=== PATIENT | female | born 1990 | race Caucasian/White ===

== ENCOUNTER → 2017-10-04 12:32 | Outpatient (CLI) | payer OTHER, SELFPAY ==
--- NOTE | 2017-10-04 12:40 | RAD_ITS ---
STUDY: X-RAY - ACUTE ABDOMINAL SERIES REASON FOR EXAM: Female, 27 years old. Lower abdominal pain for 10 days with nausea, vomiting and diarrhea for about 6 days. TECHNIQUE: Single view of the chest. Supine and upright, 2 view(s) of the abdomen were obtained. COMPARISON: Prior chest radiograph of August 17, 2014 FINDINGS: The lungs are clear and expanded. Normal size heart. Normal mediastinum and rossi. Normal visualized pulmonary arteries. Normal visualized aortic arch and descending thoracic aorta. There is a non-specific bowel gas pattern. The soft tissue structures of the abdomen and pelvis are unremarkable. Normal visualized osseous structures. RAD/Acute Abd Inc Chest (Portable) IMPRESSION: Normal x-ray examination of the chest, abdomen, and pelvis. Electronically Signed: Lenore Isaac MD at 23:01 EDT , Service support ,
[2017-10-04 14:41] LABS: ALB/GLOB Ratio 0.9 RATIO (0.9-2.4); AST(SGOT) 19 U/L (15-37); Alanine Aminotransfer ALT/SGPT 26 U/L (13-56); Albumin, Serum 3.7 g/dL (3.2-5.0); Alkaline Phosphatase 147 U/L (45-117); Anion Gap 7 (5-15); BUN 17 mg/dL (7-18); BUN/Creat Ratio 19.3 RATIO (10-20); CRP 4.34 mg/L (0.0-3.0); Calcium,Total 8.7 mg/dL (8.5-10.1); Chloride 105 mmol/L (98-107); Creatinine, Serum 0.88 mg/dL (0.55-1.02); EST Glomerular Filtration Rate 81 mL/min (>60); Est Glom Filt Rate - Afr Amer 99 mL/min (>60); Globulin 4.1 g/dL (2.2-4.2); Glucose 84 mg/dL (74-106); Potassium 4.2 mmol/L (3.5-5.1); Protein, Total 7.8 g/dL (6.4-8.2); Sodium Level 139 mmol/L (136-145)
== END ==
PROVIDERS: Family Provider Family Medicine; PCP Family Medicine; Visit Provider Family Medicine
DX: R10.30 Lower abdominal pain, unspecified (principal); R19.7 Diarrhea, unspecified
CPT/HCPCS: 36415; 74022; 80053; 86140

== ENCOUNTER → 2017-10-04 14:23 | Outpatient (CLI) | payer OTHER, SELFPAY | PROVIDERS: Family Provider Family Medicine; PCP Family Medicine; Visit Provider Family Medicine | DX: R82.90 Unspecified abnormal findings in urine (principal) | CPT/HCPCS: 87086; 87088 ==

== ENCOUNTER 2018-04-08 07:53 | Outpatient (RCR) | payer OTHER, SELFPAY ==
--- NOTE | 2018-04-08 08:52 | HP.PTEVAL_ITS ---
Patient's Visit Information JAHAIRA GENTILE is a 27 year old F referred to Physical Therapy by Bigg Flynn DPM with a diagnosis of B plantarfascitis. Date of Evaluation: 04/08/18 Physical Therapist: Jonathan Gentile PT, - Visit Plan Frequency: 2-3x /Week Duration: 3 Weeks Plan: B foot stretching, DTR, stick roll out, US, and CP - Subjective Subjective: Pt reports she has been in pain for over 3 months. Pt reports she had xrays taken, and they never told her the results so she thinks they were normal. Pt reports she had this before and was placed in an orthopedic boot. Pt reports she does wear insoles in her shoes that she purchased over the counter. Pt reports her pain is constant in nature, although her pain intensity varies based on her acitivty being performed. Pt reports prolonged walking, like when she goes to get groceries, causes her increased pain. No T or N in LE's on this date. Pt reports no sleep difficulty secondary to pain. L is worse than R foot. L foot pain is 6/10 at rest, 10/10 at worst. - Pain B feet Pain Intensity (Out of 10): 6 Pain Intensity Range: 10 Comment: L foot is worse than R foot - Objective Neuro: B LE sensation is WNL to light touch. Palpation: Pt is very tender on the ant portion of her bilat calcaneous. No obvious deformity. ROM: R foot DF= 0, PF= 62; L foot DF= -15, PF= 62 degrees. MMT: B ankles are 5/5 throughout. Foot posture: Pt is pes cavus bilaterally - Goals Goal 1:: Decrease B foot pain x 50% to aid with increasing tolerance for gait Goal Time Frame: 2-4 Weeks Goal 2:: Pt will be able to perform her normal grocery shopping without being limited by pain Goal Time Frame: 2-4 Weeks Goal 3:: I with HEP Goal Time Frame: 2-4 Weeks - Rehabilitation Potential Physical Therapy Diagnosis: Pt has B foot pain and difficulty with walking prolonged distance secondary to B plantarfascitis Rehabilitation Potential: Good - Anticipated Interventions Patient/Client Instruction: Educate patient on: Condition, Plan of Care For the Purpose of:: To improve self management Manual Therapy Techniques to Include: Soft tissue mobilization For the Purpose of:: To decrease pain Cryotherapy (ice pack, ice massage): Yes Ultrasound (thermal/non thermal): Yes For the Purpose of:: To decrease pain Thank you for the opportunity to evaluate your patient. For Medicare and Medicare HMO plans, please review the plan of care and approve it. It will need to be FAXED BACK to us at [phone] for Medicare purposes. Please let me know if there are questions or concerns regarding this plan of care. Physician Signature: ___Date:
--- NOTE | 2018-07-29 10:34 | HP.PT.NRP ---
HP - Discharge Summary (1) - Patient Information JAHAIRA GENTILE was seen in my office for initial evaluation on 04/08/18. The following Plan of Care was established for this patient: Initial Frequency: 2-3x /Week Initial Duration: 3 Weeks - Anticipated Interventions Patient/Client Instruction: Educate patient on: Condition, Plan of Care For the Purpose of:: To improve self management Manual Therapy Techniques to Include: Soft tissue mobilization For the Purpose of:: To decrease pain Cryotherapy (ice pack, ice massage): Yes Ultrasound (thermal/non thermal): Yes For the Purpose of:: To decrease pain This patient was last seen in our office . Pertinent comments regarding their Physical therapy will appear below: Pt was last seen for her B foot pain on the date of 04/21/18 for her 5th PT visit. Pt has not returned through todays date, and is therefore discontinued at this time At this point I will be discontinuing this patient from physical therapy. I would be happy to see this patient again in the future if found appropriate by the physician. Thank you! Jonathan Gentile, PT, ATC
== END 2018-04-08 19:00 | disposition home or self-care (01) ==
LOC: PT 07:53
PROVIDERS: Family Provider Family Medicine; PCP Family Medicine; Referring Provider Podiatrist Foot & Ankle Surgery; Visit Provider Podiatrist Foot & Ankle Surgery
DX: M72.2 Plantar fascial fibromatosis (principal)
CPT/HCPCS: 97162

== ENCOUNTER → 2018-06-05 13:43 | Outpatient (CLI) | payer OTHER, SELFPAY ==
[2017-07-10 17:04] VITALS: BMI 33.5
[2018-06-07 09:19] LABS: Hep B Surface Antibodies Reactive (.)
--- OUTSIDE RECORDS SUMMARY | 2018-07-31 18:20 | XMS RPT_ITS ---
:1990 Author Organization OHIP Care Team Providers Name Role Phone DEIRDRE MAIER (MINERVA) Attending Unavailable DEIRDRE MAIER (MINERVA) Attending Unavailable LAURA LOPEZ Attending Unavailable DEIRDRE MAIER (MINERVA) Referring Unavailable SILVANA MORATAYA Attending Unavailable DEIRDRE MAIER (MINERVA) Attending Unavailable DEIRDRE MAIER (MINERVA) Referring Unavailable LAURA LOPEZ Attending Unavailable DEIRDRE MAIER (ALESIAM) Referring Unavailable DEIRDRE MAIER (MINERVA) Referring Unavailable SILVANA MORATAYA Attending Unavailable GREGORIA MONTENEGRO Attending Unavailable CATRINA SARAH GREGORIA Referring Unavailable KAPUTTAMMI ([facility]) Referring Unavailable ALAYNA TAVAREZ ([facility]) Attending Unavailable KAPTAMMI GAMEZ ([facility]) Referring Unavailable MADIHAARELY ([facility]) Attending Unavailable MADIHA, ARELY ([facility]) Referring Unavailable NEEMILIANO SARAH, GREGORIA Attending Unavailable LAURA LOPEZ Attending Unavailable MARCELINO MONTENEGRORE Referring Unavailable TESTRAKE, SENIA Attending Unavailable SHANEL ROMO Referring Unavailable TESTRAKE, SENIA Attending Unavailable TESTRAKE, SENIA Referring Unavailable TESTRAKE, SENIA Attending Unavailable TESTRAKE, SENIA Referring Unavailable [facility] Unavailable Silvana Morataya Admitting Unavailable Silvana Morataya Attending Unavailable Adal Dorantes Attending Unavailable Adal Dorantes Referring Unavailable [facility] Unavailable Adal Dorantes Attending Un[facility] Unavailable Testrake, Senia Attending Unavailable [facility] Unavailable Testrake, Senia Referring [facility] Unavailable [facility] Unavailable PROBLEMS PROBLEMS DATE TYPE CONDITION / CODE ATTENDING STATUS SOURCE 05/20/2018 Unknown 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, 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 / Hospital M72.2(ICD-10) Repository 02/12/2018 Active Irregular NA Active [facility] menstruation, [place] unspecified / Repository N92.6(ICD-10) 01/03/2018 Active 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, (TRANSPORTATION JOB TITLES) [place] unspecified / Repository L73.9(ICD-10) 10/04/2017 Unknown R10.30 - Lower Adal Dorantes Active [place] [facility] pain, [facility] unspecified / Hospital R10.30(ICD-10) Repository 10/03/2017 Active Lower abdominal NA Active [facility] pain, unspecified / [place] R10.30(ICD-10) Repository 08/19/2017 Active Unknown / NEY[place]ART Active [facility] UNK(Unknown) SARAH, [place] GREGORIA Repository 07/16/2017 Active Pelvic and perineal NA Active [facility] pain / [place] R10.2(ICD-10) Repository 07/15/2017 Unknown O80 - Encounter for Silvana Morataya Active [place] full-term [facility] uncomplicated Hospital delivery / Repository O80(ICD-10) 07/05/2017 Active 38 weeks gestation DEIRDRE MAIER Active [facility] of / ([facility]) [facility] Z3A.38(ICD-10) Repository 05/14/2017 Active Encounter for DEIRDRE MAIER Active [facility] supervision of ([facility]) [facility] normal first Repository , third trimester / Z34.03(ICD-10) 06/26/2017 Active 37 weeks gestation DEIRDRE MAIER Active [facility] of / ([facility]) [facility] Z3A.37(ICD-10) Repository PROCEDURES PROCEDURES No Procedure Records FoundRESULTS RESULTS HEP B SURFACE Collected: 06/05/2018 Status: F Source: [place] ANTIBODIES 1:45 PM [facility] [place] CODE TESTS RESULT OUT OF RANGE REFERENCE UNITS LAB L3100.0528 . Normal Hep B Reactive Christiano AB Result Comment: Non Reactive: Inconsistent with immunity, less than 10 mIU/mL Reactive: Consistent with immunity, greater than 9.9 mIU/mL Performed at: - [facility] [address] [id number] [employer] Checker: Anibal Scruggs PhD, Phone: [phone] Performed By: #### [id number] #### [facility] (refer to report for specific site) refer to report for address and phone number PROGRESS Observed: 06/03/2018 Status: COMPLETED Source: MES[place] 8:54 AM [facility] REPOSITORY HNO ID: [id number] Author: Senia Dee Service: (none) Author Type: Physician Type: Progress Notes Filed: 06/03/2018 11:52 AM Note Text: Follow up podiatric office visit for: Chief Complaint: This 27 year old who presents for follow up:b/l arch pain L>R Patient continues with stretching, occasional advil, night splint and icing prn. She had been using the powersteps but feels the powersteps cause more pressure along the arch so she has discontinued this. This has been doing therapy which consists of ultrasound and massage. She does not feel the therapy is making a significant reduction in her pain. The right foot does hurt her but it is not as bad. PAIN EVALUATION 06/03/2018 Pain Score: 4 Pain Location: - Bilateral arches Description: Throbbing Duration Amount of Time: - ongoing Frequency: Continuous Intervention: - Powersteps No results found for: HBA1C PCP: Zaire Sanderson MD PAST MEDICAL HISTORY Diagnosis Date - Asthma - fracture right shoulder, soccer accident Current Outpatient Prescriptions: COMPOUNDED PRESCRIPTION Powerstep full length original(M72.2) Plantar fasciitis, bilateral (primary encounter diagnosis) ibuprofen (MOTRIN) 800 mg tablet Take 800 mg by mouth every 6 hours as needed. ALBUTEROL SULFATE INHALATION Inhale as instructed. methylPREDNISolone (MEDROL, CHRIS,) 4 mg Dose-Pack Take as directed (Patient not taking: Reported on 04/30/2018 ) medroxyPROGESTERone (PROVERA) 5 mg tablet Take 1 tablet by mouth once daily. (Patient not taking: Reported on 04/02/2018 ) No current facility-administered medications for this visit. ALLERGIES Allergen Reactions - Adhesive Hives PAST SURGICAL HISTORY Procedure Laterality Date - BUNION CORRECTION W/METATARSAL OSTEOTOMY 2012 bilatereal foot surgery. - COLONOSCOPY W/BX 10/05/14 normal TI, normal colonoscopy [facility] 10/05/14 minimal reflux esophagitis, o/w normal - PAST SURGICAL HISTORY OF Left 06/2015 removal of screws from prior foot surgery - PAST SURGICAL HISTORY OF Right 01/2016 scope and shave of bone shoulder REVIEW OF SYSTEMS: CONSTITUTIONAL: No fevers, chills, nightsweats, unintended weight loss HEENT: Denies frequent or severe heaches, nasal congestion/sinus symptoms, problematic allergy problems. EYES: No diplopia or blurry vision. CARDIOVASCULAR: No chest pain, dyspnea, palpitations, orthopnea, PND, ankle edema. PULM: No dyspnea, unexplained cough. GI: No dysphagia/odynophagia, problematic reflux, constipation, diarrhea, changes in stool habits, hematochezia, melena. : No new urinary complaints, including dysuria, gross hematuria or pyuria. NEURO: No new balance problems, peripheral weakness/paresthesias or numbness of concern. MUSC-SKEL: Pain of left medial arch PSY: No concerns regarding depression, anxiety or panic. INTEGUMENTARY: No new skin changes (rash, new or changing mole, new growth) Physical Exam: Constitutional: Pt is a well developed 27 year old female who is alert, oriented, cooperative and in no apparent distress. OBJECTIVE: NVSI unchanged from previous visit. Dermatological: Nails 1-5 b/l are normal. Webspaces clean and dry 1-4 b/l. Skin appears well hydrated and supple. good color, texture, turgor. No open lesions present. No callosities present. Musculoskeletal/Orthopaedic: Patient has pain to palpation of left medial calcaneal tubercle. Patient has pain to palpation of left medial band of plantar fascia. - tinel to b/l foot Plantarflexion, dorsiflexion, inversion and eversion is 5/5 ASSESSMENT: (M72.2) Plantar fasciitis, bilateral (primary encounter diagnosis) PLAN: 1. History and physical examination completed today. 2. Discussed pain of b/l foot. Right foot pain has improved. Left foot pain is still present despite stretching, icing, nsaids, inserts, physical therapy, night splint. Discussed injection. Since most of her pain is along the medial band of plantar fascia, recommend boot immobilization. While injection may help with pain at medial calcaneal tubercle, most of her pain is along the fascia so I suspect rest and nsaids may be better option. 3. F/u in 3 weeks. If no improvement, consider mri. Senia Dee DPM PROGRESS Observed: 06/03/2018 Status: COMPLETED Source: MESA 8:43 AM [facility] REPOSITORY HNO ID: [id number] Author: Margie Rees Ma Service: (none) Author Type: (none) Type: Progress Notes Filed: 06/03/2018 11:52 AM Note Text: Patient presents with: Established Patient: 1 month follow up bilateral plantar fasciitis AMB ROOMING INTAKE FLOWSHEET DATA Risk Screening Do you have concerns about personal safety or safety in the home?: No Pain Pain Score: 4/10 Pain Location: (Bilateral arches) Description: Throbbing Duration Amount of Time: (ongoing) Frequency: Continuous Intervention: (Powersteps) Patient states she is continuing to have pain in her arches and is going up into her ankles. Wearing powersteps but states it is putting a lot of pressure on her arches. Taking no med's for the pain. CNOV Observed: 06/03/2018 Status: COMPLETED Source: MESA 8:40 AM [facility] REPOSITORY Office Visit (PODIWS) JAHAIRA VELASQUEZ ([id number]) 1990 F [facility] Date Time Provider Department 06/03/18 8:40 AM SENIA DEE PODBLOSSOM During your visit today, we recorded the following information about you: Margie Cabrera Carlisle 06/03/2018 11:52 AM Signed Patient presents with: Established Patient: 1 month follow up bilateral plantar fasciitis AMB ROOMING INTAKE FLOWSHEET DATA Risk Screening Do you have concerns about personal safety or safety in the home?: No Pain Pain Score: 4/10 Pain Location: (Bilateral arches) Description: Throbbing Duration Amount of Time: (ongoing) Frequency: Continuous Intervention: (Powersteps) Patient states she is continuing to have pain in her arches and is going up into her ankles. Wearing powersteps but states it is putting a lot of pressure on her arches. Taking no med's for the pain. Senia Dee DPM 06/03/2018 11:52 AM Signed Follow up podiatric office visit for: Chief Complaint: This 27 year old who presents for follow up:b/l arch pain L>R Patient continues with stretching, occasional advil, night splint and icing prn. She had been using the powersteps but feels the powersteps cause more pressure along the arch so she has discontinued this. This has been doing therapy which consists of ultrasound and massage. She does not feel the therapy is making a significant reduction in her pain. The right foot does hurt her but it is not as bad. PAIN EVALUATION 06/03/2018 Pain Score: 4 Pain Location: - Bilateral arches Description: Throbbing Duration Amount of Time: - ongoing Frequency: Continuous Intervention: - Powersteps No results found for: HBA1C PCP: Zaire Sanderson MD PAST MEDICAL HISTORY Diagnosis Date - Asthma - fracture right shoulder, soccer accident Current Outpatient Prescriptions: COMPOUNDED PRESCRIPTION Powerstep full length original(M72.2) Plantar fasciitis, bilateral (primary encounter diagnosis) ibuprofen (MOTRIN) 800 mg tablet Take 800 mg by mouth every 6 hours as needed. ALBUTEROL SULFATE INHALATION Inhale as instructed. methylPREDNISolone (MEDROL, CHRIS,) 4 mg Dose-Pack Take as directed (Patient not taking: Reported on 04/30/2018 ) medroxyPROGESTERone (PROVERA) 5 mg tablet Take 1 tablet by mouth once daily. (Patient not taking: Reported on 04/02/2018 ) No current facility-administered medications for this visit. ALLERGIES Allergen Reactions - Adhesive Hives PAST SURGICAL HISTORY Procedure Laterality Date - BUNION CORRECTION W/METATARSAL OSTEOTOMY 2012 bilatereal foot surgery. - COLONOSCOPY W/BX 10/05/14 normal TI, normal colonoscopy - EGD W/O [facility] SPECIMEN W/BX 10/05/14 minimal reflux esophagitis, o/w normal - PAST SURGICAL HISTORY OF Left 06/2015 removal of screws from prior foot surgery - PAST SURGICAL HISTORY OF Right 01/2016 scope and shave of bone shoulder REVIEW OF SYSTEMS: CONSTITUTIONAL: No fevers, chills, nightsweats, unintended weight loss HEENT: Denies frequent or severe heaches, nasal congestion/sinus symptoms, problematic allergy problems. EYES: No diplopia or blurry vision. CARDIOVASCULAR: No chest pain, dyspnea, palpitations, orthopnea, PND, ankle edema. PULM: No dyspnea, unexplained cough. GI: No dysphagia/odynophagia, problematic reflux, constipation, diarrhea, changes in stool habits, hematochezia, melena. : No new urinary complaints, including dysuria, gross hematuria or pyuria. NEURO: No new balance problems, peripheral weakness/paresthesias or numbness of concern. MUSC-SKEL: Pain of left medial arch PSY: No concerns regarding depression, anxiety or panic. INTEGUMENTARY: No new skin changes (rash, new or changing mole, new growth) Physical Exam: Constitutional: Pt is a well developed 27 year old female who is alert, oriented, cooperative and in no apparent distress. OBJECTIVE: NVSI unchanged from previous visit. Dermatological: Nails 1-5 b/l are normal. Webspaces clean and dry 1-4 b/l. Skin appears well hydrated and supple. good color, texture, turgor. No open lesions present. No callosities present. Musculoskeletal/Orthopaedic: Patient has pain to palpation of left medial calcaneal tubercle. Patient has pain to palpation of left medial band of plantar fascia. - tinel to b/l foot Plantarflexion, dorsiflexion, inversion and eversion is 5/5 ASSESSMENT: (M72.2) Plantar fasciitis, bilateral (primary encounter diagnosis) PLAN: 1. History and physical examination completed today. 2. Discussed pain of b/l foot. Right foot pain has improved. Left foot pain is still present despite stretching, icing, nsaids, inserts, physical therapy, night splint. Discussed injection. Since most of her pain is along the medial band of plantar fascia, recommend boot immobilization. While injection may help with pain at medial calcaneal tubercle, most of her pain is along the fascia so I suspect rest and nsaids may be better option. 3. F/u in 3 weeks. If no improvement, consider mri. MERCEDEZ Boyd RN 06/03/2018 9:00 AM Signed Start wearing boot. Referring Provider: SENIA DEE [[id number]] Allergies As of Date: 06/03/2018 Noted Allergy Reaction ADHESIVE 08/08/2015 4 - Hives Date Reviewed: 06/03/2018 Reviewed by: Margie Rees Ma - Fully Assessed Reason for Visit: Established Patient [175] Cmt: 1 month follow up bilateral plantar fasciitis Primary Visit Diagnosis:Plantar fasciitis, bilateral [M72.2] Prescriptions as of 06/03/2018 Sig: COMPOUNDED PRESCRIPTION Powerstep full length origina* IBUPROFEN 800 MG TABLET Take 800 mg by mouth every 6 * ALBUTEROL SULFATE INHALATION Inhale as instructed. METHYLPREDNISOLONE 4 MG TABLE* Take as directed Patient not taking: Reported on 04/30/2018 MEDROXYPROGESTERONE 5 MG TABL* Take 1 tablet by mouth once d* Patient not taking: Reported on 04/02/2018 Problem List As Of Date 06/03/2018 Noted Resolved Blood in stool [K92.1] INVALID FOR*01/14/2017 Abdominal pain, right lower quadrant [R10.31] INVALID FOR*01/14/2017 Asthma [J45.909] INVALID FOR* More... Encounter for supervision of normal first pregn*INVALID FOR*08/19/2017 History of foreign travel [Z78.9] INVALID FOR*08/19/2017 More... Rh negative state in antepartum period [O09.899]INVALID FOR*08/19/2017 More... Intrauterine growth restriction (IUGR) affectin*INVALID FOR*08/19/2017 Other instructions from your clinician: Start wearing boot. Disposition: Return in about 3 weeks (around 06/24/2018) for plantar fasciitis. Follow-up and Disposition History Recorded Encounter Status:Closed by SENIA DEE DPM on 06/03/18 CNOV Observed: 04/30/2018 Status: COMPLETED Source: MESA 3:40 PM [facility] REPOSITORY Office Visit (PODIWS) JAHAIRA VELASQUEZ ([id number]) 1990 F [place] Date Time Provider Department 04/30/18 3:40 PM SENIA DEE PODIWS During your visit today, we recorded the following information about you: Josi Sr RN 04/30/2018 3:38 PM Signed AMB ROOMING INTAKE FLOWSHEET DATA Risk Screening Do you have concerns about personal safety or safety in the home?: No Pain Pain Score: 3/10 (3-8/10) Pain Location: Foot-Left Description: Aching, Sharp Duration Amount of Time: 3 Duration Units: Months Frequency: Continuous Intervention: Relaxation, Other: See comment (PT, stretching, inserts, ice. steroid, night splint) Patient is here for f/u of plantar fasciitis, B/L. She states R foot is better but still having pain in L foot that varies in intensity. She has been icing, stretching, taking NSAIDS, oral steroid and tried a night splint but nothing so far is helping. She is currently in PT which consists of stretches and US massage. Senia Dee DPM 04/30/2018 3:38 PM Signed Follow up podiatric office visit for: Chief Complaint: This 27 year old who presents for follow up:b/l arch pain Patient has been doing stretching, icing, nsaids, therapy with ultrasound, night splint and inserts. Patient states the pain in right foot is very minimal Patient states the left foot pain is still very much present and varies between 3-8/10. She describes the pain to left foot is along the medial band of plantar fascia. PAIN EVALUATION 04/30/2018 Pain Score: 3 3-8/10 Pain Location: Foot-Left Description: Aching;Sharp Duration Amount of Time: 3 Duration Units: Months Frequency: Continuous Intervention: Relaxation;Other: See comment PT, stretching, inserts, ice. steroid, night splint No results found for: HBA1C PCP: Zaire Sanderson MD PAST MEDICAL HISTORY Diagnosis Date - Asthma - fracture right shoulder, soccer accident Current Outpatient Prescriptions: COMPOUNDED PRESCRIPTION Powerstep full length original(M72.2) Plantar fasciitis, bilateral (primary encounter diagnosis) ibuprofen (MOTRIN) 800 mg tablet Take 800 mg by mouth every 6 hours as needed. ALBUTEROL SULFATE INHALATION Inhale as instructed. methylPREDNISolone (MEDROL, CHRIS,) 4 mg Dose-Pack Take as directed (Patient not taking: Reported on 04/30/2018 ) medroxyPROGESTERone (PROVERA) 5 mg tablet Take 1 tablet by mouth once daily. (Patient not taking: Reported on 04/02/2018 ) No current facility-administered medications for this visit. ALLERGIES Allergen Reactions - Adhesive Hives PAST SURGICAL HISTORY Procedure Laterality Date - BUNION CORRECTION W/METATARSAL OSTEOTOMY 2012 bilatereal foot surgery. - COLONOSCOPY W/BX 10/05/14 normal TI, normal colonoscopy - EGD W/O [facility] SPECIMEN W/BX 10/05/14 minimal reflux esophagitis, o/w normal - PAST SURGICAL HISTORY OF Left 06/2015 removal of screws from prior foot surgery - PAST SURGICAL HISTORY OF Right 01/2016 scope and shave of bone shoulder Physical Exam: Constitutional: Pt is a well developed 27 year old female who is alert, oriented, cooperative and in no apparent distress. OBJECTIVE: NVSI unchanged from previous visit. Dermatological: Nails 1-5 b/l are normal. Webspaces clean and dry 1-4 b/l. Skin appears well hydrated and supple. good color, texture, turgor. No open lesions present. No callosities present. Musculoskeletal/Orthopaedic: Patient has pain to palpation of left medial band of plantar fascia - tinel There is lowering of medial arch of left foot Plantarflexion, dorsiflexion, inversion and eversion is 5/5 No pain to right foot ASSESSMENT: (M72.2) Plantar fasciitis, bilateral (primary encounter diagnosis) PLAN: 1. History and physical examination completed today. 2. Patient right arch pain has improved with oral steroid, stretching, icing, powerstep inserts. Her left arch pain is still present. Most of her pain is along fascia. There is some pain along medial calcaneal tubercle. Suggest continue with stretching, icing, nsaids, inserts, night splint, therapy. I offered injectoin to medial heel today but she declined. 3. Will have her f/u in 1 month. If no improvement, consider boot Senia Dee DPM Referring Provider: SENIA DEE [[id number]] Allergies As of Date: 04/30/2018 Noted Allergy Reaction ADHESIVE 08/08/2015 4 - Hives Date Reviewed: 04/30/2018 Reviewed by: Josi Sr RN - Fully Assessed Reason for Visit: Follow Up [171] Primary Visit Diagnosis:Plantar fasciitis, bilateral [M72.2] Prescriptions as of 04/30/2018 Sig: COMPOUNDED PRESCRIPTION Powerstep full length origina* IBUPROFEN 800 MG TABLET Take 800 mg by mouth every 6 * ALBUTEROL SULFATE INHALATION Inhale as instructed. METHYLPREDNISOLONE 4 MG TABLE* Take as directed Patient not taking: Reported on 04/30/2018 MEDROXYPROGESTERONE 5 MG TABL* Take 1 tablet by mouth once d* Patient not taking: Reported on 04/02/2018 Problem List As Of Date 04/30/2018 Noted Resolved Blood in stool [K92.1] INVALID FOR*01/14/2017 Abdominal pain, right lower quadrant [R10.31] INVALID FOR*01/14/2017 Asthma [J45.909] INVALID FOR* More... Encounter for supervision of normal first pregn*INVALID FOR*08/19/2017 History of foreign travel [Z78.9] INVALID FOR*08/19/2017 More... Rh negative state in antepartum period [O09.899]INVALID FOR*08/19/2017 More... Intrauterine growth restriction (IUGR) affectin*INVALID FOR*08/19/2017 Disposition: Return in about 1 month (around 05/31/2018) for plantar fasciitis. Follow-up and Disposition History Recorded Encounter Status:Closed by SENIA DEE DPM on 04/30/18 PROGRESS Observed: 04/30/2018 Status: COMPLETED Source: MESA 3:27 PM [facility] [place] REPOSITORY HNO ID: [id number] Author: Senia Dee Service: (none) Author Type: Physician Type: Progress Notes Filed: 04/30/2018 3:38 PM Note Text: Follow up podiatric office visit for: Chief Complaint: This 27 year old who presents for follow up:b/l arch pain Patient has been doing stretching, icing, nsaids, therapy with ultrasound, night splint and inserts. Patient states the pain in right foot is very minimal Patient states the left foot pain is still very much present and varies between 3-8/10. She describes the pain to left foot is along the medial band of plantar fascia. PAIN EVALUATION 04/30/2018 Pain Score: 3 3-8/10 Pain Location: Foot-Left Description: Aching;Sharp Duration Amount of Time: 3 Duration Units: Months Frequency: Continuous Intervention: Relaxation;Other: See comment PT, stretching, inserts, ice. steroid, night splint No results found for: HBA1C PCP: Zaire Sanderson MD PAST MEDICAL HISTORY Diagnosis Date - Asthma - fracture right shoulder, soccer accident Current Outpatient Prescriptions: COMPOUNDED PRESCRIPTION Powerstep full length original(M72.2) Plantar fasciitis, bilateral (primary encounter diagnosis) ibuprofen (MOTRIN) 800 mg tablet Take 800 mg by mouth every 6 hours as needed. ALBUTEROL SULFATE INHALATION Inhale as instructed. methylPREDNISolone (MEDROL, CHRIS,) 4 mg Dose-Pack Take as directed (Patient not taking: Reported on 04/30/2018 ) medroxyPROGESTERone (PROVERA) 5 mg tablet Take 1 tablet by mouth once daily. (Patient not taking: Reported on 04/02/2018 ) No current facility-administered medications for this visit. ALLERGIES Allergen Reactions - Adhesive Hives PAST SURGICAL HISTORY Procedure Laterality Date - BUNION CORRECTION W/METATARSAL OSTEOTOMY 2012 bilatereal foot surgery. - COLONOSCOPY W/BX 10/05/14 normal TI, normal colonoscopy - EGD W/O [facility] SPECIMEN W/BX 10/05/14 minimal reflux esophagitis, o/w normal - PAST SURGICAL HISTORY OF Left 06/2015 removal of screws from prior foot surgery - PAST SURGICAL HISTORY OF Right 01/2016 scope and shave of bone shoulder Physical Exam: Constitutional: Pt is a well developed 27 year old female who is alert, oriented, cooperative and in no apparent distress. OBJECTIVE: NVSI unchanged from previous visit. Dermatological: Nails 1-5 b/l are normal. Webspaces clean and dry 1-4 b/l. Skin appears well hydrated and supple. good color, texture, turgor. No open lesions present. No callosities present. Musculoskeletal/Orthopaedic: Patient has pain to palpation of left medial band of plantar fascia - tinel There is lowering of medial arch of left foot Plantarflexion, dorsiflexion, inversion and eversion is 5/5 No pain to right foot ASSESSMENT: (M72.2) Plantar fasciitis, bilateral (primary encounter diagnosis) PLAN: 1. History and physical examination completed today. 2. Patient right arch pain has improved with oral steroid, stretching, icing, powerstep inserts. Her left arch pain is still present. Most of her pain is along fascia. There is some pain along medial calcaneal tubercle. Suggest continue with stretching, icing, nsaids, inserts, night splint, therapy. I offered injectoin to medial heel today but she declined. 3. Will have her f/u in 1 month. If no improvement, consider piyushot Senia Dee DPM PROGRESS Observed: 04/30/2018 Status: COMPLETED Source: [place] 3:22 PM [facility] REPOSITORY HNO ID: [id number] Author: Josi Sr RN Service: (none) Author Type: (none) Type: Progress Notes Filed: 04/30/2018 3:38 PM Note Text: AMB ROOMING INTAKE FLOWSHEET DATA Risk Screening Do you have concerns about personal safety or safety in the home?: No Pain Pain Score: 3/10 (3-8/10) Pain Location: Foot-Left Description: Aching, Sharp Duration Amount of Time: 3 Duration Units: Months Frequency: Continuous Intervention: Relaxation, Other: See comment (PT, stretching, inserts, ice. steroid, night splint) Patient is here for f/u of plantar fasciitis, B/L. She states R foot is better but still having pain in L foot that varies in intensity. She has been icing, stretching, taking NSAIDS, oral steroid and tried a night splint but nothing so far is helping. She is currently in PT which consists of stretches and US massage. INITAL EVALUATION (1) Observed: 04/08/2018 Status: F Source: [place] - PT 8:52 AM [facility] [place] [facility] [address] [place] [address] Fax REHABILITATION SERVICES INITIAL EVALUATION MR#: [id number] Acct: [id number] Name: JAHAIRA VELASQUEZ Rep #: [id number] : 1990 27 From: Jonathan Velasquez PT, ATC Referring Dr.: MERCEDEZ Dee Status: REG RCR Insurance: [employer] [facility] [employer] Patient's Visit Information JAHAIRA VELASQUEZ is a 27 year old F referred to Physical Therapy by Senia Dee DPM with a diagnosis of B plantarfascitis. Date of Evaluation: 04/08/18 Physical Therapist: Jonathan Velasquez PT, - Visit Plan Frequency: 2-3x /Week Duration: 3 Weeks Plan: B foot stretching, DTR, stick roll out, US, and CP - Subjective Subjective: Pt reports she has been in pain for over 3 months. Pt reports she had xrays taken, and they never told her the results so she thinks they were normal. Pt reports she had this before and was placed in an orthopedic boot. Pt reports she does wear insoles in her shoes that she purchased over the counter. Pt reports her pain is constant in nature, although her pain intensity varies based on her acitivty being performed. Pt reports prolonged walking, like when she goes to get groceries, causes her increased pain. No T or N in LE's on this date. Pt reports no sleep difficulty secondary to pain. L is worse than R foot. L foot pain is 6/10 at rest, 10/10 at worst. - Pain B feet Pain Intensity (Out of 10): 6 Pain Intensity Range: 10 Comment: L foot is worse than R foot - Objective Neuro: B LE sensation is WNL to light touch. Palpation: Pt is very tender on the ant portion of her bilat calcaneous. No obvious deformity. ROM: R foot DF= 0, PF= 62; L foot DF= -15, PF= 62 degrees. MMT: B ankles are 5/5 throughout. Foot posture: Pt is pes cavus bilaterally - Goals Goal 1:: Decrease B foot pain x 50% to aid with increasing tolerance for gait Goal Time Frame: 2-4 Weeks Goal 2:: Pt will be able to perform her normal grocery shopping without being limited by pain Goal Time Frame: 2-4 Weeks Goal 3:: I with HEP Goal Time Frame: 2-4 Weeks - Rehabilitation Potential Physical Therapy Diagnosis: Pt has B foot pain and difficulty with walking prolonged distance secondary to B plantarfascitis Rehabilitation Potential: Good - Anticipated Interventions Patient/Client Instruction: Educate patient on: Condition, Plan of Care For the Purpose of:: To improve self management Manual Therapy Techniques to Include: Soft tissue mobilization For the Purpose of:: To decrease pain Cryotherapy (ice pack, ice massage): Yes Ultrasound (thermal/non thermal): Yes For the Purpose of:: To decrease pain Thank you for the opportunity to evaluate your patient. For Medicare and Medicare HMO plans, please review the plan of care and approve it. It will need to be FAXED BACK to us at [phone] for Medicare purposes. Please let me know if there are questions or concerns regarding this plan of care. Physician Signature: Date: <Electronically signed by Jonathan Velasquez PT, ATC> 04/08/18 0852 CC: MERCEDEZ Dee; Zaire Sanderson MD [facility] Signed For Medicare only, by signing this I certify the plan of care. Physicians Signature Date PROGRESS Observed: 04/02/2018 Status: COMPLETED Source: [place] 8:41 AM [facility] REPOSIT[facility] O ID: [id number] Author: Senia Dee Service: (none) Author Type: Physician Type: Progress Notes Filed: 04/02/2018 12:09 PM Note Text: ? Senia Dee DPM Department of Podiatry [address] [place] [address] Dept: [phone] Dept 04/02/[address] Room for an opinion regarding b/l heel pain. My final recommendations will be communicated back to the requesting physician by way of shared Medical record or letter to requesting physician via US mail. Initial Podiatric Office Visit: HPI: Jahaira Velasquez is a 27 year old female. Patient presents with:Bilateral foot pain, left greater then right for the past 3 months. Patient complains of constant pain. Pain is rated at 6/10, and described as stabbing, throbbing/pounding, sharp and tightness. Interventions include: NSIDS, ice and night splint with no relief. Patient no excerbating factors. Patient is not a smoker. Patient not a diabetic. Patient was seen by another Podiatist to see me. History of [place] Bunion surgery, /l 2012. Patient brought records. She has no pain to b/l 5th metatarsal s/p tailors bunion correction. Patient denies any recent steroid injection. Patient has had orthotics in the past but is not using them currently Patient has not had any therapy for the heel pain. Patient had plantar fasciitis in past and was treated with boot x 3 month The preliminary HPI obtained by the crown and bridge dental lab technician was explained in detail with the patient and my findings have been incorporated in the documentation. Senia Dee DPM PCP: Zaire Sanderson MD PAST MEDICAL HISTORY Diagnosis Date - Asthma - fracture right shoulder, soccer accident Current Outpatient Prescriptions: ALBUTEROL SULFATE INHALATION Inhale as instructed. medroxyPROGESTERone (PROVERA) 5 mg tablet Take 1 tablet by mouth once daily. (Patient not taking: Reported on 04/02/2018 ) ibuprofen (MOTRIN) 800 mg tablet Take 800 mg by mouth every 6 hours as needed. No current facility-administered medications for this visit. ALLERGIES Allergen Reactions - Adhesive Hives PAST SURGICAL HISTORY Procedure Laterality Date - BUNION CORRECTION W/METATARSAL OSTEOTOMY 2012 bilatereal foot surgery. - COLONOSCOPY W/BX 10/05/14 normal TI, normal colonoscopy - EGD W/O BRSH SPECIMEN W/BX 10/05/14 minimal reflux esophagitis, o/w normal - PAST SURGICAL HISTORY OF Left 06/2015 removal of screws from prior foot surgery - PAST SURGICAL HISTORY OF Right 01/2016 scope and shave of bone shoulder FAMILY HISTORY Problem Relation Age of Onset - Thyroid Mother - Hypertension Father - Heart Father - Breast Cancer Maternal Grandmother - Diabetes Maternal Grandmother - Heart Paternal Grandmother - Heart Paternal Grandfather - Heart Maternal Grandfather Social History Marital status: Spouse name: Earl Years of education: 19 Number of children: 0 Occupational History Occupation Employer Comment [employer] Social History Main Topics Smoking status: Never Smoker Smokeless tobacco: Never Used Alcohol use: No Drug use: No Sexual activity: Yes Partners with: Male REVIEW OF SYSTEMS: CONSTITUTIONAL: No fevers, chills, nightsweats, unintended weight loss HEENT: Denies frequent or severe heaches, nasal congestion/sinus symptoms, problematic allergy problems. EYES: No diplopia or blurry vision. CARDIOVASCULAR: No chest pain, dyspnea, palpitations, orthopnea, PND, ankle edema. PULM: No dyspnea, unexplained cough. GI: No dysphagia/odynophagia, problematic reflux, constipation, diarrhea, changes in stool habits, hematochezia, melena. : No new urinary complaints, including dysuria, gross hematuria or pyuria. NEURO: No new balance problems, peripheral weakness/paresthesias or numbness of concern. MUSC-SKEL: B/l heel pain PSY: No concerns regarding depression, anxiety or panic. INTEGUMENTARY: No new skin changes (rash, new or changing mole, new growth) Physical Exam: Constitutional: Pt is a well developed 27 year old female who is alert, oriented and cooperative Eyes: Following during examination. No redness or drainage. Respiratory: RR normal and nonlabored. Even breathing. No evidence of distress or shortness of breath. Psychology: Patient is engaged during conversation. Normal affect and mood. Does not appear depressed or anxious during encounter. Vascular: Dorsalis pedis and posterior tibial pulses palpable as b/l Capillary Fill time < 5 seconds to digits 1-5 b/l Skin temperature warm to warm proximal to distal b/l Hair growth present to digits Neurological: intact light touch/epicritic sensation - tinel b/l intact protective sensation, insignificant neurological deficits Dermatological: Nails 1-5 b/l appear Normal. Webspaces clean and dry 1-4 b/l. Skin appears well hydrated and supple. good color, texture, turgor. Callosities absent. .Open lesions absent. Wound: Not present. Musculoskeletal/Orthopaedic: Patient has pain to palpation of medial longitudinal arch b/l and some pain present to medial calcaneal tubercle Foot type is neutral structurally AJ ROM is full with knee extended and flexed 1st MPJ is full when loaded and no pain or crepitus are noted with ROM. MTJ, STJ are full and free of pain and crepitus. +5/5 muscle strength dorsiflexion, plantarflexion, inversion, eversion b/l ASSESSMENT: (M72.2) Plantar fasciitis, bilateral (primary encounter diagnosis) PLAN: 1. Initial Office Visit - A thorough review of the patient's PMH and Podiatric physical exam was completed. 2. Patient advised to perform stretching excercises, icing, and to make appropriate shoe gear changes to include wearing athletic- type shoes with supportive insoles. No barefoot walking. Patient also given written instructions on how to correctly perform the stretching of the achilles tendon/calf stretches, and the heel spur/plantar fasciitis regimen. 3. Patient advised to seek wide, deep toe box, accomodative, comfortable, lace-up, athletic/walking type footwear that includes motion control characteristics for support and cushion that need to be worn at all times when weight-bearing. Shoes should be tested for torsional stability as well as proper bending at the toebox rather than at the midfoot. Good quality shoes such as, but not limited to, New Balance or Asics are examples of more proper foot gear. 4. Patient recommended to get powerstep insoles for proper support of the arch in order to alleviate the tension and stress on the plantar fascia associated with normal daily walking. Patient advised that these modalities used in conjunction with stretching and icing are able to alleviate most symptoms from this condition. 5. I recommend she continue with nsaids as needed, stretching, use of inserts and referral to therapy. Oral steroid prescribed today. Discussed steroid injection. Her pain is mostly along the medial longitudinal arch and therefore, I would hold on injection for now in favor of recommendations noted above and therapy 6. F/u in 1 month Senia Dee DPM CNOV Observed: 04/02/2018 Status: COMPLETED Source: [facility] 8:10 AM [facility] REPOSITORY Office Visit (PODIWS) ALEXANDRU VELASQUEZCY Nuvia ([id number]) 1990 F MAL Date Time Provider Department 04/02/18 8:10 AM SENIA DEE During your visit today, we recorded the following information about you: Senia Dee DPM 04/02/2018 12:09 PM Signed ? Senia Dee DPM Department of Podiatry [address] [place] [address] Dept: [phone] Dept 04/02/[address] Romo for an opinion regarding b/l heel pain. My final recommendations will be communicated back to the requesting physician by way of shared Medical record or letter to requesting physician via US mail. Initial Podiatric Office Visit: HPI: Jahaira Velasquez is a 27 year old female. Patient presents with:Bilateral foot pain, left greater then right for the past 3 months. Patient complains of constant pain. Pain is rated at 6/10, and described as stabbing, throbbing/pounding, sharp and tightness. Interventions include: NSIDS, ice and night splint with no relief. Patient no excerbating factors. Patient is not a smoker. Patient not a diabetic. Patient was seen by another Podiatist to see me. History of [place] Bunion surgery, b/l 2012. Patient brought records. She has no pain to b/l 5th metatarsal s/p tailors bunion correction. Patient denies any recent steroid injection. Patient has had orthotics in the past but is not using them currently Patient has not had any therapy for the heel pain. Patient had plantar fasciitis in past and was treated with boot x 3 month The preliminary HPI obtained by the crown and bridge dental lab technician was explained in detail with the patient and my findings have been incorporated in the documentation. Senia Dee DPM PCP: Zaire Sanderson MD PAST MEDICAL HISTORY Diagnosis Date - Asthma - fracture right shoulder, soccer accident Current Outpatient Prescriptions: ALBUTEROL SULFATE INHALATION Inhale as instructed. medroxyPROGESTERone (PROVERA) 5 mg tablet Take 1 tablet by mouth once daily. (Patient not taking: Reported on 04/02/2018 ) ibuprofen (MOTRIN) 800 mg tablet Take 800 mg by mouth every 6 hours as needed. No current facility-administered medications for this visit. ALLERGIES Allergen Reactions - Adhesive Hives PAST SURGICAL HISTORY Procedure Laterality Date - BUNION CORRECTION W/METATARSAL OSTEOTOMY 2012 bilatereal foot surgery. - COLONOSCOPY W/BX 10/05/14 normal TI, normal colonoscopy - EGD W/O BRSH SPECIMEN W/BX 10/05/14 minimal reflux esophagitis, o/w normal - PAST SURGICAL HISTORY OF Left 06/2015 removal of screws from prior foot surgery - PAST SURGICAL HISTORY OF Right 01/2016 scope and shave of bone shoulder FAMILY HISTORY Problem Relation Age of Onset - Thyroid Mother - Hypertension Father - Heart Father - Breast Cancer Maternal Grandmother - Diabetes Maternal Grandmother - Heart Paternal Grandmother - Heart Paternal Grandfather - Heart Maternal Grandfather Social History Marital status: Spouse name: Earl Years of education: 19 Number of children: 0 Occupational History Occupation Employer Comment [employer] Social History Main Topics Smoking status: Never Smoker Smokeless tobacco: Never Used Alcohol use: No Drug use: No Sexual activity: Yes Partners with: Male REVIEW OF SYSTEMS: CONSTITUTIONAL: No fevers, chills, nightsweats, unintended weight loss HEENT: Denies frequent or severe heaches, nasal congestion/sinus symptoms, problematic allergy problems. EYES: No diplopia or blurry vision. CARDIOVASCULAR: No chest pain, dyspnea, palpitations, orthopnea, PND, ankle edema. PULM: No dyspnea, unexplained cough. GI: No dysphagia/odynophagia, problematic reflux, constipation, diarrhea, changes in stool habits, hematochezia, melena. : No new urinary complaints, including dysuria, gross hematuria or pyuria. NEURO: No new balance problems, peripheral weakness/paresthesias or numbness of concern. MUSC-SKEL: B/l heel pain PSY: No concerns regarding depression, anxiety or panic. INTEGUMENTARY: No new skin changes (rash, new or changing mole, new growth) Physical Exam: Constitutional: Pt is a well developed 27 year old female who is alert, oriented and cooperative Eyes: Following during examination. No redness or drainage. Respiratory: RR normal and nonlabored. Even breathing. No evidence of distress or shortness of breath. Psychology: Patient is engaged during conversation. Normal affect and mood. Does not appear depressed or anxious during encounter. Vascular: Dorsalis pedis and posterior tibial pulses palpable as b/l Capillary Fill time < 5 seconds to digits 1-5 b/l Skin temperature warm to warm proximal to distal b/l Hair growth present to digits Neurological: intact light touch/epicritic sensation - tinel b/l intact protective sensation, insignificant neurological deficits Dermatological: Nails 1-5 b/l appear Normal. Webspaces clean and dry 1-4 b/l. Skin appears well hydrated and supple. good color, texture, turgor. Callosities absent. .Open lesions absent. Wound: Not present. Musculoskeletal/Orthopaedic: Patient has pain to palpation of medial longitudinal arch b/l and some pain present to medial calcaneal tubercle Foot type is neutral structurally AJ ROM is full with knee extended and flexed 1st MPJ is full when loaded and no pain or crepitus are noted with ROM. MTJ, STJ are full and free of pain and crepitus. +5/5 muscle strength dorsiflexion, plantarflexion, inversion, eversion b/l ASSESSMENT: (M72.2) Plantar fasciitis, bilateral (primary encounter diagnosis) PLAN: 1. Initial Office Visit - A thorough review of the patient's PMH and Podiatric physical exam was completed. 2. Patient advised to perform stretching excercises, icing, and to make appropriate shoe gear changes to include wearing athletic- type shoes with supportive insoles. No barefoot walking. Patient also given written instructions on how to correctly perform the stretching of the achilles tendon/calf stretches, and the heel spur/plantar fasciitis regimen. 3. Patient advised to seek wide, deep toe box, accomodative, comfortable, lace-up, athletic/walking type footwear that includes motion control characteristics for support and cushion that need to be worn at all times when weight-bearing. Shoes should be tested for torsional stability as well as proper bending at the toebox rather than at the midfoot. Good quality shoes such as, but not limited to, New Balance or Asics are examples of more proper foot gear. 4. Patient recommended to get powerstep insoles for proper support of the arch in order to alleviate the tension and stress on the plantar fascia associated with normal daily walking. Patient advised that these modalities used in conjunction with stretching and icing are able to alleviate most symptoms from this condition. 5. I recommend she continue with nsaids as needed, stretching, use of inserts and referral to therapy. Oral steroid prescribed today. Discussed steroid injection. Her pain is mostly along the medial longitudinal arch and therefore, I would hold on injection for now in favor of recommendations noted above and therapy 6. F/u in 1 month MERCEDEZ Boyd Ma 04/02/2018 9:06 AM Signed What is Plantar Fasciitis? Plantar fasciitis is the most common cause of heel pain. The pain is caused by inflammation of the plantar fascia. If you strain your plantar fascia, it becomes weak, swollen and irritated (inflamed). The resulting pain may be isolated in the heel or may appear at different points on the bottom of the foot, from time to time; it may occur in one foot or both. Some think that plantar fasciitis pain is caused by irritation of nerves from tissue swelling or inflammation, but it is debatable. Plantar fasciitis is common in middle-aged people; it also occurs in younger people who are on their feet a lot, such as athletes or soldiers. The plantar fascia is a strong band of connective tissue that extends from the base of the toes, along the bottom of the foot, to the bottom of the heel (calcaneous bone); it acts like a bowstring to maintain the arch of the foot. What are heel spurs? The inflammatory reaction of the heel bone may produce spike- like projections of new bone, called heel spurs. The spurs sometimes show on X-rays. They neither cause the initial pain nor do they cause the initial problem. However, later, having to walk on spurs may cause sharp pain. What causes plantar fasciitis? Plantar fasciitis is caused by straining the ligament that supports your arch. Repeated strain can cause tiny tears in the ligament. These lead to pain and swelling. During walking, the plantar fascia experiences tension up to twice the body weight with each step. While this is normal, those who spend much time on their feet, such as nurses, waiter/waitress informal/waiters, and mail carriers, often experience plantar fasciitis. Athletes involved in tennis or other racquet sports, race walking, jogging or running also show a higher incidence of plantar fasciitis than do those participating in other activities. Thus, it's clear that plantar fasciitis is predominantly an overuse injury. In fact, any activity that results in prolonged tension and stress on the plantar fascia may cause plantar fasciitis. It is possible that changes in footwear may play a role in causing plantar fasciitis, no matter what activity is occurring. Those who are overweight are prone to plantar fasciitis. This is true even for sedentary people who get little physical activity. Abnormalities of the foot and ankle joints may predispose some individuals to development of plantar fasciitis (specifically, over pronation of the subtalar joint). Contributing Factors * Flat feet * Toe running, hill running * Sudden weight increase * High-arched, rigid feet * Soft terrain, e.g. running on sand * Obesity * Pronated feet (rolled inward) * Sudden increase in activity * Family tendency * Poor shoe support * Worn out or poorly fitted shoes * Increasing age * Walking, standing or running for long periods of time, especially on hard surfaces. How is the Injury Treated? Rest Your Feet: Limit, or if possible, stop activities that are causing your heel pain. Try to avoid running or walking on hard surfaces, such as concrete. Use pain as your guide. If your foot is too painful, rest it. Ice: Ice the sore area for 30 to 60 minutes, several times a day, to reduce inflammation and relieve pain. Apply a plastic bag of crushed ice (or a bag of frozen peas) over a towel. Ice the sore area for 15 minutes after activity/exercise. Application of heat is not generally recommended, as heat expands the bone and connective tissue, perhaps exerting greater pressure on nerves and thereby increasing pain. If heat is used, follow it with ice. Medication: If your condition developed recently, anti-inflammatory/analgesic medication, combined with heel pads (see below) may be all that is necessary to relieve pain and to reduce inflammation. If no pain relief has occurred after 2-3 weeks, however, your doctor may inject either cortisone or local anesthetic directly into the tender area. Exercises: Do simple exercises, such as calf stretches and towel stretches (see below) several times a day, especially when you first get up in the morning. These can help your ligament become more flexible and strengthen the muscles that support your arch. Shoes: Poorly fitting shoes can cause plantar fasciitis. The best type of shoe to wear is a good walking or running shoe with good shock absorption and excellent arch support. You should choose the one that fits the best. Pink with your athletic shoes to find a pair that is comfortable and causes fewer symptoms. Put your shoes on as soon as you get out of bed; going barefoot or wearing slippers may make your pain worse. Good brands include (but are not limited to): New Balance, Asics, Saucony, SAS and Merrel?s. Taping: Your doctor may tape your foot to maintain the arch. This takes some of the tension off the plantar fascia. Weight Loss: If your weight is putting extra stress on your feet, your doctor may encourage you to try a weight-loss program. Orthotics: An orthotic insole is a molded piece of rubber, plastic, or other material that you insert into your shoe. It corrects the alignment of your foot and cushions your foot from excessive pounding. These may be prescription or non-prescription. Prescription orthotics are custom-fitted and may fit better and control pain better, but are very expensive. Night Splints: A night splint holds the foot with the toes pointed up and the ankle at a 90-degree angle. This position applies a constant, gentle stretch to the plantar fascia. Corticosteroid Shots: Steroids may be injected into the tender area to reduce inflammation. REHAB Exercises to stretch the plantar fascia, the calf muscles, and the Achilles tendon. Tightness of the muscles of the calves may contribute to plantar fasciitis, so stretching the calf muscles is important to rehabilitation, as is stretching of the plantar fascia itself. Plantar fascial stretches Assisted Dorsiflexion/Plantar Fascia Stretch: Sit on the floor or ground, barefoot, with both legs outstretched. Use a towel or elastic band and wrap it around the ball (and not the toes) of the affected foot. Use the towel or elastic band to provide resistance to upward movement of the forefoot. Pull foot upward (toward your body) with the help of the elastic band or towel, and then return to the starting position. Ten repetitions are recommended. Perform the sequence at least three times a day. Alternate Plantar Fascia Stretch: Sit upright in a chair, barefoot. Place the ankle of the affected foot on your opposite knee. Using the same hand as the affected foot, reach across and grab the toes. Flex the ankle toward and pull the toes toward the irizarry. To test the stretch, place the thumb of your hand on the bottom of the foot. You should be able to feel the cord- like plantar fascia, running the length of the foot. Hold the stretch for a count of 10, then relax. Repeat 10 times. Do the sequence at least three times a day. Achilles/Calf Stretches Strengthening the muscles of the calves may contribute to successful rehabilitation of plantar fasciitis, as well as prevent reoccurrence. The exercises below will help strengthen the calf muscles. Calf and Achilles Tendon Stretch (Gastrocnemius Stretch): Face a wall, standing an arm's length away. Place one foot back. Place both hands on the wall. Bend the elbows and knee of your forward leg, keeping the heel of the backward foot on the floor and keeping your body straight (aligned), until your forehead nearly touches the wall, or until significant stretch is felt in the muscles of the calf of the backward leg. Hold this position for 10 to 15 seconds. Extend elbows (straighten your arms and stand upright again) and maintain this position for 10 seconds. Repeat this cycle 15 to 20 times. Switch legs and repeat the exercise. Powerstep Original Full length. Can get at [employer] here in [place], [employer] in [place] or [place]. Also can find in [employer] in [facility] or at [employer] in [place]. Powersteps can also be purchased online, starting around $25.00 If you have a metatarsal or dancer pad for your feet apply the pad directly to the insole so you can interchange between your shoes. Find a shoe with a removable insole and take this out and replace with your powerstep insole. Always bring powersteps with you when shopping for shoes so that you can make sure that everything fits well together Referring Provider: SHANEL ROMO [[id number]] Allergies As of Date: 04/02/2018 Noted Allergy Reaction ADHESIVE 08/08/2015 4 - Hives Date Reviewed: 04/02/2018 Reviewed by: Lenore Cheung MA - Fully Assessed Reason for Visit: New Patient [[id number]] Primary Visit Diagnosis:Plantar fasciitis, bilateral [M72.2] Order(s):COMPOUNDED PRESCRIPTIONPowerstep full length original (M72.2) Plantar fasciitis, bilateral (primary encounter diagnosis)Disp: 1 DeviceRfl: 0 methylPREDNISolone (MEDROL, CHRIS,) 4 mg Dose-PackTake as directedDisp: 1 PackageRfl: 0 CONSULT TO PHYSICAL THERAPY [9005] Order #: [id number]: 1 Prescriptions as of 04/02/2018 Sig: ALBUTEROL SULFATE INHALATION Inhale as instructed. COMPOUNDED PRESCRIPTION Powerstep full length origina* METHYLPREDNISOLONE 4 MG TABLE* Take as directed MEDROXYPROGESTERONE 5 MG TABL* Take 1 tablet by mouth once d* Patient not taking: Reported on 04/02/2018 IBUPROFEN 800 MG TABLET Take 800 mg by mouth every 6 * Problem List As Of Date 04/02/2018 Noted Resolved Blood in stool [K92.1] INVALID FOR*01/14/2017 Abdominal pain, right lower quadrant [R10.31] INVALID FOR*01/14/2017 Asthma [J45.909] INVALID FOR* More... Encounter for supervision of normal first pregn*INVALID FOR*08/19/2017 History of foreign travel [Z78.9] INVALID FOR*08/19/2017 More... Rh negative state in antepartum period [O09.899]INVALID FOR*08/19/2017 More... Intrauterine growth restriction (IUGR) affectin*INVALID FOR*08/19/2017 Other instructions from your clinician: What is Plantar Fasciitis? Plantar fasciitis is the most common cause of heel pain. The pain is caused by inflammation of the plantar fascia. If you strain your plantar fascia, it becomes weak, swollen and irritated (inflamed). The resulting pain may be isolated in the heel or may appear at different points on the bottom of the foot, from time to time; it may occur in one foot or both. Some think that plantar fasciitis pain is caused by irritation of nerves from tissue swelling or inflammation, but it is debatable. Plantar fasciitis is common in middle-aged people; it also occurs in younger people who are on their feet a lot, such as athletes or soldiers. The plantar fascia is a strong band of connective tissue that extends from the base of the toes, along the bottom of the foot, to the bottom of the heel (calcaneous bone); it acts like a bowstring to maintain the arch of the foot. What are heel spurs? The inflammatory reaction of the heel bone may produce spike-like projections of new bone, called heel spurs. The spurs sometimes show on X-rays. They neither cause the initial pain nor do they cause the initial problem. However, later, having to walk on spurs may cause sharp pain. What causes plantar fasciitis? Plantar fasciitis is caused by straining the ligament that supports your arch. Repeated strain can cause tiny tears in the ligament. These lead to pain and swelling. During walking, the plantar fascia experiences tension up to twice the body weight with each step. While this is normal, those who spend much time on their feet, such as nurses, waiter/waitress informal/waiters, and mail carriers, often experience plantar fasciitis. Athletes involved in tennis or other racquet sports, race walking, jogging or running also show a higher incidence of plantar fasciitis than do those participating in other activities. Thus, it's clear that plantar fasciitis is predominantly an overuse injury. In fact, any activity that results in prolonged tension and stress on the plantar fascia may cause plantar fasciitis. It is possible that changes in footwear may play a role in causing plantar fasciitis, no matter what activity is occurring. Those who are overweight are prone to plantar fasciitis. This is true even for sedentary people who get little physical activity. Abnormalities of the foot and ankle joints may predispose some individuals to development of plantar fasciitis (specifically, over pronation of the subtalar joint). Contributing Factors * Flat feet * Toe running, hill running * Sudden weight increase * High-arched, rigid feet * Soft terrain, e.g. running on sand * Obesity * Pronated feet (rolled inward) * Sudden increase in activity * Family tendency * Poor shoe support * Worn out or poorly fitted shoes * Increasing age * Walking, standing or running for long periods of time, especially on hard surfaces. How is the Injury Treated? Rest Your Feet: Limit, or if possible, stop activities that are causing your heel pain. Try to avoid running or walking on hard surfaces, such as concrete. Use pain as your guide. If your foot is too painful, rest it. Ice: Ice the sore area for 30 to 60 minutes, several times a day, to reduce inflammation and relieve pain. Apply a plastic bag of crushed ice (or a bag of frozen peas) over a towel. Ice the sore area for 15 minutes after activity/exercise. Application of heat is not generally recommended, as heat expands the bone and connective tissue, perhaps exerting greater pressure on nerves and thereby increasing pain. If heat is used, follow it with ice. Medication: If your condition developed recently, anti-inflammatory/analgesic medication, combined with heel pads (see below) may be all that is necessary to relieve pain and to reduce inflammation. If no pain relief has occurred after 2-3 weeks, however, your doctor may inject either cortisone or local anesthetic directly into the tender area. Exercises: Do simple exercises, such as calf stretches and towel stretches (see below) several times a day, especially when you first get up in the morning. These can help your ligament become more flexible and strengthen the muscles that support your arch. Shoes: Poorly fitting shoes can cause plantar fasciitis. The best type of shoe to wear is a good walking or running shoe with good shock absorption and excellent arch support. You should choose the one that fits the best. Pink with your athletic shoes to find a pair that is comfortable and causes fewer symptoms. Put your shoes on as soon as you get out of bed; going barefoot or wearing slippers may make your pain worse. Good brands include (but are not limited to): New Balance, Asics, Saucon[employer], SAS and Merrel?s. Taping: Your doctor may tape your foot to maintain the arch. This takes some of the tension off the plantar fascia. Weight Loss: If your weight is putting extra stress on your feet, your doctor may encourage you to try a weight-loss program. Orthotics: An orthotic insole is a molded piece of rubber, plastic, or other material that you insert into your shoe. It corrects the alignment of your foot and cushions your foot from excessive pounding. These may be prescription or non-prescription. Prescription orthotics are custom-fitted and may fit better and control pain better, but are very expensive. Night Splints: A night splint holds the foot with the toes pointed up and the ankle at a 90-degree angle. This position applies a constant, gentle stretch to the plantar fascia. Corticosteroid Shots: Steroids may be injected into the tender area to reduce inflammation. REHAB Exercises to stretch the plantar fascia, the calf muscles, and the Achilles tendon. Tightness of the muscles of the calves may contribute to plantar fasciitis, so stretching the calf muscles is important to rehabilitation, as is stretching of the plantar fascia itself. Plantar fascial stretches Assisted Dorsiflexion/Plantar Fascia Stretch: Sit on the floor or ground, barefoot, with both legs outstretched. Use a towel or elastic band and wrap it around the ball (and not the toes) of the affected foot. Use the towel or elastic band to provide resistance to upward movement of the forefoot. Pull foot upward (toward your body) with the help of the elastic band or towel, and then return to the starting position. Ten repetitions are recommended. Perform the sequence at least three times a day. Alternate Plantar Fascia Stretch: Sit upright in a chair, barefoot. Place the ankle of the affected foot on your opposite knee. Using the same hand as the affected foot, reach across and grab the toes. Flex the ankle toward and pull the toes toward the irizarry. To test the stretch, place the thumb of your hand on the bottom of the foot. You should be able to feel the cord-like plantar fascia, running the length of the foot. Hold the stretch for a count of 10, then relax. Repeat 10 times. Do the sequence at least three times a day. Achilles/Calf Stretches Strengthening the muscles of the calves may contribute to successful rehabilitation of plantar fasciitis, as well as prevent reoccurrence. The exercises below will help strengthen the calf muscles. Calf and Achilles Tendon Stretch (Gastrocnemius Stretch): Face a wall, standing an arm's length away. Place one foot back. Place both hands on the wall. Bend the elbows and knee of your forward leg, keeping the heel of the backward foot on the floor and keeping your body straight (aligned), until your forehead nearly touches the wall, or until significant stretch is felt in the muscles of the calf of the backward leg. Hold this position for 10 to 15 seconds. Extend elbows (straighten your arms and stand upright again) and maintain this position for 10 seconds. Repeat this cycle 15 to 20 times. Switch legs and repeat the exercise. Powerstep Original Full length. Can get at [employer] here in [place], [employer] in [place] or [place]. Also can find in [employer] in [facility] or at [employer] in [place]. Powersteps can also be purchased online, starting around $25.00 If you have a metatarsal or dancer pad for your feet apply the pad directly to the insole so you can interchange between your shoes. Find a shoe with a removable insole and take this out and replace with your powerstep insole. Always bring powersteps with you when shopping for shoes so that you can make sure that everything fits well together Prescriptions ordered this encounter Disp Refills Start End COMPOUNDED PRESCRIPTION 1 De* 0 04/02/2018 Class: Print RX Sig: Powerstep full length original (M72.2) Plantar fasciitis, bilateral (primary encounter diagnosis) METHYLPREDNISOLONE 4 MG TABLETS IN A* 1 Pa* 0 04/02/2018 Sig: Take as directed Encounter Status:Closed by SENIA DEE DPM on 04/02/18 PROGRESS Observed: 03/18/2018 Status: COMPLETED Source: [facility] 4:47 PM [facility] REPOSITORY HNO ID: [id number] Author: Laura Lopez Service: (none) Author Type: Physician Type: Progress Notes Filed: 03/18/2018 4:50 PM Note Text: A normal sized anteverted uterus with the measurements shown below. The endometrial echo measures 7.9 mm. The endometrial cavity appears normal. The myometrium appears normal The right ovary appears polycystic The left ovary appears polycystic There is no free fluid in the cul de sac IMPRESSION: Polycystic ovaries PROGRESS Observed: 03/11/2018 Status: COMPLETED Source: MESA 11:07 AM [facility] REPOSITORY HNO ID: [id number] Author: Gregoria Sarah Service: (none) Author Type: Physician Type: Progress Notes Filed: 03/11/2018 1:31 PM Note Text: Student Life Vice President offered: Patient declines. Jahaira Velasquez is a 27 year old female who presents for problem visit Nausea, vomiting, intermittent inguinal pain bilaterally for 1 month(s). HPI: Jahaira presents with three months of irregular menstrual cycles and one month of bilateral inguinal pain, nausea, vomiting, and cramping. She had two negative UPTs in the past month as well as blood work done on 02/12/18 that verified her negative UPTs. Jahaira is eight months post- and stopped six months ago. She had a regular period three months ago, but has not had a period since. 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 The patient stated that her bilateral inguinal pain is consistently a 3/10 in severity but can reach 8/10 during flare-ups- describes pain as sharp in nature. Nothing she has done has induced her flare-ups. She has been taking Motrin to relieve her pain. Pt reports intermittent N/V when pain is worse. PAST MEDICAL HISTORY Diagnosis Date - Asthma - fracture right shoulder, soccer accident PAST SURGICAL HISTORY Procedure Laterality Date - BUNION CORRECTION W/METATARSAL OSTEOTOMY 2012 bilatereal foot surgery. - COLONOSCOPY W/BX 10/05/14 normal TI, normal colonoscopy - EGD W/O [facility] SPECIMEN W/BX 10/05/14 minimal reflux esophagitis, o/w normal - PAST SURGICAL HISTORY OF Left 06/2015 removal of screws from prior foot surgery - PAST SURGICAL HISTORY OF Right 01/2016 scope and shave of bone shoulder FAMILY HISTORY Problem Relation Age of Onset - Thyroid Mother - Hypertension Father - Heart Father - Breast Cancer Maternal Grandmother - Diabetes Maternal Grandmother - Heart Paternal Grandmother - Heart Paternal Grandfather - Heart Maternal Grandfather Social History Marital status: Spouse name: Earl Years of education: 19 Number of children: 0 Occupational History Occupation Employer Comment [employer] Social History Main Topics Smoking status: Never Smoker Smokeless tobacco: Never Used Alcohol use: No Drug use: No Sexual activity: Yes Partners with: Male Current Outpatient Prescriptions: ibuprofen (MOTRIN) 800 mg tablet Take 800 mg by mouth every 6 hours as needed. ALBUTEROL SULFATE INHALATION Inhale as instructed. No current facility-administered medications for this visit. Allergies As of Date: 03/11/2018 Allergen Noted Reaction ADHESIVE 08/08/2015 Hives Fully Assessed 03/11/2018 REVIEW OF SYSTEMS Abdomen: No bloating, early satiety, indigestion, or increased flatulence. Bilateral inguinal pain, nausea, vomiting, and cramping. Bladder: No dysuria, gross hematuria, urinary frequency, urinary urgency, or incontinence. Breast: No breast lumps, nipple d/c, overlying skin changes, redness or skin retraction. Expanded ROS: N/A Allergies and current medication updated:Yes EXAM: BP 118/70 Wt 197 lb (89.4kg) LMP 12/08/2017 GENERAL: in slight pain, female in no apparent distress HEENT: atraumatic NECK: full range of motion DERMATOLOGY: Normal, without lesions, non-icteric and non-hirsute ABDOMEN: soft, no masses, Mild tenderness in RLQ, rebound Absent and guarding Absent PELVIC: external genitalia normal, normal Bartholin's glands, urethra, Montesano's glands, no vulvar lesions, BIMANUAL: uterus normal size, shape and consistency, no adnexal masses and Mild right adnexal tenderness NEURO: alert and oriented x3,exam grossly non-focal EXTREMITIES: normal ASSESSMENT AND PLAN: Encounter Diagnosis ICD-10-CM 1. Pelvic pain in female R10.2 PELVIC US WHI 2. Nausea and vomiting, intractability of vomiting not specified, unspecified vomiting type R11.2 3. Motrin for pain as needed 4. Causes of pain reviewed- including appendicitis but unlikely since pain is intermittent for last month 5. Call if worsening pain Gregoria Chen MD CNOV Observed: 03/11/2018 Status: COMPLETED Source: MESA 11:00 AM [facility] REPOSITORY Office Visit (WOOB) JAHAIRA VELASQUEZ ([id number]) 1990 F MAL Date Time Provider Department 03/11/18 11:00 AM GREGORIA MONTENEGRO During your visit today, we recorded the following information about you: Blood pressure Weight Last Period 118/70 89.4 kg 12/08/17 Gregoria Chen MD 03/11/2018 1:31 PM Signed Student Life Vice President offered: Patient declines. Jahaira Velasquez is a 27 year old female who presents for problem visit Nausea, vomiting, intermittent inguinal pain bilaterally for 1 month(s). HPI: Jahaira presents with three months of irregular menstrual cycles and one month of bilateral inguinal pain, nausea, vomiting, and cramping. She had two negative UPTs in the past month as well as blood work done on 02/12/18 that verified her negative UPTs. Jahaira is eight months post- and stopped six months ago. She had a regular period three months ago, but has not had a period since. 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 The patient stated that her bilateral inguinal pain is consistently a 3/10 in severity but can reach 8/10 during flare-ups- describes pain as sharp in nature. Nothing she has done has induced her flare-ups. She has been taking Motrin to relieve her pain. Pt reports intermittent N/V when pain is worse. PAST MEDICAL HISTORY Diagnosis Date - Asthma - fracture right shoulder, soccer accident PAST SURGICAL HISTORY Procedure Laterality Date - BUNION CORRECTION W/METATARSAL OSTEOTOMY 2013 bilatereal foot surgery. - COLONOSCOPY W/BX 10/05/14 normal TI, normal colonoscopy - [facility] W/BX 10/05/14 minimal reflux esophagitis, o/w normal - PAST SURGICAL HISTORY OF Left 06/2015 removal of screws from prior foot surgery - PAST SURGICAL HISTORY OF Right 01/2016 scope and shave of bone shoulder FAMILY HISTORY Problem Relation Age of Onset - Thyroid Mother - Hypertension Father - Heart Father - Breast Cancer Maternal Grandmother - Diabetes Maternal Grandmother - Heart Paternal Grandmother - Heart Paternal Grandfather - Heart Maternal Grandfather Social History Marital status: Spouse name: Earl Years of education: 19 Number of children: 0 Occupational History Occupation Employer Comment [employer] Social History Main Topics Smoking status: Never Smoker Smokeless tobacco: Never Used Alcohol use: No Drug use: No Sexual activity: Yes Partners with: Male Current Outpatient Prescriptions: ibuprofen (MOTRIN) 800 mg tablet Take 800 mg by mouth every 6 hours as needed. ALBUTEROL SULFATE INHALATION Inhale as instructed. No current facility-administered medications for this visit. Allergies As of Date: 03/11/2018 Allergen Noted Reaction ADHESIVE 08/08/2015 Hives Fully Assessed 03/11/2018 REVIEW OF SYSTEMS Abdomen: No bloating, early satiety, indigestion, or increased flatulence. Bilateral inguinal pain, nausea, vomiting, and cramping. Bladder: No dysuria, gross hematuria, urinary frequency, urinary urgency, or incontinence. Breast: No breast lumps, nipple d/c, overlying skin changes, redness or skin retraction. Expanded ROS: N/A Allergies and current medication updated:Yes EXAM: BP 118/70 Wt 197 lb (89.4kg) LMP 12/08/2017 GENERAL: in slight pain, female in no apparent distress HEENT: atraumatic NECK: full range of motion DERMATOLOGY: Normal, without lesions, non-icteric and non-hirsute ABDOMEN: soft, no masses, Mild tenderness in RLQ, rebound Absent and guarding Absent PELVIC: external genitalia normal, normal Bartholin's glands, urethra, Montesano's glands, no vulvar lesions, BIMANUAL: uterus normal size, shape and consistency, no adnexal masses and Mild right adnexal tenderness NEURO: alert and oriented x3,exam grossly non-focal EXTREMITIES: normal ASSESSMENT AND PLAN: Encounter Diagnosis ICD-10-CM 1. Pelvic pain in female R10.2 PELVIC US WHI 2. Nausea and vomiting, intractability of vomiting not specified, unspecified vomiting type R11.2 3. Motrin for pain as needed 4. Causes of pain reviewed- including appendicitis but unlikely since pain is intermittent for last month 5. Call if worsening pain MD Gregoria Romano MD 03/19/2018 11:02 AM Signed Addended by: GREGORIA SARAH MD on: 03/19/2018 11:02 AM Modules accepted: Orders Referring Provider: SELF [[id number]] Allergies As of Date: 03/11/2018 Noted Allergy Reaction ADHESIVE 08/08/2015 4 - Hives Date Reviewed: 03/11/2018 Reviewed by: Sandee Fournier Ma - Fully Assessed Primary Visit Diagnosis:Pelvic pain in female [R10.2] Other Visit Diagnosis:Nausea and vomiting, intractability of vomiting not specified, unspecified vomiting type [R11.2] Order(s):PELVIC US WHI [[id number]] Order #: [id number]. #:[id number]: 1 medroxyPROGESTERone (PROVERA) 5 mg tabletTake 1 tablet by mouth once daily.Disp: 10 tabletRfl: 0 Prescriptions as of 03/11/2018 Sig: IBUPROFEN 800 MG TABLET Take 800 mg by mouth every 6 * ALBUTEROL SULFATE INHALATION Inhale as instructed. MEDROXYPROGESTERONE 5 MG TABL* Take 1 tablet by mouth once d* Problem List As Of Date 03/11/2018 Noted Resolved Blood in stool [K92.1] INVALID FOR*01/14/2017 Abdominal pain, right lower quadrant [R10.31] INVALID FOR*01/14/2017 Asthma [J45.909] INVALID FOR* More... Encounter for supervision of normal first pregn*INVALID FOR*08/19/2017 History of foreign travel [Z78.9] INVALID FOR*08/19/2017 More... Rh negative state in antepartum period [O09.899]INVALID FOR*08/19/2017 More... Intrauterine growth restriction (IUGR) affectin*INVALID FOR*08/19/2017 Prescriptions ordered this encounter Disp Refills Start End MEDROXYPROGESTERONE 5 MG TABLET 10 t* 0 03/19/2018 Route: ORAL Sig: Take 1 tablet by mouth once daily. Encounter Status:Closed by GREGORIA SARAH MD on 03/11/18 HCG, QUANTITATIVE BL Collected: 02/12/2018 Status: F Source: MESA 9:56 AM [facility] [place] REPOSITORY TYPE CODE TESTS RESULT OUT OF REFERENCE UNITS RANGE LAB HCGQT <5.0 mU/mL HCG, Quantitative Bl <0.1 Result Comment: NEGATIVE Performed By: #### HCGQT #### [facility] [address] [place], [place] [address] PROGRESS Observed: 01/03/2018 Status: COMPLETED Source: MESA 4:01 PM [facility] [place] REPOSITORY HNO ID: [id number] Author: Arely Fish) [place] Service: (none) Author Type: Nurse Practitioner Type: Progress Notes Filed: 01/03/2018 4:21 PM Note Text: Jahaira Velasquez is a 27 year old female who presents for problem visit Bump in vaginal area for 4 days. HPI: pt states that she notice the bump at the beginning of the week, there has been some drainage from it and it is a bit more swollen today. Denies any fevers, chills, or pelvic pain. PAST MEDICAL HISTORY Diagnosis Date - Asthma - fracture right shoulder, soccer accident PAST SURGICAL HISTORY Procedure Laterality Date - BUNION CORRECTION W/METATARSAL OSTEOTOMY 2012 bilatereal foot surgery. - COLONOSCOPY W/BX 10/05/14 normal TI, normal colonoscopy - EGD W/O BRSH SPECIMEN W/BX 10/05/14 minimal reflux esophagitis, o/w normal - PAST SURGICAL HISTORY OF Left 06/2015 removal of screws from prior foot surgery - PAST SURGICAL HISTORY OF Right 01/2016 scope and shave of bone shoulder FAMILY HISTORY Problem Relation Age of Onset - Thyroid Mother - Hypertension Father - Heart Father - Breast Cancer Maternal Grandmother - Diabetes Maternal Grandmother - Heart Paternal Grandmother - Heart Paternal Grandfather - Heart Maternal Grandfather Social History Marital status: Spouse name: Earl Years of education: 19 Number of children: 0 Occupational History Occupation Employer Comment [employer] Social History Main Topics Smoking status: Never Smoker Smokeless tobacco: Never Used Alcohol use: No Drug use: No Sexual activity: Yes Partners with: Male Current Outpatient Prescriptions: ibuprofen (MOTRIN) 800 mg tablet Take 800 mg by mouth every 6 hours as needed. ALBUTEROL SULFATE INHALATION Inhale as instructed. No current facility-administered medications for this visit. Allergies As of Date: 01/03/2018 Allergen Noted Reaction ADHESIVE 08/08/2015 Hives Fully Assessed 10/04/2017 REVIEW OF SYSTEMS Abdomen: No bloating, early satiety, indigestion, or increased flatulence. No abdominal pain, nausea, vomiting, diarrhea, or constipation. Bladder: No dysuria, gross hematuria, urinary frequency, urinary urgency, or incontinence. Expanded ROS: N/A Allergies and current medication updated:Yes EXAM: There were no vitals taken for this visit. GENERAL: pleasant, female in no apparent distress CHEST: Normal inspiratory effort PELVIC: external genitalia normal, normal Bartholin's glands, urethra, Montesano's glands, no cervical lesions, good vaginal support, physiologic discharge present, normal appearing perineal body and perianal region, on the right side of the mons pubis there is a small infected hair follicle with a scant amount of pus draining with expression, hair removed from follicle. NEURO: alert and oriented x3,exam grossly non-focal ASSESSMENT AND PLAN: Folliculitis Keflex ordered Recommended use warm compresses to the area. Follow up PRN Arely Issa APRN.CEDRIC DUMASOV Observed: 01/03/2018 Status: COMPLETED Source: MESA 4:00 PM [facility] REPOSITORY Office Visit (WOOB) JAHAIRA VELASQUEZ ([id number]) 1990 F MAL Date Time Provider Department 01/03/18 4:00 PM ARELY ISSA (CEDRIC) WOOB During your visit today, we recorded the following information about you: Blood pressure Weight Height Last Period 110/72 88.8 kg 1.626 m 12/08/17 Arely Issa APRN.CNP 01/03/2018 4:21 PM Signed Jahaira Velasquez is a 27 year old female who presents for problem visit Bump in vaginal area for 4 days. HPI: pt states that she notice the bump at the beginning of the week, there has been some drainage from it and it is a bit more swollen today. Denies any fevers, chills, or pelvic pain. PAST MEDICAL HISTORY Diagnosis Date - Asthma - fracture right shoulder, soccer accident PAST SURGICAL HISTORY Procedure Laterality Date - BUNION CORRECTION W/METATARSAL OSTEOTOMY 2013 bilatereal foot surgery. - COLONOSCOPY W/BX 10/05/14 normal TI, normal colonoscopy - EGD W/O [facility] SPECIMEN W/BX 10/05/14 minimal reflux esophagitis, o/w normal - PAST SURGICAL HISTORY OF Left 06/2015 removal of screws from prior foot surgery - PAST SURGICAL HISTORY OF Right 01/2016 scope and shave of bone shoulder FAMILY HISTORY Problem Relation Age of Onset - Thyroid Mother - Hypertension Father - Heart Father - Breast Cancer Maternal Grandmother - Diabetes Maternal Grandmother - Heart Paternal Grandmother - Heart Paternal Grandfather - Heart Maternal Grandfather Social History Marital status: Spouse name: Earl Years of education: 19 Number of children: 0 Occupational History Occupation Employer Comment [employer] Social History Main Topics Smoking status: Never Smoker Smokeless tobacco: Never Used Alcohol use: No Drug use: No Sexual activity: Yes Partners with: Male Current Outpatient Prescriptions: ibuprofen (MOTRIN) 800 mg tablet Take 800 mg by mouth every 6 hours as needed. ALBUTEROL SULFATE INHALATION Inhale as instructed. No current facility-administered medications for this visit. Allergies As of Date: 01/03/2018 Allergen Noted Reaction ADHESIVE 08/08/2015 Hives Fully Assessed 10/04/2017 REVIEW OF SYSTEMS Abdomen: No bloating, early satiety, indigestion, or increased flatulence. No abdominal pain, nausea, vomiting, diarrhea, or constipation. Bladder: No dysuria, gross hematuria, urinary frequency, urinary urgency, or incontinence. Expanded ROS: N/A Allergies and current medication updated:Yes EXAM: There were no vitals taken for this visit. GENERAL: pleasant, female in no apparent distress CHEST: Normal inspiratory effort PELVIC: external genitalia normal, normal Bartholin's glands, urethra, Montesano's glands, no cervical lesions, good vaginal support, physiologic discharge present, normal appearing perineal body and perianal region, on the right side of the mons pubis there is a small infected hair follicle with a scant amount of pus draining with expression, hair removed from follicle. NEURO: alert and oriented x3,exam grossly non-focal ASSESSMENT AND PLAN: Folliculitis Keflex ordered Recommended use warm compresses to the area. Follow up PRN Arely Issa, COMPRESSION MOLDING MACHINE OPERATOR.TRANSPORTATION JOB TITLES Referring Provider: SELF [[id number]] Allergies As of Date: 01/03/2018 Noted Allergy Reaction ADHESIVE 08/08/2015 4 - Hives Date Reviewed: 01/03/2018 Reviewed by: Arely Fish) [place] - Fully Assessed Reason for Visit: Vaginal Problem [117] Primary Visit Diagnosis:Folliculitis [L73.9] Order(s):cephALEXin (KEFLEX) 500 mg capsuleTake 1 capsule by mouth four times daily for 5 days.Disp: 20 capsuleRfl: 0 Prescriptions as of 01/03/2018 Sig: IBUPROFEN 800 MG TABLET Take 800 mg by mouth every 6 * ALBUTEROL SULFATE INHALATION Inhale as instructed. CEPHALEXIN 500 MG CAPSULE Take 1 capsule by mouth four * Problem List As Of Date 01/03/2018 Noted Resolved Blood in stool [K92.1] INVALID FOR*01/14/2017 Abdominal pain, right lower quadrant [R10.31] INVALID FOR*01/14/2017 Asthma [J45.909] INVALID FOR* More... Encounter for supervision of normal first pregn*INVALID FOR*08/19/2017 History of foreign travel [Z78.9] INVALID FOR*08/19/2017 More... Rh negative state in antepartum period [O09.899]INVALID FOR*08/19/2017 More... Intrauterine growth restriction (IUGR) affectin*INVALID FOR*08/19/2017 Prescriptions ordered this encounter Disp Refills Start End CEPHALEXIN 500 MG CAPSULE 20 c* 0 01/03/2018 01/08/2018 Route: ORAL Sig: Take 1 capsule by mouth four times daily for 5 days. Encounter Status:Closed by ARELY ISSA on 01/03/18 COMPREHENSIVE METABOLIC Collected: 10/04/2017 Status: F Source: JOEY CASEY 12:42 PM [facility] [place] Order Comment: Order Date: 10/04/17 Order Info: 0786-1 - CMP TYPE CODE TESTS RESULT OUT OF RANGE REFERENCE UNITS LAB L501.0100 74-106 mg/dL Normal GLU 84 Result Comment: Please note revised GLUCOSE reference range effective 2017. LAB L501.1000 7-18 mg/dL Normal BUN 17 LAB L501.1100 0.55-1.02 mg/dL Normal CREAT,SERUM 0.88 Result Comment: The validity of the calculated GFR AND GFRAA in patients over 70 years has not been determined. Clinical correlation is essential. LAB L501.1110 >60 mL/min Normal EST GFR 81 Result Comment: Non- GFR Calc LAB L501.1115 >60 mL/min Normal EST GFR - AA 99 Result Comment: GFR Calc LAB L501.1300 10-20 RATIO Normal BUN/CRE 19.3 LAB L501.1500 6.4-8.2 g/dL T Normal PROT 7.8 LAB L501.1800 3.2-5.0 g/dL Normal ALB 3.7 LAB L501.1950 2.2-4.2 g/dL Normal GLOB 4.1 LAB L501.2000 0.9-2.4 RATIO Normal A/G 0.9 LAB L501.2200 8.5-10.1 mg/dL CA Normal 8.7 LAB L501.4100 15-37 U/L Normal AST 19 LAB L501.4305 45-117 U/L High ALK P 147 LAB L501.4405 13-56 U/L Normal ALT 26 Result Comment: Please note revised ALT reference range effective 2017. LAB L501.4600 0.20-1.00 mg/dL Normal T BILI 0.50 LAB L501.5300 136-145 mmol/L Normal NA 139 LAB L501.5600 3.5-5.1 mmol/L Normal K 4.2 LAB L501.5900 98-107 mmol/L Normal CL 105 LAB L501.6100 21.0-32.0 mmol/L Normal CO2 27.0 LAB L501.6200 5-15 Normal GAP 7 Performed By: #### L500.4050 #### [facility] [address] [place], [address] CRP Collected: 10/04/2017 Status: F Source: [place] 12:42 PM [facility] [place] [facility] Order Comment: Order Date: 10/04/17 Order Info: 0786-1 - CMP TYPE CODE TESTS RESULT OUT OF RANGE REFERENCE UNITS LAB L501.6710 0.0-3.0 mg/L High 4.34 C-REACTIVE PROT Result Comment: C-Reactive Protein (CRP) provides useful information for the diagnosis, therapy and monitoring of inflammatory processes and associated diseases. For the evaluation of Relative Risk for Cardiovascular Disease, a High Sensitivity CRP (HSCRP) should be ordered. Performed By: #### L501.6710 #### [facility] [address] [place], [address] ACUTE ABD INC CHEST Observed: 10/04/2017 Status: F Source: [place] (PORTABLE) 12:41 PM [facility] [place] [facility] Imaging Services [address] [place] [id number] Acute Abd Inc Chest (Portable) MR#: [id number] Acct: [id number] Name: KRUPAJAHAIRA J Rep #: [id number] : 1990 F 27 From: Lenore Isaac MD PCP: Zaire Sanderson MD Status: REG CLI Study: Acute Abd Inc Chest (Portable) Date of Exam: 10/04/17 Exam# [id number] Ordering Dr: Adal Dorantes MD STUDY: X-RAY - ACUTE ABDOMINAL SERIES REASON FOR EXAM: Female, 27 years old. Lower abdominal pain for 10 days with nausea, vomiting and diarrhea for about 6 days. TECHNIQUE: Single view of the chest. Supine and upright, 2 view(s) of the abdomen were obtained. COMPARISON: Prior chest radiograph of August 17, 2014 FINDINGS: The lungs are clear and expanded. Normal size heart. Normal mediastinum and rossi. Normal visualized pulmonary arteries. Normal visualized aortic arch and descending thoracic aorta. There is a non-specific bowel gas pattern. The soft tissue structures of the abdomen and pelvis are unremarkable. Normal visualized osseous structures. RAD/Acute Abd Inc Chest (Portable) IMPRESSION: Normal x-ray examination of the chest, abdomen, and pelvis. Electronically Signed: Lenore Isaac MD at 23:01 EDT , Service support , CC: Zaire Sanderson MD; Adal Dorantes MD Lunchroom Operator: Signed Observed: 10/04/2017 Status: F Source: JOEY CULTURE, URINE 12:20 PM [facility] [place] [facility] Urine Culture Probable skin contaminants. ORGANISM 1: Mixed Gram Positive Organisms [place] Count >100,000 Performed By: #### M100.0650 #### [facility] [address] [place], [id number] PROGRESS Observed: 10/04/2017 Status: COMPLETED Source: MESA 8:06 AM [facility] [place] REPOSITORY HNO ID: [id number] Author: Alayna Tavarez Service: (none) Author Type: Nurse Practitioner Type: Progress Notes Filed: 10/04/2017 8:54 AM Note Text: Jahaira Velasquez is a 27 year old female who presents for problem visit abdominal pain. HPI: Lower adominal pain x 10 days. Pain is dull constant pain with 4-5 episodes of sharp pain lasting approximately 2 hours per day. Sharp pain is worse in the evenings. Has had N/V/D. 2 emesis in past 10 days - last 7 days ago. Has had diarrhea and soft stool x 6 days. had similar symptoms that lasted for 3 days but has fully recovered. Evaluated in UC yesterday - CBC normal, advised bland food. UC advised gyne evaluation for possible ovarian pain. Able to eat regular meals. No fever or chills. PAST MEDICAL HISTORY Diagnosis Date - Asthma - fracture right shoulder, soccer accident PAST SURGICAL HISTORY Procedure Laterality Date - BUNION CORRECTION W/METATARSAL OSTEOTOMY 2012 bilatereal foot surgery. - COLONOSCOPY W/BX 10/05/14 normal TI, normal colonoscopy - EGD W/O BRSH SPECIMEN W/BX 10/05/14 minimal reflux esophagitis, o/w normal - PAST SURGICAL HISTORY OF Left 06/2015 removal of screws from prior foot surgery - PAST SURGICAL HISTORY OF Right 01/2016 scope and shave of bone shoulder FAMILY HISTORY Problem Relation Age of Onset - Thyroid Mother - Hypertension Father - Heart Father - Breast Cancer Maternal Grandmother - Diabetes Maternal Grandmother - Heart Paternal Grandmother - Heart Paternal Grandfather - Heart Maternal Grandfather Social History Marital status: Spouse name: Earl Years of education: 19 Number of children: 0 Occupational History Occupation Employer Comment [employer] Social History Main Topics Smoking status: Never Smoker Smokeless status: Never Used Alcohol use: No Drug use: No Sexual activity: Yes Partners with: Male Current Outpatient Prescriptions: ibuprofen (MOTRIN) 800 mg tablet Take 800 mg by mouth every 6 hours as needed. IRON, FERROUS SULFATE, ORAL Take 65 mg by mouth once daily. Iapadpsc-Lu-Mdu-Fe-FA ( VITAMIN) tab Take 1 tablet by mouth. ALBUTEROL SULFATE INHALATION Inhale as instructed. No current facility-administered medications for this visit. Allergies As of Date: 10/04/2017 Allergen Noted Reaction ADHESIVE 08/08/2015 Hives Fully Assessed 10/04/2017 REVIEW OF SYSTEMS Abdomen: See HPI. Bladder: No dysuria, gross hematuria, urinary frequency, urinary urgency, or incontinence. Allergies and current medication updated:Yes EXAM: BP 102/60 Wt 184 lb 3.2 oz (83.6kg) LMP 09/08/2017 GENERAL: pleasant, female in no apparent distress CHEST: Normal inspiratory effort ABDOMEN: soft, no masses, no hepatosplenomegaly and Moderate tenderness in RLQ, LLQ, suprapubic area. PELVIC: declined BIMANUAL: deferred due to abdominal tenderness NEURO: alert and oriented x3,exam grossly non-focal ASSESSMENT AND PLAN: ASSESSMENT/PLAN: 1. Lower abdominal pain - ICD9: 789.09, ICD10: R10.30 - Tenderness with light palpation over entire lower abdomen. Suspect bowel inflammation/colitis. - CBC normal in UC yesterday - Will make appointment to see PCP TODAY Follow-up as needed. Alayna Tavarez APRN.CEDRIC CNOV Observed: 10/04/2017 Status: COMPLETED Source: MESA 8:00 AM [facility] REPOSITORY Office Visit (WOOB) JAHAIRA VELASQUEZ ([id number]) 1990 F MAL Date Time Provider Department 10/04/17 8:00 AM ALAYNA TAVAREZ (TRANSPORTATION JOB TITLES) WOOB During your visit today, we recorded the following information about you: Blood pressure Weight Last Period 102/60 83.6 kg 09/08/17 Alayna Tavarez APRN.[facility] 10/04/2017 8:54 AM Signed Jahaira Velasquez is a 27 year old female who presents for problem visit abdominal pain. HPI: Lower adominal pain x 10 days. Pain is dull constant pain with 4-5 episodes of sharp pain lasting approximately 2 hours per day. Sharp pain is worse in the evenings. Has had N/V/D. 2 emesis in past 10 days - last 7 days ago. Has had diarrhea and soft stool x 6 days. had similar symptoms that lasted for 3 days but has fully recovered. Evaluated in UC yesterday - CBC normal, advised bland food. UC advised gyne evaluation for possible ovarian pain. Able to eat regular meals. No fever or chills. PAST MEDICAL HISTORY Diagnosis Date - Asthma - fracture right shoulder, soccer accident PAST SURGICAL HISTORY Procedure Laterality Date - BUNION CORRECTION W/METATARSAL OSTEOTOMY 2012 bilatereal foot surgery. - COLONOSCOPY W/BX 10/05/14 normal TI, normal colonoscopy - EGD W/O BRSH SPECIMEN W/BX 10/05/14 minimal reflux esophagitis, o/w normal - PAST SURGICAL HISTORY OF Left 06/2015 removal of screws from prior foot surgery - PAST SURGICAL HISTORY OF Right 01/2016 scope and shave of bone shoulder FAMILY HISTORY Problem Relation Age of Onset - Thyroid Mother - Hypertension Father - Heart Father - Breast Cancer Maternal Grandmother - Diabetes Maternal Grandmother - Heart Paternal Grandmother - Heart Paternal Grandfather - Heart Maternal Grandfather Social History Marital status: Spouse name: Earl Years of education: 19 Number of children: 0 Occupational History Occupation Employer Comment [employer] Social History Main Topics Smoking status: Never Smoker Smokeless status: Never Used Alcohol use: No Drug use: No Sexual activity: Yes Partners with: Male Current Outpatient Prescriptions: ibuprofen (MOTRIN) 800 mg tablet Take 800 mg by mouth every 6 hours as needed. IRON, FERROUS SULFATE, ORAL Take 65 mg by mouth once daily. Munpqtqd-Lj-Tzo-Fe-FA ( VITAMIN) tab Take 1 tablet by mouth. ALBUTEROL SULFATE INHALATION Inhale as instructed. No current facility-administered medications for this visit. Allergies As of Date: 10/04/2017 Allergen Noted Reaction ADHESIVE 08/08/2015 Hives Fully Assessed 10/04/2017 REVIEW OF SYSTEMS Abdomen: See HPI. Bladder: No dysuria, gross hematuria, urinary frequency, urinary urgency, or incontinence. Allergies and current medication updated:Yes EXAM: BP 102/60 Wt 184 lb 3.2 oz (83.6kg) LMP 09/08/2017 GENERAL: pleasant, female in no apparent distress CHEST: Normal inspiratory effort ABDOMEN: soft, no masses, no hepatosplenomegaly and Moderate tenderness in RLQ, LLQ, suprapubic area. PELVIC: declined BIMANUAL: deferred due to abdominal tenderness NEURO: alert and oriented x3,exam grossly non-focal ASSESSMENT AND PLAN: ASSESSMENT/PLAN: 1. Lower abdominal pain - ICD9: 789.09, ICD10: R10.30 - Tenderness with light palpation over entire lower abdomen. Suspect bowel inflammation/colitis. - CBC normal in UC yesterday - Will make appointment to see PCP TODAY Follow-up as needed. Alayna Tavarez APRN.TRANSPORTATION JOB TITLES Referring Provider: TAMMI BHATIA ([facility]) [[id number]] Allergies As of Date: 10/04/2017 Noted Allergy Reaction ADHESIVE 08/08/2015 4 - Hives Date Reviewed: 10/04/2017 Reviewed by: Alayna ([facility]) Kaitlin - Fully Assessed Reason for Visit: lower abd pain [Other] Primary Visit Diagnosis:Lower abdominal pain [R10.30] Prescriptions as of 10/04/2017 Sig: IBUPROFEN 800 MG TABLET Take 800 mg by mouth every 6 * ALBUTEROL SULFATE INHALATION Inhale as instructed. Problem List As Of Date 10/04/2017 Noted Resolved Blood in stool [K92.1] INVALID FOR*01/14/2017 Abdominal pain, right lower quadrant [R10.31] INVALID FOR*01/14/2017 Asthma [J45.909] INVALID FOR* More... Encounter for supervision of normal first pregn*INVALID FOR*08/19/2017 History of foreign travel [Z78.9] INVALID FOR*08/19/2017 More... Rh negative state in antepartum period [O09.899]INVALID FOR*08/19/2017 More... Intrauterine growth restriction (IUGR) affectin*INVALID FOR*08/19/2017 Medications Discontinued During This Encounter IRON, FERROUS SULFATE, ORAL 10/04/2017 Class: Historical Med Route: ORAL Sig: Take 65 mg by mouth once daily. Disc: Reason for discontinue is not on file. Wynhohmd-Dn-Zdt-Fe-FA (PREN* 10/04/2017 Class: Historical Med Route: ORAL Sig: Take 1 tablet by mouth. Disc: Reason for discontinue is not on file. Encounter Status:Closed by ALAYNA TAVAREZ on 10/04/17 JOEY CBC AND DIFF Collected: 10/03/2017 Status: F Source: MESA 10:00 AM [facility] [place] REPOSITORY TYPE CODE TESTS RESULT OUT OF REFERENCE UNITS RANGE LAB WWBC 3.70-11.00 k/uL [place] WBC 6.18 LAB WRBC 3.90-5.20 m/uL [place] RBC 4.49 LAB WHGB 11.5-15.5 g/dL [place] Hemoglobin 13.3 LAB WHCT 36.0-46.0 % [place] Hematocrit 40.9 LAB WMCV 80.0-100.0 fL [facility] MCV 91.1 LAB WMCH 26.0-34.0 pg [place] MCH 29.6 LAB WMCHC 30.5-36.0 g/dL [facility] MCHC 32.5 LAB WRDW 11.5-15.0 % [place] RDW 13.3 LAB WPLT 150-400 k/uL [place] Platelet Cnt 221 LAB WMPV 9.0-12.7 fL [facility] MPV 11.3 Result Comment: Test performed by: [facility], [address] [place] [address]. LAB WNEUT % [place] Neut% 64.5 LAB WLYMP % Joey Lymp% 26.1 LAB WMONOC % Joey Attala% 6.3 LAB WEOS % Joey Eos% 2.8 LAB WBASO % Joey Baso% 0.3 LAB WANEUT 1.45-7.50 k/uL [place] Abs Neut 3.99 LAB WALYMP 1.00-4.00 k/uL [place] Abs Lymp 1.61 LAB WAMONO <0.87 k/uL [place] Abs Attala 0.39 LAB WAEOS <0.46 k/uL [place] Abs Eos 0.17 LAB WABASO <0.11 k/uL [place] Abs Baso <0.03 PROGRESS Observed: 10/03/2017 Status: COMPLETED Source: MESA 9:40 AM [facility] REPOSITORY O ID: [id number] Author: Tammi (Cedric) Jannette Service: (none) Author Type: Nurse Practitioner Type: Progress Notes Filed: 10/03/2017 11:47 AM Note Text: Subjective HPI Patient is a 27 year old female here today with lower abdominal pain for the last 9 days. States she had a baby 12 weeks ago. States she did retain some placenta but has taken medication to flush it out. States history of ovarian cyst. States she has had diarrhea for the last 5 days. States it varies in consistency. No blood or mucous noted. States the pain is a sharp stabbing pain that is an 8-9/10 on the pain scale when it occurs which is 2-3 times a day. Denies correlation between food and pain. Nothing makes it better or worse. No other concerns at this time. Review of Systems Constitutional: Negative for chills, fever and malaise/fatigue. Respiratory: Negative. Cardiovascular: Negative. Gastrointestinal: Positive for abdominal pain, diarrhea, nausea and vomiting. Negative for blood in stool, heartburn and melena. Genitourinary: Negative for dysuria. Musculoskeletal: Negative for myalgias. All other systems reviewed and are negative. PAST MEDICAL HISTORY Diagnosis Date - Asthma - fracture right shoulder, soccer accident PAST SURGICAL HISTORY Procedure Laterality Date - BUNION CORRECTION W/METATARSAL OSTEOTOMY 2012 bilatereal foot surgery. - COLONOSCOPY W/BX 10/05/14 normal TI, normal colonoscopy - EGD W/O BRSH SPECIMEN W/BX 10/05/14 minimal reflux esophagitis, o/w normal - PAST SURGICAL HISTORY OF Left 06/2015 removal of screws from prior foot surgery - PAST SURGICAL HISTORY OF Right 01/2016 scope and shave of bone shoulder ALLERGIES Adhesive MEDICATIONS ibuprofen (MOTRIN) 800 mg tablet Take 800 mg by mouth every 6 hours as needed. ALBUTEROL SULFATE INHALATION Inhale as instructed. IRON, FERROUS SULFATE, ORAL Take 65 mg by mouth once daily. Tamiggpz-Sq-Aeo-Fe-FA ( VITAMIN) tab Take 1 tablet by mouth. FAMILY HISTORY Problem Relation Age of Onset - Thyroid Mother - Hypertension Father - Heart Father - Breast Cancer Maternal Grandmother - Diabetes Maternal Grandmother - Heart Paternal Grandmother - Heart Paternal Grandfather - Heart Maternal Grandfather Social History Substance Use Topics - Smoking status: Never Smoker - Smokeless tobacco: Never Used - Alcohol use No BP 110/80 Pulse 88 Temp 36.9 ?C (98.4 ?F) (Tympanic) Resp 18 Wt 83.9 kg (185 lb) BMI 31.76 kg/m2 Objective Physical Exam Constitutional: She is oriented to person, place, and time and well-developed, well-nourished, and in no distress. Vital signs are normal. She appears not lethargic and to not be writhing in pain. She does not have a sickly appearance. No distress. HENT: Head: Normocephalic and atraumatic. Cardiovascular: Normal rate, regular rhythm and normal heart sounds. Pulmonary/Chest: Effort normal and breath sounds normal. Abdominal: Soft. Normal appearance, normal aorta and bowel sounds are normal. She exhibits no distension and no mass. There is tenderness (generalized lower abdominal. ). There is no rigidity, no rebound, no guarding, no CVA tenderness, no tenderness at McBurney's point and negative Stanton's sign. Negative obturator. Negative Psoas. Neurological: She is oriented to person, place, and time. She appears not lethargic. Nursing note and vitals reviewed. ASSESSMENT/PLAN: 1. Lower abdominal pain - ICD9: 789.09, ICD10: R10.30 - Unsure if this is related to recent of infant or other etiology - Appointment for Women's Health for tomorrow made for patient ( 8:00 am) - Advised patient if she develops a fever or becomes worse between now and tomorrow morning to be go to ER - BRAT diet and expand as tolerates - JOEY CBC AND DIFF Prescription instructions reviewed with patient as applicable. Patient advised if symptoms do not improve or if symptoms worsen sooner, to contact their primary care physician. Potential red flag symptoms discussed with the patient. Reviewed appropriate action plan to take if red flag symptoms occur. Patient agreeable to treatment plan. Tammi Bhatia APRN.CNP CNOV Observed: 10/03/2017 Status: COMPLETED Source: MESA 9:30 AM [facility] REPOSITORY Office Visit (WSTR) JAHAIRA VELASQUEZ ([id number]) 1990 F MAL Date Time Provider Department 10/03/17 9:30 AM TAMMI BHATIA (CEDRIC) [facility] During your visit today, we recorded the following information about you: Temperature Pulse Respiration Blood pressure 98.4 degrees 88/minute 18/minute 110/80 Weight 83.9 kg Tammi Bhatia APRN.CNP 10/03/2017 11:47 AM Signed Subjective HPI Patient is a 27 year old female here today with lower abdominal pain for the last 9 days. States she had a baby 12 weeks ago. States she did retain some placenta but has taken medication to ANDquot;flush it out.ANDquot; States history of ovarian cyst. States she has had diarrhea for the last 5 days. States it varies in consistency. No blood or mucous noted. States the pain is a sharp stabbing pain that is an 8-9/10 on the pain scale when it occurs which is 2-3 times a day. Denies correlation between food and pain. Nothing makes it better or worse. No other concerns at this time. Review of Systems Constitutional: Negative for chills, fever and malaise/fatigue. Respiratory: Negative. Cardiovascular: Negative. Gastrointestinal: Positive for abdominal pain, diarrhea, nausea and vomiting. Negative for blood in stool, heartburn and melena. Genitourinary: Negative for dysuria. Musculoskeletal: Negative for myalgias. All other systems reviewed and are negative. PAST MEDICAL HISTORY Diagnosis Date - Asthma - fracture right shoulder, soccer accident PAST SURGICAL HISTORY Procedure Laterality Date - BUNION CORRECTION W/METATARSAL OSTEOTOMY 2012 bilatereal foot surgery. - COLONOSCOPY W/BX 10/05/14 normal TI, normal colonoscopy - EGD W/O [facility] SPECIMEN W/BX 10/05/14 minimal reflux esophagitis, o/w normal - PAST SURGICAL HISTORY OF Left 06/2015 removal of screws from prior foot surgery - PAST SURGICAL HISTORY OF Right 01/2016 scope and shave of bone shoulder ALLERGIES Adhesive MEDICATIONS ibuprofen (MOTRIN) 800 mg tablet Take 800 mg by mouth every 6 hours as needed. ALBUTEROL SULFATE INHALATION Inhale as instructed. IRON, FERROUS SULFATE, ORAL Take 65 mg by mouth once daily. Dmssvmjl-Ud-Yup-Fe-FA ( VITAMIN) tab Take 1 tablet by mouth. FAMILY HISTORY Problem Relation Age of Onset - Thyroid Mother - Hypertension Father - Heart Father - Breast Cancer Maternal Grandmother - Diabetes Maternal Grandmother - Heart Paternal Grandmother - Heart Paternal Grandfather - Heart Maternal Grandfather Social History Substance Use Topics - Smoking status: Never Smoker - Smokeless tobacco: Never Used - Alcohol use No BP 110/80 Pulse 88 Temp 36.9 ?C (98.4 ?F) (Tympanic) Resp 18 Wt 83.9 kg (185 lb) BMI 31.76 kg/m2 Objective Physical Exam Constitutional: She is oriented to person, place, and time and well-developed, well-nourished, and in no distress. Vital signs are normal. She appears not lethargic and to not be writhing in pain. She does not have a sickly appearance. No distress. HENT: Head: Normocephalic and atraumatic. Cardiovascular: Normal rate, regular rhythm and normal heart sounds. Pulmonary/Chest: Effort normal and breath sounds normal. Abdominal: Soft. Normal appearance, normal aorta and bowel sounds are normal. She exhibits no distension and no mass. There is tenderness (generalized lower abdominal. ). There is no rigidity, no rebound, no guarding, no CVA tenderness, no tenderness at McBurney's point and negative Stanton's sign. Negative obturator. Negative Psoas. Neurological: She is oriented to person, place, and time. She appears not lethargic. Nursing note and vitals reviewed. ASSESSMENT/PLAN: 1. Lower abdominal pain - ICD9: 789.09, ICD10: R10.30 - Unsure if this is related to recent of or other etiology - Appointment for Women's Health for tomorrow made for patient ( 8:00 am) - Advised patient if she develops a fever or becomes worse between now and tomorrow morning to be go to ER - BRAT diet and expand as tolerates - JOEY CBC AND DIFF Prescription instructions reviewed with patient as applicable. Patient advised if symptoms do not improve or if symptoms worsen sooner, to contact their primary care physician. Potential red flag symptoms discussed with the patient. Reviewed appropriate action plan to take if red flag symptoms occur. Patient agreeable to treatment plan. Tammi Bhatia APRN.TRANSPORTATION JOB TITLES Referring Provider: SELF [[id number]] Allergies As of Date: 10/03/2017 Noted Allergy Reaction ADHESIVE 08/08/2015 4 - Hives Date Reviewed: 10/03/2017 Reviewed by: Delores Hale LPN - Fully Assessed Reason for Visit: Abdominal Pain [1] Cmt: x 9 days-nausea and vomiting for 5 days-pain is in lower abdomen Primary Visit Diagnosis:Lower abdominal pain [R10.30] Order(s):JOEY CBC AND DIFF [[id number]] Order #: [id number] FUTURE Prescriptions as of 10/03/2017 Sig: IBUPROFEN 800 MG TABLET Take 800 mg by mouth every 6 * ALBUTEROL SULFATE INHALATION Inhale as instructed. IRON (FERROUS SULFATE) ORAL Take 65 mg by mouth once ric* VITAMIN,CALCIUM,MINE* Take 1 tablet by mouth. Medication notes this encounter VITAMIN,CALCIUM,[id number] ACID TABLET >> Delores Hale LPN 10/03/2017 9:23 AM >> DELORES HALE LPN Gladys Oct 03, 2017 9:23 AM Not Taking Problem List As Of Date 10/03/2017 Noted Resolved Blood in stool [K92.1] INVALID FOR*01/14/2017 Abdominal pain, right lower quadrant [R10.31] INVALID FOR*01/14/2017 Asthma [J45.909] INVALID FOR* More... Encounter for supervision of normal first pregn*INVALID FOR*08/19/2017 History of foreign travel [Z78.9] INVALID FOR*08/19/2017 More... Rh negative state in antepartum period [O09.899]INVALID FOR*08/19/2017 More... Intrauterine growth restriction (IUGR) affectin*INVALID FOR*08/19/2017 Encounter Status:Closed by TAMMI BHATIA CNP on 10/03/17 PROGRESS Observed: 08/19/2017 Status: COMPLETED Source: MESA 10:05 AM [facility] REPOSITORY O ID: [id number] Author: Gregoria Sarah Service: (none) Author Type: Physician Type: Progress Notes Filed: 08/19/2017 10:31 AM Note Text: VISIT Jahaira Velasquez is a 27 year old year old here for visit. Delivery Summary: Recovery: Feeding: Bottle feeding problems: Stopped after 4 weeks Menses since delivery: Not resumed Menstrual pattern prior to : Regular periods Letha since delivery: Resumed Depression: denies symptoms of depression. See depression screening tab. Emotional support: Yes, Bowel symptoms: Negative for abdominal discomfort, blood in stools or black stools and change in bowel habits Bladder symptoms: No dysuria, gross hematuria, urinary frequency, urinary urgency, or incontinence Other issues: None Last Pap: 2017 normal HPV: N/A PAST MEDICAL HISTORY Diagnosis Date - Asthma - fracture right shoulder, soccer accident PAST SURGICAL HISTORY Procedure Laterality Date - BUNION CORRECTION W/METATARSAL OSTEOTOMY 2013 bilatereal foot surgery. - COLONOSCOPY W/BX 10/05/14 normal TI, normal colonoscopy - [facility] 10/05/14 minimal reflux esophagitis, o/w normal - PAST SURGICAL HISTORY OF Left 06/2015 removal of screws from prior foot surgery - PAST SURGICAL HISTORY OF Right 01/2016 scope and shave of bone shoulder FAMILY HISTORY Problem Relation Age of Onset - Thyroid Mother - Hypertension Father - Heart Father - Breast Cancer Maternal Grandmother - Diabetes Maternal Grandmother - Heart Paternal Grandmother - Heart Paternal Grandfather - Heart Maternal Grandfather SOCIAL HISTORY Social History Marital status: Spouse name: Earl Years of education: 19 Number of children: 0 Occupational History Occupation Employer Comment [employer] Social History Main Topics Smoking status: Never Smoker Smokeless status: Never Used Alcohol use: No Drug use: No Sexual activity: Yes Partners with: Male PHYSICAL EXAMINATION: There were no vitals taken for this visit. GENERAL: pleasant, female in no apparent distress HEENT: Normocephalic and atraumatic NECK: Supple, full range of motion, no adenopathy and thyroid normal DERMATOLOGY: Normal, without lesions, non-icteric and non-hirsute BREAST: deferred done on 08/08/17 ABDOMEN: soft, non-tender and no masses. . PELVIC: external genitalia normal, normal Bartholin's glands, urethra, Montesano's glands, no vulvar lesions, no cervical lesions, good vaginal support, physiologic discharge present, normal appearing perineal body and perianal region BIMANUAL: uterus normal size, shape and consistency, no adnexal masses and non-tender NEURO: alert and oriented x3,exam grossly non-focal EXTREMITIES: normal ASSESSMENT AND PLAN: 27 year old status post with normal course. Contraception plan: condoms Follow up: RTC for annual exams and PRN Gregoria Chen MD HOSP Observed: 08/08/2017 Status: COMPLETED Source: MESA 9:30 AM [facility] REPOSITORY Office Visit (WOOB) JAHAIRA VELASQUEZ ([id number]) 1990 F MAL Date Time Provider Department 08/08/17 9:30 AM SILVANA MORATAYA During your visit today, we recorded the following information about you: Blood pressure Weight 110/82 82.9 kg Silvana Morataya MD 08/08/2017 9:51 AM Signed Jahaira Velasquez is a 27 year old female who presents for breast milk concerns. HPI: Patient presents with bilateral breast pain for 2.5 weeks. Pains are sharp when occur. Denies triggers. No pain at all when he's nursing. Denies lumps in breast or redness. Her mild supply is normal. Baby's latch is good. Her son was in ED this week for vomiting. Unsure if son has GERD or breast milk allergy. She wants to make she her breasts aren't making her son ill. PAST MEDICAL HISTORY Diagnosis Date - Asthma - fracture right shoulder, soccer accident PAST SURGICAL HISTORY Procedure Laterality Date - BUNION CORRECTION W/METATARSAL OSTEOTOMY 2012 bilatereal foot surgery. - COLONOSCOPY W/BX 10/05/14 normal TI, normal colonoscopy - EGD W/O [facility] SPECIMEN W/BX 10/05/14 minimal reflux esophagitis, o/w normal - PAST SURGICAL HISTORY OF Left 06/2015 removal of screws from prior foot surgery - PAST SURGICAL HISTORY OF Right 01/2016 scope and shave of bone shoulder FAMILY HISTORY Problem Relation Age of Onset - Thyroid Mother - Hypertension Father - Heart Father - Breast Cancer Maternal Grandmother - Diabetes Maternal Grandmother - Heart Paternal Grandmother - Heart Paternal Grandfather - Heart Maternal Grandfather Social History Marital status: Spouse name: Earl Years of education: 19 Number of children: 0 Occupational History Occupation Employer Comment [employer] Social History Main Topics Smoking status: Never Smoker Smokeless status: Never Used Alcohol use: No Drug use: No Sexual activity: Yes Partners with: Male Current Outpatient Prescriptions: ibuprofen (MOTRIN) 800 mg tablet Take 800 mg by mouth every 6 hours as needed. IRON, FERROUS SULFATE, ORAL Take 65 mg by mouth once daily. Didfuojv-Oh-Ing-Fe-FA ( VITAMIN) tab Take 1 tablet by mouth. ALBUTEROL SULFATE INHALATION Inhale as instructed. No current facility-administered medications for this visit. Allergies As of Date: 08/08/2017 Allergen Noted Reaction ADHESIVE 08/08/2015 Hives Fully Assessed 07/16/2017 REVIEW OF SYSTEMS Abdomen: No bloating, early satiety, indigestion, or increased flatulence. No abdominal pain, nausea, vomiting, diarrhea, or constipation. Expanded ROS: GENERAL: No weight loss, malaise or fevers Allergies and current medication updated:Yes EXAM: There were no vitals taken for this visit. GENERAL: pleasant, female in no apparent distress BREAST: soft, non-tender, symmetric, no dominant mass, normal nipple-areolar complex, no lymphadenopathy and no nipple discharge CHEST: Normal inspiratory effort ABDOMEN: soft, non-tender and no masses NEURO: alert and oriented x3,exam grossly non-focal EXTREMITIES: normal ASSESSMENT AND PLAN: 27yo female with bilateral breast pain No evidence of mastitis Patient encouraged to pump after feeds to ensure completely emptying breasts Call with concerns Silvana Morataya MD Referring Provider: SELF [[id number]] Allergies As of Date: 08/08/2017 Noted Allergy Reaction ADHESIVE 08/08/2015 4 - Hives Date Reviewed: 08/08/2017 Reviewed by: Jhoana Murillo Ma - Fully Assessed Reason for Visit: Breast Problem [16] Primary Visit Diagnosis:Breast pain [N64.4] Prescriptions as of 08/08/2017 Sig: IBUPROFEN 800 MG TABLET Take 800 mg by mouth every 6 * IRON (FERROUS SULFATE) ORAL Take 65 mg by mouth once ric* VITAMIN,CALCIUM,MINE* Take 1 tablet by mouth. ALBUTEROL SULFATE INHALATION Inhale as instructed. Medication notes this encounter IRON (FERROUS SULFATE) ORAL >> Jhoana Murillo Ma 08/08/2017 9:28 AM >> JHOANA MURILLO MA [facility] Aug 08, 2017 9:28 AM Not taking Problem List As Of Date 08/08/2017 Noted Resolved Blood in stool [K92.1] INVALID FOR*01/14/2017 Abdominal pain, right lower quadrant [R10.31] INVALID FOR*01/14/2017 Asthma [J45.909] INVALID FOR* More... Encounter for supervision of normal first pregn*INVALID FOR* History of foreign travel [Z78.9] INVALID FOR* More... Rh negative state in antepartum period [O09.899]INVALID FOR* More... Intrauterine growth restriction (IUGR) affectin*INVALID FOR* Encounter Status:Closed by SILVANA MORATAYA MD on 08/08/17 PROGRESS Observed: 08/08/2017 Status: COMPLETED Source: MESA 9:22 AM [facility] REPOSITORY HNO ID: [id number] Author: Silvana Morataya Service: (none) Author Type: Physician Type: Progress Notes Filed: 08/08/2017 9:51 AM Note Text: Jahaira Velasquez is a 27 year old female who presents for breast milk concerns. HPI: Patient presents with bilateral breast pain for 2.5 weeks. Pains are sharp when occur. Denies triggers. No pain at all when he's nursing. Denies lumps in breast or redness. Her mild supply is normal. Baby's latch is good. Her son was in ED this week for vomiting. Unsure if son has GERD or breast milk allergy. She wants to make she her breasts aren't making her son ill. PAST MEDICAL HISTORY Diagnosis Date - Asthma - fracture right shoulder, soccer accident PAST SURGICAL HISTORY Procedure Laterality Date - BUNION CORRECTION W/METATARSAL OSTEOTOMY 2013 bilatereal foot surgery. - COLONOSCOPY W/BX 10/05/14 normal TI, normal colonoscopy - EGD W/O [facility] SPECIMEN W/BX 10/05/14 minimal reflux esophagitis, o/w normal - PAST SURGICAL HISTORY OF Left 06/2015 removal of screws from prior foot surgery - PAST SURGICAL HISTORY OF Right 01/2016 scope and shave of bone shoulder FAMILY HISTORY Problem Relation Age of Onset - Thyroid Mother - Hypertension Father - Heart Father - Breast Cancer Maternal Grandmother - Diabetes Maternal Grandmother - Heart Paternal Grandmother - Heart Paternal Grandfather - Heart Maternal Grandfather Social History Marital status: Spouse name: Earl Years of education: 19 Number of children: 0 Occupational History Occupation Employer Comment [employer] Social History Main Topics Smoking status: Never Smoker Smokeless status: Never Used Alcohol use: No Drug use: No Sexual activity: Yes Partners with: Male Current Outpatient Prescriptions: ibuprofen (MOTRIN) 800 mg tablet Take 800 mg by mouth every 6 hours as needed. IRON, FERROUS SULFATE, ORAL Take 65 mg by mouth once daily. Kreglblv-Xg-Qsj-Fe-FA ( VITAMIN) tab Take 1 tablet by mouth. ALBUTEROL SULFATE INHALATION Inhale as instructed. No current facility-administered medications for this visit. Allergies As of Date: 08/08/2017 Allergen Noted Reaction ADHESIVE 08/08/2015 Hives Fully Assessed 07/16/2017 REVIEW OF SYSTEMS Abdomen: No bloating, early satiety, indigestion, or increased flatulence. No abdominal pain, nausea, vomiting, diarrhea, or constipation. Expanded ROS: GENERAL: No weight loss, malaise or fevers Allergies and current medication updated:Yes EXAM: There were no vitals taken for this visit. GENERAL: pleasant, female in no apparent distress BREAST: soft, non-tender, symmetric, no dominant mass, normal nipple-areolar complex, no lymphadenopathy and no nipple discharge CHEST: Normal inspiratory effort ABDOMEN: soft, non-tender and no masses NEURO: alert and oriented x3,exam grossly non-focal EXTREMITIES: normal ASSESSMENT AND PLAN: 27yo female with bilateral breast pain No evidence of mastitis Patient encouraged to pump after feeds to ensure completely emptying breasts Call with concerns Silvana Morataya MD CBC AND DIFFERENTIAL Collected: 07/16/2017 Status: F Source: MESA 2:08 PM [facility] REPOSITORY TYPE CODE TESTS RESULT OUT OF REFERENCE UNITS RANGE LAB WBC 3.70-11.00 k/uL WBC 7.33 LAB RBC 3.90-5.20 m/uL RBC 4.10 LAB HGB 11.5-15.5 g/dL Hemoglobin 12.3 LAB HCT 36.0-46.0 % Hematocrit 40.0 LAB MCV 80.0-100.0 fL MCV 97.6 LAB MCH 26.0-34.0 pG MCH 30.0 LAB MCHC 30.5-36.0 g/dL MCHC 30.8 LAB RDWCV 11.5-15.0 % RDW-CV 13.4 LAB PLTCT 150-400 k/uL Platelet Count 259 Result Comment: Result checked and verified No clot detected. LAB MPV 9.0-12.7 fL MPV High 13.1 LAB ANEUT % Neut% 82.1 LAB AANEUT 1.45-7.50 k/uL Abs Neut 6.02 LAB ALYMP % Lymph% 11.9 LAB AALYMP 1.00-4.00 k/uL Low Abs Lymph 0.87 LAB AMONO % Attala% 4.1 LAB AAMONO <0.87 k/uL Abs Attala 0.30 LAB AEOS % Eosin% 1.6 LAB AAEOS <0.46 k/uL Abs Eosin 0.12 LAB ABASO % Baso% 0.3 LAB AABASO <0.11 k/uL Abs Baso <0.03 LAB AUNRBC 0 /100 WBC NRBCs 0.0 LAB ABNRBC <0.01 k/uL Absolute nRBC <0.01 LAB DTYP DTYPE Auto Diff Performed By: #### CBCDIF #### [facility] [address] [place] [place] [id number] PROGRESS Observed: 07/16/2017 Status: COMPLETED Source: MESA 1:24 PM [facility] REPOSITORY HNO ID: [id number] Author: Laura Lopez Service: (none) Author Type: Physician Type: Progress Notes Filed: 07/16/2017 1:25 PM Note Text: The patient presents for a requested ultrasound. A full report is available in the imaging tab in [facility]. Laura Lopez MD, PhD MFM marketing regional consultant, [facility] OBSOLETE Observed: 07/16/2017 Status: COMPLETED Source: MESA 11:00 AM [facility] REPOSITORY Procedure (WOOB) JAHAIRA VELASQUEZ ([id number]) 1990 F [facility] Date Time Provider Department 07/16/17 11:00 AM LAURA LOPEZ During your visit today, we recorded the following information about you: Laura Lopez MD 07/16/2017 1:25 PM Signed The patient presents for a requested ultrasound. A full report is available in the ANDquot; imagingANDquot; tab in [facility]. Laura Lopez MD, PhD MFM marketing regional consultant, [facility] Referring Provider: DEIRDRE MAIER ([facility]) [[id number]] Allergies As of Date: 07/16/2017 Noted Allergy Reaction ADHESIVE 08/08/2015 4 - Hives Date Reviewed: 07/16/2017 Reviewed by: Ya Arthur Ma - Fully Assessed Primary Visit Diagnosis:Retained portions of placenta or membranes without hemorrhage [O73.1] Prescriptions as of 07/16/2017 Sig: IBUPROFEN 800 MG TABLET Take 800 mg by mouth every 6 * IRON (FERROUS SULFATE) ORAL Take 65 mg by mouth once ric* VITAMIN,CALCIUM,MINE* Take 1 tablet by mouth. ALBUTEROL SULFATE INHALATION Inhale as instructed. Problem List As Of Date 07/16/2017 Noted Resolved Blood in stool [K92.1] INVALID FOR*01/14/2017 Abdominal pain, right lower quadrant [R10.31] INVALID FOR*01/14/2017 Asthma [J45.909] INVALID FOR* More... Encounter for supervision of normal first pregn*INVALID FOR* History of foreign travel [Z78.9] INVALID FOR* More... Rh negative state in antepartum period [O09.899]INVALID FOR* More... Intrauterine growth restriction (IUGR) affectin*INVALID FOR* Encounter Status:Closed by LAURA LOPEZ MD on 07/16/17 PROGRESS Observed: 07/16/2017 Status: COMPLETED Source: MESA 10:31 AM [facility] REPOSITORY [facility] ID: [id number] Author: Deirdre Maier Service: (none) Author Type: Dimensional Integration Engineer Type: Progress Notes Filed: 07/16/2017 1:49 PM Note Text: Jahaira Velasquez is a 27 year old female who presents for problem visit for vaginal burning and clots. HPI: 07/11/16 vaginal burning internally. Pelvic cramping like menstrual cramps, rates pain3/10 but causes nausea. Temp 100.5 on 07/15/16, did not take it the day before, today Temp is 96.9. Took Tylenol at 10:30pm on 07/15/17. Vaginal clots, many with largest golf ball size. Vaginal odor unsure if it has changed but states it has an odor. Denies any aches or chills but does not feel well. States she feels a little better than yesterday. PAST MEDICAL HISTORY Diagnosis Date - Asthma - fracture right shoulder, soccer accident PAST SURGICAL HISTORY Procedure Laterality Date - BUNION CORRECTION W/METATARSAL OSTEOTOMY 2012 bilatereal foot surgery. - COLONOSCOPY W/BX 10/05/14 normal TI, normal colonoscopy - EGD W/O [facility] SPECIMEN W/BX 10/05/14 minimal reflux esophagitis, o/w normal - PAST SURGICAL HISTORY OF Left 06/2015 removal of screws from prior foot surgery - PAST SURGICAL HISTORY OF Right 01/2016 scope and shave of bone shoulder FAMILY HISTORY Problem Relation Age of Onset - Thyroid Mother - Hypertension Father - Heart Father - Breast Cancer Maternal Grandmother - Diabetes Maternal Grandmother - Heart Paternal Grandmother - Heart Paternal Grandfather - Heart Maternal Grandfather Social History Marital status: Spouse name: Earl Years of education: 19 Number of children: 0 Occupational History Occupation Employer Comment [employer] Social History Main Topics Smoking status: Never Smoker Smokeless status: Never Used Alcohol use: No Drug use: No Sexual activity: Yes Partners with: Male Current Outpatient Prescriptions: ibuprofen (MOTRIN) 800 mg tablet Take 800 mg by mouth every 6 hours as needed. IRON, FERROUS SULFATE, ORAL Take 65 mg by mouth once daily. Btdqczod-Kj-Dlt-Fe-FA ( VITAMIN) tab Take 1 tablet by mouth. ALBUTEROL SULFATE INHALATION Inhale as instructed. No current facility-administered medications for this visit. Allergies As of Date: 07/16/2017 Allergen Noted Reaction ADHESIVE 08/08/2015 Hives Fully Assessed 07/16/2017 REVIEW OF SYSTEMS Abdomen: See HPI Bladder: No dysuria, gross hematuria, urinary frequency, urinary urgency, or incontinence. Breast: No breast lumps, nipple d/c, overlying skin changes, redness or skin retraction. Expanded ROS: N/A Allergies and current medication updated:Yes EXAM: BP 116/82 Wt 183 lb (83.0kg) GENERAL: pleasant, female in no apparent distress HEENT: Normocephalic and atraumatic, no lymphadenopathy NECK: Supple and full range of motion CHEST: Clear to auscultation Normal inspiratory effort Regular rate and rhythm No murmurs, clicks, rubs or gallops ABDOMEN: soft, non-tender and no masses PELVIC: external genitalia normal, normal Bartholin's glands, urethra, Montesano's glands, no vulvar lesions, no cervical lesions, good vaginal support, normal appearing perineal body and perianal region. Repair well approximated and healing well. Lochia rubra present, slight odor, no clots visualized on exam. BIMANUAL: uterus normal size, shape and consistency and no adnexal masses. Tenderness during exam, rates pain 8/10. Pain more on right side and midline, no pain on left side. NEURO: alert and oriented x3,exam grossly non-focal EXTREMITIES: normal Unofficial U/S showed 54.8mm uterine lining. Waiting for official report. ASSESSMENT AND PLAN: ASSESSMENT/PLAN: 1. Pelvic pain in female 2. Retained portions of placenta or membranes without hemorrhage -Consulted , will give Methergine 0.2mg PO every 6 hours x 48hrs. If no improvement, return of fever, increased pain, vaginal bleeding, or worsening symptoms to call for further evaluation. -CBC to be done today also. Deirdre Maier CNM CNOV Observed: 07/16/2017 Status: COMPLETED Source: MESA 10:15 AM [facility] REPOSITORY Office Visit (WOOB) JAHAIRA VELASQUEZ ([id number]) 1990 F MAL Date Time Provider Department 07/16/17 10:15 AM DEIRDRE MAIER ([place]) WOOB During your visit today, we recorded the following information about you: Temperature Blood pressure Weight 96.9 degrees 116/82 83 kg Deirdre Maier CNM 07/16/2017 1:49 PM Addendum Jahaira Velasquez is a 27 year old female who presents for problem visit for vaginal burning and clots. HPI: 07/11/16 vaginal burning internally. Pelvic cramping like menstrual cramps, rates pain3/10 but causes nausea. Temp 100.5 on 07/15/16, did not take it the day before, today Temp is 96.9. Took Tylenol at 10:30pm on 07/15/17. Vaginal clots, many with largest golf ball size. Vaginal odor unsure if it has changed but states it has an odor. Denies any aches or chills but does not feel well. States she feels a little better than yesterday. PAST MEDICAL HISTORY Diagnosis Date - Asthma - fracture right shoulder, soccer accident PAST SURGICAL HISTORY Procedure Laterality Date - BUNION CORRECTION W/METATARSAL OSTEOTOMY 2012 bilatereal foot surgery. - COLONOSCOPY W/BX 10/05/14 normal TI, normal colonoscopy - EGD W/O BRSH SPECIMEN W/BX 10/05/14 minimal reflux esophagitis, o/w normal - PAST SURGICAL HISTORY OF Left 06/2015 removal of screws from prior foot surgery - PAST SURGICAL HISTORY OF Right 01/2016 scope and shave of bone shoulder FAMILY HISTORY Problem Relation Age of Onset - Thyroid Mother - Hypertension Father - Heart Father - Breast Cancer Maternal Grandmother - Diabetes Maternal Grandmother - Heart Paternal Grandmother - Heart Paternal Grandfather - Heart Maternal Grandfather Social History Marital status: Spouse name: Earl Years of education: 19 Number of children: 0 Occupational History Occupation Employer Comment [employer] Social History Main Topics Smoking status: Never Smoker Smokeless status: Never Used Alcohol use: No Drug use: No Sexual activity: Yes Partners with: Male Current Outpatient Prescriptions: ibuprofen (MOTRIN) 800 mg tablet Take 800 mg by mouth every 6 hours as needed. IRON, FERROUS SULFATE, ORAL Take 65 mg by mouth once daily. Qqtavgbe-Pc-Jse-Fe-FA ( VITAMIN) tab Take 1 tablet by mouth. ALBUTEROL SULFATE INHALATION Inhale as instructed. No current facility-administered medications for this visit. Allergies As of Date: 07/16/2017 Allergen Noted Reaction ADHESIVE 08/08/2015 Hives Fully Assessed 07/16/2017 REVIEW OF SYSTEMS Abdomen: See HPI Bladder: No dysuria, gross hematuria, urinary frequency, urinary urgency, or incontinence. Breast: No breast lumps, nipple d/c, overlying skin changes, redness or skin retraction. Expanded ROS: N/A Allergies and current medication updated:Yes EXAM: BP 116/82 Wt 183 lb (83.0kg) GENERAL: pleasant, female in no apparent distress HEENT: Normocephalic and atraumatic, no lymphadenopathy NECK: Supple and full range of motion CHEST: Clear to auscultation Normal inspiratory effort Regular rate and rhythm No murmurs, clicks, rubs or gallops ABDOMEN: soft, non-tender and no masses PELVIC: external genitalia normal, normal Bartholin's glands, urethra, Montesano's glands, no vulvar lesions, no cervical lesions, good vaginal support, normal appearing perineal body and perianal region. Repair well approximated and healing well. Lochia rubra present, slight odor, no clots visualized on exam. BIMANUAL: uterus normal size, shape and consistency and no adnexal masses. Tenderness during exam, rates pain 8/10. Pain more on right side and midline, no pain on left side. NEURO: alert and oriented x3,exam grossly non-focal EXTREMITIES: normal Unofficial U/S showed 54.8mm uterine lining. Waiting for official report. ASSESSMENT AND PLAN: ASSESSMENT/PLAN: 1. Pelvic pain in female 2. Retained portions of placenta or membranes without hemorrhage -Consulted , will give Methergine 0.2mg PO every 6 hours x 48hrs. If no improvement, return of fever, increased pain, vaginal bleeding, or worsening symptoms to call for further evaluation. -CBC to be done today also. Deirdre Maier CNM Referring Provider: DEIRDRE MAIER ([place]) [[id number]] Allergies As of Date: 07/16/2017 Noted Allergy Reaction ADHESIVE 08/08/2015 4 - Hives Date Reviewed: 07/16/2017 Reviewed by: Ya Arthur Ma - Fully Assessed Reason for Visit: Care [85] Cmt: Fever and Pain Primary Visit Diagnosis:Pelvic pain in female [R10.2] Other Visit Diagnosis:Retained portions of placenta or membranes without hemorrhage [O73.1] Order(s):PELVIC US WHI [1069141] Order #: [id number]. #:[id number]: 1 methylergonovine (METHERGINE) 0.2 mg tabletTake 1 tablet by mouth every 6 hours for 2 days.Disp: 8 tabletRfl: 0 CBC + DIFF [SQCBCDIF] Order #: [id number] FUTURE Prescriptions as of 07/16/2017 Sig: IBUPROFEN 800 MG TABLET Take 800 mg by mouth every 6 * IRON (FERROUS SULFATE) ORAL Take 65 mg by mouth once ric* VITAMIN,CALCIUM,MINE* Take 1 tablet by mouth. ALBUTEROL SULFATE INHALATION Inhale as instructed. METHYLERGONOVINE 0.2 MG TABLET Take 1 tablet by mouth every * Problem List As Of Date 07/16/2017 Noted Resolved Blood in stool [K92.1] INVALID FOR*01/14/2017 Abdominal pain, right lower quadrant [R10.31] INVALID FOR*01/14/2017 Asthma [J45.909] INVALID FOR* More... Encounter for supervision of normal first pregn*INVALID FOR* History of foreign travel [Z78.9] INVALID FOR* More... Rh negative state in antepartum period [O09.899]INVALID FOR* More... Intrauterine growth restriction (IUGR) affectin*INVALID FOR* Prescriptions ordered this encounter Disp Refills Start End METHYLERGONOVINE 0.2 MG TABLET 8 ta* 0 07/16/2017 07/18/2017 Route: ORAL Sig: Take 1 tablet by mouth every 6 hours for 2 days. Encounter Status:Closed by DEIRDRE MAIER on 07/16/17 PROGRESS Observed: 07/12/2017 Status: COMPLETED Source: MESA 12:30 PM [facility] REPOSITORY HNO ID: [id number] Author: Mya Wilson LPN Service: (none) Author Type: (none) Type: Progress Notes Filed: 07/12/2017 12:30 PM Note Text: Pt delivered via at [facility] on 07/11/[address] Sarah. See OB Outcome note. Mya Wilson LPN' CBC-COMPLETE BLOOD CNT Collected: 07/12/2017 Status: F Source: JOE[place] NO DIFF 4:45 AM [facility] Order Comment: Reason for Laboratory Test Day #1 TYPE CODE TESTS RESULT OUT OF RANGE REFERENCE UNITS LAB L100.1000 4.4-11.0 K/mm3 High WBC 11.2 LAB L100.1200 4.2-5.4 M/mm3 Low RBC 3.60 LAB L100.1300 12.0-15.0 g/dl Low HGB 10.9 LAB L100.1400 37-47 % Low HCT 33.9 LAB L100.1500 81-99 fL Normal MCV 94.2 LAB L100.1600 27.0-32.0 pg Normal MCH 30.3 LAB L100.1700 32-36 g/gl Normal MCHC 32.2 LAB L100.1810 11.6-14.6 % Normal RDW CV 13.9 LAB L100.1820 35.1-43.9 fl High RDW SD 45.7 LAB L100.1900 150-450 K/mm3 Normal PLT 180 LAB L100.2000 6.2-12.0 fl Normal MPV 11.8 Performed By: #### L100.0500 #### [facility] [address] [place], [address] HOSP Observed: 07/12/2017 Status: COMPLETED Source: MESA 12:00 AM [facility] REPOSITORY Patient Update (WOOB) JAHAIRA VELASQUEZ ([id number]) 1990 F [facility] Date Time Provider Department 07/12/17 GREGORIA MONTENEGRO During your visit today, we recorded the following information about you: May Wilson LPN 07/12/2017 12:30 PM Signed Pt delivered via at [facility] on 07/11/[address] Sarah. See OB Outcome note. Mya Wilson LPN' Allergies As of Date: 07/12/2017 Noted Allergy Reaction ADHESIVE 08/08/2015 4 - Hives Date Reviewed: 07/10/2017 Reviewed by: Laura Lopez - Fully Assessed Prescriptions as of 07/12/2017 Sig: IRON (FERROUS SULFATE) ORAL Take 65 mg by mouth once ric* VITAMIN,CALCIUM,MINE* Take 1 tablet by mouth. ALBUTEROL SULFATE INHALATION Inhale as instructed. Problem List As Of Date 07/12/2017 Noted Resolved Blood in stool [K92.1] INVALID FOR*01/14/2017 Abdominal pain, right lower quadrant [R10.31] INVALID FOR*01/14/2017 Asthma [J45.909] INVALID FOR* More... Encounter for supervision of normal first pregn*INVALID FOR* History of foreign travel [Z78.9] INVALID FOR* More... Rh negative state in antepartum period [O09.899]INVALID FOR* More... Intrauterine growth restriction (IUGR) affectin*INVALID FOR* Encounter Status:Closed by MYA WILSON LPN on 07/12/17 DISCHARGE INSTRUCTION Observed: 07/11/2017 Status: F Source: JOEY 10:00 AM [facility] [place] Medical Records Department [address] [place] [address] Instructions for Home/Discharge Instructions 07/11/17 1000 MR#: [id number] Acct: [id number] Name: JAHAIRA VELASQUEZ Rep #: [id number] : 1990 27 From: Gregoria Sarah MD PCP: Zaire Sanderson MD Status: ADM IN Discharge Diet: No Restrictions Discharge Activity: Return to Normal Activity, May not drive while taking narcotic pain medications., May Shower May resume sexual activity in: 4-6 weeks Additional Activity Instructions:: Nothing in the vagina for 4-6 weeks. You may return to work/school in 6 weeks. Call your doctor if your incision/area has: Continuous Slow Oozing, Sudden Increased Bleeding, Increased Pain/ Swelling, Increased Redness, Foul Smelling Discharge Additional Instructions: If you experience any of the following, contact your healthcare provider. * Bleeding that soaks a pad every hour for 2 hours * Fever 100.4 or higher * Unrelieved incision or abdominal pain * Swelling, redness, discharge or bleeding from your incision or episiotomy site * Your incision begins to separate * Problems urinating (including inability to urinate or burning while urinating). * Visual changes * Severe headache * Flu-like symptoms * Pain or redness in one of both of your breasts * Pain, warmth, tenderness or swelling in your legs, especially the calf area * Frequent nausea and vomiting * Symptoms of depression or anxiety If you experience any of the following, call 911 or go to the nearest Emergency Room. * Chest pain * Problems breathing * Seizure activity * Partial or complete paralysis of a body part, slurred speech, weakness or drooping of the face, or a sudden inability to walk or hold your balance Allergies/Adverse Reactions: Allergies adhesive Allergy (Verified 01/23/16 14:08) Hives Medications to take at Discharge Albuterol Inhaler [Ventolin Hfa] 2 puff INHALATION Q6H PRN PRN 01/23/16 Ferrous Sulfate 65 mg PO DAILY 05/14/17 Vit No.130/Iron/FA [ Tablet] 1 each PO DAILY 05/14/17 Ibuprofen [Motrin] 800 mg PO TID PRN PRN #60 tab 07/11/17 The following prescriptions were given: Ibuprofen [Motrin] 800 mg PO TID PRN PRN #60 tab PRN Reason: Pain When: Call to make an appointment with your doctor in 6 weeks. If you had elevated Blood Pressure or 4th degree laceration you will need to be seen in 2 weeks. Primary Care Physician: Ishaan Sanderson MD [Primary Care Provider] - 07/11/17 1000 <Electronically signed by Gregoria Sarah MD> Date Gregoria Chen MD CC: Zaire Sanderson MD OPERATIVE REPORT Observed: 07/11/2017 Status: F Source: [place] 9:57 AM [facility] [place] [facility] Medical Records Department [address] [place] [id number] Operative Report 07/11/17 0955 MR#: [id number] Acct: [id number] Name: JAHAIRA VELASQUEZ Rep #: [id number] : 1990 27 From: Gregoria Sarah MD PCP: Zaire Sanderson MD Status: ADM IN Location: QP111-7 Vaginal Delivery Maternal Presentation: Medically Indicated Induction Method of Induction: Pitocin, Cunningham Bulb Medical Reason for Induction: Compromise: list: - IUGR Amniotic Membrane Rupture Type: Spontaneous Amniotic Fluid Description: Clear Final RENE: 07/15/17 Final RENE Source: LMP Gestational age: 39 Weeks and 3 Days Date of Procedure: 07/11/17 Pre-Operative Diagnosis: IUGR fetus 4% growth , term gestation Post-Operative Diagnosis: Live male infant Surgery/ Procedure Performed: Spontaneous Vaginal Delivery Type of Anesthesia: Epidural Description of Procedure: of live male infant born without complication. Delayed cord clamping performed after was placed on mothers chest. Presentation: Vertex Placental Delivery Description: Spontaneous Placenta Disposition: [facility] Cord Vessel Description: 3 Vessels Nuchal Cord Compression: Without compression Cord Entanglement: None Drain: Cunningham to straight drain Estimated Blood Loss: 250 A gender: Male (1 minute): 8 (5 minute): 8 Episiotomy Description: None Laceration: Perineal Extension/lac - repaired with 2-0 vicryl and skin closed with 3-0 rapide in usual fashion, 2nd degree Medications given after delivery: IV Pitocin Complications: None 07/11/17 0957 <Electronically signed by Gregoria Sarah MD> Date Gregoria Chen MD CC: Zaire Sanderson MD; Gregoria Chen MD Signed PLACENTA Observed: 07/11/2017 Status: F Source: [place]LEY 8:47 AM [facility] [place] [facility] Patient: JAHAIRA VELASQUEZ : 1990 () Acct Num: [id number] Phys: Silvana Morataya Unit Num: [id number] Loc: WP DW332-7 Specimen: [id number] Received: 07/11/17906 Spec Type: PLACENTA TISSUES TISSUES: Placenta, NOS GROSS DESCRIPTION SPECIMEN: PLACENTA / CLINICAL INFORMATION: A. Weight: 2.739 kg B. Gestational Age: 39 weeks C. Sex: Male PLACENTAL WEIGHT (POST FIXATION): 360 gm PLACENTAL DIMENSIONS: 17 x 15 x 2.5 cm PLACENTAL SHAPE: Usual ovoid PLACENTAL WEIGHT FOR GESTATIONAL AGE: Within 10-99th percentile MEMBRANES - Present A. Insertion: Marginal B. Site of rupture from edge: 3 cm from edge of placental disc C. Color of membrane: Nelson-blair D. Abnormalities: None UMBILICAL CORD - Present A. Color: Nelson-blair B. Insertion: Eccentric C. Length: 50 cm D. Diameter: 1.2 cm E. Number of vessels: Three F. Abnormalities: None PLACENTAL DISC - Present A. Color of surface: Nelson-blair B. surface abnormalities: None C. Maternal cotyledons: Intact with minimal tears D. Attached retro placental clot: No clot E. Cut surface: Dark red and spongy F. Lesions: None G. Separate clot: Absent SECTIONS SUBMITTED: 1. Membrane roll and umbilical cord ( end notched) 2. Placental disc, and maternal surfaces 3. Placental disc, and maternal surfaces 4. Placental disc, and maternal surfaces AM: 07/11/17 TC:5 CPT: 31455 HEADER OPERATION: Vaginal delivery PRE-OP DIAGNOSIS: Routine TISSUE SUBMITTED: Placenta MICROSCOPIC DESCRIPTION Slides are reviewed. MICROSCOPIC DIAGNOSIS Calabrese placenta (360 gm): Umbilical cord trivascular with no inflammation. Placental membranes no pathologic change. Placental disc no significant pathologic change. AM: 07/12/17 Signed Damian Brii 07/12/17 <signature on file> Performed By: #### PPLAC #### [facility] [address] [place], [address] PATHOLOGY SPECIMEN OB Collected: 07/11/2017 Status: F Source: BRADLEY 8:21 AM [facility] [place] [facility] Order Comment: Send Specimen For (Specify): Studies @ [facility] Lab:Routine Time of Procedure: 820 Date of Procedure: 07/11/17 Reason specimen being sent to pathology (Hx/complications): ROUTINE Type of specimen: Placenta Type of procedure performed: Other TYPE CODE TESTS RESULT OUT OF RANGE REFERENCE UNITS LAB L350.1800 SEE Normal PATH. PATHOLOGY Spec. OB REPORT Result Comment: Specimen submitted to Anatomical Pathology Department for testing. Performed By: #### L350.1800 #### [facility] [address] [place], [address] (ROM) RUPTURE OF Collected: 07/11/2017 Status: F Source: [place] MEMBRANES 3:05 AM [facility] [place] [facility] TYPE CODE TESTS RESULT OUT OF REFERENCE UNITS RANGE LAB L205.1310 Negative High ROM POSITIVE Result Comment: Amniotic fluid present indicates rupture of Membranes. RESULTS CALLED TO TERESA 07/11/17 0915 Maggi Turner. REPORT READ BACK BY SAME . Performed By: #### L205.1000 #### [facility] [address] [place], [address] HISTORY AND PHYSICAL Observed: 07/10/2017 Status: F Source: [place] EXAM 6:04 PM [facility] [place] Medical Records Department [address] [place] [address] History and Physical 07/10/17 1800 MR#: [id number] Acct: [id number] Name: JAHAIRA VELASQUEZ Rep #: [id number] : 1990 27 From: Silvana Morataya PCP: Zaire Sanderson MD Status: ADM IN Location: QS790-0 History Date of Admission: 07/10/17 Gestational age: 39.2 History of this : IUGR on US today RH negative Pertinent Past Medical History: Asthma see [facility] H AND P Allergies adhesive Allergy (Verified 01/23/16 14:08) Hives Current Medications Acetaminophen (Tylenol) 325 - 650 mg PO Q4H PRN PRN PRN Reason: PAIN OR FEVER >100.4F Al Hydroxide/Mg Hydroxide (Mylanta Ii) 15 - 30 ml PO Q4H PRN PRN PRN Reason: INDIGESTION Citric Acid/Sodium Citrate (Bicitra) 30 ml PO UD PRN Lactated Ringer's () 1,000 mls @ 50 mls/hr IV .Q20H ONELIA Oxytocin/Sodium Chloride () 30 units in 500 mls @ 1 mls/hr IV .Q500H ONELIA Nalbuphine HCl (Nubain) 5 - 10 mg IV Q3H PRN PRN PRN Reason: PAIN (4-10/10) Ondansetron HCl (Zofran) 4 mg IV Q8H PRN PRN PRN Reason: NAUSEA Promethazine HCl (Phenergan (Ll)) 6.25 - 12.5 mg IV Q4H PRN PRN; Protocol PRN Reason: IF NAUSEA PERSISTS Sodium Chloride () 5 - 15 ml IV UD [facility] Smoking Status: Never smoker Alcohol: None Drug Use: none Number of Fetus(es): 1 Physical Exam General: Alert, Oriented x3 Abdomen: Soft, Non Tender, Non-Distended Cervix Dilation (cm): 1 Station: -2 Effacement (%): 70 - intracervical cunningham placed Assessment/Plan 27yo female at 39 AND 2 with IUGR Admit to L AND D Induction - cunningham placed, start pitocin Pain - epidural as desired GBS negative EFW 5-14 on US today 07/10/17 1804 <Electronically signed by Silvana Morataya > Date Silvana Morataya Cosigner Signature: Date (if applicable) CC: Zarie Sanderson MD; Silvana Morataya Signed CBC-COMPLETE BLOOD CNT Collected: 07/10/2017 Status: F Source: JOEY NO DIFF 5:20 PM [facility] [place] TYPE CODE TESTS RESULT OUT OF RANGE REFERENCE UNITS LAB L100.1000 4.4-11.0 K/mm3 Normal WBC 9.3 LAB L100.1200 4.2-5.4 M/mm3 Low RBC 3.53 LAB L100.1300 12.0-15.0 g/dl Low HGB 10.8 LAB L100.1400 37-47 % Low HCT 33.1 LAB L100.1500 81-99 fL Normal MCV 93.8 LAB L100.1600 27.0-32.0 pg Normal MCH 30.6 LAB L100.1700 32-36 g/gl Normal MCHC 32.6 LAB L100.1810 11.6-14.6 % Normal RDW CV 13.8 LAB L100.1820 35.1-43.9 fl High RDW SD 45.7 LAB L100.1900 150-450 K/mm3 Normal PLT 195 LAB L100.2000 6.2-12.0 fl Normal MPV 12.0 Performed By: #### L100.0500 #### [facility] [address] [place], [place], [id number] TYPE AND SCREEN Collected: 07/10/2017 Status: F Source: [place] 5:20 PM [facility] [place] [facility] Order Comment: Reason for Type AND Screen/Red Cells: ROUTINE TYPE CODE TESTS RESULT OUT OF RANGE REFERENCE UNITS LAB B10.0800 O Normal BLOOD TYPE GEL NEGATIVE LAB B100.4000 Normal Antibody NEGATIVE Screen Performed By: #### B101.7450 #### [facility] [address] [place], [address] PROGRESS Observed: 07/10/2017 Status: COMPLETED Source: MESA 2:35 PM [facility] REPOSITORY HNO ID: [id number] Author: Laura Lopez Service: (none) Author Type: Physician Type: Progress Notes Filed: 07/10/2017 2:41 PM Note Text: The patient presents for a requested ultrasound. A full report is available in the imaging tab in Epic. Laura Lopez MD, PhD MFM marketing regional consultant, [facility] HOSP Observed: 07/10/2017 Status: COMPLETED Source: MESA 9:40 AM [facility] REPOSITORY Routine Office Visit (WOOB) JAHAIRA VELASQUEZ ([id number]) 1990 F [facility] Date Time Provider Department 07/10/17 9:40 AM SILVANA MORATAYA During your visit today, we recorded the following information about you: Blood pressure Weight 122/80 89.4 kg [facility] 07/10/2017 9:43 AM Signed SEQUENTIAL SCREENINGS [facility] offers sequential screenings for women who are interested in screenings for chromosomal abnormalities and certain defects during a . The sequential screen combines ultrasound and blood tests to determine the risk of chromosomal abnormalities, including Down's Syndrome (Trisomy 21) and Trisomy 18, as well as open neural tube defects including spina bifida. Ultrasound examination is performed between 11 weeks and 13 weeks gestational age. Blood tests are drawn after the ultrasound and again later in the between 15 and 21 weeks gestational age. Please let your physician know if you are interested in this testing. It will require an appointment with our automated access systems technician. This is not an ultrasound performed by a physician in our office during a routine visit. SIGNS AND SYMPTOMS OF LABOR 1. Contractions every 10 minutes or more often 2. Clear, pink, or brownish fluid (water) leaking from vagina 3. Feeling that baby is pushing down, pressure 4. Low, dull backache 5. Cramps that feel like a period 6. Cramps with or without diarrhea If you notice any of the above symptoms, contact our office at [phone] and ask to speak with a nurse. After hours, you can call doctors registry at [phone] OR call [facility] at [phone] and ask to have the doctor fashion editor paged. If you consider this an emergency, dial 1-2-1 or go to your nearest emergency department. NEED HELP? Are you dealing with a violent or abusive relationship? Are you a victim of rape or sexual assult? Call [facility] ([place]) 24 hour Crisis Hotline: 484.722.3028 or 452-684-0142. MANUAL Your Guide to a Healthy manual is now on-line. Visit [email or web address] to download your free copy Referring Provider: SELF [200] Allergies As of Date: 07/10/2017 Noted Allergy Reaction ADHESIVE 08/08/2015 4 - Hives Date Reviewed: 07/10/2017 Reviewed by: Laura Lopez - Fully Assessed Reason for Visit: Care [86] Primary Visit Diagnosis:Encounter for supervision of normal first in third trimester [Z34.03] Other Visit Diagnosis:39 weeks gestation of [Z3A.39] Order(s):URINE OB DIP B/O [7182937] Order #: [id number] Prescriptions as of 07/10/2017 Sig: IRON (FERROUS SULFATE) ORAL Take 65 mg by mouth once ric* VITAMIN,CALCIUM,MINE* Take 1 tablet by mouth. ALBUTEROL SULFATE INHALATION Inhale as instructed. Problem List As Of Date 07/10/2017 Noted Resolved Blood in stool [K92.1] INVALID FOR*01/14/2017 Abdominal pain, right lower quadrant [R10.31] INVALID FOR*01/14/2017 Asthma [J45.909] INVALID FOR* More... Encounter for supervision of normal first pregn*INVALID FOR* History of foreign travel [Z78.9] INVALID FOR* More... Rh negative state in antepartum period [O09.899]INVALID FOR* More... Intrauterine growth restriction (IUGR) affectin*INVALID FOR* Other instructions from your clinician: SEQUENTIAL SCREENINGS [facility] offers sequential screenings for women who are interested in screenings for chromosomal abnormalities and certain defects during a . The sequential screen combines ultrasound and blood tests to determine the risk of chromosomal abnormalities, including Down's Syndrome (Trisomy 21) and Trisomy 18, as well as open neural tube defects including spina bifida. Ultrasound examination is performed between 11 weeks and 13 weeks gestational age. Blood tests are drawn after the ultrasound and again later in the between 15 and 21 weeks gestational age. Please let your physician know if you are interested in this testing. It will require an appointment with our automated access systems technician. This is not an ultrasound performed by a physician in our office during a routine visit. SIGNS AND SYMPTOMS OF LABOR 1. Contractions every 10 minutes or more often 2. Clear, pink, or brownish fluid (water) leaking from vagina 3. Feeling that baby is pushing down, pressure 4. Low, dull backache 5. Cramps that feel like a period 6. Cramps with or without diarrhea If you notice any of the above symptoms, contact our office at [phone] and ask to speak with a nurse. After hours, you can call doctors registry at [phone] OR call [facility] at [phone] and ask to have the doctor fashion editor paged. If you consider this an emergency, dial 3-1-8 or go to your nearest emergency department. NEED HELP? Are you dealing with a violent or abusive relationship? Are you a victim of rape or sexual assult? Call [facility] ([facility] 24 hour Crisis Hotline: 792.867.6548 or 313-102-0966. MANUAL Your Guide to a Healthy manual is now on-line. Visit [email or web address] to download your free copy Encounter Status:Closed by SILVANA MORATAYA MD on 07/10/17 HOSP Observed: 07/10/2017 Status: COMPLETED Source: MESA 8:30 AM [facility] REPOSITORY Routine Office Visit (WOOB) JAHAIRA VELASQUEZ ([id number]) 1990 F MAL Date Time Provider Department 07/10/17 8:30 AM LAURA LOPEZ WOOB During your visit today, we recorded the following information about you: Weight Height 89.7 kg 1.626 m Laura Lopez MD 07/10/2017 2:41 PM Signed The patient presents for a requested ultrasound. A full report is available in the ANDquot; imagingANDquot; tab in [facility]. Laura Lopez MD, PhD MFM marketing regional consultant, [facility] Referring Provider: DEIRDRE MAIER ([facility]) [[id number]] Allergies As of Date: 07/10/2017 Noted Allergy Reaction ADHESIVE 08/08/2015 4 - Hives Date Reviewed: 07/10/2017 Reviewed by: Laura Lopez - Fully Assessed Primary Visit Diagnosis:39 weeks gestation of [Z3A.39] Other Visit Diagnoses:Encounter for supervision of normal first in third trimester [Z34.03] Intrauterine growth restriction (IUGR) affecting care of mother, third trimester, single gestation [O36.5930] Order(s):OBSTETRIC ULTRASOUND I [[id number]] Order #: [id number]: 1 Prescriptions as of 07/10/2017 Sig: IRON (FERROUS SULFATE) ORAL Take 65 mg by mouth once ric* VITAMIN,CALCIUM,MINE* Take 1 tablet by mouth. ALBUTEROL SULFATE INHALATION Inhale as instructed. Problem List As Of Date 07/10/2017 Noted Resolved Blood in stool [K92.1] INVALID FOR*01/14/2017 Abdominal pain, right lower quadrant [R10.31] INVALID FOR*01/14/2017 Asthma [J45.909] INVALID FOR* More... Encounter for supervision of normal first pregn*INVALID FOR* History of foreign travel [Z78.9] INVALID FOR* More... Rh negative state in antepartum period [O09.899]INVALID FOR* More... Intrauterine growth restriction (IUGR) affectin*INVALID FOR* Encounter Status:Closed by LAURA LOPEZ MD on 07/10/17 HOSP Observed: 07/05/2017 Status: COMPLETED Source: MESA 3:00 PM [facility] REPOSITORY Routine Office Visit (WOOB) JAHAIRA VELASQUEZ ([id number]) 1990 F MAL Date Time Provider Department 07/05/17 3:00 PM DEIRDRE MAIER ([place]) WOOB During your visit today, we recorded the following information about you: Blood pressure Weight 124/80 89.8 kg Ya Arthur Ma 07/05/2017 3:02 PM Signed SEQUENTIAL SCREENINGS [facility] offers sequential screenings for women who are interested in screenings for chromosomal abnormalities and certain defects during a . The sequential screen combines ultrasound and blood tests to determine the risk of chromosomal abnormalities, including Down's Syndrome (Trisomy 21) and Trisomy 18, as well as open neural tube defects including spina bifida. Ultrasound examination is performed between 11 weeks and 13 weeks gestational age. Blood tests are drawn after the ultrasound and again later in the between 15 and 21 weeks gestational age. Please let your physician know if you are interested in this testing. It will require an appointment with our automated access systems technician. This is not an ultrasound performed by a physician in our office during a routine visit. SIGNS AND SYMPTOMS OF LABOR 1. Contractions every 10 minutes or more often 2. Clear, pink, or brownish fluid (water) leaking from vagina 3. Feeling that baby is pushing down, pressure 4. Low, dull backache 5. Cramps that feel like a period 6. Cramps with or without diarrhea If you notice any of the above symptoms, contact our office at [phone] and ask to speak with a nurse. After hours, you can call doctors registry at [phone] OR call [facility] at [phone] and ask to have the doctor fashion editor paged. If you consider this an emergency, dial 8-1-8 or go to your nearest emergency department. NEED HELP? Are you dealing with a violent or abusive relationship? Are you a victim of rape or sexual assult? Call [facility] ([place]) 24 hour Crisis Hotline: 214.423.7705 or 351-808-0021. MANUAL Your Guide to a Healthy manual is now on-line. Visit [email or web address] to download your free copy Referring Provider: SELF [200] Allergies As of Date: 07/05/2017 Noted Allergy Reaction ADHESIVE 08/08/2015 4 - Hives Date Reviewed: 07/05/2017 Reviewed by: Deirdre Maier - Fully Assessed Reason for Visit: Care [86] Primary Visit Diagnosis:Encounter for supervision of normal first in third trimester [Z34.03] Other Visit Diagnosis:38 weeks gestation of [Z3A.38] Order(s):URINE OB DIP B/O [[id number]] Order #: [id number] Prescriptions as of 07/05/2017 Sig: IRON (FERROUS SULFATE) ORAL Take 65 mg by mouth once ric* VITAMIN,CALCIUM,MINE* Take 1 tablet by mouth. ALBUTEROL SULFATE INHALATION Inhale as instructed. Problem List As Of Date 07/05/2017 Noted Resolved Blood in stool [K92.1] INVALID FOR*01/14/2017 Abdominal pain, right lower quadrant [R10.31] INVALID FOR*01/14/2017 Asthma [J45.909] INVALID FOR* More... Encounter for supervision of normal first pregn*INVALID FOR* History of foreign travel [Z78.9] INVALID FOR* More... Rh negative state in antepartum period [O09.899]INVALID FOR* More... Other instructions from your clinician: SEQUENTIAL SCREENINGS [facility] offers sequential screenings for women who are interested in screenings for chromosomal abnormalities and certain defects during a . The sequential screen combines ultrasound and blood tests to determine the risk of chromosomal abnormalities, including Down's Syndrome (Trisomy 21) and Trisomy 18, as well as open neural tube defects including spina bifida. Ultrasound examination is performed between 11 weeks and 13 weeks gestational age. Blood tests are drawn after the ultrasound and again later in the between 15 and 21 weeks gestational age. Please let your physician know if you are interested in this testing. It will require an appointment with our automated access systems technician. This is not an ultrasound performed by a physician in our office during a routine visit. SIGNS AND SYMPTOMS OF LABOR 1. Contractions every 10 minutes or more often 2. Clear, pink, or brownish fluid (water) leaking from vagina 3. Feeling that baby is pushing down, pressure 4. Low, dull backache 5. Cramps that feel like a period 6. Cramps with or without diarrhea If you notice any of the above symptoms, contact our office at [phone] and ask to speak with a nurse. After hours, you can call [facility] registry at [phone] OR call [facility] at [phone] and ask to have the doctor fashion editor paged. If you consider this an emergency, dial 4-9-4 or go to your nearest emergency department. NEED HELP? Are you dealing with a violent or abusive relationship? Are you a victim of rape or sexual assult? Call [facility] ([place]) 24 hour Crisis Hotline: 204.836.6030 or 684-620-5309. MANUAL Your Guide to a Healthy manual is now on-line. Visit [email or web address] to download your free copy Disposition: Return in about 1 week (around 07/12/2017), or if symptoms worsen or fail to improve, for Please make appointment with for ectopic beats in heart rate. . Follow-up and Disposition History Recorded Encounter Status:Closed by DEIRDRE MAIER on 07/05/17 HOSP Observed: 06/26/2017 Status: COMPLETED Source: MESA 2:30 PM [facility] REPOSITORY Routine Office Visit (WOOB) JAHAIRA VELASQUEZ ([id number]) 1990 F MAL Date Time Provider Department 06/26/17 2:30 PM DEIRDRE MAIER) KATHARINA During your visit today, we recorded the following information about you: Blood pressure Weight 124/82 89 kg Ya Arthur Ma 06/26/2017 2:22 PM Signed SEQUENTIAL SCREENINGS [facility] offers sequential screenings for women who are interested in screenings for chromosomal abnormalities and certain defects during a . The sequential screen combines ultrasound and blood tests to determine the risk of chromosomal abnormalities, including Down's Syndrome (Trisomy 21) and Trisomy 18, as well as open neural tube defects including spina bifida. Ultrasound examination is performed between 11 weeks and 13 weeks gestational age. Blood tests are drawn after the ultrasound and again later in the between 15 and 21 weeks gestational age. Please let your physician know if you are interested in this testing. It will require an appointment with our automated access systems technician. This is not an ultrasound performed by a physician in our office during a routine visit. SIGNS AND SYMPTOMS OF LABOR 1. Contractions every 10 minutes or more often 2. Clear, pink, or brownish fluid (water) leaking from vagina 3. Feeling that baby is pushing down, pressure 4. Low, dull backache 5. Cramps that feel like a period 6. Cramps with or without diarrhea If you notice any of the above symptoms, contact our office at [phone] and ask to speak with a nurse. After hours, you can call doctors registry at [phone] OR call [facility] at [phone] and ask to have the doctor fashion editor paged. If you consider this an emergency, dial 9-1-1 or go to your nearest emergency department. NEED HELP? Are you dealing with a violent or abusive relationship? Are you a victim of rape or sexual assult? Call [facility] ([place]) 24 hour Crisis Hotline: 376.989.2680 or 929-654-0026. MANUAL Your Guide to a Healthy manual is now on-line. Visit [email or web address] to download your free copy Referring Provider: SELF [200] Allergies As of Date: 06/26/2017 Noted Allergy Reaction ADHESIVE 08/08/2015 4 - Hives Date Reviewed: 06/26/2017 Reviewed by: Deirdre Maier - Fully Assessed Reason for Visit: Care [86] Primary Visit Diagnosis:Encounter for supervision of normal first in third trimester [Z34.03] Other Visit Diagnoses:37 weeks gestation of [Z3A.37] Iron deficiency anemia during , antepartum [O99.019, D50.9] Order(s):URINE OB DIP B/O [[id number]] Order #: [id number] Prescriptions as of 06/26/2017 Sig: IRON (FERROUS SULFATE) ORAL Take 65 mg by mouth once ric* VITAMIN,CALCIUM,MINE* Take 1 tablet by mouth. ALBUTEROL SULFATE INHALATION Inhale as instructed. Problem List As Of Date 06/26/2017 Noted Resolved Blood in stool [K92.1] INVALID FOR*01/14/2017 Abdominal pain, right lower quadrant [R10.31] INVALID FOR*01/14/2017 Asthma [J45.909] INVALID FOR* More... Encounter for supervision of normal first pregn*INVALID FOR* History of foreign travel [Z78.9] INVALID FOR* More... Rh negative state in antepartum period [O09.899]INVALID FOR* More... Other instructions from your clinician: SEQUENTIAL SCREENINGS [facility] offers sequential screenings for women who are interested in screenings for chromosomal abnormalities and certain defects during a . The sequential screen combines ultrasound and blood tests to determine the risk of chromosomal abnormalities, including Down's Syndrome (Trisomy 21) and Trisomy 18, as well as open neural tube defects including spina bifida. Ultrasound examination is performed between 11 weeks and 13 weeks gestational age. Blood tests are drawn after the ultrasound and again later in the between 15 and 21 weeks gestational age. Please let your physician know if you are interested in this testing. It will require an appointment with our automated access systems technician. This is not an ultrasound performed by a physician in our office during a routine visit. SIGNS AND SYMPTOMS OF LABOR 1. Contractions every 10 minutes or more often 2. Clear, pink, or brownish fluid (water) leaking from vagina 3. Feeling that baby is pushing down, pressure 4. Low, dull backache 5. Cramps that feel like a period 6. Cramps with or without diarrhea If you notice any of the above symptoms, contact our office at [phone] and ask to speak with a nurse. After hours, you can call doctors registry at [phone] OR call [facility] at [phone] and ask to have the doctor fashion editor paged. If you consider this an emergency, dial 9--1 or go to your nearest emergency department. NEED HELP? Are you dealing with a violent or abusive relationship? Are you a victim of rape or sexual assult? Call [facility] ([place]) 24 hour Crisis Hotline: 726.148.6431 or 534-834-5177. MANUAL Your Guide to a Healthy manual is now on-line. Visit [email or web address] to download your free copy Disposition: Return in about 1 week (around 07/03/2017), or if symptoms worsen or fail to improve, for [place]. Follow-up and Disposition History Recorded Encounter Status:Closed by DEIRDRE MAIER on 06/26/17 ALLERGIES ALLERGIES DATE TYPE / CODE NAME / CODE REACTION SEVERITY SOURCE 01/23/2016 Drug adhesive/[id number] Hives Unknown [facility] Allergy/416 3245(RXNORM) [facility] 821925(SNOM Repository ED CT) 08/08/2015 Drug ADHESIVE HIVES [facility] Class/03892 [place] 1003(SNOMED Repository CT) ENCOUNTERS ENCOUNTERS ADMIT/DISCHARGE ACCOUNT ADMITTING ENCOUNTER LOCATION SOURCE NUMBER CLASS 06/05/2018 [id number] Ambulatory [facility] ing:MFPLAB Repository 06/03/2018/06/03/20 [id number] Ambulatory [address] [place] Repository 04/30/2018/05/01/20 [id number] Ambulatory [address] Repository 04/21/2018 [id number] [facility] ing:PT Repository 04/02/2018/04/02/20 [id number] Ambulatory [address] Repository 03/18/2018/06/13/20 [id number] Ambulatory [address] Repository 03/11/2018/03/13/20 [id number] Ambulatory Catherine [facility] [place] Repository 02/12/2018/02/13/20 [id number] Ambulatory [address] [place] Repository 01/03/2018/01/04/20 [id number] Ambulatory [address] [place] Repository 10/04/2017 [id number] Ambulatory [facility] ing:LABSPEC Repository 10/04/2017 [id number] Ambulatory [facility] ing:MTLAB Repository 10/04/2017/10/09/19 [id number] Ambulatory [address] [place] Repository 10/03/2017/10/04/19 [id number] Ambulatory [address] [place] Repository 10/03/2017/10/04/19 [id number] Ambulatory [address] [place] Repository 08/19/2017/08/22/19 [id number] Ambulatory [address] [place] Repository 08/08/2017/08/09/19 [id number] Ambulatory [address] [place] Repository 07/16/2017/07/16/19 [id number] Ambulatory [address] [place] Repository 07/16/2017/07/17/19 [id number] Ambulatory [address] [place] Repository 07/16/2017/07/17/19 [id number] Ambulatory [address] [place] Repository 07/10/2017/07/13/19 [id number] Silvana Morataya Inpatient [address] ing:WPRoom: Repository [id number]: 1 07/10/2017/07/11/19 [id number] Ambulatory [address] [place] Repository 07/10/2017/07/11/19 [id number] Ambulatory [address] [place] Repository 07/05/2017/07/10/19 [id number] Ambulatory Catherine 18 [facility] [place] Repository 06/26/2017/06/27/20 [id number] Ambulatory [address] [place] Repository PAYERS PAYERS ENCOUNTER GUARANTOR PAYER SUBSCRIBER SOURCE 06/05/2018 JAHAIRA Cook [id number] Insurance:NERYLacy SUTTON: [facility] [place]: [id number] [id number] Repository 655[address]Ckf: [phone] Date:[id number] [phone] (HP) [address] [place] [id number]: 06/05/2018 Secondary NOT GIVENUNK Joey Insurance:SELF PAY [facility] Number: Effective Repository Date:2018-06-05 04/21/2018 JAHAIRA J Primary EARL T [place] [id number] Insurance:AULTCAREPol HARTZLERDOB: [facility] Number: [id number] [id number] Repository [address]Jhq: [phone] Date:1291-52-17FC [phone] (HP) [address] [place] [phone]: 04/21/2018 Secondary JAHAIRA J [place] Insurance:[facility] HARTZLERDOB: [facility] Number: [id number] [id number] Repository Date:2018-04-02 04/21/2018 Tertiary NOT GIVENUNK [place] Insurance:SELF PAY [facility] Number: Effective Repository Date:2018-04-02 10/04/2017 Jahaira J Primary Jahaira J [place] [id number] Insurance:MEDICAL HartzlerDOB: [facility] [id number] Number: Repository [id number]: [phone] [id number] [phone] (HP) Date:1666-02-84TQ [address], [place] [address]UR: 10/04/2017 Secondary NOT GIVENUNK [place] Insurance:SELF PAY [facility] Number: Effective Repository Date:2017-10-04 10/04/2017 Jahaira J Primary Jahaira J [place] [id number] Insurance:MEDICAL HartzlerDOB: [facility] [id number] Number: Repository [id number]: [phone] [id number] [phone] (HP) Date:4062-61-18IC [address] [place] [phone]: 10/04/2017 Secondary NOT GIVENUNK [place] Insurance:SELF PAY [facility] Number: Effective Repository Date:2017-10-04 07/10/2017 Jahaira J Primary Jahaira Pedersen [place] [id number] Insurance:[facility]ICAL [facility] [id number] Number: Repository [id number]: [phone]) [id number] [phone] () Date:2450-82-23IV [address] [place] [phone]: 07/10/2017 Secondary NOT GIVENUNK [place] Insurance:SELF PAY [facility] Number: Effective Repository Date:2017-06-04
== END ==
PROVIDERS: Family Provider Family Medicine; PCP Family Medicine; Visit Provider Family Medicine
DX: Z78.9 Other specified health status (principal)
CPT/HCPCS: 36415; 86706

== ENCOUNTER 2019-02-09 12:35 | Outpatient (CLI) | payer OTHER, SELFPAY ==
[2019-02-09 14:41] VITALS: BMI 35.3
[2019-02-09 15:07] LABS: ROM Internal Control Test YES-OK TO RESULT pt. (Internal QC); ROM Patient Test Negative (Negative)
--- NOTE | 2019-02-10 18:32 | OB.TRI.PN ---
Progress Notes Date of Service: 02/10/19 Progress Note: Sent to L&D for ROM plus. Done in office but unable to result. O: ROM plus negative A:Vaginal Discharge P: 1) ROM plus negative 2) D/C home Laboratory Studies: Laboratory Tests 02/09/19 02/09/19 Range/Units Unknown 14:40 Vag Amniotic Fld Detect Cancelled Negative (Negative)
== END 2019-02-09 15:15 | disposition home or self-care (01) ==
LOC: LABSPEC 12:36 → WPOUT 14:25 → WP 14:25
PROVIDERS: Obstetrics & Gynecology; Family Provider Family Medicine; PCP Family Medicine; Referring Provider Advanced Practice Midwife; Visit Provider Advanced Practice Midwife
DX: O26.899 Other specified pregnancy related conditions, unspecified trimester (principal); N89.8 Other specified noninflammatory disorders of vagina; Z3A.00 Weeks of gestation of pregnancy not specified
CPT/HCPCS: 59025; 59050; 84112; 99218; G0378

== ENCOUNTER 2019-03-28 18:20 | Outpatient (CLI) | payer OTHER, SELFPAY ==
[2019-03-28 18:39] VITALS: BMI 34.9
--- NOTE | 2019-03-29 12:16 | OB.TRI.NOTE ---
History of Present Illness Date of Service: 03/28/19 Was patient seen by the physician?: No Reason For Visit: DECREASED MOVEMENT Date of Service: 03/28/19 Final RENE: 05/04/19 Final RENE Source: LMP Gestational age: 34 Weeks and 5 Days Allergies adhesive Allergy (Verified 01/23/16 14:08) Hives NST - FHR Rate Baby A Baseline: 125 Variability:: Moderate Accelerations:: 15 x 15 Decelerations:: None NST Reactive:: Yes FHR Category:: Category I Uterine Activity:: quiet Impression/Plan 28-year-old 2 para 1 at 34-5/7 weeks with decreased movement. Reactive NST, patient felt movement after she arrived. Patient was reassured. Home with kick counts and follow-up in the office as needed or as scheduled.
== END 2019-03-28 19:20 | disposition home or self-care (01) ==
LOC: WPOUT 18:25 → WP 18:26
PROVIDERS: Family Provider Family Medicine; PCP Family Medicine; Visit Provider Obstetrics & Gynecology
DX: O36.8130 Decreased fetal movements, third trimester, not applicable or unspecified (principal); Z3A.34 34 weeks gestation of pregnancy
CPT/HCPCS: 59025; 59050; 99218; G0378

== ENCOUNTER 2019-03-31 15:25 | Outpatient (CLI) | payer OTHER, SELFPAY ==
[2019-03-31 15:40] VITALS: BMI 34.9
--- NOTE | 2019-03-31 17:28 | OB.TRI.NOTE ---
History of Present Illness Was patient seen by the physician?: Yes Reason For Visit: FALL Date of Service: 03/31/19 Final RENE: 04/26/19 Final RENE Source: LMP Gestational age: 36 Weeks and 2 Days History of Present Illness: Patient presents after fall at home where she hit her left upper abdomen. Denies abdominal pain, ctxs, LOF or VB. Also she reports good FM. Allergies adhesive Allergy (Verified 01/23/16 14:08) Hives Physical Exam General: Alert, Oriented x3 Abdomen: Soft, Non Tender, Non-Distended, Gravid NST - FHR Rate Baby A Baseline: 135 Variability:: Moderate Accelerations:: 15 x 15 Decelerations:: Variable NST Reactive:: Yes Uterine Activity:: Irritability at times Impression/Plan 28yo female @ 36&2 s/p abdominal trauma Check abruption labs and Kleihauer Betke. TAUS - active fetus, NEO = 14, normal appearing placenta & no evidence hemorrhage. Plan for 4 hours EFM. If labs & EFM are reassuring will d/c patient home later tonight.
[2019-03-31 18:13] LABS: Hematocrit 33.4 % (37-47); Hemoglobin 10.5 g/dL (12.0-15.0); Mean Corp Hgb Conc 31.4 g/dL (32-36); Mean Corpuscular Volume 92.3 fL (81-99); Mean Platelet Vol. 11.6 fl (6.2-12.0); Platelet Count 212 K/mm3 (150-450); RBC Distribution Width CV 13.9 % (11.6-14.6); RBC Distribution Width SD 46.5 fl (35.1-43.9); Red Blood Count 3.62 M/mm3 (4.2-5.4); White Blood Count 8.6 K/mm3 (4.4-11.0)
[2019-03-31 18:16] LABS: Prothrombin Time (Protime)PT. 13.4 SECONDS (11.7-14.9)
[2019-03-31 18:17] LABS: Partial Thromboplast Time 27.9 Seconds (24.1-36.2)
[2019-03-31 18:34] LABS: Fibrinogen 543 mg/dl (203-444)
[2019-04-02 07:52] LABS: Kleihauer-Betke Negative
== END 2019-03-31 20:05 | disposition home or self-care (01) ==
LOC: WPOUT 15:35 → WP 04-01 08:07
PROVIDERS: Family Provider Family Medicine; PCP Family Medicine; Referring Provider Obstetrics & Gynecology; Visit Provider Obstetrics & Gynecology
DX: O26.893 Other specified pregnancy related conditions, third trimester (principal); S39.91XA Unspecified injury of abdomen, initial encounter; Z3A.36 36 weeks gestation of pregnancy; W18.30XA Fall on same level, unspecified, initial encounter; Y93.89 Activity, other specified; Y92.89 Other specified places as the place of occurrence of the external cause; Y99.8 Other external cause status
CPT/HCPCS: 36415; 59025; 59050; 85027; 85384; 85460; 85610; 85730; 99218; G0378

== ENCOUNTER 2019-04-09 12:18 | Emergency (ER) | payer OTHER, SELFPAY ==
[2019-04-09 12:19] VITALS: BP 127/86; PULSE 95; RESP 16; TEMP 36.6; O2SAT 98; BMI 35.4
[2019-04-09] MEDS: 0.9% Normal Saline 1,000 ML 999 ML IV (16:12)
[2019-04-09] MEDS: Metoclopramide 10 MG/2 ML Vial IV (16:14)
[2019-04-09] MEDS: DiphenhydrAMINE 50 MG/ML Syringe 25 MG IV (16:14)
--- NOTE | 2019-04-09 16:49 | ED.VIS.HA ---
History of Present Illness Chief Complaint: Headache Narrative: Patient presenting for evaluation secondary to a headache. Patient reports that over the course of the last 8 days she has been dealing with a generalized headache. She reports that the day before the headache started, she suffered a mechanical fall where she struck her abdomen. She is 36 weeks , she states that at that time she did go to OB, was monitored for 4 hours and was discharged. She reports that the following day she had a gradual onset of a generalized headache. She describes it as an aching type sensation. It has been associated with occasional nausea and vomiting. She denies any visual changes numbness or weakness. No fevers associated with this. No neck stiffness or abnormal skin rashes associated with this. She states that she has been taking home medications such as Reglan and Benadryl orally which have not been helping this. Patient reports that she does not really have a history of having headaches prior to this. Review of systems otherwise negative. Past Medical History - Allergies and Home Meds Allergies/Adverse Reactions: Allergies adhesive Allergy (Verified 04/09/19 12:21) [facility] Physician: Isahan Sanderson MD [Primary Care Provider] - Past Medical History: None Smoking Status: Never smoker Review of Systems All systems negative except as indicated Gastrointestinal: Reports: Nausea, Vomiting Neurological: Reports: Headache Physical Exam Inital Vital Signs reviewed: Yes General: Well nourished, Well developed Head: NC, AT Eyes: Perrl, EOMI, - - Normal for endoscopy bilaterally ENT: Moist mucous membranes, No rhinorrhea Neck: Supple, No Lymphadenopathy, No JVD, Nontender, No Meningismus Cardiovascular: Regular rate, Regular rhythm, No murmurs Respiratory: No distress, CTA bilaterally, Chest nontender Abdomen: Soft, Nontender, Nondistended, Normal bowel sounds Back: Nontender, Normal Inspection Extremities: Nontender, No edema Skin: Normal color, No rash Neuro: Alert, Oriented x3, Cranial nerves II-XII grossly intact, Normal Strength, Normal Sensation, Normal DTR, Normal Gait Psychological: Normal affect Diagnostic/Tx/Re-eval - Medical Decision Making Patient presented with 8 days of a headache. Patient does not have any signs and symptoms of meningitis, intracranial hemorrhage, or other significant etiology. I did consider the possibility of the patient having a venous sinus thrombosis, but do not feel that that is likely the cause at this point as the patient has no abnormal neurological findings and this is been going on for 8 days and if that was the case she definitely would be much more severely ill. IV was established patient was given Reglan Benadryl and fluids. Repeat evaluation of the patient at 1645 showed resolution of her headache. At this point I believe she is safe and appropriate for discharge. She will follow-up with her [employer] PERSON. Disposition: Home ED Disposition - Plan for ED Patient: Disposition: Home or Assisted Living Diagnosis: Migraine headache Instructions: ED, Migraine (Classical) Referrals: Ishaan Sanderson MD [Primary Care Provider] - As Needed
== END 2019-04-09 17:25 | disposition home or self-care (01) ==
PROVIDERS: Emergency Provider Emergency Medicine; Family Provider Family Medicine; PCP Family Medicine
DX: O99.353 Diseases of the nervous system complicating pregnancy, third trimester (principal); G43.909 Migraine, unspecified, not intractable, without status migrainosus; Z3A.36 36 weeks gestation of pregnancy
CPT/HCPCS: 96361; 96374; 96375; 99283; J7030

== ENCOUNTER 2019-04-27 07:05 | Inpatient (IN) | payer OTHER, SELFPAY ==
[2019-04-27 07:56] VITALS: BMI 35.2
[2019-04-27 08:05] LABS: Absolute Lymphocyte Count 1.61 X10^3/uL (0.83-4.51); Absolute Neutrophil Count 6.1 X10^3/uL (2.0-7.7); Basophil# 0.03 X10^3/uL; Basophil% 0.4 % (0-1); Eosinophil# 0.21 X10^3/uL; Eosinophils% 2.5 % (0-5); Hematocrit 32.6 % (37-47); Hemoglobin 10.5 g/dL (12.0-15.0); Lymphocyte # 1.61 X10^3/ul (4.0); Mean Corp Hgb Conc 32.2 g/dL (32-36); Mean Corpuscular Hgb 29.5 pg (27.0-32.0); Mean Corpuscular Volume 91.6 fL (81-99); Mean Platelet Vol. 11.9 fl (6.2-12.0); Monocyte# 0.44 X10^3/uL; Monocyte% 5.2 % (0-10); NRBC Flagged by Analyzer 0 % (0-5); Neutrophil # 6.14 X10^3/uL (2.7-7.7); Neutrophil % 72.3 % (47-70); Platelet Count 201 K/mm3 (150-450); RBC Distribution Width CV 13.9 % (11.6-14.6); RBC Distribution Width SD 46.8 fl (35.1-43.9); Red Blood Count 3.56 M/mm3 (4.2-5.4); White Blood Count 8.5 K/mm3 (4.4-11.0)
[2019-04-27] MEDS: Oxytocin 30 units/NS 500 ml 30 UNITS/500 ML IV.SOLN IV (08:11)
[2019-04-27] MEDS: Lactated Ringers 1,000 ML 50 ML IV (08:11)
--- NOTE | 2019-04-27 08:22 | PCM.HP.OB ---
- Problem List (1) Encounter for elective induction of labor Status: Acute (2) Asthma Status: Acute (3) History of prior with IUGR Status: Acute (4) Rh negative status during Status: Acute History Date of Admission: 07/10/17 Final RENE: 05/04/19 Final RENE Source: LMP Gestational age: 39 Weeks and 0 Days History of this : This is a 28 year-old, G [2], P [1001], at 39 weeks gestational age for elective induction of labor. course uncomplicated. Allergies adhesive Allergy (Verified 04/27/19 07:54) Hives Home Medications: Home Medications Albuterol Inhaler [Ventolin Hfa] 2 puff INHALATION Q6H PRN PRN 01/23/16 Vit No.130/Iron/Folic [ Tablet] 1 each PO DAILY 05/14/17 Smoking Status: Never smoker Alcohol: None Number of Fetus(es): 1 NST - FHR Rate Baby A Baseline: 125 Variability:: Moderate Accelerations:: 15 x 15 Decelerations:: None FHR Category:: Category I Uterine Activity:: None History Past Pregnancies: Past Pregnancies Delivery Date Name GA/Weeks Outcome Route Weight Infant Gender Labor Length Anesthesia Delivery Location Provider FOB Labs: Mom's Problem List Problem Status Onset Code Encounter for elective induction of labor Acute Z34.90 Mom's Labs & Results 04/27/19 04/27/19 07:45 07:45 WBC 8.5 RBC 3.56 L Hgb 10.5 L Hct 32.6 L MCV 91.6 MCH 29.5 MCHC 32.2 RDW Std Deviation 46.8 H RDW Coeff of Chemo 13.9 Plt Count 201 MPV 11.9 Immature Gran % (Auto) 0.600 Neut % (Auto) 72.3 H Lymph % (Auto) 19.0 [place] % (Auto) 5.2 Eos % (Auto) 2.5 Baso % (Auto) 0.4 Absolute Neuts (auto) 6.1 Absolute Lymphs (auto) 1.61 Nucleated RBC % 0 Blood Type Pending Antibody Screen Pending Course Did the patient receive Yes care? Labs Blood Type: O RH: NEGATIVE RPR/VDRL/Syphilis Nonreactive Rubella status Immune HbSAg Negative Date Done: 09/22/18 Chlamydia Negative Gonorrhea Negative HIV/AIDS Non-Reactive Group B Strep: Negative Current Obstetrical History Gestational Diabetes No Incompetent Cervix No Infertility No IUGR No Macrosomia No Hypertension/Pre-eclampsia No Placenta Previa/Abruption No PTL/PROM No Uterine anomaly No Oligohydramnios No Polyhydramnios No Multiple gestation No Past Medical History Asthma Yes Diabetes No Hypertension No Heart disease No Mitral valve prolapse No Neurologic/Seizure disorder/ No Migraines Kidney disease No Liver disease No Varicosities No Clotting disorders/Hx of DVT No Thyroid Dysfunction No Other medical diseases No Psychiatric disorders No Major trauma No Abnormal PAP smear No Sleep apnea No Mammogram in the last 2 years No Social History Marital Status: Alleged father Earl Hx Smoking No Smoking Status Never smoker Expected Infant Delivery Method: Spontaneous Vaginal Review of Systems Constitutional: Denies: Chills, Fever, Weight Change HEENT: Denies: Head Aches, Sinus Congestion, Sinus Drainage Cardiovascular: Denies: Chest Pain, Palpitations Respiratory: Denies: Cough, Shortness of breath at rest, Sputum production Gastrointestinal: Denies: Abdominal Pain, Nausea, Vomiting Genitourinary: Denies: Dysuria Musculoskeletal: Denies: Joint Pain, Joint Tenderness Neurological: Denies: Numbness, Tingling, Focal weakness Psychiatric: Denies: Anxiety, Depression, Homicidal Ideations, Suicidal Ideations Hematologic/ Lymphatic: Denies: Easy Bruising, Easy Bleeding Physical Exam General: Alert, Oriented x3, Cooperative HEENT: Atraumatic Cardiovascular: Regular rate, Regular Rhythm, No murmurs Lungs: Clear to auscultation, Normal air movement, No rhonchi, No wheeze Abdomen: Bowel Sounds Present, Gravid Extremities:: No edema Neurological: Deep Tendon Reflexes 2+/4 and Symmetrical. Negative for: Clonus MOLD CLOSER HELPER: Normal external genitalia Estimated gestational size: Appropriate for gestational size Presentation: Cephalic Cervix Dilation (cm): 4 - IBOW Station: -2 Effacement (%): 60 Assessment/Plan All Active Problems Encounter for elective induction of labor (Acute) Asthma (Acute) History of prior with IUGR (Acute) Rh negative status during (Acute) This is a 28 year-old, G [2], P [1001], at 39 weeks gestational age elective induction of labor. A:Category 1 FHT P: 1) Admit to L&D. Routine labs. 2) Epidural upon request for pain management 3) notified of patient in labor and plan of care.
--- NOTE | 2019-04-27 12:32 | PCM.PN.OB ---
Patient Problems: Active and Suspected Problems Encounter for elective induction of labor (Acute) Asthma (Acute) History of prior with IUGR (Acute) Rh negative status during (Acute) Subjective: Doing well per patient and nursing staff. Sitting up in bed. Feeling some abdominal pressure but no pain at this time. at bedside. Objective: Coping well with contractions. FHT: 120, minimal variability, accels, Category 2 TOCO: every 3-4 minutes, mild Cervix 5cm/70%/-1 IBOW. Reviewed option for AROM, consented. AROM for small amount of clear fluid, tolerated well. Pitocin at 10mu's - Physical Exam Vitals/I&O's: Weight: 202 lb 2.622 oz Body Mass Index (BMI) 35.2 Intake and Output for Last 24 Hours 04/25/19 04/26/19 04/27/19 23:59 23:59 23:59 Intake Total 219.63 / 219.63 Output Total 100 / 100 Balance 119.63 / 119.63 Laboratory Results 04/27/19 07:45: WBC 8.5, RBC 3.56 L, Hgb 10.5 L, Hct 32.6 L, MCV 91.6, MCH 29.5, MCHC 32.2, RDW Std Deviation 46.8 H, RDW Coeff of Chemo 13.9, Plt Count 201, MPV 11.9, Immature Gran % (Auto) 0.600, Neut % (Auto) 72.3 H, Lymph % (Auto) 19.0, [place] % (Auto) 5.2, Eos % (Auto) 2.5, Baso % (Auto) 0.4, Absolute Neuts (auto) 6.1, Absolute Lymphs (auto) 1.61, Nucleated RBC % 0 04/27/19 07:45: Blood Type O NEGATIVE, Antibody Screen NEGATIVE Current Medications Acetaminophen (Tylenol) 325 - 650 mg PO Q4H PRN PRN PRN Reason: Pain Score 1-3/10 Al Hydroxide/Mg Hydroxide (Mylanta Ii) 15 - 30 ml PO Q4H PRN PRN PRN Reason: INDIGESTION Citric Acid/Sodium Citrate (Bicitra) 30 ml PO X1 PRN PRN Reason: Section Lactated Ringer's () 500 mls @ 999 mls/hr IV .Q31M PRN PRN Reason: Epidural Lactated Ringer's () 500 mls @ 999 mls/hr IV .Q31M PRN PRN Reason: Corrective Measures Lactated Ringer's () 1,000 mls @ 50 mls/hr IV .Q20H [facility] Last Admin: 04/27/19 08:11 Dose: 50 mls/hr Documented by: Oxytocin/Sodium Chloride () 30 units in 500 mls @ 2 mls/hr IV .Q250H [facility] Last Infusion: 04/27/19 11:20 Dose: 12 mls/hr Documented by: Nalbuphine HCl (Nubain) 5 - 10 mg IV Q3H PRN PRN PRN Reason: Pain Score 4-10/10 Nalbuphine HCl (Nubain) 5 - 10 mg SC Q3H PRN PRN PRN Reason: Pain Score 4-10/10 Ondansetron HCl (Zofran) 4 mg IV Q4H PRN PRN PRN Reason: NAUSEA Prochlorperazine Edisylate (Compazine Iv) 10 mg IV Q6H PRN PRN PRN Reason: NAUSEA Sodium Chloride () 10 - 40 ml IV X1 PRN PRN Reason: SALINE FLUSH Medical Necessity - Tobacco Use Smoking Status: Never smoker Assessment/Plan All Active Problems Encounter for elective induction of labor (Acute) Asthma (Acute) History of prior with IUGR (Acute) Rh negative status during (Acute) A:Elective Induction of labor, progressing Category 2 FHT P: 1) AROM 2) Positional changes 3) Epidural for pain management upon request 4) Continue with Pitocin and active management.
[2019-04-27] MEDS: Lactated Ringers 500 ML 999 ML IV (13:04)
[2019-04-27] MEDS: fentaNYL-bupivacaine (epidural) 100 ML BAG EPIDURAL (13:29)
[2019-04-27] MEDS: Oxytocin 30 units/NS 500 ml 30 UNITS/500 ML IV.SOLN 334 UNITS IV (14:30)
--- NOTE | 2019-04-27 14:47 | PCM.OPRPT ---
Problem List (1) Encounter for elective induction of labor Status: Acute (2) Asthma Status: Acute (3) History of prior with IUGR Status: Acute (4) Rh negative status during Status: Acute (5) Vaginal delivery Status: Acute (6) First degree perineal laceration Status: Acute Vaginal Delivery Maternal Presentation: Elective Induction Method of Induction: Pitocin Medical Reason for Induction: - - Elective Induction of Labor Amniotic Membrane Rupture Type: Artificial Amniotic Fluid Description: Clear Final RENE: 05/04/19 Gestational age: 39 Weeks and 0 Days Date of Procedure: 04/27/19 Pre-Operative Diagnosis: Elective Induction of Labor Post-Operative Diagnosis: Surgery/ Procedure Performed: Spontaneous Vaginal Delivery Type of Anesthesia: Epidural Description of Procedure: Progressed to complete with strong urge to push, increased pelvic pressure. of viable male infant over 1st degree perineal laceration. APGARS 8,9. head delivered with body forthcoming. Cord around body and delivered through. Father of baby assisted with delivery of infant. Placed on maternal abdomen. Mouth and nares wiped for secretions, spontaneous cry. Pitocin started for active third stage management. Placenta delivered intact, via ursual with maternal effort, 3 vessel cord. Perineum inspected and revealed 1st degree perineal laceration. Repaired with epidural and 3.0 vicryl. Well approximated and hemostasis achieved. Fundus firm, vaginal sweep completed. EBL 400ml. Sponge and instrument count correct. Planning to breastfeed, mom and baby stable. notified of delivery. Presentation: Vertex Placental Delivery Description: Spontaneous Placenta Disposition: [facility] Cord Vessel Description: 3 Vessels Cord Entanglement: Around neck x 1, loose Estimated Blood Loss: 400 ml Infant A gender: Male (1 minute): 8 (5 minute): 9 Episiotomy Description: None, Perineal Extension/lac, 1st degree Laceration: None Medications given after delivery: IV Pitocin Complications: None
[2019-04-27 16:33] VITALS: BP 117/58; PULSE 88; RESP 16; TEMP 36.6; O2SAT 99
[2019-04-27 20:30] VITALS: BP 106/71; PULSE 99; RESP 16; TEMP 37.2; O2SAT 100
[2019-04-27] MEDS: Ibuprofen 600 MG Tablet PO (23:15)
[2019-04-27 23:54] VITALS: BP 117/74; PULSE 96; RESP 18; TEMP 36.8; O2SAT 97
[2019-04-28 04:00] VITALS: BP 97/45; PULSE 74; RESP 16; TEMP 36.6
[2019-04-28] MEDS: Ibuprofen 600 MG Tablet PO (07:05)
[2019-04-28 07:27] LABS: Hemoglobin 10.3 g/dL (12.0-15.0); Mean Corp Hgb Conc 31.2 g/dL (32-36); Mean Corpuscular Hgb 29.2 pg (27.0-32.0); Mean Corpuscular Volume 93.5 fL (81-99); Mean Platelet Vol. 11.3 fl (6.2-12.0); Platelet Count 178 K/mm3 (150-450); RBC Distribution Width SD 47.5 fl (35.1-43.9); Red Blood Count 3.53 M/mm3 (4.2-5.4); White Blood Count 9.8 K/mm3 (4.4-11.0)
[2019-04-28 08:00] VITALS: BP 120/78; PULSE 81; RESP 18; TEMP 36.6
[2019-04-28 12:00] VITALS: BP 105/57; PULSE 72; RESP 20; TEMP 36.5
--- NOTE | 2019-04-28 13:10 | DCINST_ITS ---
Discharge Diet: No Restrictions Discharge Activity: May Drive, May Shower May resume sexual activity in: 6 weeks Weight Bearing Status: Weight bearing as tolerated Additional Instructions: If you experience any of the following, contact your healthcare provider. * Bleeding that soaks a pad every hour for 2 hours * Fever 100.4 or higher * Unrelieved incision or abdominal pain * Swelling, redness, discharge or bleeding from your incision or episiotomy site * Your incision begins to separate * Problems urinating (including inability to urinate or burning while urinating). * Visual changes * Severe headache * Flu-like symptoms * Pain or redness in one of both of your breasts * Pain, warmth, tenderness or swelling in your legs, especially the calf area * Frequent nausea and vomiting * Symptoms of depression or anxiety If you experience any of the following, call 911 or go to the nearest Emergency Room. * Chest pain * Problems breathing * Seizure activity * Partial or complete paralysis of a body part, slurred speech, weakness or drooping of the face, or a sudden inability to walk or hold your balance Allergies/Adverse Reactions: Allergies adhesive Allergy (Verified 04/27/19 07:54) Hives Medications to take at Discharge Albuterol Inhaler [Ventolin Hfa] 2 puff INHALATION Q6H PRN PRN 01/23/16 Vit No.130/Iron/Folic [ Tablet] 1 each PO DAILY 05/14/17 Primary Care Physician: Ishaan Sanderson MD [Primary Care Provider] - Test Results: Test results from this visit will be discussed in further detail at your follow- up appointment, if applicable.
--- NOTE | 2019-04-28 13:10 | PCM.DCVAG ---
Discharge Diet: No Restrictions Discharge Activity: May Drive, May Shower May resume sexual activity in: 6 weeks Weight Bearing Status: Weight bearing as tolerated Additional Instructions: If you experience any of the following, contact your healthcare provider. Bleeding that soaks a pad every hour for 2 hours Fever 100.4 or higher Unrelieved incision or abdominal pain Swelling, redness, discharge or bleeding from your incision or episiotomy site Your incision begins to separate Problems urinating (including inability to urinate or burning while urinating). Visual changes Severe headache Flu-like symptoms Pain or redness in one of both of your breasts Pain, warmth, tenderness or swelling in your legs, especially the calf area Frequent nausea and vomiting Symptoms of depression or anxiety If you experience any of the following, call 911 or go to the nearest Emergency Room. Chest pain Problems breathing Seizure activity Partial or complete paralysis of a body part, slurred speech, weakness or drooping of the face, or a sudden inability to walk or hold your balance Allergies/Adverse Reactions: Allergies adhesive Allergy (Verified 04/27/19 07:54) Hives Medications to take at Discharge Albuterol Inhaler [Ventolin Hfa] 2 puff INHALATION Q6H PRN PRN 01/23/16 Vit No.130/Iron/Folic [ Tablet] 1 each PO DAILY 05/14/17 Primary Care Physician: Ishaan Sanderson MD [Primary Care Provider] - Test Results: Test results from this visit will be discussed in further detail at your follow-up appointment, if applicable.
--- NOTE | 2019-04-28 13:10 | PCM.PN.OB ---
Patient Problems: Active and Suspected Problems Encounter for elective induction of labor (Acute) Asthma (Acute) History of prior with IUGR (Acute) Rh negative status during (Acute) Vaginal delivery (Acute) First degree perineal laceration (Acute) Subjective: No complaints - Physical Exam Vitals/I&O's: Vital Signs Temp Pulse Resp BP Pulse Ox 97.8 F 81 18 120/78 97 04/28/19 08:00 04/28/19 08:00 04/28/19 08:00 04/28/19 08:00 04/27/19 23:54 Oxygen Delivery Method Room Air Weight: 202 lb 2.622 oz Body Mass Index (BMI) 35.2 Intake and Output for Last 24 Hours 04/26/19 04/27/19 04/28/19 23:59 23:59 23:59 Intake Total 2445.46 / 2445.46 Output Total 600 / 600 Balance 1845.46 / 1845.46 General: Alert, Oriented x3 Abdomen: Soft, Non Tender, Non-Distended - ff mid & below umb Extremities: No Calf Tenderness Laboratory Results 04/28/19 07:12: WBC 9.8, RBC 3.53 L, Hgb 10.3 L, Hct 33.0 L, MCV 93.5, MCH 29.2, MCHC 31.2 L, RDW Std Deviation 47.5 H, RDW Coeff of Chemo 14.0, Plt Count 178, MPV 11.3 Current Medications Acetaminophen (Tylenol) 1,000 mg PO Q8H PRN PRN PRN Reason: Pain Score 1-3/10 Bisacodyl (Dulcolax) 10 mg RECTAL UD PRN PRN Reason: If no BM Dibucaine (Dibucaine) 1 applic TOPICAL TID PRN PRN; Protocol PRN Reason: Discomfort Hydrocortisone (Hytone) 1 applic TOPICAL TID PRN PRN; Protocol PRN Reason: Discomfort Ibuprofen (Motrin) 600 mg PO Q6H PRN PRN PRN Reason: Pain Score 1-3/10 Last Admin: 04/28/19 07:05 Dose: 600 mg Documented by: Methylergonovine Maleate (Methergine) 0.2 mg IM X1 PRN PRN Reason: Excess bleeding/uterine atony Ondansetron HCl (Zofran) 4 mg IV Q4H PRN PRN PRN Reason: Nausea Senna/Docusate Sodium (Senokot-S, Leida-Colace) 1 - 2 tablet PO DAILY PRN PRN PRN Reason: Constipation Simethicone (Mylicon) 80 mg PO PCHS PRN PRN Reason: Indigestion/Stomach pain Sodium Chloride () 5 - 15 ml IV UD PRN PRN Reason: SALINE FLUSH Medical Necessity - Tobacco Use Smoking Status: Never smoker Assessment/Plan All Active Problems Encounter for elective induction of labor (Acute) Asthma (Acute) History of prior with IUGR (Acute) Rh negative status during (Acute) Vaginal delivery (Acute) First degree perineal laceration (Acute) PPD#1 D/c home per patient request
== END 2019-04-28 15:50 | disposition home or self-care (01) | DRG 807 ==
PROVIDERS: Advanced Practice Midwife; Admitting Provider Obstetrics & Gynecology; Family Provider Family Medicine; PCP Family Medicine; Referring Provider Obstetrics & Gynecology; Visit Provider Obstetrics & Gynecology
DX: O69.81X0 Labor and delivery complicated by cord around neck, without compression, not applicable or unspecified (principal); Z37.0 Single live birth; O70.0 First degree perineal laceration during delivery; O99.52 Diseases of the respiratory system complicating childbirth; Z3A.39 39 weeks gestation of pregnancy; J45.909 Unspecified asthma, uncomplicated; Z79.51 Long term (current) use of inhaled steroids
CPT/HCPCS: 36415; 59025; 59050; 85025; 85027; 86850; 86900; 86901; 99218; J7120; G0378

== ENCOUNTER → 2019-08-28 10:29 | Outpatient (CLI) | payer OTHER, SELFPAY ==
--- NOTE | 2019-08-28 10:35 | RAD_ITS ---
STUDY: X-RAY - LUMBAR SPINE REASON FOR EXAM: Female, 29 years old. NO KNOWN INJURY. PAIN ACROSS LOWER BACK WITH SCIATICA. TECHNIQUE: 5 view(s) of the lumbar spine were obtained. COMPARISON: 16 April 2014 FINDINGS: Normal lumbar lordosis. There is no substantial scoliosis. There is a normal alignment of the vertebrae. Normal vertebral bodies and endplates. Normal disc space heights. The soft tissue structures are unremarkable. RAD/L/S Spine Min 4 Views IMPRESSION: Normal x-ray examination of the lumbar spine. Electronically Signed: Calvin Braun, at 14:24 EST Tel , Service support ,
== END ==
PROVIDERS: PCP Family Medicine; Referring Provider Family Medicine; Visit Provider Family Medicine
DX: M54.40 Lumbago with sciatica, unspecified side (principal)
CPT/HCPCS: 72110

== ENCOUNTER 2019-09-09 07:24 | Outpatient (RCR) | payer OTHER, SELFPAY ==
--- NOTE | 2019-09-09 08:46 | HP.PTEVAL_ITS ---
Patient's Visit Information JAHAIRA GENTILE is a 29 year old F referred to Physical Therapy by Ishaan Sanderson MD with a diagnosis of LBP. Date of Evaluation: 09/09/19 Physical Therapist: Jonathan Gentile, PT, ATC - Visit Plan Frequency: 1x/Week Duration: 2 Weeks Plan: Issue and instruct on HEP of core strengthening and stab ex's - Subjective Findings: Pt reports she has had LBP for 9 weeks. Pt reports the pain is constant in nature. Pt reports intermittent tingling and numbness in both legs, but she notes its usually one leg at a time. Pt reports her pain is constant in nature, noting it is always an 8/10. Pt reports sleep difficulty secondary to pain. Pt notes her LE's will go numb on her sometimes while she is driving. Pt also notes her LE's will go numb when she is ambulating and carrying objects. Pt reports she has had xrays which revealed normal findings at this time. 8/10 at rest, pain elevates to 10/10 at worst. - Pain LBP Pain Intensity (Out of 10): 8 Pain Intensity Range: 10 - Objective Neuro: B LE sensation is WNL to light touch. B patellar reflex= 2/3. ROM: Pt is moderately limited with extension, severely limited with flexion. No limitations with bilat SB. MMT: R LE MMT grossly 4/5 throughout. No pain. L LE 5/5 throughout. Repeated movements: RFIS 10x3 increased LBP. LLOYD 10x3 NE. Prone prop on elbows had NE. REIL 10x2 - Goals Goal 1:: I with HEP Goal Time Frame: 2-4 Weeks - Rehabilitation Potential Physical Therapy Diagnosis: Pt has LBP, limited L/S ROM, and LE radiculopathy secondary to L/S disc derangement Rehabilitation Potential: Good - Anticipated Interventions Patient/Client Instruction: Educate patient on: Condition, Plan of Care For the Purpose of:: To improve self management Therapeutic Exercise to Include: Strength training, Body mechanics, Postural training, Dynamic Lumbar Stabilization, Thea Exercises For the Purpose of:: To decrease pain, To increase ROM, To improve muscle performance and motor function Thank you for the opportunity to evaluate your patient. For Medicare and Medicare HMO plans, please review the plan of care and approve it. It will need to be FAXED BACK to us at [phone] for Medicare purposes. For Medicare only, by signing this I certify the plan of care. Please let me know if there are questions or concerns regarding this plan of care. Physician Signature: Date:
--- NOTE | 2020-01-01 13:26 | HP.PT.NRP ---
JAHAIRA GENTILE was seen in my office for initial evaluation on 09/09/19. The following Plan of Care was established for this patient: Initial Frequency: 1x/Week Initial Duration: 2 Weeks Patient/Client Instruction: Educate patient on: Condition, Plan of Care For the Purpose of:: To improve self management Therapeutic Exercise to Include: Strength training, Body mechanics, Postural training, Dynamic Lumbar Stabilization, Thea Exercises For the Purpose of:: To decrease pain, To increase ROM, To improve muscle performance and motor function This patient was last seen in our office . Pertinent comments regarding their Physical therapy will appear below: Pt was treated for 1 PT visit for LBP through September 09, 2019. Pt has not returned through todays date and is discontinued at this time. At this point I will be discontinuing this patient from physical therapy. I would be happy to see this patient again in the future if found appropriate by the physician. Thank you! Jonathan Gentile, PT, ATC
== END 2019-09-09 19:00 | disposition home or self-care (01) ==
LOC: PT 07:24
PROVIDERS: PCP Family Medicine; Referring Provider Family Medicine; Visit Provider Family Medicine
DX: M54.5 Low back pain (principal)
CPT/HCPCS: 97161

== ENCOUNTER 2019-12-01 09:47 | Emergency (ER) | payer OTHER, SELFPAY ==
[2019-12-01 09:49] VITALS: BP 122/88; PULSE 87; RESP 16; TEMP 36.2; O2SAT 99; BMI 32.2
--- NOTE | 2019-12-01 10:05 | RAD_ITS ---
STUDY: X-RAY - PELVIS AND RIGHT HIP REASON FOR EXAM: Female, 29 years old. right hip pain x 2 months, no trauma, now pain and tingling extending down right leg to foot TECHNIQUE: 3 views of the pelvis and hip. COMPARISON: None. FINDINGS: There is a non-specific bowel gas pattern. Normal visualized soft tissue structures. Normal bilateral iliac wings, sacroiliac joints and visualized sacrum. Normal bilateral superior and inferior pubic rami. Normal pubic symphysis. Normal bilateral ischial tuberosities. Normal visualized femoral head. Normal acetabulum. Normal hip joint. RAD/HIP, UNI W/ Pelvis 2-3 Views IMPRESSION: Normal x-ray examination of the pelvis and hip. Electronically Signed: Chris Hawley MD at 10:33 EDT Tel , Service support ,
[2019-12-01] MEDS: Ketorolac 60 MG/2 ML Vial IM (10:17)
--- NOTE | 2019-12-01 11:00 | ED.DCSUM_ITS ---
- ER Visit Summary Date of Service: 12/01/19 Chief Complaint: Right leg pain History of Present Illness: The patient is a 29 F with right leg pain for 5 months. The pain is in her right lower back and radiates down her right leg. She does have [id number] in her foot. She also has occasional right hip swelling. Denies any injury. She saw her chiropractor who referred her to her PCP. Her PCP did an x-ray which was unremarkable. She was referred to physical therapy, but could not undergo physical therapy because she was in too much pain. She called multiple orthopedic offices, but they referred her to the ER. Patient denies any bowel or bladder symptoms. Denies any saddle anesthesias. Denies trauma, fever, immune compromise. Denies any history of back surgery. Physical Examination: Afebrile and vital signs unremarkable. Back is nontender. Hip is diffusely tender. Range of motion intact. She is neurovascularly intact. She has decreased strength in her right lower extremity in all muscle groups. I suspect this is from effort. Test Results: Patient has already had x-rays of her lumbar spine. I did obtain x-rays of her right hip which were unremarkable. Emergency Department Course and Treatment: Patient was treated with pain medicine here. I contacted her PCPs office and spoke with Dr. Dorantes. He would like to follow-up with her in the office, and it sounds like she will lik celsa get outpatient imaging. I do not believe there is an indication for emergency MRI or further diagnostic testing. Patient was given a short course of pain medicine. She will continue her gabapentin and anti-inflammatories. She was previously on prednisone, but did not tolerate it because of side effects, so no further steroids were prescribed. Treatment Plan: As above Disposition: Discharge Impression: Right leg pain This note was generated with [employer] dictation software. It may contain incorrect words, spelling, and punctuation that were not noted in review of the chart prior to signing ED Disposition - Plan for ED Patient: Referrals: Ishaan Sanderson MD [Primary Care Provider] -
--- NOTE | 2019-12-01 11:02 | ED.DEP ---
ED Disposition - Plan for ED Patient: Instructions: ED LUMBAR RADICULOPATHY Prescriptions: Oxycodone HCl/Acetaminophen [Percocet 5/325] 1 tab PO Q6H PRN PRN 3 Days #12 tab PRN Reason: Pain Prescription Printed Referrals: Adal Dorantes MD [STAFF PHYSICIAN] -
[2019-12-01 11:23] VITALS: BP 123/79; PULSE 71; RESP 18
== END 2019-12-01 11:24 | disposition home or self-care (01) ==
LOC: ED 11:03
PROVIDERS: Emergency Provider Emergency Medicine; PCP Family Medicine
DX: M79.604 Pain in right leg (principal); J45.909 Unspecified asthma, uncomplicated
CPT/HCPCS: 73502; 96372; 99282

== ENCOUNTER → 2019-12-05 07:28 | Outpatient (CLI) | payer SELFPAY ==
[2019-12-01 09:49] VITALS: BMI 32.2
--- NOTE | 2019-12-05 07:50 | MRI_ITS ---
STUDY: MRI LUMBAR SPINE WITHOUT CONTRAST REASON FOR EXAM: Female, 29 years old. back pain radiates into legs bilaterally R and gt;L TECHNIQUE: Standardized fat and water weighted pulse sequences were obtained in the sagittal and axial planes. COMPARISON: None FINDINGS: T12-L1: Normal endplates. Normal disc height, hydration and morphology. Normal bilateral facet joints. Normal central canal and bilateral lateral recesses. Normal bilateral intervertebral neural foramina. Normal lumbar lordosis. There is no substantial scoliosis. Normal conus medullaris that terminates at T12-L1 L1-2: Normal endplates. Normal disc height, hydration and morphology. Normal bilateral facet joints. Normal central canal and bilateral lateral recesses. Normal bilateral intervertebral neural foramina. L2-3: Normal endplates. Normal disc height, hydration and morphology. Normal bilateral facet joints. Normal central canal and bilateral lateral recesses. Normal bilateral intervertebral neural foramina. L3-4: Normal endplates. Normal disc height, hydration and morphology. Normal bilateral facet joints. Normal central canal and bilateral lateral recesses. Normal bilateral intervertebral neural foramina. L4-5: Normal endplates. Normal disc height, desiccation and tiny central annular tear with disc protrusion. Mild facet arthropathy.. Normal central canal and bilateral lateral recesses. Normal bilateral intervertebral neural foramina. L5-S1: Normal endplates. Normal disc height, hydration and tiny central disc protrusion. Facet arthropathy.. Normal central canal and bilateral lateral recesses. Normal bilateral intervertebral neural foramina. Normal visualized sacral ala. Normal visualized paraspinous soft tissue structures. MRI/Spine Lumbar (Routine) IMPRESSION: Tiny central disc protrusions at L4-5 and L5-S1 without spinal stenosis. Electronically Signed: Dejuan Max MD at 19:20 EDT , Service support ,
--- NOTE | 2019-12-05 07:50 | MRI_ITS ---
STUDY: MR PELVIS WITHOUT CONTRAST REASON FOR EXAM: Female, 29 years old. Back pain. Right leg pain. Back pain radiating to legs right greater than left. TECHNIQUE: Standardized fat and water weighted pulse sequences were obtained in all 3 orthogonal planes. COMPARISON: Pelvis and right hip, December 01, 2019. FINDINGS: Normal urinary bladder. Normal visualized small intestine. Normal visualized colon. Uterus is of normal size. The left ovary is prominent with multiple peripheral follicles. The right ovary is enlarged and contains a 3.7 x 3.5 x 3.8 cm cyst as well as multiple smaller follicles. There is minimal free fluid in the posterior cul-de-sac thought to be physiologic. There is no pelvic mass lesion or lymphadenopathy. Normal visualized pelvic arteries. Normal osseous structures. Normal abdominal wall. MRI/Pelvis (Routine) IMPRESSION: 1. Large right ovarian cyst. 2. Prominent left ovary with multiple follicles. Question PCOS. 3. Minimal free fluid in the posterior cul-de-sac. 4. Otherwise normal MRI of the pelvis. Electronically Signed: Jhonatan Kruse DO at 9:46 EDT Tel [phone], Service support ,
== END ==
PROVIDERS: PCP Family Medicine
DX: R52 Pain, unspecified (principal)
CPT/HCPCS: 72148; 72195

== ENCOUNTER → 2020-05-09 09:51 | Outpatient (CLI) | payer OTHER, SELFPAY ==
[2020-03-02 13:35] VITALS: BMI 32.2
--- NOTE | 2020-05-09 09:56 | NM_ITS ---
CLINICAL: 29-year-old female with reported history of right hip and low back discomfort. WHOLE BODY 99m Tc MDP RADIONUCLIDE BONE SCINTIGRAPHY COMPARISON: Plain film radiograph report right hip 12/01/2019, MRI of the lumbar spine and pelvis report 12/05/2019 FINDINGS: Following the intravenous administration of 27.0 mCi of 99m Tc MDP, whole body bone images reveal: 1. Increased radiopharmaceutical concentration is identified in the midline posterior sacrum, the medial compartments of both knees, posterior compartments of the right-left ankles. 2. The remaining skeletal structures are scintigraphically unremarkable with normal-appearing renal images and urinary bladder activity identified. NM/Bone Scan Whole Body IMPRESSION: 1. The increase in tracer distribution defined in the posterior midline sacrum, bilateral knee and ankle articulations likely represents a component of early onset degenerative arthritis. 2. There is no definitive scintigraphic evidence of trauma-fracture or large articulation synovial inflammation on the current examination. Electronically Signed: Chris Krueger DO at 22:24 EST Tel , Service support ,
== END ==
PROVIDERS: PCP Family Medicine; Referring Provider Nurse Practitioner Acute Care; Visit Provider Nurse Practitioner Acute Care
DX: M51.36 Other intervertebral disc degeneration, lumbar region (principal)
CPT/HCPCS: 78306

== ENCOUNTER → 2020-05-26 10:43 | Outpatient (CLI) | payer OTHER, SELFPAY ==
[2020-03-02 13:35] VITALS: BMI 32.2
--- NOTE | 2020-05-26 10:55 | RAD_ITS ---
STUDY: X-RAY - PELVIS REASON FOR EXAM: Female, 29 years old. PAIN IN LOWER BACK DOWN RIGHT LEG WITH TINGLING AND NUMBNESS FOR ALMOST 1 YEAR PER PATIENT. NO KNOWN INJURY. TECHNIQUE: One view of the pelvis was obtained. COMPARISON: 12/01/2019 FINDINGS: There is a non-specific bowel gas pattern. Normal visualized soft tissue structures. Normal bilateral iliac wings, sacroiliac joints and visualized sacrum. Normal visualized bilateral superior and inferior pubic rami. Normal pubic symphysis. Normal ischial tuberosities. Normal visualized right femoral head. Normal right acetabulum. Normal right hip joint. Normal visualized left femoral head. Normal left acetabulum. Normal left hip joint. RAD/Pelvis 1 or 2 Views IMPRESSION: Normal x-ray examination of the pelvis. Electronically Signed: Chris Hawley MD at 17:05 EST Tel , Service support ,
[2020-05-26 12:15] LABS: Erythrocyte Sedimentation Rate 12 mm/hr (0-20)
[2020-05-26 12:20] LABS: Absolute Lymphocyte Count 1.56 X10^3/uL (0.83-4.51); Absolute Neutrophil Count 3.8 X10^3/uL (2.0-7.7); Basophil# 0.03 X10^3/uL; Basophil% 0.5 % (0-1); Differential Indicated SCAN CRITERIA MET; Eosinophil# 0.26 X10^3/uL; Eosinophils% 4.4 % (0-5); Hematocrit 43.4 % (37-47); Hemoglobin 13.5 g/dL (12.0-15.0); Lymphocyte # 1.56 X10^3/ul (4.0); Lymphocyte % 26.2 % (19-41); Mean Corp Hgb Conc 31.1 g/dL (32-36); Mean Corpuscular Hgb 28.9 pg (27.0-32.0); Mean Corpuscular Volume 92.9 fL (81-99); Mean Platelet Vol. 12.2 fl (6.2-12.0); NRBC Flagged by Analyzer 0 % (0-5); Neutrophil % 63.7 % (47-70); POSITIVE COUNT YES; Platelet Count 200 K/mm3 (150-450); RBC Distribution Width CV 12.7 % (11.6-14.6); RBC Distribution Width SD 43.6 fl (35.1-43.9); Red Blood Count 4.67 M/mm3 (4.2-5.4)
[2020-05-26 12:36] LABS: AST(SGOT) 23 U/L (15-37); Alanine Aminotransfer ALT/SGPT 32 U/L (13-56); Albumin, Serum 3.9 g/dL (3.2-5.0); Alkaline Phosphatase 167 U/L (45-117); Anion Gap 7 (5-15); BUN 13 mg/dL (7-18); BUN/Creat Ratio 16.7 RATIO (10-20); CRP 3.78 mg/L (0.0-3.0); Chloride 105 mmol/L (98-107); Creatinine, Serum 0.78 mg/dL (0.55-1.02); EST Glomerular Filtration Rate 93 mL/min (>60); Est Glom Filt Rate - Afr Amer 112 mL/min (>60); Globulin 3.9 g/dL (2.2-4.2); Glucose 86 mg/dL (74-106); Potassium 4.2 mmol/L (3.5-5.1); Protein, Total 7.8 g/dL (6.4-8.2); Rheumatoid Factor < 10.0 IU/mL (<15); Sodium Level 136 mmol/L (136-145)
[2020-05-26 12:37] LABS: Platelet Morphology LARGE
[2020-05-26 13:07] LABS: Hepatitis B Surface Antibody Reactive; Hepatitis B Surface Antigen Non-Reactive (Nonreactive); Hepatitis C Antibody Non-Reactive (Nonreactive)
[2020-05-27 16:44] LABS: ANTINUCLEAR ANTIBODIES DIRECT Negative (Negative)
[2020-05-31 14:09] LABS: QNTFERON TB Mitogen Value > 10.00 IU/mL (.); QNTFERON TB Nil Value 0.03 IU/mL (.); QNTFERON TB1+ Ag Value 0.04 IU/mL (.); QNTFERON TB2+ Ag Value 0.02 IU/mL (.)
[2020-05-31 15:20] LABS: CCP IgG Antibodies 4 units (0-19); HLA B27 Negative (.); QNTIFERON TB Positive Criteria Negative (Negative)
== END ==
PROVIDERS: PCP Family Medicine; Referring Provider Internal Medicine Rheumatology; Visit Provider Internal Medicine Rheumatology
DX: M06.4 Inflammatory polyarthropathy (principal); L30.9 Dermatitis, unspecified; J45.909 Unspecified asthma, uncomplicated
CPT/HCPCS: 36415; 72170; 80053; 81374; 85025; 85652; 86038; 86140; 86200; 86431; 86480; 86706; 86803; 87340

== ENCOUNTER → 2020-08-02 09:20 | Outpatient (CLI) | payer OTHER, SELFPAY ==
[2020-08-02 08:15] VITALS: BMI 32.2
[2020-08-02 10:23] LABS: hCG Titer Quant., Serum 9 mIU/mL (1-3)
== END ==
PROVIDERS: PCP Family Medicine; Referring Provider Obstetrics & Gynecology; Visit Provider Obstetrics & Gynecology
DX: O03.9 Complete or unspecified spontaneous abortion without complication (principal)
CPT/HCPCS: 36415; 84702; 86850; 86900; 86901

== ENCOUNTER → 2020-11-03 07:53 | Outpatient (CLI) | payer OTHER, SELFPAY ==
[2020-08-02 08:15] VITALS: BMI 32.2
[2020-11-03 08:54] LABS: hCG Titer Quant., Serum 189 mIU/mL (1-3)
== END ==
PROVIDERS: PCP Family Medicine; Referring Provider Obstetrics & Gynecology; Visit Provider Obstetrics & Gynecology
DX: N91.2 Amenorrhea, unspecified (principal)
CPT/HCPCS: 36415; 84702

== ENCOUNTER → 2020-11-05 08:48 | Outpatient (CLI) | payer OTHER, SELFPAY ==
[2020-08-02 08:15] VITALS: BMI 32.2
[2020-11-05 09:42] LABS: hCG Titer Quant., Serum 415 mIU/mL (1-3)
== END ==
PROVIDERS: PCP Family Medicine; Referring Provider Obstetrics & Gynecology; Visit Provider Obstetrics & Gynecology
DX: N91.0 Primary amenorrhea (principal)
CPT/HCPCS: 36415; 84702

== ENCOUNTER → 2020-11-24 16:35 | Outpatient (CLI) | payer OTHER, SELFPAY ==
[2020-11-24 11:00] VITALS: BMI 32.2
[2020-11-24 17:58] LABS: Amphetamine Urine VISTA NEGATIVE (<1000 ng/mL); Barbiturate Urine VISTA NEGATIVE (< 200 ng/mL); Benzodiazepine Urine VISTA NEGATIVE (< 200 ng/mL); Cocaine Urine VISTA NEGATIVE (< 300 ng/mL); Ecstacy Urine VISTA NEGATIVE (< 500 ng/mL); Methadone Urine VISTA NEGATIVE (< 300 ng/mL); PCP Urine VISTA NEGATIVE (< 25 ng/mL); THC Urine VISTA NEGATIVE (< 50 ng/mL); Vista UDS pH Range 7
[2020-11-28 06:06] LABS: Chlamydia By Nucleic Acid AMP Negative (Negative)
[2020-11-28 07:37] LABS: Gonococcus By Nucleic Acid AMP Negative (Negative)
== END ==
PROVIDERS: PCP Family Medicine; Referring Provider Obstetrics & Gynecology; Visit Provider Obstetrics & Gynecology
DX: O09.90 Supervision of high risk pregnancy, unspecified, unspecified trimester (principal); Z3A.00 Weeks of gestation of pregnancy not specified
CPT/HCPCS: 80307; 87086; 87088; 87491; 87591

== ENCOUNTER → 2020-12-16 11:06 | Outpatient (CLI) | payer OTHER, SELFPAY ==
[2020-12-16 10:41] VITALS: BMI 32.2
[2020-12-16 12:24] LABS: Absolute Lymphocyte Count 1.21 X10^3/uL (0.83-4.51); Absolute Neutrophil Count 5.2 X10^3/uL (2.0-7.7); Basophil# 0.02 X10^3/uL; Basophil% 0.3 % (0-1); Eosinophil# 0.13 X10^3/uL; Eosinophils% 1.9 % (0-5); Hematocrit 38.2 % (37-47); Hemoglobin 12.3 g/dL (12.0-15.0); Lymphocyte # 1.21 X10^3/ul (0.83-4.51); Lymphocyte % 17.8 % (19-41); Mean Corp Hgb Conc 32.2 g/dL (32-36); Mean Corpuscular Hgb 29.5 pg (27.0-32.0); Mean Corpuscular Volume 91.6 fL (81-99); Mean Platelet Vol. 11.8 fl (6.2-12.0); Monocyte# 0.26 X10^3/uL; Monocyte% 3.8 % (0-10); NRBC Flagged by Analyzer 0 % (0-5); Neutrophil # 5.15 X10^3/uL (2.7-7.7); Neutrophil % 76.1 % (47-70); Platelet Count 221 K/mm3 (150-450); RBC Distribution Width CV 12.9 % (11.6-14.6); RBC Distribution Width SD 43.1 fl (35.1-43.9); Red Blood Count 4.17 M/mm3 (4.2-5.4); White Blood Count 6.8 K/mm3 (4.4-11.0)
[2020-12-16 13:42] LABS: HIV - WCH Non-Reactive (Nonreactive); Hepatitis B Surface Antigen Non-Reactive (Nonreactive); Hepatitis C Antibody Non-Reactive (Nonreactive); Rubella IgG Reactive (Nonreactive); Syphilis Antibodies Non-reactive
== END ==
PROVIDERS: PCP Family Medicine; Referring Provider Obstetrics & Gynecology; Visit Provider Obstetrics & Gynecology
DX: O09.90 Supervision of high risk pregnancy, unspecified, unspecified trimester (principal); Z3A.00 Weeks of gestation of pregnancy not specified
CPT/HCPCS: 36415; 85025; 86703; 86762; 86780; 86803; 86850; 86900; 86901; 87340

== ENCOUNTER → 2021-01-12 10:15 | Outpatient (CLI) | payer OTHER, SELFPAY ==
[2021-01-12 10:04] VITALS: BMI 32.2
[2021-01-12 11:22] LABS: NATERA MAILED SPECIMEN
== END ==
PROVIDERS: PCP Family Medicine; Referring Provider Nurse Practitioner Women's Health; Visit Provider Nurse Practitioner Women's Health
DX: Z34.82 Encounter for supervision of other normal pregnancy, second trimester (principal)
CPT/HCPCS: 36415

== ENCOUNTER → 2021-02-09 12:29 | Outpatient (CLI) | payer OTHER, SELFPAY ==
[2021-01-12 10:04] VITALS: BMI 32.2
--- NOTE | 2021-02-09 12:34 | US_ITS ---
STUDY: SECOND AND THIRD TRIMESTER OBSTETRICAL ULTRASOUND REASON FOR EXAM: Female, 30 years old anatomy scan @ 20 weeks LMP: 09/28/2020 TECHNIQUE: Transabdominal and Transvaginal TECHNICAL QUALITY: Adequate. PRIOR ULTRASOUND: None. FINDINGS: There is a single intrauterine fetus. The fetus is in a breech presentation. There is demonstrated cardiac activity with a heart rate of 145 bpm. There is a normal amniotic fluid volume. The largest amniotic fluid pocket measures 5.4 cm. The placenta is posterior with a marginal previa. There are Grade 1 placental changes. The cervix measures 5.7 cm in length. The bilateral adnexal regions are normal. BIOMETRY: BPD: 4.2: 18 weeks, 4 days HC: 16.0: 18 weeks, 5 days AC: 13.2: 19 weeks, 5 days FL: 2.6: 17 weeks, 6 days CI: FL/BPD: FL/HC: FL/AC: HC/AC: age by current US: 18 weeks, 4 days. RENE by current US: 07/09/2022. age by prior US: weeks, days. RENE by prior US: . Age by LMP: 19 weeks, 1 days. RENE by LMP: 07/05/2021. ANATOMY: Gender: Female Cranium: Normal lateral ventricles. Normal choroid plexus. Normal cerebellum. Normal cisterna magna. Normal face, nose and lips. Chest: The heart is not adequately visualized. Abdomen/Pelvis: Normal diaphragm. Normal stomach. Normal abdominal wall. Normal cord insertion. Normal 3 vessel cord. Normal kidneys. Normal bladder. Spine: Normal cervical spine. Normal thoracic spine. The lumbar spine is non-visualized. Sacrum is not adequately visualized. Extremities: Normal bilateral upper extremities. Normal bilateral lower extremities. IMPRESSION: Single live fetus in a breech presentation. No demonstrated anatomic abnormality. Placenta is grade 1 and is marginal previa. Cervix is closed. age by current US: 18 weeks, 4 days. RENE by current US: 07/09/2022. Electronically Signed: Ventura Deal MD at 17:17 EDT , Service support , STUDY: SECOND AND THIRD TRIMESTER OBSTETRICAL ULTRASOUND REASON FOR EXAM: Female, 30 years old anatomy scan @ 20 weeks LMP: 09/28/2020 TECHNIQUE: Transabdominal and Transvaginal TECHNICAL QUALITY: Adequate. PRIOR ULTRASOUND: None. FINDINGS: There is a single intrauterine fetus. The fetus is in a breech presentation. There is demonstrated cardiac activity with a heart rate of 145 bpm. There is a normal amniotic fluid volume. The largest amniotic fluid pocket measures 5.4 cm. The placenta is posterior with a marginal previa. There are Grade 1 placental changes. The cervix measures 5.7 cm in length. The bilateral adnexal regions are normal. BIOMETRY: BPD: 4.2: 18 weeks, 4 days HC: 16.0: 18 weeks, 5 days AC: 13.2: 19 weeks, 5 days FL: 2.6: 17 weeks, 6 days CI: FL/BPD: FL/HC: FL/AC: HC/AC: age by current US: 18 weeks, 4 days. RENE by current US: 07/09/2022. age by prior US: weeks, days. RENE by prior US: . Age by LMP: 19 weeks, 1 days. RENE by LMP: 07/05/2021. ANATOMY: Gender: Female Cranium: Normal lateral ventricles. Normal choroid plexus. Normal cerebellum. Normal cisterna magna. Normal face, nose and lips. Chest: The heart is not adequately visualized. Abdomen/Pelvis: Normal diaphragm. Normal stomach. Normal abdominal wall. Normal cord insertion. Normal 3 vessel cord. Normal kidneys. Normal bladder. Spine: Normal cervical spine. Normal thoracic spine. The lumbar spine is non-visualized. Sacrum is not adequately visualized. Extremities: Normal bilateral upper extremities. Normal bilateral lower extremities. US/OB Anatomy Scan
== END ==
PROVIDERS: PCP Family Medicine; Referring Provider Nurse Practitioner Women's Health; Visit Provider Nurse Practitioner Women's Health
DX: Z34.90 Encounter for supervision of normal pregnancy, unspecified, unspecified trimester (principal)
CPT/HCPCS: 76805; 76817

== ENCOUNTER → 2021-03-09 08:56 | Outpatient (CLI) | payer OTHER, SELFPAY ==
[2021-02-10 11:17] VITALS: BMI 32.2
--- NOTE | 2021-03-09 09:04 | US_ITS ---
STUDY: SECOND AND THIRD TRIMESTER OBSTETRICAL ULTRASOUND - LIMITED REASON FOR EXAM: Female, 30 years old. Evaluate placental location LMP: Unknown. PRIOR ULTRASOUND: 02/09/21 TECHNIQUE: Transvaginal and transabdominal scanning was performed FINDINGS: There is a single intrauterine fetus. The fetus is in a cephalic presentation. There is demonstrated cardiac activity with a heart rate of 150 bpm. There is a normal amniotic fluid volume. The placenta is posterior in location and is not low lying. The placenta measures approximately 2.0 -- 2.5 cm from the cervical os. The cervix is closed and measures 6.9 cm in length. US/OB Limited (No Biometrics) IMPRESSION: Single live intrauterine gestation. Placenta measures approximately 2 to 2.5 cm from the cervical os. Electronically Signed: Yury Ayala MD at 11:18 EDT Tel , Service support ,
== END ==
PROVIDERS: PCP Family Medicine; Referring Provider Obstetrics & Gynecology; Visit Provider Obstetrics & Gynecology
DX: O44.02 Complete placenta previa NOS or without hemorrhage, second trimester (principal); Z3A.00 Weeks of gestation of pregnancy not specified
CPT/HCPCS: 76815

== ENCOUNTER → 2021-04-13 09:28 | Outpatient (CLI) | payer OTHER, SELFPAY ==
[2021-04-13 10:58] LABS: Absolute Lymphocyte Count 1.03 X10^3/uL (0.83-4.51); Absolute Neutrophil Count 4.1 X10^3/uL (2.0-7.7); Basophil# 0.01 X10^3/uL; Basophil% 0.2 % (0-1); Eosinophil# 0.09 X10^3/uL; Eosinophils% 1.6 % (0-5); Hematocrit 33.7 % (37-47); Hemoglobin 10.6 g/dL (12.0-15.0); Lymphocyte # 1.03 X10^3/ul (0.83-4.51); Lymphocyte % 18.3 % (19-41); Mean Corp Hgb Conc 31.5 g/dL (32-36); Mean Corpuscular Hgb 29.7 pg (27.0-32.0); Mean Corpuscular Volume 94.4 fL (81-99); Mean Platelet Vol. 11.5 fl (6.2-12.0); Monocyte# 0.33 X10^3/uL; Monocyte% 5.9 % (0-10); NRBC Flagged by Analyzer 0 % (0-5); Neutrophil # 4.13 X10^3/uL (2.7-7.7); Neutrophil % 73.3 % (47-70); Platelet Count 362 K/mm3 (150-450); RBC Distribution Width CV 13.3 % (11.6-14.6); RBC Distribution Width SD 45.6 fl (35.1-43.9); Red Blood Count 3.57 M/mm3 (4.2-5.4); White Blood Count 5.6 K/mm3 (4.4-11.0)
[2021-04-13 11:23] LABS: Glucose Challenge Gest 1H 50g 148 mg/dL (70-140)
== END ==
PROVIDERS: Obstetrics & Gynecology; PCP Family Medicine; Referring Provider Obstetrics & Gynecology; Visit Provider Obstetrics & Gynecology
DX: O09.90 Supervision of high risk pregnancy, unspecified, unspecified trimester (principal); Z13.1 Encounter for screening for diabetes mellitus; Z3A.00 Weeks of gestation of pregnancy not specified
CPT/HCPCS: 36415; 82950; 85025; 86850; 86900; 86901

== ENCOUNTER → 2021-04-20 09:32 | Outpatient (CLI) | payer OTHER, SELFPAY ==
[2021-04-20 10:58] LABS: Glucose GTT-Gestation. Fasting 85 mg/dL (<105)
[2021-04-20 12:17] LABS: Glucose GTT-Gestational 1 Hr 153 mg/dL (<190)
[2021-04-20 14:15] LABS: Glucose GTT-Gestational 3 Hr 95 L (<145)
[2021-04-20 14:25] LABS: Glucose GTT-Gestational 2 Hr 102 mg/dL (<165)
== END ==
PROVIDERS: PCP Family Medicine; Visit Provider Obstetrics & Gynecology
DX: Z13.1 Encounter for screening for diabetes mellitus (principal)
CPT/HCPCS: 36415; 82951; 82952; 86850; 86900; 86901

== ENCOUNTER → 2021-05-11 13:55 | Outpatient (CLI) | payer OTHER, SELFPAY ==
--- NOTE | 2021-05-11 14:01 | US_ITS ---
STUDY: SECOND AND THIRD TRIMESTER OBSTETRICAL ULTRASOUND - LIMITED REASON FOR EXAM: Female, 30 years old 32 wk growth LMP: 09/28/2020. PRIOR ULTRASOUND: Comparison is made with prior examination of 03/09/2021. TECHNIQUE: Transabdominal TECHNICAL QUALITY: Adequate. FINDINGS: There is a single intrauterine fetus. The fetus is in a cephalic presentation. There is demonstrated cardiac activity with a heart rate of 153 bpm. There is a normal amniotic fluid volume. The largest amniotic fluid pocket measures 4.4 cm. The amniotic fluid index (NEO) is 15.8 cm. The placenta is posterior in location and is not low lying. There are Grade 1 placental changes. The cervix measures 3.7 cm in length. BIOMETRY: BPD: 8.1 cm: 32 weeks, 5 days HC: 29.9 cm: 33 weeks, 0 days AC: 28 cm: 32 weeks, 0 days FL: 5.5 cm: 29 weeks, 0 days Age by LMP: 32 weeks, 1 days. RENE by LMP: 04/05/2021. age by prior US: 31 weeks, 4 days. RENE by prior US: 07/09/2021. age by current US: 31 weeks, 5 days. RENE by current US: 07/08/2021. Estimated weight: 1749 grams, +/- 262 grams, 19 percentile. US/OB Limited With Biometrics IMPRESSION: Single live intrauterine gestation with a mean gestational age of 31 weeks and 4 days. The measurements obtained today following thin the normal expected range. Electronically Signed: Noel Gregory MD at 15:34 EDT , Service support ,
== END ==
PROVIDERS: PCP Family Medicine; Referring Provider Obstetrics & Gynecology; Visit Provider Obstetrics & Gynecology
DX: O98.519 Other viral diseases complicating pregnancy, unspecified trimester (principal); U07.1 COVID-19; Z3A.00 Weeks of gestation of pregnancy not specified
CPT/HCPCS: 76816

== ENCOUNTER → 2021-05-29 12:55 | Outpatient (CLI) | payer OTHER, SELFPAY | PROVIDERS: PCP Family Medicine; Visit Provider Obstetrics & Gynecology | DX: R10.2 Pelvic and perineal pain (principal) | CPT/HCPCS: 87086; 87088 ==

== ENCOUNTER → 2021-06-08 08:53 | Outpatient (CLI) | payer OTHER, SELFPAY ==
--- NOTE | 2021-06-08 08:58 | US_ITS ---
STUDY: SECOND AND THIRD TRIMESTER OBSTETRICAL ULTRASOUND - LIMITED REASON FOR EXAM: Female, 30 years old 36w growth LMP: 09/19/2020. PRIOR ULTRASOUND: Comparison is made with prior study dated 05/11/2021. TECHNIQUE: Transabdominal TECHNICAL QUALITY: Adequate. FINDINGS: There is a single intrauterine fetus. The fetus is in a cephalic presentation. There is demonstrated cardiac activity with a heart rate of 145 bpm. There is a normal amniotic fluid volume. The largest amniotic fluid pocket measures 5 cm. The amniotic fluid index (NEO) is 12 cm. The placenta is posterior in location and is not low lying. There are Grade 2 placental changes. The cervical length was not measured. BIOMETRY: BPD: 8.9 cm: 35 weeks, 5 days HC: 32.7 cm: 37 weeks, 0 days AC: 32 cm: 35 weeks, 6 days FL: 6.3 cm: 32 weeks, 3 days Age by LMP: 36 weeks, 1 days. RENE by LMP: 07/05/2021. age by prior US: 35 weeks, 6 days. RENE by prior US: 07/08/2021. age by current US: 36 weeks, 0 days. RENE by current US: 07/06/2021. Estimated weight: 2599 grams, +/- 390 grams, 26 percentile. US/OB Limited With Biometrics IMPRESSION: Single live intrauterine gestation with a mean gestational age of 36 weeks. Measurements obtained today following a thin the normal expected range. Electronically Signed: Noel Gregory MD at 15:16 EST , Service support ,
== END ==
PROVIDERS: PCP Family Medicine; Visit Provider Obstetrics & Gynecology
DX: O98.519 Other viral diseases complicating pregnancy, unspecified trimester (principal); U07.1 COVID-19; Z3A.36 36 weeks gestation of pregnancy
CPT/HCPCS: 76816; 87081

== ENCOUNTER → 2021-06-13 17:22 | Outpatient (CLI) | payer OTHER, SELFPAY ==
[2021-06-13 11:41] LABS: Absolute Lymphocyte Count 1.17 X10^3/uL (0.83-4.51); Absolute Neutrophil Count 6.3 X10^3/uL (2.0-7.7); Basophil# 0.01 X10^3/uL; Basophil% 0.1 % (0-1); Eosinophil# 0.14 X10^3/uL; Eosinophils% 1.8 % (0-5); Hematocrit 33.2 % (37-47); Hemoglobin 10.8 g/dL (12.0-15.0); Lymphocyte # 1.17 X10^3/ul (0.83-4.51); Lymphocyte % 14.7 % (19-41); Mean Corp Hgb Conc 32.5 g/dL (32-36); Mean Corpuscular Hgb 29.8 pg (27.0-32.0); Mean Corpuscular Volume 91.7 fL (81-99); Mean Platelet Vol. 10.9 fl (6.2-12.0); Monocyte# 0.39 X10^3/uL; Monocyte% 4.9 % (0-10); NRBC Flagged by Analyzer 0 % (0-5); Neutrophil # 6.25 X10^3/uL (2.7-7.7); Neutrophil % 78.2 % (47-70); Platelet Count 205 K/mm3 (150-450); RBC Distribution Width CV 14.6 % (11.6-14.6); RBC Distribution Width SD 49.1 fl (35.1-43.9); Red Blood Count 3.62 M/mm3 (4.2-5.4)
[2021-06-13 11:58] LABS: ALB/GLOB Ratio 0.6 RATIO (0.9-2.4); AST(SGOT) 13 U/L (15-37); Alanine Aminotransfer ALT/SGPT 16 U/L (13-56); Albumin, Serum 2.5 g/dL (3.2-5.0); Alkaline Phosphatase 191 U/L (45-117); Anion Gap 9 (5-15); BUN 11 mg/dL (7-18); BUN/Creat Ratio 16.2 RATIO (10-20); Calcium,Total 8.9 mg/dL (8.5-10.1); Chloride 109 mmol/L (98-107); Creatinine, Serum 0.68 mg/dL (0.55-1.02); EST Glomerular Filtration Rate 107 mL/min (>60); Est Glom Filt Rate - Afr Amer 130 mL/min (>60); Globulin 4.3 g/dL (2.2-4.2); Glucose 88 mg/dL (74-106); Protein, Total 6.8 g/dL (6.4-8.2); Sodium Level 139 mmol/L (136-145)
--- NOTE | 2021-06-13 17:26 | US_ITS ---
STUDY: ABDOMINAL ULTRASOUND - RIGHT UPPER QUADRANT REASON FOR VISIT: Female, 30 years old. Abdominal pain TECHNIQUE: Ultrasound evaluation of the right upper quadrant was performed with real-time and static blair-scale imaging. TECHNICAL QUALITY: Adequate. COMPARISON: None. FINDINGS: Liver: The liver measures 17.4 cm. There is normal echogenicity of the liver. There are 2 hyperechoic lesions measuring 4 cm in the right and left lobe of the liver. The bile ducts are within normal limits. There is hepatic color flow. The direction of portal flow is hepatopetal. There is no demonstrated mass lesion. Gallbladder: Normal distended gallbladder. The gallbladder wall measures 3 mm. There is a negative sonographic Stanton''s sign. There is no pericholecystic fluid. There are no gallstones. Common Bile Duct (C.B.D.): The common bile duct measures 4 mm. Pancreas: Normal size of the head, body and tail of the pancreas. There is normal echogenicity of the pancreas. There is no demonstrated pancreatic mass or cyst. Right Kidney: Normal size of the right kidney. The right kidney measures 11.0 x 6.4 x 5.2 cm. Normal renal cortex. The right cortex measures 1.1 cm. There is no demonstrated renal mass or cyst. There is no right hydronephrosis. US/Abdomen Limited IMPRESSION: 1. No acute abnormality. 2. Hepatic lesions. 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 Electronically Signed: Calvin Braun MD at 19:23 EST Tel , Service support ,
== END ==
PROVIDERS: PCP Family Medicine; Referring Provider Nurse Practitioner Women's Health; Visit Provider Nurse Practitioner Women's Health
DX: O26.893 Other specified pregnancy related conditions, third trimester (principal); R10.10 Upper abdominal pain, unspecified; Z3A.37 37 weeks gestation of pregnancy
CPT/HCPCS: 36415; 76705; 80053; 85025

== ENCOUNTER → 2021-06-15 09:29 | Outpatient (CLI) | payer OTHER, SELFPAY ==
[2021-06-15 09:56] LABS: Absolute Lymphocyte Count 0.86 X10^3/uL (0.83-4.51); Absolute Neutrophil Count 6.4 X10^3/uL (2.0-7.7); Basophil# 0.02 X10^3/uL; Basophil% 0.3 % (0-1); Eosinophils% 1.3 % (0-5); Hematocrit 37.4 % (37-47); Hemoglobin 11.8 g/dL (12.0-15.0); Lymphocyte # 0.86 X10^3/ul (0.83-4.51); Lymphocyte % 11.1 % (19-41); Mean Corp Hgb Conc 31.6 g/dL (32-36); Mean Corpuscular Hgb 29.5 pg (27.0-32.0); Mean Corpuscular Volume 93.5 fL (81-99); Mean Platelet Vol. 11.2 fl (6.2-12.0); Monocyte# 0.34 X10^3/uL; Monocyte% 4.4 % (0-10); NRBC Flagged by Analyzer 0 % (0-5); Neutrophil # 6.38 X10^3/uL (2.7-7.7); Neutrophil % 82.3 % (47-70); Platelet Count 227 K/mm3 (150-450); RBC Distribution Width CV 14.5 % (11.6-14.6); RBC Distribution Width SD 50.4 fl (35.1-43.9); White Blood Count 7.8 K/mm3 (4.4-11.0)
[2021-06-15 10:05] LABS: Prothrombin Time (Protime)PT. 12.6 SECONDS (11.7-14.9)
[2021-06-15 10:06] LABS: Partial Thromboplast Time 29.2 Seconds (24.1-36.2)
[2021-06-15 10:37] LABS: ALB/GLOB Ratio 0.6 RATIO (0.9-2.4); AST(SGOT) 16 U/L (15-37); Alanine Aminotransfer ALT/SGPT 18 U/L (13-56); Albumin, Serum 2.6 g/dL (3.2-5.0); Alkaline Phosphatase 207 U/L (45-117); Anion Gap 6 (5-15); BUN 13 mg/dL (7-18); BUN/Creat Ratio 18.9 RATIO (10-20); Calcium,Total 9.3 mg/dL (8.5-10.1); Chloride 107 mmol/L (98-107); Creatinine, Serum 0.69 mg/dL (0.55-1.02); EST Glomerular Filtration Rate 106 mL/min (>60); Est Glom Filt Rate - Afr Amer 128 mL/min (>60); Globulin 4.7 g/dL (2.2-4.2); Glucose 76 mg/dL (74-106); Lipase 109 U/L (73-393); Potassium 4.5 mmol/L (3.5-5.1); Protein, Total 7.3 g/dL (6.4-8.2); Sodium Level 137 mmol/L (136-145); Uric Acid 4.4 mg/dL (2.6-6.0)
[2021-06-16 08:09] LABS: HEPATITIS B SURFACE AG Negative (Negative); Hepatitis A IgM Antibody Negative (Negative); Hepatitis B Core AB IgM Negative (Negative)
[2021-06-16 16:23] LABS: CMV Acute Antibody IgM < 30.0 AU/mL (0.0-29.9); CMV Antibody IgG < 0.60 U/mL (0.00-0.59); Hep C Antibodies <0.1 s/co ratio (0.0-0.9)
== END ==
PROVIDERS: PCP Family Medicine; Referring Provider Obstetrics & Gynecology; Visit Provider Obstetrics & Gynecology
DX: O26.899 Other specified pregnancy related conditions, unspecified trimester (principal); O99.810 Abnormal glucose complicating pregnancy; O98.519 Other viral diseases complicating pregnancy, unspecified trimester; O09.90 Supervision of high risk pregnancy, unspecified, unspecified trimester; R10.9 Unspecified abdominal pain; R05.3 Chronic cough; U07.1 COVID-19; D64.9 Anemia, unspecified; L40.50 Arthropathic psoriasis, unspecified; J45.909 Unspecified asthma, uncomplicated; Z3A.36 36 weeks gestation of pregnancy
CPT/HCPCS: 36415; 80053; 80074; 83690; 84550; 85025; 85610; 85730; 86644; 86645

== ENCOUNTER → 2021-06-22 10:39 | Outpatient (CLI) | payer OTHER, SELFPAY | PROVIDERS: PCP Family Medicine; Visit Provider Obstetrics & Gynecology | DX: O09.90 Supervision of high risk pregnancy, unspecified, unspecified trimester (principal); Z3A.00 Weeks of gestation of pregnancy not specified | CPT/HCPCS: 87635; U0005; U0003 ==

== ENCOUNTER 2021-06-28 18:50 | Inpatient (IN) | payer OTHER, SELFPAY ==
[2021-06-28 19:22] VITALS: BMI 34.4
--- NOTE | 2021-06-28 19:22 | HP.PCM.OB_ITS ---
HPI - General General Date of Admission: 06/28/21 HPI Narrative JAHAIRA GENTILE, is a 31 y/o who presents to L&D for IOL due to h/o covid and maternal exhaustion. she also has a h/o fast labor and would like to have the opportunity to have an epidural. She states that with her last delivery she was induced at 7 am and had the baby by 2 pm. Maternal Data Information RENE Calculator Estimated Delivery Date Method Current WG Current Estimate 07/05/21 LMP (Certain) 39w 0d Other Estimates 07/10/21 Ultrasound #1 38w 2d PFSH PFSH Medical History Abnormal glucose affecting Anemia Asthma Back pain Home Medications albuterol sulfate 2 puff INHALATION Q6H PRN PRN 01/23/16 [History Last Taken Unknown] vitamin#30 30 mg iron-10 mg iron-folic acid 1 mg-omg3 capsule cap PO 11/24/20 [History Last Taken Unknown] aspirin 81 mg capsule 81 mg PO DAILY 05/25/21 [History Last Taken Unknown] hydroxyzine pamoate 25 mg capsule 25 mg PO BID PRN #60 cap 06/14/21 [Rx Last Taken Unknown] omeprazole 40 mg capsule,delayed release 40 mg PO DAILY #60 cap 06/19/21 [Rx Last Taken Unknown] sucralfate 1 gram tablet 1 g PO QACHS #60 tab 06/19/21 [Rx Last Taken Unknown] Allergy/AdvReac Type Severity Reaction Status Date / Time adhesive Allergy Hives Verified 06/28/21 19:22 Family History Father CAD (coronary artery disease) Cancer melanoma Mother Hypertension Grandmother CAD (coronary artery disease) Breast cancer Grandfather CAD (coronary artery disease) Surgical History S/P foot surgery S/P shoulder surgery Social History household members: spouse and children current occupational status: employed current occupation: [employer] Smoking Status: Never smoker alcohol intake: never substance use type: does not use History 4 Elective abortions Hx Para 2 Spontaneous abortions 1 Hx # Term Pregnancies Ectopic pregnancies Hx # Pregnancies Multiple births # of living children Past Pregnancies Del. Date Name GA/Weeks Outcome Route Bth Weight Infant Gen Labor Lgth Anesthesia Del Makatfarhad Provider FOB Unknown 07/2020 SAB 07/11/17 [place] 39 live - full term Male [facility] 04/27/19 [facility] 39 live - full term [facility] Delivery Date: No notes to display Delivery Date: 07/11/17 IOL for IUGR, low fluid. Med for pp bleeding [place] Delivery Date: 04/27/19 IOL for dec movement Jamila Clarke Visit Details Expected Delivery Route/Plan Labor Preferences- labor support person: Earl labor intervention preferences: none pain management options preferred: epidural cut cord/dad catch: yes : yes PP control planned: [] discussed possible routes of delivery and associated risks: [] special requests: [] Plans covid staus: infection in and vaccinated prior, moderna- only got one shot. flu vaccine: will get tdap vaccine: given rhogam: given 04/20 LARC form signed: declined movement and labor precautions reviewed. Problem list reviewed and updated with the most current plan of care details and appropriate orders placed. Relevant counseling for the gestational age provided. Continue routine care and follow up unless otherwise noted in visit notes/problem list details OB Flowsheet Initial Weight: 193 lb Date -?-?-?-?-?-?-?-?-?-?-?-?- EGA Weight BP Urine Prot -?-?-?-?-?-?-?-?-?-?-?-?- Glucose FHR FuHt Pres Dilation -?-?-?-?-?-?-?-?-?-?-?-?- Effaced St Visit Note 11/24/20 -?-?-?-?-?-?-?-?-?-?-?-?- 8w 1d 193 lb (+0 oz) -?-?-?-?-?-?-?-?-?-?-?-?- 155 -?-?-?-?-?-?-?-?-?-?-?-?- SM- CRL cons wit h LMP 12/16/20 -?-?-?-?-?--?-?-?-?-?-?-?- 11w 2d 193 lb (+0 oz) 120/82 Negative -?-?-?-?-?-?-?-?-?-?-?-?- Negative 145 -?-?-?-?-?-?-?-?-?-?-?-?- SM- no vb crampi ng 01/12/21 -?-?-?-?-?-?-?-?-?-?-?-?- 15w 1d 196 lb 4 oz (+3 lb 4 oz) 106/60 Trace -?-?-?-?-?-?-?-?-?-?-?-?- Negative 163 -?-?-?-?-?-?-?-?-?-?-?-?- MH-NO VB, LOF. a natomy [facility] due to insurance. NIPT today. 02/10/21 -?-?-?-?-?-?-?-?-?-?-?-?- 19w 2d 197 lb 2 oz (+4 lb 2 oz) 120/86 Negative -?-?-?-?-?-?-?-?-?-?-?-?- Negative 155 -?-?-?-?-?-?-?-?-?-?-?-?- GP - no LOF, VB, DFM, ctx. Anatomy reviewed. Having a girl! Discussed marginal previa. Needs f/u spine views. 03/06/21 -?-?-?-?-?-?-?-?-?-?-?-?- 22w 5d 200 lb 6 oz (+7 lb 6 oz) 120/70 Trace -?-?-?-?-?-?-?-?-?-?-?-?- Negative 151 -?-?-?-?-?-?-?-?-?-?-?-?- -Feeling FM. N o VB, LOF. US 03/09. Denies concerns. 04/20/21 -?-?-?-?-?-?-?-?-?-?-?-?- 29w 1d 198 lb (+5 lb) 118/80 -?-?-?-?-?-?-?-?-?-?-?-?- 150 -?-?-?-?-?-?-?-?-?-?-?-?- SM- no vb lof go od fm no regular ctx 3 hr gtt today and rhogam 05/04/21 -?-?-?-?-?-?-?-?-?-?-?-?- 31w 1d 200 lb (+7 lb) 112/84 -?-?-?-?-?-?-?-?-?-?-?-?- 145 32 -?-?-?-?-?-?-?-?-?-?-?-?- SM- no vb lof go od fm no regular ctx 05/15/21 -?-?-?-?-?-?-?-?-?-?-?-?- 32w 5d 200 lb (+7 lb) 112/70 Negative -?-?-?-?-?-?-?-?-?-?-?-?- Negative 145 34 -?-?-?-?-?-?-?-?-?-?-?-?- SM- no vb lof go od fm no regular ctx, grieving normally 05/29/21 -?-?-?-?-?-?-?-?-?-?-?-?- 34w 5d 200 lb (+7 lb) -?-?-?-?-?-?-?-?-?-?-?-?- Negative 140 1 -?-?-?-?-?-?-?-?-?-?-?-?- 20 -3 SM- co pel duc pressure and decreased movement no vb lof irregular ctx 06/08/21 -?-?-?-?-?-?-?-?-?-?-?-?- 36w 1d 118/80 -?-?-?-?-?-?-?-?-?-?-?-?- 140 36 1 -?-?-?-?-?-?-?-?-?-?-?-?- SM- no vb lof go od fm no regular ctx 06/13/21 -?-?-?-?-?-?-?-?-?-?-?-?- 36w 6d 201 lb 4 oz (+8 lb 4 oz) 110/60 Trace -?-?-?-?-?-?-?-?-?-?-?-?- Negative 151 -?-?-?-?-?-?-?-?-?-?-?-?- -work in for U RQ pain worsening for 1 month but significant since last night, nausea. No VB, LOF, CTX. Good FM. BCB, CMP, Bile acids, Gallbladder US. Results to 06/15/21 -?-?-?-?--?-?-?-?-?-?-?-?- 37w 1d 202 lb (+9 lb) 126/80 -?-?-?-?-?-?-?-?-?-?-?-?- 150 37 -?-?-?-?-?-?-?-?-?-?-?-?- SM- no vb lof go od fm no regular ctx, pain improved SM- no vb lof good fm no reg ular ctx, pain NOT improved, having nausea and vomiting, no other symptoms. recommend repeat evaluation and surgery consult 06/22/21 -?-?-?-?-?-?-?-?-?-?-?-?- 38w 1d 201 lb 4 oz (+8 lb 4 oz) 112/80 Negative -?-?-?-?-?-?-?-?-?-?-?-?- Negative 145 37 Cephalic 2 -?-?-?-?-?-?-?-?-?-?-?-?- 50 -2 JV- no lof , vaginal bleeding, or dec fm. IOL next saturday for persistent moderate to severe RUQ pain. work up was negative 06/28/21 -?-?-?-?-?-?-?-?-?-?-?-?- 39w 0d 201 lb (+8 lb) -?-?-?-?-?-?-?-?-?-?-?-?- -?-?-?-?-?-?-?-?-?-?-?-?- ROS Constitutional Constitutional: Denies change in weight, fatigue, fever(s), headache(s), poor appetite or weakness Eyes Eyes: Denies blurry vision, change in vision, seeing flashes or spots in vision ENT HEENT: Denies dizziness, headache(s), loss taste/smell or sore throat Cardiovascular Cardiovascular: Denies chest pain, dizziness, dyspnea, irregular heart rhythm, leg edema, palpitations, rapid heart rate or vomiting Respiratory/Chest Respiratory/Chest: Denies chest tightness, cough, dyspnea or breast pain Gastrointestinal Gastrointestinal: Denies abdominal pain, anorexia, constipation, cramping, diarrhea, hemorrhoids, vomiting or weight changes Genitourinary Genitourinary: Denies dysuria, flank pain, genital lesions, genital pain, urinary frequency or urinary urgency Musculoskeletal Musculoskeletal: Denies back pain, difficulty walking, joint pain, limited range of motion, muscle cramps or numbness Integumentary Integumentary: Denies lesions or unusual bruising Neurologic Neurologic: Denies abnormal movements, abnormal speech, dizziness, numbness, seizure-like activity or syncope Psychiatric Psychiatric: Denies anxiety, behavioral changes, change in appetite, change in libido, cognitive impairment, confusion, depression, difficulty concentrating, hallucinations or suicidal thoughts Endocrine Endocrinology: Denies excessive sweating, polydipsia or polyuria Hematologic/Lymphatic Hematologic/Lymphatic: Denies easy bleeding, easy bruising or lymphadenopathy Allergic/Immunologic Allergic/Immunologic: Denies itchy eyes, lip swelling, seasonal rhinorrhea, rhinitis, throat swelling, tongue swelling, eczemia, wheezing or asthma Vital Signs Vital Signs Vital Signs: Weight Weight: 201 lb Body Mass Index (BMI) 34.4 Physical Exam Const alert, oriented x3, no apparent distress and healthy appearing General Appearance: cooperative; Negative for anxious HEENT normocephalic Face and Sinus: normal facial exam Eyes EOMs intact bilaterally and no scleral icterus General Eye: normal appearance of both eyes Neck full ROM and supple Lymph Lymphatic: no lymphadenopathy noted Chest Chest: abnormal inspection of the chest Resp normal respiratory effort Effort and Inspection: able to speak in complete sentences Cardio regular rate GI soft to palpation and non-tender Inspection: gravid Palpation: soft; Negative for tender external exam normal Amniotic Fluid: other Cervix is 2/50/-2. NST reactive Back/Spine no CVA tenderness Extremity normal to inspection, full ROM and no clubbing, cyanosis or edema General Extremity: Negative for calf tenderness or edema Skin Lesions: no lesions Rashes: no rashes Psych mental status grossly normal Labs Labs Labs: Blood Type O NEGATIVE Antibody Screen NEGATIVE Hct 37.4 % (37-47) Hgb 11.8 g/dL (12.0-15.0) L Obstetrics US Syphilis Total Ab Non-reactive Rubella IgG Antibody Reactive (Nonreactive) Hep Bs Antigen Negative (Negative) Neisseria gonorrhoeae DNA (OLIVIER) Negative (Negative) HIV 1&2 Antibody Non-Reactive (Nonreactive) Glucose 1 Hr 50 gm 148 mg/dL (70-140) H Rhogam given: No Miscellaneous Test Assessment & Plan (1) Back pain: (2) Abdominal pain affecting : COMMENT: repeat labs ordered due to persistent and increasing symptoms, gen surg consult. nl gallbladder US, bile acids, CMP, CBC (3) Chronic cough: (4) COVID-19 affecting , antepartum: COMMENT: 81 mg asa, growth us q 4 weeks. Growth US Norm 11/4 (5) Anemia: (6) Abnormal glucose affecting : COMMENT: nl 3 hr GTT (7) Supervision of high risk , antepartum: COMMENT: PRR RENE 07/05/21 girl [facility], Case Spouse: Earl (8) Psoriatic arthritis: COMMENT: tylenol, PRN NSAID in 1st TM only (9) : QUALIFIERS: Weeks of gestation: 38 weeks Qualified Code(s): Z3A.38 - 38 weeks gestation of COMMENT: Declines Carrier. Wants NIPT. low risk. Anatomy normal, follow up spine views. GBS NEG (10) Asthma: COMMENT: albuterol PRN (11) History of prior with IUGR : COMMENT: growth US 3rd TM (12) Rh negative status during : QUALIFIERS: Trimester: second trimester Qualified Code(s): O26.892 - Other specified related conditions, second trimester; Z67.91 - Unspecified blood type, Rh negative COMMENT: rhogam at 28 weeks or PRN PLAN: Patient presents IOL, plan management for with pitocin/AROM. Pain management: plans epidural. GBS negative. Management of any complications: see above I have reviewed the [facility] and made any clinically relevant updates.
[2021-06-28] MEDS: Lactated Ringers 1,000 ML 50 ML IV (19:25)
[2021-06-28 19:30] VITALS: BP 120/81; PULSE 98; TEMP 37.1
[2021-06-28 19:32] VITALS: PULSE 101; O2SAT 98
[2021-06-28 19:39] LABS: Absolute Lymphocyte Count 1.23 X10^3/uL (0.83-4.51); Basophil# 0.02 X10^3/uL; Basophil% 0.3 % (0-1); Eosinophil# 0.12 X10^3/uL; Eosinophils% 1.7 % (0-5); Hematocrit 32.3 % (37-47); Hemoglobin 10.6 g/dL (12.0-15.0); Lymphocyte # 1.23 X10^3/ul (0.83-4.51); Lymphocyte % 17.9 % (19-41); Mean Corp Hgb Conc 32.8 g/dL (32-36); Mean Corpuscular Hgb 30.2 pg (27.0-32.0); Mean Platelet Vol. 11.2 fl (6.2-12.0); Monocyte# 0.45 X10^3/uL; Monocyte% 6.6 % (0-10); NRBC Flagged by Analyzer 0 % (0-5); Neutrophil % 72.9 % (47-70); Platelet Count 216 K/mm3 (150-450); RBC Distribution Width CV 14.4 % (11.6-14.6); RBC Distribution Width SD 48.8 fl (35.1-43.9); Red Blood Count 3.51 M/mm3 (4.2-5.4); White Blood Count 6.9 K/mm3 (4.4-11.0)
[2021-06-28] MEDS: Oxytocin 30 units/NS 500 ml 30 UNITS/500 ML IV.SOLN IV (20:05)
[2021-06-28 20:16] VITALS: BP 110/75; PULSE 93; TEMP 37.2
[2021-06-28 21:18] VITALS: BP 117/72; PULSE 90; TEMP 36.9
[2021-06-28 22:20] VITALS: BP 112/59; PULSE 81
[2021-06-28 23:09] VITALS: BP 118/74; PULSE 89
[2021-06-29] VITALS (39 sets, daily range): BP systolic 93–140; BP diastolic 51–98; PULSE 70–109; RESP 16–18; TEMP 36.2–37.4; O2SAT 97–100
[2021-06-29] MEDS: Lactated Ringers 500 ML 999 ML IV (00:12)
[2021-06-29] MEDS: fentaNYL-bupivacaine (epidural) 100 ML BAG EPIDURAL ×2 (01:26→05:40)
[2021-06-29] MEDS: Lactated Ringers 1,000 ML 200 ML IV (04:35)
--- NOTE | 2021-06-29 07:51 | PN_ITS ---
Progress Note pt is resting on her left side. epidural in place. She has no complaints. Pitocin is running at 20 mu/min current tracing:category 1, reactive NST FHT: Moderate variability reactive no decelerations category I tracing [place]: 2-5 min Contractions Pelvic exam: Cx: 5/70/-1, membranes ruptured with clear fluid return. IUPC placed without difficulty reviewed tracing abnormalities since last note: no change A/P: 39 weeks elective IOL - anticipate soon due to h/o fast labor -continue 20mu/min of pit for now unless no change after 2 hours Physical Exam Const alert, oriented x3 and no apparent distress General Appearance: cooperative and comfortable Resp normal respiratory effort Cardio regular rate GI normal to inspection, nondistended, normoactive bowel sounds Palpation: soft Rectal Exam: other Other Details: non-tender. Incision is clean, dry, and intact.
[2021-06-29] MEDS: Oxytocin 30 units/NS 500 ml 30 UNITS/500 ML IV.SOLN 334 UNITS IV (09:15)
[2021-06-29] MEDS: 0.9% Saline Lock 10 ML Syringe IV (11:36)
--- NOTE | 2021-06-29 12:24 | OP.PCM_ITS ---
Maternal Data Information RENE Calculator Estimated Delivery Date Method Current WG Current Estimate 07/05/21 LMP (Certain) 39w 1d Other Estimates 07/10/21 Ultrasound #1 38w 3d Vaginal Delivery Maternal Presentation Maternal Presentation: Elective Induction Type of Induction: Pitocin Operative Information Date of Procedure: 06/29/21 Pre-Operative Diagnosis: 39 weeks , elective IOL due to maternal exhaustion and h/o fast labor Post-Operative Diagnosis: 39 weeks , elective IOL due to maternal exhaustion and h/o fast labor Type of Anesthesia: Epidural Estimated Blood Loss: 100cc Findings Description of Procedure: Patient began pushing and delivered the head in the JARROD presentation. The head was delivered atraumatically . The anterior and posterior shoulders delivered without complication followed by the rest of the and the was placed on the maternal abdomen. Delayed cord clamping was employed for approximately 60 seconds. Cord was clamped and cut and gentle traction was applied to the cord and the placenta delivered spontaneously immediately following it was noted to be intact with three-vessel cord. The perineum and vagina were inspected and noted to have a 1st degree perineal laceration that was repaired with a 2-0 vicryl suture. EBL was 100 cc. Patient and infant tolerated delivery well. Presentation: Vertex Amniotic Membrane Rupture Type: Artificial Time of Membrane Rupture: 0650 Amniotic Fluid Description: Clear Placenta Disposition: [facility] Cord Vessel Description: 3 Vessels Cord Entanglement: None Infant A Gender: Female (1 minute): 8 (5 minute): 9 Delayed Cord Clamping: Yes Post Vaginal Delivery Medications Given After Delivery: IV Pitocin Episiotomy Description: None Laceration: Midline and 1st degree Complication Complications: None Multi Select Codes Urinary/Genital Urinary/Genital CPT Codes: 01744 Vaginal Delivery [facility]
--- NOTE | 2021-06-29 12:27 | PCM.DC ---
Discharge Instructions Diet Discharge Diet: No restrictions Activity Discharge Activity: Return to Normal Activity, May Not Drive (while taking narcotic pain medications.) and May Shower May resume sexual activity in: 4-6 weeks Dressing / Incision Call your doctor if your incision/area has: Continuous Slow Oozing, Sudden Increased Bleeding, Increased Pain/ Swelling, Increased Redness and Foul Smelling Discharge Follow Up Care Please Follow Up With: Yenifer Boyce DO When: Call [phone] to make an appointment with your doctor in 6 weeks. If you had elevated blood pressure or 4th degree laceration, you will need to be seen in 2 weeks. Test Results: Test results from this visit will be discussed in further detail at your follow-up appointment, if applicable. Discharge Plan Admission Admit Date/Time: 06/28/21 18:50 Primary Reason for Your Visit: vaginal delivery Attending Provider: Yenifer Boyce Primary Care Provider: Ishaan Sanderson Discharge Orders/Prescriptions Prescriptions: New ibuprofen 800 mg tablet 800 mg PO Q8H PRN (Reason: pain) 7 Days Qty: 30 RF: 0 docusate sodium [Colace] 100 mg capsule 100 mg PO DAILY 14 Days Qty: 14 RF: 0 Continued PNV #[id number] 30 mg iron-10 mg iron-1 mg capsule 1 cap PO DAILY RF: 0 albuterol sulfate 1 INHALER inhaler 2 puff inhalation Q6H PRN PRN (Reason: Asthma) RF: 0 sucralfate [Carafate] 1 gram tablet 1 g PO QACHS RF: 0 omeprazole 40 mg capsule,delayed release(DR/EC) 40 mg PO DAILY RF: 0 Discontinued aspirin 81 mg capsule 81 mg PO DAILY RF: 0 Referrals / Follow Up: Ishaan Sanderson MD [Primary Care Provider] - Disposition Disposition (needs filled in before D/C Order can be placed): Home, Self Care
[2021-06-29] MEDS: Ibuprofen 600 MG Tablet PO (20:55)
[2021-06-30 00:42] VITALS: BP 132/76; PULSE 74; RESP 18
[2021-06-30 00:43] VITALS: BP 132/76; PULSE 74
[2021-06-30 05:02] VITALS: BP 99/66; PULSE 80; RESP 18; TEMP 37.1
[2021-06-30 05:03] VITALS: BP 99/66; PULSE 80
--- NOTE | 2021-06-30 07:05 | PCM.PN.OB ---
Subjective Subjective Patient doing well without complaints. Tolerating PO. Ambulating and voiding without difficulty. Feeding well. Denies chest pain, shortness of breath, calf pain/swelling, fevers, chills, lightheadedness. Objective Data Objective Data Vital Signs: Vital Signs Temp Pulse Resp BP Pulse Ox 98.8 F 80 18 99/66 99 06/30/21 05:02 06/30/21 05:03 06/30/21 05:02 06/30/21 05:03 06/29/21 06:46 Oxygen Delivery Method Room Air Weight: 201 lb Body Mass Index (BMI) 34.4 Intake & Output: Intake and Output for Last 24 Hours 06/28/21 06/29/21 06/30/21 23:59 23:59 23:59 Intake Total .06.26 3100.69 / 3100.69 Output Total 1300 / 1300 Balance .06.26 1800.69 / 1800.69 Lab / Micro Data Result Diagrams: 06/28/21 19:25 ROS Constitutional Constitutional: Denies chills, fatigue, fever(s), poor appetite or weakness Eyes Eyes: Denies blurry vision, change in vision, seeing flashes or spots in vision ENT HEENT: Denies dizziness, headache(s), loss taste/smell or sore throat Cardiovascular Cardiovascular: Denies chest pain, dizziness, dyspnea, irregular heart rhythm, palpitations or rapid heart rate Respiratory/Chest Respiratory/Chest: Denies chest tightness, cough, dyspnea or breast pain Gastrointestinal Gastrointestinal: Denies abdominal pain, constipation or vomiting Genitourinary Genitourinary: Denies dysuria or flank pain Musculoskeletal Musculoskeletal: Denies difficulty walking, joint pain, limited range of motion or numbness Neurologic Neurologic: Denies abnormal movements, abnormal speech, dizziness, numbness, seizure-like activity or syncope Psychiatric Psychiatric: Denies anxiety, behavioral changes, change in appetite, confusion, depression or suicidal thoughts Physical Exam Const alert, oriented x3 and no apparent distress General Appearance: cooperative and comfortable Resp normal respiratory effort Cardio regular rate GI normal to inspection, nondistended, normoactive bowel sounds GI Narrative: uterus is firm below umbilicus Palpation: soft Bimanual Exam - Adnexa, Other: Negative for cul-de-sac fullness Back/Spine no CVA tenderness and thoraco-lumbar ROM normal Extremity normal to inspection, no clubbing, cyanosis or edema, no calf tenderness and no pedal edema Psych mental status grossly normal, thought process normal, cooperative, affect normal, speech normal, activity/motor behavior normal, denies homicidal ideation and denies suicidal ideation Assessment & Plan (1) state: (2) Back pain: (3) Chronic cough: (4) Anemia: (5) Psoriatic arthritis: COMMENT: tylenol, PRN NSAID in 1st TM only (6) Asthma: COMMENT: albuterol PRN PLAN: s/p PPD # 1 1. routine post delivery care 2. breast feeding- support given 3. rh positive 4. rubella immune 5. dc home later today
[2021-06-30 07:46] VITALS: BP 125/76; PULSE 76
[2021-06-30 07:53] VITALS: BP 125/76; PULSE 76; RESP 14; TEMP 37.2
--- NOTE | 2021-07-05 15:17 | NURSING ---
Follow up phone call completed, patient reports doing well. Bleeding decreasing, denies any KNUTSON, vision changes.
== END 2021-06-30 11:25 | disposition home or self-care (01) | DRG 807 ==
PROVIDERS: Admitting Provider Obstetrics & Gynecology; PCP Family Medicine; Visit Provider Obstetrics & Gynecology
DX: O75.81 Maternal exhaustion complicating labor and delivery (principal); Z37.0 Single live birth; Z86.16 Personal history of COVID-19; J45.909 Unspecified asthma, uncomplicated; L40.50 Arthropathic psoriasis, unspecified; O99.52 Diseases of the respiratory system complicating childbirth; Z3A.39 39 weeks gestation of pregnancy; O70.0 First degree perineal laceration during delivery
CPT/HCPCS: 59025; 59050; 85025; 86850; 86900; 86901; 99218; J7120; A4216; G0378

== ENCOUNTER 2021-07-27 09:29 | Outpatient (CLI) | payer OTHER, SELFPAY ==
--- NOTE | 2021-07-27 16:58 | PFTCOMP_ITS ---
COMPLETE PULMONARY FUNCTION TEST INTERPRETATION Brief HPI: Patient is a 31 year old female, currently under the care of myself, who presents to [facility] for complete pulmonary function tests secondary to diagnosis of cough. Respiratory therapist reports good effort and reproducible results. Interpretation: Forced expiration spirometry shows no large airways obstructive ventilatory defect with an FEV1 of 77% predicted. There is no significant bronchodilator response by strict ATS criteria. Spirograms are of good quality and plateau normally. The respiratory flow volume loop shows decreased expiratory flow rates at high lung volumes consistent with small airways obstruction. Lung volumes by body plethysmography show a normal total lung capacity at 4.41 L, 86% predicted. All other lung volumes are within normal limits. Diffusion capacity by carbon monoxide is normal at 83% predicted. The airway resistance is normal. No previous pulmonary function tests were available for review. Impression: Grossly normal pulmonary function testing. Lung volumes and diffusion capacity are at the lower limit of normal, so early interstitial lung disease cannot be excluded.
== END 2021-07-27 23:59 | disposition short-term general hospital (02) ==
LOC: PSN 09:30
PROVIDERS: PCP Family Medicine; Referring Provider Internal Medicine Critical Care Medicine; Visit Provider Internal Medicine Critical Care Medicine
DX: R05.3 Chronic cough (principal)
CPT/HCPCS: 94060; 94726; 94729

== ENCOUNTER 2021-08-24 09:08 | Outpatient (CLI) | payer OTHER, SELFPAY ==
[2021-08-28 18:00] LABS: HPV APTIMA, High Risk Negative (Negative)
== END 2021-08-24 23:59 | disposition home or self-care (01) ==
LOC: LABSPEC 08-25 09:08
PROVIDERS: PCP Family Medicine; Visit Provider Obstetrics & Gynecology
DX: Z12.4 Encounter for screening for malignant neoplasm of cervix (principal)
CPT/HCPCS: 87624; 88175; G0145

== ENCOUNTER → 2022-03-29 | Outpatient (CLI) | payer OTHER, SELFPAY ==
--- NOTE | 2022-03-29 08:51 | US_ITS ---
STUDY: ABDOMINAL ULTRASOUND - RIGHT UPPER QUADRANT REASON FOR VISIT: Female, 31 years old elevated LFTs TECHNIQUE: Ultrasound evaluation of the right upper quadrant was performed with real-time and static blair-scale imaging. TECHNICAL QUALITY: Limited. Examination limited by bowel gas. COMPARISON: None. FINDINGS: Liver: The liver measures 14.5 cm. There is increased echogenicity consistent with fatty infiltration. The bile ducts are within normal limits. There is hepatic color flow. The direction of portal flow is hepatopetal. 2 separate echogenic lesions within the liver one in each lobe left lobe measures 2.0 x 1.5 x 1.7 cm, right lobe 2.3 x 2.3 x 1.7 cm, these are likely hemangiomas. Gallbladder: Normal distended gallbladder. The gallbladder wall measures 2.0 mm. There is a negative sonographic Stanton''s sign. There is no pericholecystic fluid. There are no gallstones. Common Bile Duct (C.B.D.): The common bile duct measures 5.7 mm. Pancreas: Visualized pancreas is sonographically normal Right Kidney: Normal size of the right kidney. The right kidney measures 10.9 x 4.3 x 4.4 cm. Normal renal cortex. The right cortex measures 1.2 cm. There is no demonstrated renal mass or cyst. There is no right hydronephrosis. US/Abdomen Limited IMPRESSION: Fatty infiltration of the liver with 2.0 cm hemangiomas in each lobe. Electronically Signed: Dionicio Smith MD at 9:52 EDT ,
== END | disposition home or self-care (01) ==
PROVIDERS: PCP Family Medicine; Referring Provider Family Medicine; Visit Provider Family Medicine
DX: K76.9 Liver disease, unspecified (principal)
CPT/HCPCS: 76705

== ENCOUNTER → 2022-04-05 | Outpatient (CLI) | payer OTHER, SELFPAY ==
--- NOTE | 2022-04-05 10:32 | MRI_ITS ---
STUDY: MRI LUMBAR SPINE WITHOUT CONTRAST REASON FOR EXAM: Female, 31 years old. LOW BACK PAIN, RT FOOT DROP, NO REFLEX RT LEG TECHNIQUE: Standardized fat and water weighted pulse sequences were obtained in the sagittal and axial planes. COMPARISON: MRI of the lumbar spine dated DECEMBER 05, 2019. X-ray the lumbar spine dated April 27, 2020 FINDINGS: T12-L1: A small Schmorl''s node is present. Normal disc height, hydration and morphology. Normal bilateral facet joints. Normal central canal and bilateral lateral recesses. Normal bilateral intervertebral neural foramina. Normal lumbar lordosis. There is no substantial scoliosis. Normal conus medullaris that terminates at the T12-L1 level. No marrow edema or fracture or compression deformity is present. Normal spinal ligaments. L1-2: Normal endplates. Normal disc height, hydration and morphology. Normal bilateral facet joints. Normal central canal and bilateral lateral recesses. Normal bilateral intervertebral neural foramina. L2-3: Normal endplates. Normal disc height, hydration and morphology. Normal bilateral facet joints. Normal central canal and bilateral lateral recesses. Normal bilateral intervertebral neural foramina. L3-4: Normal endplates. Normal disc height, hydration and morphology. Normal bilateral facet joints. Normal central canal and bilateral lateral recesses. Normal bilateral intervertebral neural foramina. L4-5: Normal endplates. Diffuse disc desiccation with mild posterior disc space narrowing in addition to a small annular tear in the posterior aspect of the disc. A shallow midline disc protrusion is also present. Normal bilateral facet joints. Normal central canal and bilateral lateral recesses. Normal bilateral intervertebral neural foramina. L5-S1: Normal endplates. Diffuse disc desiccation with mild posterior disc space narrowing and an annular tear in the disc associated with a shallow disc protrusion in the midline. Normal bilateral facet joints. Normal central canal and bilateral lateral recesses. Normal bilateral intervertebral neural foramina. Normal visualized sacral ala. Normal visualized paraspinous soft tissue structures. MRI/Spine Lumbar (Routine) IMPRESSION: 1. Degenerative disc disease at L4-L5 and L5-S1 with shallow disc protrusions Electronically Signed: Julian Simons MD at 13:44 EDT ,
== END | disposition home or self-care (01) ==
LOC: MRI 10:20
PROVIDERS: PCP Family Medicine; Visit Provider Family Medicine
DX: K76.9 Liver disease, unspecified (principal); M54.50 Low back pain, unspecified; M54.16 Radiculopathy, lumbar region
CPT/HCPCS: 72148

== ENCOUNTER → 2022-06-07 | Outpatient (CLI) | payer OTHER, SELFPAY ==
--- NOTE | 2022-06-07 15:45 | MRI_ITS ---
INDICATION: possibility of MS EXAMINATION: MRI - MR Brain WO/W Contrast TECHNIQUE: Multiplanar and multisequence MR images of the brain were obtained without and with gadolinium. IV Contrast Dosage and Agent: None. COMPARISON: None. FINDINGS: BRAIN AND EXTRA-AXIAL SPACES: No intracranial mass, mass effect, or midline shift. No hemorrhage, hydrocephalus, or acute territorial infarct. Areas of low attenuation / T2 signal hyperintensity in the white matter are consistent with microvascular ischemia. Ventriculomegaly is commensurate with the degree of sulcal atrophy. There is cerebral atrophy with widening of the extra-axial spaces and ventricular dilation. Basal cisterns are unremarkable. SELLA: Pituitary gland is normal in height. AUDITORY SYSTEM: Unremarkable. BONES/JOINTS: Unremarkable. SINUSES: Unremarkable as visualized. Clear. MASTOID AIR CELLS: Unremarkable as visualized. Clear. ORBITS: Unremarkable as visualized. VASCULATURE: Normal flow voids in the major intracranial circulation. MRI/Brain W/WO Contrast IMPRESSION: Negative MRI Brain and Interal Auditory Canals. Electronically Signed: Ananya Veliz MD at 17:43 EST Reading Location ID and State: [id number] / Tel , Service support ,
== END | disposition home or self-care (01) ==
PROVIDERS: PCP Family Medicine; Referring Provider Orthopaedic Surgery; Visit Provider Orthopaedic Surgery
DX: G35 Multiple sclerosis (principal)
CPT/HCPCS: 70553; A9575

== ENCOUNTER → 2022-07-26 | Outpatient (CLI) | payer OTHER, SELFPAY | END | disposition home or self-care (01) | LOC: LABSPEC 14:26 | PROVIDERS: PCP Family Medicine; Visit Provider Family Medicine | DX: R19.7 Diarrhea, unspecified (principal) | CPT/HCPCS: 87493; 87506 ==

== ENCOUNTER → 2022-08-27 | Outpatient (CLI) | payer SELFPAY ==
[2022-08-27 10:21] LABS: Absolute Lymphocyte Count 1.36 X10^3/uL (0.83-4.51); Absolute Neutrophil Count 4.3 X10^3/uL (2.0-7.7); Basophil# 0.03 X10^3/uL; Basophil% 0.5 % (0-1); Eosinophil# 0.23 X10^3/uL; Eosinophils% 3.7 % (0-5); Hematocrit 41.3 % (37-47); Lymphocyte # 1.36 X10^3/ul (0.83-4.51); Lymphocyte % 21.8 % (19-41); Mean Corp Hgb Conc 31.5 g/dL (32-36); Mean Corpuscular Hgb 28.8 pg (27.0-32.0); Mean Corpuscular Volume 91.4 fL (81-99); Mean Platelet Vol. 11.7 fl (6.2-12.0); Monocyte# 0.29 X10^3/uL; Monocyte% 4.6 % (0-10); NRBC Flagged by Analyzer 0 % (0-5); Neutrophil # 4.32 X10^3/uL (2.7-7.7); Neutrophil % 69.1 % (47-70); Platelet Count 226 K/mm3 (150-450); RBC Distribution Width CV 12.9 % (11.6-14.6); RBC Distribution Width SD 42.5 fl (35.1-43.9); Red Blood Count 4.52 M/mm3 (4.2-5.4); White Blood Count 6.3 K/mm3 (4.4-11.0)
[2022-08-27 10:37] LABS: Erythrocyte Sedimentation Rate 10 mm/hr (0-30)
[2022-08-27 11:11] LABS: AST(SGOT) 21 U/L (15-37); Alanine Aminotransfer ALT/SGPT 21 U/L (13-56); Albumin, Serum 3.8 g/dL (3.2-5.0); Alkaline Phosphatase 152 U/L (45-117); Anion Gap 9 (5-15); BUN 11 mg/dL (7-18); BUN/Creat Ratio 13.2 RATIO (10-20); Calcium,Total 9.3 mg/dL (8.5-10.1); Chloride 106 mmol/L (98-107); Creatinine, Serum 0.83 mg/dL (0.55-1.02); EST Glomerular Filtration Rate 84 mL/min (>60); Est Glom Filt Rate - Afr Amer 102 mL/min (>60); Globulin 3.8 g/dL (2.2-4.2); Glucose 98 mg/dL (74-106); Potassium 4.2 mmol/L (3.5-5.1); Protein, Total 7.6 g/dL (6.4-8.2); Sodium Level 140 mmol/L (136-145); Thyroid Stim Hormone (TSH) 1.58 uIU/mL (0.358-3.74)
[2022-08-31 19:58] LABS: Pancreatic Elastase, Fecal > 500 (>200)
== END | disposition home or self-care (01) ==
LOC: MFPLAB 09:25
PROVIDERS: PCP Family Medicine; Visit Provider Family Medicine
DX: R53.83 Other fatigue (principal); R19.7 Diarrhea, unspecified
CPT/HCPCS: 36415; 80053; 82653; 83630; 84443; 85025; 85652; 87177; 87209; 87329; 87506

== ENCOUNTER → 2022-08-28 | Outpatient (CLI) | payer SELFPAY ==
--- NOTE | 2022-08-28 15:15 | RAD_ITS ---
INDICATION: IBS EXAMINATION/TECHNIQUE: X-RAY - XR Abdomen W/ Decub and/or Erect Views COMPARISON: None FINDINGS: BOWEL GAS PATTERN: Non-obstructive. Large amount of retained stool in the colon. FREE AIR: Not assessed on a single supine view. ORGANOMEGALY: Not seen. CALCIFICATIONS: No abnormal calcifications observed. LOWER CHEST: No acute pathology. BONES AND SOFT TISSUES: No acute pathology. RAD/Abd Inc Decub and/or Erect IMPRESSION: Non-obstructive bowel gas pattern. Large amount of retained stool in the colon. Electronically Signed: Zaire Gan MD at 18:21 EST ,
== END | disposition home or self-care (01) ==
LOC: MTRAD 14:59
PROVIDERS: PCP Family Medicine; Referring Provider Family Medicine; Visit Provider Family Medicine
DX: K58.9 Irritable bowel syndrome, unspecified (principal)
CPT/HCPCS: 74019

== ENCOUNTER → 2022-08-31 | Outpatient (CLI) | payer SELFPAY ==
[2022-09-02 09:18] LABS: Giardia Lamblia, Stool EIA Negative (Negative)
== END | disposition home or self-care (01) ==
LOC: MFPLAB 09:32
PROVIDERS: PCP Family Medicine; Referring Provider Family Medicine; Visit Provider Family Medicine
DX: R19.7 Diarrhea, unspecified (principal)
CPT/HCPCS: 87177; 87209; 87329

== ENCOUNTER → 2023-11-14 | Outpatient (CLI) | payer SELFPAY ==
--- NOTE | 2023-11-14 07:35 | MRI_ITS ---
STUDY: MRI BRAIN WITHOUT CONTRAST REASON FOR EXAM: Female, 33 years old. TRIGEMINAL NEURALGIA TECHNIQUE: Standardized multiplanar fat and water weighted pulse sequences were obtained. COMPARISON: None. FINDINGS: Normal size of the ventricles and extra-axial spaces for the patient''s age. Normal white matter tracts of the supratentorial brain. There is no evidence for recent intracranial ischemia or other cause of cytotoxic edema on diffusion weighted imaging (DWI). Normal bilateral basal ganglia. Normal thalami. There is no extra-axial fluid accumulation. Normal flow voids within the major intracranial circulation suggesting patency by spin echo criteria. Normal sella turcica, pituitary gland, infundibular stalk, optic chiasm and hypothalamus. Normal tectal plate and pineal gland. Normal midbrain, dennis and medulla. Normal cerebellum. Normal basal cisterns. Normal bilateral temporal bones. Normal bilateral internal auditory canals. No demonstrated orbital abnormality, within the constraints of a routine brain study. There is mucoperiosteal inflammatory disease of the paranasal sinuses consistent with mild chronic sinusitis. Normal calvarium and skull base. Normal visualized soft tissue structures. Normal visualized upper cervical spine. MRI/Brain without Contrast IMPRESSION: Normal unenhanced MRI of the brain. Electronically Signed: Chris Hawley MD at 21:49 EDT ,
== END | disposition home or self-care (01) ==
LOC: MRI 07:19
PROVIDERS: PCP Family Medicine; Referring Provider Psychiatry & Neurology Neurology; Visit Provider Psychiatry & Neurology Neurology
DX: G50.0 Trigeminal neuralgia (principal)
CPT/HCPCS: 70551

== ENCOUNTER → 2023-12-05 | Outpatient (CLI) | payer SELFPAY ==
[2023-12-05 13:04] LABS: Erythrocyte Sedimentation Rate 2 mm/hr (0-30)
[2023-12-05 13:41] LABS: Vitamin B12 503 pg/mL (211-911)
[2023-12-05 13:50] LABS: ALB/GLOB Ratio 0.9 RATIO (0.9-2.4); AST(SGOT) 20 U/L (15-37); Alanine Aminotransfer ALT/SGPT 27 U/L (13-56); Albumin, Serum 3.5 g/dL (3.2-5.0); Alkaline Phosphatase 130 U/L (45-117); Anion Gap 6 (5-15); BUN 12 mg/dL (7-18); BUN/Creat Ratio 17.3 RATIO (10-20); CRP 4.38 mg/L (0.0-3.0); Calcium,Total 9.3 mg/dL (8.5-10.1); Chloride 104 mmol/L (98-107); EST Glomerular Filtration Rate 103 mL/min (>60); Est Glom Filt Rate - Afr Amer 125 mL/min (>60); Globulin 3.9 g/dL (2.2-4.2); Glucose 81 mg/dL (74-106); Potassium 4.2 mmol/L (3.5-5.1); Protein, Total 7.4 g/dL (6.4-8.2); Sodium Level 138 mmol/L (136-145); Thyroid Stim Hormone (TSH) 1.33 uIU/mL (0.358-3.74)
[2023-12-11 03:08] LABS: Albumin 3.4 g/dL (2.9-4.4); Alpha-1-Globulins 0.3 g/dL (0.0-0.4); Alpha-2-Globulins 0.7 g/dL (0.4-1.0); Arsenic 7245 2 ug/L (0-9); Gamma Globulin 1.3 g/dL (0.4-1.8); Immunoglobulin A 192 mg/dL (87-352); Immunoglobulin G 1099 mg/dL (586-1602); Immunoglobulin M 258 mg/dL (26-217); Lead, Blood < 1.0 ug/dL (0.0-3.4); Mercury, Blood 85324 1.4 ug/L (0.0-14.9); PROEL- TOTAL PROTEIN 6.7 g/dL (6.0-8.5); PROELU- Albumin, Urine 22.9 % (.); PROELU- Alpha-1-Globulin,Ur 3.9 % (.); PROELU- Alpha-2-Globulin,Ur 15.4 % (.); PROELU- Beta Globulin, Ur 35.2 % (.); PROELU- Gamma Globulin, Ur 22.7 % (.); Total Protein, Ur 20.4 mg/dL (Not Estab.)
== END | disposition home or self-care (01) ==
LOC: MTLAB 11:10
PROVIDERS: PCP Family Medicine; Referring Provider Psychiatry & Neurology Neurology; Visit Provider Psychiatry & Neurology Neurology
DX: G50.0 Trigeminal neuralgia (principal)
CPT/HCPCS: 36415; 80053; 82175; 82607; 82784; 83655; 83825; 84165; 84166; 84443; 85652; 86140; 86334

== ENCOUNTER → 2024-03-05 | Outpatient (CLI) | payer SELFPAY ==
[2024-03-05 12:39] LABS: Carbamazepine (Tegretol) 10.8 ug/mL (4.0-12.0)
== END | disposition home or self-care (01) ==
PROVIDERS: PCP Family Medicine; Referring Provider Psychiatry & Neurology Neurology; Visit Provider Psychiatry & Neurology Neurology
DX: G50.0 Trigeminal neuralgia (principal); G62.9 Polyneuropathy, unspecified
CPT/HCPCS: 36415; 80156

== ENCOUNTER → 2024-04-20 | Outpatient (CLI) | payer SELFPAY ==
--- NOTE | 2024-04-20 18:25 | US_ITS ---
INDICATION: SWELLING EXAMINATION: Ultrasound US Thyroid (eg thyroid, parathyroid, parotid) TECHNIQUE: Gilman scale and color doppler imaging was performed of the thyroid gland. COMPARISON: None. FINDINGS: RIGHT THYROID LOBE: Measures 5.2 x 1.6 x 1.7 cm. Homogeneous echotexture with normal vascularity. [No thyroid nodules are present. LEFT THYROID LOBE: Measures 5 x 1.3 x 1.5 cm. Homogeneous echotexture with normal vascularity. [No thyroid nodules are present. ISTHMUS: Measures 2 mm.. No thyroid nodules are present. US/Thyroid IMPRESSION: Negative thyroid ultrasound examination. Electronically Signed: Zaire Gan MD at 17:57 EDT ,
== END | disposition home or self-care (01) ==
PROVIDERS: PCP Family Medicine; Referring Provider Family Medicine; Visit Provider Family Medicine
DX: R22.1 Localized swelling, mass and lump, neck (principal)
CPT/HCPCS: 76536

== ENCOUNTER → 2024-07-28 | Outpatient (CLI) | payer SELFPAY | END | disposition home or self-care (01) | LOC: LAB 12:47 | PROVIDERS: PCP Family Medicine; Referring Provider Family Medicine; Visit Provider Family Medicine | DX: R89.5 Abnormal microbiological findings in specimens from other organs, systems and tissues (principal) ==

== ENCOUNTER → 2024-07-30 | Outpatient (CLI) | payer SELFPAY | END | disposition home or self-care (01) | LOC: LABSPEC 09:16 | PROVIDERS: PCP Family Medicine; Visit Provider Family Medicine | DX: L03.90 Cellulitis, unspecified (principal); L08.9 Local infection of the skin and subcutaneous tissue, unspecified | CPT/HCPCS: 87070; 87186; 87205 ==

== ENCOUNTER → 2024-08-06 | Outpatient (CLI) | payer SELFPAY ==
[2024-08-06 13:50] LABS: M R Staph aureus DNA By PCR Negative (Negative); Probe Check PASS; Specimen Processing Control PASS; Staph aureus DNA By PCR NEGATIVE (Negative)
== END | disposition home or self-care (01) ==
PROVIDERS: PCP Family Medicine; Visit Provider Family Medicine
DX: L08.9 Local infection of the skin and subcutaneous tissue, unspecified (principal)
CPT/HCPCS: 87640

== ENCOUNTER → 2024-08-11 | Outpatient (CLI) | payer SELFPAY ==
[2024-08-14 11:08] LABS: Anti-Scleroderma-70 AB <0.2 AI (0.0-0.9); Anti-dsDNA Ab <1 IU/mL (0-9)
== END | disposition home or self-care (01) ==
LOC: VSLAB 11:04
PROVIDERS: PCP Family Medicine; Visit Provider Family Medicine
DX: L98.9 Disorder of the skin and subcutaneous tissue, unspecified (principal)
CPT/HCPCS: 36415; 86225; 86235

== ENCOUNTER 2024-09-05 19:49 | Emergency (ER) | payer OTHER, SELFPAY ==
[2024-09-05 19:51] VITALS: BP 126/82; PULSE 113; RESP 15; TEMP 36.3; O2SAT 100; BMI 33.7
--- NOTE | 2024-09-05 20:04 | EX.ED.DYSGE1 ---
HPI History of Present Illness Chief Complaint: Allergic Reaction Informant: patient Onset/Context/Timing Onset: Days (4) Context: Gradual Onset Timing: Continuous Quality: hives Location: Generalized Worsened by: Nothing Relieved by: Nothing Narrative Narrative: Patient presents with possible allergic reaction that has been getting worse over the past 4 days. Patient states that she has been on Bactrim for urinary tract infection. Patient states that she started having hives 3 days ago. Patient states the hives are generalized. Patient states they are pruritic. Patient states nothing makes it better and nothing makes it worse. Patient denies any difficulty breathing or difficulty swallowing. Patient admits to a burning sensation in her chest with deep breathing. [facility] Medical History Back pain Anemia Abnormal glucose affecting Asthma Home Medications ?Medication ?Instructions ?Recorded ?Last Taken ?Type Exipure PO 04/19/22 Unknown History prednisone 20 mg tablet 60 mg (3 x 20 mg) PO DAILY #15 09/05/24 Unknown Rx TABLETS Allergy/AdvReac Type Severity Reaction Status Date / Time Sulfa (Sulfonamide Allergy Intermediate Rash Verified 09/05/24 20:24 Antibiotics) cephalexin (From Keflex) Allergy Mild Hives Verified 09/05/24 20:24 sulfamethoxazole (From Allergy Mild rash Verified 09/05/24 20:24 Bactrim) trimethoprim (From Bactrim) Allergy Mild rash Verified 09/05/24 20:24 adhesive Allergy Hives Verified 09/05/24 20:24 Family History Father CAD (coronary artery disease) Cancer melanoma Mother Hypertension Grandmother CAD (coronary artery disease) Breast cancer Grandfather CAD (coronary artery disease) Surgical History S/P shoulder surgery S/P foot surgery Social History household members: spouse and children current occupational status: employed current occupation: [employer] Smoking Status: Never smoker alcohol intake: never substance use type: does not use ROS ROS ED Constitutional Constitutional ED: Denies chills or fever(s) Eyes Eyes: Denies blurry vision or change in vision ENT ENT ED: Denies rhinorrhea or sore throat Cardiovascular Cardiovascular: Reports chest pain; Denies palpitations Respiratory/Chest Respiratory/Chest: Denies cough or dyspnea Gastrointestinal Gastrointestinal: Denies nausea or vomiting Genitourinary Genitourinary ED: Denies dysuria or hematuria Musculoskeletal Musculoskeletal: Denies back pain or neck pain Integumentary Denies abscess or rash Neurologic Neurologic: Denies headache(s) or weakness Allergic/Immunologic Allergic/Immunologic ED: Reports urticaria; Denies mouth swelling EXAM Physical Exam Const Vital Signs: 09/05/24 19:51 Temperature 97.4 F L Temperature Source Temporal Pulse Rate 113 H Respiratory Rate 15 Blood Pressure 126/82 H Blood Pressure Mean 96 Pulse Ox 100 Oxygen Delivery Method Room Air Positive well nourished and well developed General Appearance ED: well developed and NAD HEENT Reports moist mucous membranes HEENT Narrative: Oropharynx is clear. Airway is patent. There is no pharyngeal edema noted. There are no exudates noted. Neck supple and no JVD Resp normal respiratory effort and clear to auscultation bilaterally Cardio regular rate and regular rhythm Neuro oriented x3, CN's II-XII intact bilaterally and no sensory deficits noted Sensorium / Orientation: alert Motor Exam: strength 5/5 throughout Psych mental status grossly normal Skin Skin Narrative: There is diffuse patchy urticarial rash. There are no vesicles or pustules noted. There are no petechia noted. There is no involvement of the mucous membranes. There is no sloughing of the skin. There is no involvement of the palms or soles. MDM MDM MDM Narrative Medical decision making narrative: Patient was advised that this could be an allergic reaction to sulfa. Patient was given a dose of prednisone. Urinalysis will be obtained to assess for urinary tract infection. If the urinalysis is clear, patient will be instructed to stop taking the Bactrim. If the urinalysis is positive, patient will be switched to a different antibiotic. Lab Data Attestation: I reviewed the patient's lab results. Lab results narrative: Urinalysis is reviewed. There is no evidence of urinary tract infection or hematuria. Labs: Laboratory Results - last 24 hr 09/05/24 20:22 Urine Color Yellow Urine Clarity Sl. Cloudy Urine pH 6.0 Ur Specific [place] 1.025 Urine Protein 30 H Urine Glucose (UA) Normal Urine Ketones Negative Urine Occult Blood 10 H Urine Nitrite Negative Urine Bilirubin Negative Urine Urobilinogen Normal Ur Leukocyte Esterase Negative Urine RBC 0-5 SEEN Urine WBC 0 SEEN Ur Squamous Epith Cells 0-5 SEEN Urine Bacteria 0 SEEN Urine Mucus 0 SEEN Treatment and Re-Evaluation :: Patient was advised of her findings. Patient was advised she does not need an antibiotic at this time. Patient was given a prescription for prednisone. Patient was instructed to follow-up with her primary care physician in 5 to 7 days. Patient was instructed to return if worse in any way. Patient understood and was agreeable with the plan. All questions were answered. Discharge Plan Triage Chief Complaint: Allergic Reaction ED Provider: Louis Kelley Dx/Rx/DC Orders Clinical Impression: Urticaria, Allergic reaction Instructions: ED General Allergic Reactions, ED Hives (Adult) Prescriptions: New prednisone 20 mg tablet 60 mg PO DAILY Qty: 15 0RF No Action Exipure PO Primary Care Provider: Mary Beth Nelson Referrals: Mary Beth Nelson, DO [Primary Care Provider] - 5-7 Days Print Language: Serbian Disposition Disposition: Home, Self Care
[2024-09-05] MEDS: predniSONE 20 MG Tablet 60 MG PO (20:16)
[2024-09-05 20:36] LABS: Bacteria 0 SEEN /hpf (None Seen); Mucous, Urine 0 SEEN /hpf (<or=2+); White Blood Cells 0 SEEN /hpf (0-5)
[2024-09-05 20:44] LABS: Color, Urine Yellow (Yellow); Glucose, Dipstick Normal (Normal); Ketone-Dipstick Negative (Negative); Leukocyte Esterase-Dipstick Negative /ul (Negative); Nitrite-Dipstick Negative (Negative); Occult Blood-Urine 10 /ul (Negative); Protein-Dipstick 30 mg/dl (Negative); Specific Gravity, Urine 1.025 (1.002-1.030); Urine Bilirubin Dipstick Negative (Negative); Urine Clarity Sl. Cloudy (Clear); Urine Urobilinogen Normal (Normal)
[2024-09-05 21:17] LABS: Red Blood Cells-Urine 0-5 SEEN /hpf (0-5); Squamous Epithelial Cells - UA 0-5 SEEN /hpf (5-10)
[2024-09-05 21:37] VITALS: BP 118/88; PULSE 104; RESP 18; TEMP 37; O2SAT 98
== END 2024-09-05 21:41 | disposition home or self-care (01) ==
PROVIDERS: Emergency Provider Emergency Medicine; PCP Family Medicine; Visit Provider Emergency Medicine
DX: L50.9 Urticaria, unspecified (principal); T36.8X5A Adverse effect of other systemic antibiotics, initial encounter
CPT/HCPCS: 81001; 99282

== ENCOUNTER → 2024-10-05 | Outpatient (CLI) | payer SELFPAY ==
--- NOTE | 2024-10-05 07:31 | CT_ITS ---
PROCEDURE: SINUS/FACIAL BONE WITH CONTRAS REASON FOR EXAM: OTHER SPECIFIED DISORDERS OF TEETH AND SUPPORTING STRUCTURES TECHNIQUE: CT of the paranasal sinuses with contrast. Coronal and Sagittal reconstruction series were provided. CONTRAST: Isovue 370 VOLUME: 100mL IV One or more dose reduction techniques were used (e.g., Automated exposure control, adjustment of the mA and/or kV according to patient size, use of iterative reconstruction technique). RADIATION DOSE SUMMARY: CTDlvol: 29.38 mGy DLP: 760.49 mGycm COMPARISON: None. FINDINGS: Frontal: Unremarkable Ethmoid: Scattered mild mucosal thickening and opacification Sphenoid: Unremarkable Maxillary: Septated right maxillary sinus with some small mucous retention cyst in the base. No in the base symphysis occurs there is an impacted maxillary wisdom tooth. Turbinates: Unremarkable Nasal Septum: Midline Mastoids/Middle Ears: Clear CT/Sinus/Facial Bone WITH Contras IMPRESSION: Impacted right maxillary wisdom tooth with a root extending into a septum of th e maxillary sinus Reading [facility]
== END | disposition home or self-care (01) ==
PROVIDERS: PCP Family Medicine; Referring Provider Family Medicine; Visit Provider Family Medicine
DX: K08.89 Other specified disorders of teeth and supporting structures (principal)
CPT/HCPCS: 70487; Q9967; A4216

== ENCOUNTER → 2024-10-29 | Outpatient (CLI) | payer SELFPAY ==
--- NOTE | 2024-10-29 11:04 | RAD_ITS ---
EXAM: Sacroiliac joints CLINICAL HISTORY: Low back pain, right leg pain and sciatica COMPARISON: None TECHNIQUE: AP and bilateral oblique views of the sacroiliac joint FINDINGS: There is joint space narrowing, surrounding sclerosis, and osteophyte formation of both sacroiliac joints consistent with sacroiliitis. RAD/S-I Jts 3 or More Views IMPRESSION: Bilateral sacroiliitis. Reading Location: [id number]
== END | disposition home or self-care (01) ==
PROVIDERS: PCP Family Medicine; Referring Provider Physician Assistant; Visit Provider Physician Assistant
DX: M54.41 Lumbago with sciatica, right side (principal); R68.84 Jaw pain; G89.29 Other chronic pain
CPT/HCPCS: 72202

== ENCOUNTER → 2025-01-22 | Outpatient (CLI) | payer SELFPAY ==
--- NOTE | 2025-01-22 13:00 | MRI_ITS ---
EXAM: PELVIS (ROUTINE) 01/22/2025 CLINICAL HISTORY: ARTHTOPATHIC PSORIASIS. TECHNIQUE: T1, T2, stir, PELVIS (ROUTINE) Multiplanar and multisequence images were obtained without intravenous gadolinium contrast. CONTRAST: 15 cc Clariscan COMPARISON: None FINDINGS: There is normal marrow signal in the pelvic bones and included right and left femur. The uterus measures 6.0 by 4.7 by 7.7 cm. The endometrium measures 0.5 cm. The right ovary measures 3.4 by 1.9 2.9 cm. The left ovary measures 3.2 by 3.0 by 2.2 cm. There greater than 10 subcentimeter follicles in the right and left ovary. There is no pelvic mass or free fluid. There is no adenopathy. The right and left hip joint spaces are maintained. There is mild bilateral trochanteric bursitis visible. The hamstring origins are intact. The sacral foramina and sacral nerve roots are unremarkable. The sciatic nerve is normal in appearance in the right and left. Postcontrast images are not included. MRI/Pelvis (Routine) IMPRESSION: There is mild trochanteric bursitis visible in the right and left hip. The ovaries meet the criteria for polycystic ovary syndrome. Reading Location: [facility]
--- NOTE | 2025-01-22 13:40 | MRI_ITS ---
EXAM: MRI of the maxillofacial region without and with contrast CLINICAL HISTORY: Dental surgery with possible infection TECHNIQUE: MRI maxillofacial region including the mandible without and with 15 cc of Clariscan FINDINGS: This finding should be correlated with the maxillofacial CT with IV contrast if not already performed. I do not have such as study for comparison. Normal midline structures. On coronal images, no edema is noted in the mandible. The floor of mouth appears grossly unremarkable. Normal submental space. Normal submandibular glands. Normal parotid glands. Normal pterygoid compartment. In the axial plane, normal nasopharynx. Normal mandibular canal. No fluid collection. Normal extrinsic and intrinsic tongue muscles. No upper cervical lymphadenopathy. On fat saturated T2 weighted images, no evidence of edema. No subperiosteal fluid collections identified. Normal submandibular glands. Postcontrast images demonstrate mild inflammatory enhancement of the tonsils. There is no tonsillar or peritonsillar abscess. No abnormal enhancement of the mandible itself or the marrow. Negative for osteomyelitis. MRI/Orbit Face Neck W/WO Contrast IMPRESSION: Negative for abscess. Negative for osteomyelitis. Positive for tonsil inflamm ation. Reading Location: [facility]
== END | disposition home or self-care (01) ==
LOC: MRI 13:26
PROVIDERS: PCP Family Medicine; Referring Provider Family Medicine; Visit Provider Family Medicine
DX: L40.50 Arthropathic psoriasis, unspecified (principal)
CPT/HCPCS: 72195

== ENCOUNTER 2025-03-11 13:49 | Day surgery (SDC) | payer OTHER, SELFPAY ==
[2025-03-11] VITALS (12 sets, daily range): BP systolic 113–146; BP diastolic 77–102; PULSE 81–112; RESP 14–17; TEMP 36.4–37.3; O2SAT 99–100; BMI 28.6; BMI 28.9
[2025-03-11 14:24] LABS: Mucous, Urine 0 SEEN /hpf (<or=2+); Red Blood Cells-Urine 0 SEEN /hpf (0-5); Squamous Epithelial Cells - UA 0 SEEN /hpf (5-10)
[2025-03-11 14:29] LABS: Color, Urine Straw (Yellow); Glucose, Dipstick Normal (Normal); Ketone-Dipstick Negative (Negative); Leukocyte Esterase-Dipstick Negative /ul (Negative); Nitrite-Dipstick Negative (Negative); Occult Blood-Urine Negative /ul (Negative); Protein-Dipstick Negative (Negative); Specific Gravity, Urine 1.010 (1.002-1.030); Urine Bilirubin Dipstick Negative (Negative)
[2025-03-11 14:45] LABS: Hematocrit 38.6 % (37-47); Hemoglobin 12.9 g/dL (12.0-15.0); Immature Granulocytes Count 0.030 X10^3/uL (0.0-0.0); Mean Corp Hgb Conc 33.4 g/dL (32-36); Mean Corpuscular Volume 89.6 fL (81-99); Mean Platelet Vol. 11.2 fl (6.2-12.0); NRBC Flagged by Analyzer 0 % (0-5); Platelet Count 194 K/mm3 (150-450); RBC Distribution Width CV 13.4 % (11.6-14.6); RBC Distribution Width SD 44.9 fl (35.1-43.9); Red Blood Count 4.31 M/mm3 (4.2-5.4); White Blood Count 7.2 K/mm3 (4.4-11.0)
[2025-03-11 14:53] LABS: AST(SGOT) 18 U/L (<=31); Alanine Aminotransfer ALT/SGPT 10 U/L (<=34); Albumin, Serum 4.3 g/dL (3.5-5.0); Alkaline Phosphatase 137 U/L (35-104); Anion Gap 9 (5-15); BUN 13 mg/dL (4-19); BUN/Creat Ratio 17.7 RATIO (10-20); Calcium,Total 9.1 mg/dL (7.6-11.0); Carbon Dioxide 22.6 mmol/L (21.0-32.0); Chloride 106 mmol/L (98-108); Estimated Creatinine Clearance 103.93 ml/min (50-250); Globulin 2.7 g/dL (2.2-4.2); Glucose 82 mg/dL (70-99); Lipase 35 U/L (13-75); Potassium 4.3 mmol/L (3.3-5.1)
[2025-03-11 15:00] LABS: Internal QC Validated? YES +Cl - CLEAR BKGD
[2025-03-11 15:01] LABS: Pregnancy, Serum, hCG Quali. NEGATIVE Negative; Record Kit Lot#, Serum Preg. 947241
--- NOTE | 2025-03-11 15:24 | CT_ITS ---
PROCEDURE: ABDOMEN/PELVIS W IV CONT ONLY 03/11/2025 REASON FOR EXAM: RLQ ABD PAIN TECHNIQUE: Procedure Code: [id number] Modality: CT Procedure: ABDOMEN/PELVIS W IV CONT ONLY Coronal and Sagittal reconstruction series were provided. CONTRAST: Please see CT VOLUME: Please see CT mL One or more dose reduction techniques were used (e.g., Automated exposure control, adjustment of the mA and/or kV according to patient size, use of iterative reconstruction technique. RADIATION DOSE SUMMARY: CTDlvol: 17.23 mGy DLP: 926.46 mGycm COMPARISON: None FINDINGS: Lung bases: No acute infiltrate or effusion at the visualized lung bases. Liver: Hepatic length is 16 cm. 2.5 cm hypoenhancing region noted anteriorly within the liver along the falciform ligament, most likely focal fatty infiltration. Subcentimeter sized hypodense hepatic lesions noted within the posterior segment of the right lobe and adjacent to the gallbladder fossa, too small to further characterize but possibly cysts. Clinical correlation with risk factors. If there is high risk or a known history of malignancy, consider nonemergent MRI with contrast. Gallbladder/biliary: The gallbladder appears slightly thick-walled, however this may be artifact due to insufficient distention. No calcified gallstones or pericholecystic fluid. No biliary dilation. Pancreas: No pancreatic inflammation. No pancreatic ductal dilation. Spleen: The spleen is not enlarged. A splenule is noted. Adrenals: The adrenal glands are within normal limits. Kidneys/ureters: The kidneys enhance symmetrically without hydronephrosis. No collecting system calculi. No imaging evidence of pyelonephritis. Gastrointestinal: No hiatal hernia. The stomach is moderately distended with ingested material. No perigastric inflammation. Nonspecific fluid-filled loops of small bowel. No significant asymmetric small bowel dilation to suggest a complete obstruction. No focal mesenteric inflammation. There is rotation of ileocolic mesentery into the left upper quadrant due to partial cecal volvulus. The cecum is located within the left upper quadrant and is focally distended with fecal material and gas up to 8.5 cm in diameter consistent with partial volvulus. No cecal wall thickening or pericecal inflammation to suggest a complete volvulus. Minimal edema is seen at the ileocolic mesentery. Scattered fecal material and gas within portions of the colon. No evidence of acute diverticulitis. Appendix: The appendix is not visualized in the left upper quadrant, however no secondary inflammation is seen. Peritoneal/retroperitoneal: No free intraperitoneal air. There is no free fluid. Vascular: No abdominal aortic aneurysm, dissection or retroperitoneal hemorrhage. Lymph nodes: No pathologic enlarged lymphadenopathy by size criteria. Urinary bladder: No calculi or gas within the urinary bladder. No bladder wall thickening or perivesical stranding. Reproductive: Retroverted uterus measuring 9.4 cm in length. The endometrial complex is not well assessed by this technique. Slight prominence of the ovaries may be due to physiologic changes. Thick- walled irregular 17 mm cystic lesion posteriorly within the right ovary is consistent with a corpus luteum. If there are pelvic symptoms consider ultrasound for more detailed evaluation. Soft tissues: No body wall hematoma. Small fat containing umbilical hernia. Subcutaneous bubbles of gas within the anterior right abdominal wall likely from subcutaneous injection. Osseous: Mild degenerative change at the lower lumbar spine. Degenerative changes of the sacroiliac joints and pubic symphysis noted. No acute osseous injury. 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 Gastrointestinal findings as discussed above. There is no free air or free fluid. - Other incidental and nonemergent findings discussed above. [place] Alert: The critical information above was relayed directly by me by telephone to Jelly Dave on 03/11/2025 at 4:33 pm with readback verification. Reading Location: [id number]
--- NOTE | 2025-03-11 15:29 | ED.VIS.GI ---
HPI HPI - GI History of Present Illness Chief Complaint: Abd Pain Informant: patient Narrative Narrative: Patient is a 34-year-old female with history of psoriatic arthritis and MS presenting with right lower quad abdominal pain. Patient states the pain started around 930 this morning. States has been constant. Denies any radiation. Denies any associated nausea, vomiting or change in bowel movements. Notes that she has had some increased urinary frequency today. No fevers reported. Has never any like this before. Did not take any for pain prior to arrival. Describes the pain as sharp. States it feels more severe than a gas pain. Last menstrual period was 02/19/2025 and she denies concern for . Denies a history of any abdominal surgeries. Notes that she did go to clinic today for sinus infection, nasal congestion and sore throat and was told she likely has a bilateral ear infection was prescribed Augmentin and Flonase. She states she picked up antibiotic and has not started them. No other complaints or concerns at this time. [facility] Medical History Back pain Anemia Abnormal glucose affecting Asthma Home Medications ?Medication ?Instructions ?Recorded ?Last Taken ?Type prednisone 20 mg tablet 60 mg (3 x 20 mg) PO DAILY #15 09/05/24 Unknown Rx TABLETS methyl folate 1,000 mcg PO DAILY to help with 03/11/25 03/10/25 History medication absorbtion tirzepatide 2.5 mg/0.5 mL 2.5 mg subcut QWEEK 03/11/25 03/11/25 History subcutaneous pen injector (Mounjaro) Allergy/AdvReac Type Severity Reaction Status Date / Time Sulfa (Sulfonamide Allergy Intermediate Rash Verified 03/11/25 13:50 Antibiotics) cephalexin (From Keflex) Allergy Mild Hives Verified 03/11/25 13:50 sulfamethoxazole (From Allergy Mild rash Verified 03/11/25 13:50 Bactrim) trimethoprim (From Bactrim) Allergy Mild rash Verified 03/11/25 13:50 adhesive Allergy Hives Verified 03/11/25 13:50 Family History Father CAD (coronary artery disease) Cancer melanoma Mother Hypertension Grandmother CAD (coronary artery disease) Breast cancer Grandfather CAD (coronary artery disease) Surgical History S/P shoulder surgery S/P foot surgery Social History household members: spouse and children current occupational status: employed current occupation: [employer] Smoking Status: Never smoker alcohol intake: never substance use type: does not use ROS ROS ED Constitutional Constitutional ED: Denies chills or fever(s) ENT ENT ED: Reports ear pain bilateral, sore throat and other Cardiovascular Cardiovascular: Denies chest pain or palpitations Respiratory/Chest Respiratory/Chest: Denies cough or dyspnea Gastrointestinal Gastrointestinal: Reports abdominal pain; Denies constipation, diarrhea, melena, nausea or vomiting Genitourinary Genitourinary ED: Reports urinary frequency; Denies dysuria or hematuria Musculoskeletal Musculoskeletal: Denies arthralgias, back pain or myalgias Integumentary Denies rash Neurologic Neurologic: Denies paresthesias or weakness EXAM Physical Exam Const Vital Signs: 03/11/25 13:49 03/11/25 16:02 03/11/25 18:16 Temperature 98.1 F 98.6 F Temperature Source Oral Oral Pulse Rate 95 86 95 Pulse Strength Respiratory Rate 16 17 16 Respiratory Effort Respiratory Depth Respiratory Pattern Blood Pressure 113/102 H 125/83 H 123/83 H Blood Pressure Mean 105 97 96 Blood Pressure Source Monitor Blood Pressure Position Semi-Fowlers Blood Pressure Location Left Arm Baseline BP Pulse Ox 100 100 100 Oxygen Delivery Method Room Air Room Air Room Air 03/11/25 18:18 03/11/25 19:06 03/11/25 21:20 Temperature 98.6 F 98.6 F Temperature Source Pulse Rate 93 93 Pulse Strength Normal (2+) Respiratory Rate 16 16 Respiratory Effort Respiratory Depth Respiratory Pattern Blood Pressure 123/83 H 123/83 H Blood Pressure Mean 96 Blood Pressure Source Blood Pressure Position Blood Pressure Location Baseline BP Pulse Ox 100 100 Oxygen Delivery Method Room Air 03/11/25 21:20 03/11/25 21:25 03/11/25 21:25 Temperature 97.5 F L 97.5 F L Temperature Source Temporal Pulse Rate 112 H 110 H 110 H Pulse Strength Respiratory Rate 16 14 16 Respiratory Effort Respiratory Depth Respiratory Pattern Normal Blood Pressure 146/89 H 125/83 H 146/89 H Blood Pressure Mean 108 97 Blood Pressure Source Monitor Monitor Blood Pressure Position Semi-Fowlers Semi-Fowlers Blood Pressure Location Right Arm Right Arm Baseline BP 123/83 123/83 Pulse Ox 100 99 99 Oxygen Delivery Method Room Air Room Air Room Air 03/11/25 21:30 03/11/25 21:30 03/11/25 21:40 Temperature Temperature Source Pulse Rate 91 91 86 Pulse Strength Respiratory Rate 16 16 14 Respiratory Effort Respiratory Depth Respiratory Pattern Blood Pressure 116/78 116/78 122/77 H Blood Pressure Mean 90 90 92 Blood Pressure Source Monitor Monitor Monitor Blood Pressure Position Semi-Fowlers Supine Semi-Fowlers Blood Pressure Location Right Arm Right Arm Right Arm Baseline BP 123/83 123/83 123/83 Pulse Ox 100 100 100 Oxygen Delivery Method Room Air Room Air Room Air 03/11/25 21:45 03/11/25 21:50 03/11/25 22:13 Temperature 98.1 F 99.1 F Temperature Source Temporal Temporal Pulse Rate 89 84 81 Pulse Strength Respiratory Rate 16 16 16 Respiratory Effort Respiratory Depth Respiratory Pattern Blood Pressure 120/86 H 126/79 H 128/79 H Blood Pressure Mean 97 94 95 Blood Pressure Source Monitor Monitor Monitor Blood Pressure Position Semi-Fowlers Semi-Fowlers Semi-Fowlers Blood Pressure Location Right Arm Right Arm Left Arm Baseline BP 123/83 123/83 Pulse Ox 100 100 100 Oxygen Delivery Method Room Air Room Air Room Air 03/11/25 22:55 Temperature Temperature Source Pulse Rate Pulse Strength Respiratory Rate Respiratory Effort Normal Non-Labored Respiratory Depth Normal Respiratory Pattern Normal Blood Pressure Blood Pressure Mean Blood Pressure Source Blood Pressure Position Blood Pressure Location Baseline BP Pulse Ox Oxygen Delivery Method Room Air Positive well nourished and well developed General Appearance ED: well developed; Negative for pallor HEENT Reports TM's clear and moist mucous membranes HEENT Narrative: Mild fluid behind bilateral ears. No injection. Normal cone of light. Normal ear canals. Mild injection of the posterior oropharynx. No exudates present. Nasal congestion present. normocephalic and atraumatic Tympanic Membrane ED: Yes TM's clear Neck no lymphadenopathy and supple Resp normal respiratory effort and clear to auscultation bilaterally Cardio regular rate and regular rhythm GI non-distended Inspection: Negative for abdominal distention Auscultation: normoactive bowel sounds Palpation: soft and tender RLQ; Negative for guarding, rigid, hernia, mass or rebound tenderness present Back/Spine no CVA tenderness Neuro Sensorium / Orientation: alert, oriented to person, oriented to place and oriented to time Motor Exam: Negative for general weakness Psych mental status grossly normal and thought process normal Skin no wounds General Skin Exam: Negative for jaundice or pallor MDM MDM MDM Narrative Medical decision making narrative: Patient is evaluated for right lower quadrant abdominal pain that started today. Also has had some recent URI symptoms's. Differential includes renal colic, appendicitis, small bowel obstruction, diverticulitis, colitis, pyelonephritis and volvulus. Patient declines opioid pain medication in the ER but is amenable to Toradol. Is given this. CBC, CMP, lipase and urinalysis are obtained. These are all largely normal. CT of the abdomen pelvis is consistent with partial cecal volvulus resulting in mild ileocolic mesenteric edema and cecal distention. Case discussed with general surgery, Dr. Gonzales, who evaluates the patient and imaging. Will take the patient to emergent surgery. Will start the patient on IV fluids and add on a lactate after discussion with general surgery. Patient is informed tentative diagnosis and plan of care. is at the bedside he is also understanding. They are in agreement with plan. Patient transferred to the OR Lab Data Attestation: I reviewed the patient's lab results. Labs: Laboratory Results - last 24 hr 03/11/25 03/11/25 03/11/25 14:15 14:18 18:03 WBC 7.2 RBC 4.31 Hgb 12.9 Hct 38.6 MCV 89.6 MCH 29.9 MCHC 33.4 RDW Std Deviation 44.9 H RDW Coeff of Chemo 13.4 Plt Count 194 MPV 11.2 Immature Gran % (Auto) 0.400 Neut % (Auto) 72.3 H Lymph % (Auto) 16.6 [place] % (Auto) 5.3 Eos % (Auto) 5.0 Baso % (Auto) 0.4 Absolute Neuts (auto) 5.2 Absolute Lymphs (auto) 1.19 Nucleated RBC % 0 Sodium 138 Potassium 4.3 Chloride 106 Carbon Dioxide 22.6 Anion Gap 9 BUN 13 Creatinine 0.76 Estim Creat Clear Calc 103.93 Est GFR (MDRD) Non-Af 106 BUN/Creatinine Ratio 17.7 Glucose 82 Lactic Acid 1.3 Calcium 9.1 Total Bilirubin 0.42 AST 18 ALT 10 Alkaline Phosphatase 137 H Total Protein 7.0 Albumin 4.3 Globulin 2.7 Albumin/Globulin Ratio 1.6 Lipase 35 Serum , Qual NEGATIVE Urine Color Straw Urine Clarity Clear Urine pH 6.5 Ur Specific [place] 1.010 Urine Protein Negative Urine Glucose (UA) Normal Urine Ketones Negative Urine Occult Blood Negative Urine Nitrite Negative Urine Bilirubin Negative Urine Urobilinogen Normal Ur Leukocyte Esterase Negative Urine RBC 0 SEEN Urine WBC 0 SEEN Ur Squamous Epith Cells 0 SEEN Urine Bacteria 0 SEEN Urine Mucus 0 SEEN Radiography Diagnostic Testing: Clinical Impression(s) from Imaging Studies Abdomen/Pelvis CT 03/11/25 15:24 IMPRESSION: 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 Gastrointestinal findings as discussed above. There is no free air or free fluid. - Other incidental and nonemergent findings discussed above. [place] Alert: The critical information above was relayed directly by me by telephone to Jelly Barnes on 03/11/2025 at 4:33 pm with readback verification. Reading Location: [id number] Management Discussion w/another healthcare provider: Associate Discharge Plan Dx/Rx/DC Orders Clinical Impression: Cecal volvulus, Abdominal pain, right lower quadrant Disposition Disposition: Acute Care Hospital [facility] Discharge Date/Time: 03/11/25 19:06
--- NOTE | 2025-03-11 17:54 | HP.PCM_ITS ---
HPI - General General Date of Service: 03/11/25 Chief Complaint: Acute onset abdominal pain HPI Narrative JAHAIRA GENTILE, is a 34 F who presents to [facility] with complaints of acute onset right lower quadrant pain which she described as sharp and stabbing beginning approximately 930 this morning. She shares she initially believed it to be gas pain but it was more intense than her usual gas pains. She denies any similar prior experience. She notes she has fairly regular bowels and does not suffer from constipation. She reports that she had 2 bowel movements today that were unremarkable. She denies any recent fevers or chills. Patient's ED workup included about chemistries which showed her white blood cell count to be within normal limits but with a slight left shift. CT of the abdomen pelvis was performed and read by radiology as concerning for a partial cecal volvulus with twisting of the ileocolic pedicle and some associated mesenteric edema. Lactic acid is pending. Patient has a listed history of multiple sclerosis, however, she denies this being a defined diagnosis in her history. She states she has only formally been diagnosed with psoriatic arthritis, asthma, and PCOS. She notes she takes Mounjaro injections for management of her PCOS. [facility] Medical History Back pain Anemia Abnormal glucose affecting Asthma Home Medications ?Medication ?Instructions ?Recorded ?Last Taken ?Type Exipure PO 04/19/22 Unknown History prednisone 20 mg tablet 60 mg (3 x 20 mg) PO DAILY # 15 09/05/24 Unknown Rx TABLETS methyl folate 1,000 mcg PO DAILY to help w ith 03/11/25 Unknown History medication absorbtion Allergy/AdvReac Type Severity Reaction Status Date / Time Sulfa (Sulfonamide Allergy Intermediate Rash Verified 03/11/25 13:50 Antibiotics) cephalexin (From Keflex) Allergy Mild Hives Verified 03/11/25 13:50 sulfamethoxazole (From Allergy Mild rash Verified 03/11/25 13:50 Bactrim) trimethoprim (From Bactrim) Allergy Mild rash Verified 03/11/25 13:50 adhesive Allergy Hives Verified 03/11/25 13:50 Family History Father CAD (coronary artery disease) Cancer melanoma Mother Hypertension Grandmother CAD (coronary artery disease) Breast cancer Grandfather CAD (coronary artery disease) Surgical History S/P shoulder surgery S/P foot surgery Social History household members: spouse and children current occupational status: employed current occupation: [employer] Smoking Status: Never smoker alcohol intake: never substance use type: does not use Vital Signs Vital Signs Vital Signs: 03/11/25 13:49 03/11/25 16:02 Temperature 98.1 F Temperature Source Oral Pulse Rate 95 86 Respiratory Rate 16 17 Blood Pressure 113/102 H 125/83 H Blood Pressure Mean 105 97 Pulse Ox 100 100 Oxygen Delivery Method Room Air Room Air Weight Weight: 167 lb Body Mass Index (BMI) 28.6 Physical Exam Const alert and oriented x3 Constitutional Narrative: Mild distress from anxiety and persistent mild discomfort Resp normal respiratory effort GI GI Narrative: Nondistended, abdominal striae present, soft, tender to palpation primarily right lower quadrant and with a lesser intensity in the left upper quadrant Results Lab / Micro Data 03/11/25 14:15 03/11/25 14:15 Labs: Laboratory Results - last 24 hr 03/11/25 14:15: WBC 7.2, RBC 4.31, Hgb 12.9, Hct 38.6, MCV 89.6, MCH 29.9, MCHC 33.4, RDW Std Deviation 44.9 H, RDW Coeff of Chemo 13.4, Plt Count 194, MPV 11.2, Immature Gran % (Auto) 0.400, Neut % (Auto) 72.3 H, Lymph % (Auto) 16.6 L, [place] % (Auto) 5.3, Eos % (Auto) 5.0, Baso % (Auto) 0.4, Absolute Neuts (auto) 5.2, Absolute Lymphs (auto) 1.19, Nucleated RBC % 0, Sodium 138, Potassium 4.3, Chloride 106, Carbon Dioxide 22.6, Anion Gap 9, BUN 13, Creatinine 0.76, Estim Creat Clear Calc 103.93, Est GFR (MDRD) Non-Af 106, BUN/Creatinine Ratio 17.7, Glucose 82, Calcium 9.1, Total Bilirubin 0.42, AST 18, ALT 10, Alkaline Phosphatase 137 H, Total Protein 7.0, Albumin 4.3, Globulin 2.7, Albumin/Globulin Ratio 1.6, Lipase 35, Serum , Qual NEGATIVE 03/11/25 14:18: Urine Color Straw, Urine Clarity Clear, Urine pH 6.5, Ur Specific [place] 1.010, Urine Protein Negative, Urine Glucose (UA) Normal, Urine Ketones Negative, Urine Occult Blood Negative, Urine Nitrite Negative, Urine Bilirubin Negative, Urine Urobilinogen Normal, Ur Leukocyte Esterase Negative, Urine RBC 0 SEEN, Urine WBC 0 SEEN, Ur Squamous Epith Cells 0 SEEN, Urine Bacteria 0 SEEN, Urine Mucus 0 SEEN Imaging Radiology Impression Abdomen/Pelvis CT 03/11/25 15:24 IMPRESSION: 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 Gastrointestinal findings as discussed above. There is no free air or free fluid. - Other incidental and nonemergent findings discussed above. [place] Alert: The critical information above was relayed directly by me by telephone to Jelly Barnes on 03/11/2025 at 4:33 pm with readback verification. Reading Location: [id number] Assessment & Plan Assessment/Plan (1) Cecal volvulus: PLAN: Patient 34-year-old female who presents with acute onset abdominal discomfort and CT imaging reveals evidence of cecal volvulus. Fortunately there are no signs of impending bowel compromise or perforation, but patient remains significantly tender on exam. Between this tenderness, mechanism of her presentation, and the finding of mesenteric edema I am recommending emergent operative evaluation of her bowel and plan for laparoscopic assisted (possible open) right hemicolectomy with primary anastomosis. The pathologic diagnosis and its treatment were reviewed using hand drawings to illustrate the relevant anatomy. Patient has a number of questions related to her postoperative recovery. 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 I attempted to reassure her that we will try to remain sensitive to these concerns but do need to proceed emergently to minimize her risk for worse outcome. Both the operating team and anesthesia were notified of my intent after patient provided her verbal consent to proceed. She will be admitted to the hospital postoperatively. Hai Gonzales MD General Surgery Endocrine Surgery Pager: [facility] [address] [place] [address], [address] [place] [address] Office: [phone] Charges/Coding Visit Charges Inpatient E&M: 71433 Init Hosp L2
[2025-03-11] MEDS: 0.9% Normal Saline (1000mL) 1,000 ML 999 ML IV (18:19)
--- NOTE | 2025-03-11 18:57 | PCM.PRE.AN2 ---
ASA Classification* ASA Classification ASA Classification: 3 and E Assessment & Plan Anesthesia* Anesthesia Assessment Anesthesia Assessment: Discussed sedation and/or anesthesia options, risks, benefits, and alternatives with patient/parents/legal guardian/POA. Questions invited. The patient/parents/legal guardian/POA seems to understand and agrees to proceed with anesthesia plan. Reviewed the physical assessment, medical history, allergy history and patient home medications list prior to surgery/procedure/anesthetic and documented any changes. Performed airway and anesthesia risk assessments. Anesthesia Type Anesthesia Type: General History Source History Obtained from:: Patient and Chart Anesthesia Focused Assessment* Temperature: 98.6 F Pulse Rate: 93 Blood Pressure: 123/83 Respiratory Rate: 16 Pulse Ox: 100 Oxygen Delivery Method: Room Air Airway Assessment Mouth opens: >3 cm Mallampati Score: I Teeth Condition: Caps/Crowns (Patient has a crown on #14. It is tight.) Neck Range of motion (ROM): Full ROM Labs Anesthesia Preop lab: CBC WBC 7.2 K/mm3 (4.4-11.0) 03/11/25 14:15 03/11/25 RBC 4.31 M/mm3 (4.2-5.4) 03/11/25 14:15 03/11/25 Hgb 12.9 g/dL (12.0-15.0) 03/11/25 14:15 03/11/25 Hct 38.6 % (37-47) 03/11/25 14:15 03/11/25 Plt Count 194 K/mm3 (150-450) 03/11/25 14:15 03/11/25 CHEMISTRY Potassium 4.3 mmol/L (3.3-5.1) 03/11/25 14:15 03/11/25 Sodium 138 mmol/L (133-145) 03/11/25 14:15 03/11/25 BUN 13 mg/dL (4-19) 03/11/25 14:15 03/11/25 Creatinine 0.76 mg/dL (0.70-1.20) 03/11/25 14:15 03/11/25 Glucose 82 mg/dL (70-99) 03/11/25 14:15 03/11/25 TSH 1.33 uIU/mL (0.358-3.74) 12/05/23 11:13 12/05/23 COAG PT 12.6 SECONDS (11.7-14.9) 06/15/21 09:31 06/15/21 HCG, Quant 415 mIU/mL (1-3) H 11/05/20 08:55 11/05/20 Urine Test Negative Negative 01/24/16 06:10 01/24/16 Pre-Assessment Diagnosis/Proposed Procedure Planned Operative Procedure(s): Diagnostic laparoscopy. Possible cecectomy. Anesthesia History Anesthesia History - image archivist: Anesthesia History - image archivist Hx Hospitalization No 04/30/22 15:07 Any Problems With Anesthesia No 03/11/25 18:16 Cholinesterase deficiency No 03/11/25 18:16 You/Your Family Experience No 03/11/25 18:16 fever (hyperthermia) with Relationship Recent Exposure to Contagious No 03/11/25 18:16 Disease Does patient have nerve No 03/11/25 18:16 stimulator Patient instructed to have device shut off --Does patient have Pacemaker or ICD? When Was Last Pacemaker Check QUESTION #4 FULL TEXT: You/Your Family Experience fever (hyperthermia) with Anesthesia Last Oral Intake Last Oral intake: Last Oral Intake NPO since Meds taken in AM with sips of water? Meds patient instructed to take am of surgery Any additional information?: Yes NPO since: 12:00 Meds patient instructed to take am of surgery: Patient took her Mounjaro injection today. PONV PONV - image archivist: PONV - image archivist Female HX of Motion Sickness HX of N/V After Surgery Non-Smoker Duration of Surgery greater than 60 minutes Number of Risk Factors PONV Score Height & Weight Height & Weight: Anesthesia: Height & Weight Height 5 ft 4 in 03/11/25 18:16 Weight: 75.75 kg 03/11/25 18:16 Body Mass Index (BMI) 28.6 03/11/25 18:16 Respiratory Assessment Respiratory Assessment - image archivist: Respiratory Tract Infection Hx - image archivist Hx Respiratory Tract Infection Yes: Sore Throat- Augmentin 03/11/25 18:16 STOP Sleep Apnea STOP Sleep Apnea - image archivist: STOP Sleep Apnea - image archivist Hx Hypertension No 03/11/25 18:16 Hx Sleep Apnea No 03/11/25 18:16 CPAP No 04/30/22 15:07 BIPAP Do you snore loudly (louder No 03/11/25 18:16 than talking or can be heard Do you often feel tired/ No 03/11/25 18:16 fatigued/ sleepy during daytime? Has anyone observed you stop No 03/11/25 18:16 breathing during sleep? STOP Results Negative 03/11/25 18:16 QUESTION #5 FULL TEXT : Do you snore loudly (louder than talking or can be heard through closed doors)? 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 Specify any problems Hx of Preganancy in last 3 Months Nurse Filling Out Transfusion & Questions: Date: Time: Patient unable to answer at this time (ie. confused, unrespo /Reproduction History /Reproductive History - image archivist: /Reproductive Hx- image archivist Hx Now No 03/11/25 18:16 Gestational Age (in weeks): EDC: Hx Hx Para Hx Section SAB No 03/11/25 18:16 Active Medications Active Medications: Current Medications Generic Name Dose Route Start Last Admin Trade Name Didi PRN Reason Stop Dose Admin Ciprofloxacin 400 mg in 200 mls @ 200 mls/hr 03/11/25 18:43 Cipro IV 03/11/25 19:42 PREOP ONE Metronidazole 500 mg in 100 mls @ 100 mls/hr 03/11/25 18:43 Flagyl IV 03/11/25 19:42 X1 ONE [facility] Medical History Back pain Anemia Abnormal glucose affecting Asthma Home Medications ?Medication ?Instructions ?Recorded ?Last Taken ?Type Exipure PO 04/19/22 Unknown History prednisone 20 mg tablet 60 mg (3 x 20 mg) PO DAILY #15 09/05/24 Unknown Rx TABLETS methyl folate 1,000 mcg PO DAILY to help with 03/11/25 Unknown History medication absorbtion Allergy/AdvReac Type Severity Reaction Status Date / Time Sulfa (Sulfonamide Allergy Intermediate Rash Verified 03/11/25 13:50 Antibiotics) cephalexin (From Keflex) Allergy Mild Hives Verified 03/11/25 13:50 sulfamethoxazole (From Allergy Mild rash Verified 03/11/25 13:50 Bactrim) trimethoprim (From Bactrim) Allergy Mild rash Verified 03/11/25 13:50 adhesive Allergy Hives Verified 03/11/25 13:50 Family History Father CAD (coronary artery disease) Cancer melanoma Mother Hypertension Grandmother CAD (coronary artery disease) Breast cancer Grandfather CAD (coronary artery disease) Surgical History S/P shoulder surgery S/P foot surgery Social History household members: spouse and children current occupational status: employed current occupation: [employer] Smoking Status: Never smoker alcohol intake: never substance use type: does not use Review of Systems (Anesthesia) ROS Narrative System reviewed and no additional complaints, except as documented. Physical Exam Resp clear to auscultation bilaterally
[2025-03-11] MEDS: 0.9% Normal Saline (1000mL) 800 ML IV (19:09)
[2025-03-11] MEDS: Lidocaine 1% (5 ml sdv) 5 ML Vial 3 ML IV (19:15)
--- NOTE | 2025-03-11 19:20 | APP_PTH ---
PATIENT: JAHAIRA GENTILE LOC: [facility] [place] U#:[id number] AGE/SX: 34/F ROOM: RE03/11/[address]: Dr. Hai Gonzales MD : 1990 BED: DIS: 03/12/2025 SPEC #: [id number] RECD: 03/12/25 07:47 STATUS: HERMINIA RELaura #: [id number] MERCEDES: 03/11/25 19:[address]: Hai Gonzales DEPT: SURGICAL PATHOLOGY RECD BY: Flo Jordan ENTERED: 03/12/25 11:31 SP TYPE: APPENDIX OTHR DR: Mary Beth Nelson, [facility], DO Tissues: A - Appendix, NOS Procedures: Surgery Specimen Level III HEADER OPERATION: Diagnostic laparoscopy, lysis of adhesions, laparoscopic appendectomy PRE-OP DIAGNOSIS: Cecal volvulus, mesenteric adhesions TISSUE SUBMITTED: A- Appendix MICROSCOPIC DIAGNOSIS A. Appendix, appendectomy: - Acute appendicitis. MICROSCOPIC DESCRIPTION Slides are reviewed. GROSS DESCRIPTION A. Received in formalin labeled with the patient's name and date of . Designated as appendix is a 6.6 x 0.7 cm jorgensen-pink appendix with attached mesoappendix. The margin is inked black and shaved. Sectioning reveals a jorgensen-pink, fibrotic cut surfaces with semisolid fecal material throughout the lumen. The distal tip is fibrotic with no definitive lesion identified. The specimen is entirely submitted, devoid of the mesoappendix and staple line, in 3 cassettes as follows: A1: Distal tip, cross-sectionsA2: Margin, cross-sectionsA3: Cross-sections MN 03/12/2025 CPT:31790
[2025-03-11] MEDS: BUPIVACAINE LIPOSOME/PF 20 ML VIAL OPERA.SITE (19:43)
[2025-03-11] MEDS: 0.9% Normal Saline (Pres. free 10 ML Vial (19:43)
[2025-03-11] MEDS: DiphenhydrAMINE 50 MG/ML Syringe 25 MG IV (20:09)
--- NOTE | 2025-03-11 20:56 | PCM.OPRPT ---
Procedures Digestive 40xxx-49xxx: 16295 Laparoscopy appendectomy Operative Report (Standard) Operative Information Date of Procedure: 03/11/25 Pre-Operative Diagnosis: Cecal volvulus Post-Operative Diagnosis: 1. No evidence of cecal volvulus, mild laxity of attachment to the ascending colon 2. Adhesion between the omentum over the midportion of the transverse colon and the midportion of the sigmoid Surgery/Procedure Performed: 1. Diagnostic laparoscopy 2. Lysis of adhesions 3. Laparoscopic appendectomy artistic associate: Yes [employer] Delivery Vehicle Officer: Bibi Gordon Tasks completed by veterinarian assistant: Opening & closing and Retracting Type of Anesthesia: General/Supplemental RN Documented Start/Stop Times: Operation Date: 03/11/25 19:20 Case Time Anesthesia Start 03/11/25 19:09 Into Room 03/11/25 19:09 Procedure Start 03/11/25 19:43 Procedure End 03/11/25 21:02 Anesthesia End 03/11/25 21:18 Out of Room 03/11/25 21:18 Into Recovery 03/11/25 21:20 Out of Recovery 03/11/25 21:54 Procedure Start Time: 19:43 Procedure Stop Time: 21:02 Select all DRAINS/GRAFTS/IMPLANTS that apply: None Estimated Blood Loss: 15 Specimen collected: Yes Description of specimen(s) removed: Appendix Description of surgery: After appropriate identification and confirmation of consents, the patient was brought to the operating room and placed supine on the operating room table. Antibiotics were preoperatively administered by anesthesia with ciprofloxacin (given an allergy to cephalosporins). Patient was then induced with general endotracheal anesthetic. A Thornton catheter was inserted with sterile technique. The abdomen was prepped and draped in usual sterile fashion. Formal timeout was conducted to confirm both the patient and the procedure. A supraumbilical incision was made and carried down to the level of the fascia which was sharply opened. After opening the peritoneum in like fashion a finger sweep was made to confirm position, and a balloon trocar was placed and pneumoperitoneum was established to 15 mmHg. Planning on proceeding with a colectomy procedure I then performed a laparoscopic- directed TAP block using 50 mL of a combination solution of Exparel, saline, and Marcaine (originally mixed 60 mL Marcaine, 20 mL saline, and 20 mL Exparel). Patient was positioned in Trendelenburg with the left side down. Two additional 5 mm trocars were placed in the left lower quadrant and suprapubic positions. The peritoneum was inspected and there were no signs of inadvertent injury from this Alaniz entry. Immediately the cecum was visualized in its normal position in the right lower quadrant with a grossly normal perfusion and no abnormal distention. I then proceeded to carefully inspect the colon in a [id number] fashion elevating the omentum as I did so. Upon reaching the transverse colon there was a moderately dense adhesion between the transverse colon and the sigmoid colon. I chose to divide this with the application of the laparoscopic LigaSure device. I completed my inspection of the colon to the splenic flexure and then inferiorly through the descending and sigmoid segments. I returned to the right lower quadrant where I then ran the small bowel in a distal-to- proximal fashion [id number] starting at the terminal ileum back to the ligament of Treitz. There was an area in the mid jejunum that appeared slightly more injected at the serosa and slightly distended, however, the small bowel mesentery appeared normal and there was no mechanical obstruction. With this normal appearance of the viscera I elected to perform an appendectomy given patient's primary complaint of right lower quadrant pain. The appendix, for its part, also appeared grossly normal. Laparoscopically Ligasure device was used to divide the majority of the mesoappendix. Using blunt laparoscopic dissection, a window was made in the mesoappendix adjacent to the appendiceal base and the remaining mesoappendix was divided with LigaSure. Then the base of the appendix was sealed and amputated with the use of an Endo HANK stapler. The appendix was placed in an Endo Catch bag. The staple line was inspected for hemostasis. After hemostasis was confirmed the appendix was removed from the umbilical port site. Pneumoperitoneum was then evacuated and the supraumbilical port site fascia was closed with #1 Vicryl in a [id number] fashion. The skin of each port site was closed with 4-0 Monocryl in a subcuticular fashion. Dermabond was applied as a dressing patient tolerated procedure well without any apparent complications. Thornton catheter was removed prior to emergence from general anesthetic. They were awoken from general anesthetic without issue and transferred to post anesthesia care unit for ongoing recovery. Surgical Findings: ? Normal position of the cecum with mild redundancy/laxity of the mesocolon ? Normal course of the colon with adhesion between the omentum over the midportion of the transverse colon and the sigmoid colon ? Mildly injected approximately small bowel without chemical obstruction ? Grossly normal-appearing liver, stomach, uterus Complications Complications: No Admit VTE Documentation VTE Mechan Device Prophylaxis: SCD's
[2025-03-11] MEDS: fentaNYL 100 MCG/2 ML Ampul IV (21:20)
--- NOTE | 2025-03-11 21:23 | PCM.POST.ANE ---
Anesthesia: Postop Eval I Current Vital Signs Temperature: 97.5 F Pulse Rate: 110 Blood Pressure: 146/89 Respiratory Rate: 16 Pulse Ox: 99 Oxygen Delivery Method: Room Air Assessment Airway patent: Yes Spontaneous unlabored respirations: Yes Mental status: Asleep nausea: No Vomiting: No Anesthesia Complication: No Fluid Hydration Crystalloid volume administer (ml): 800 Total IV fluid infused: 800 Progress Note Anesthesia document: Postop Eval 1 completed: Yes
--- OUTSIDE RECORDS SUMMARY | 2025-03-11 21:34 | XMS RPT_ITS | CCD ---
Author Organization [facility] Care Team Providers Care Resident Care Coordinator Name Role Phone Unavailable Primary Care Provider UnavailDr. Ishaan Harmon Primary Care Provider Dr. Ishaan Sanderson Referring Provider Dr. Cornell Park Attending Provider [phone] Mychal Grady Attending Provider Dr. Ishaan Sanderson Primary Care Provider Dr. Ishaan Sanderson Referring Provider Dr. Cornell Park Attending Provider Nik Nelson MD Primary Care Provider SLICK MUNOZ Attending Unavailable NIK NELSON Referring Unavailable SLICK MUNOZ Attending Unavailable SLICK MUNOZ Attending Unavailable SLICK MUNOZ Attending Unavailable SLICK MUNOZ Attending Unavailable Mary Beth Nelson DO Primary Care Provider Mary Beth Nelson DO Attending Provider Mary Beth Nelson DO Referring Provider Dr. Louis Kelley DO Attending Provider Dr. Louis Kelley DO Emergency Provider Queenie Sanderson MD Primary Care Provider Nik Nelson DO Unavailable CELI CARDENAS Attending Unavailable NIK NELSON Referring UnavailQUEENIE Harmon Primary Care UnavailMary Beth Roth DO Primary Care Provider Mary Beth Nelson DO Attending Provider Leslie DO, Mary Beth Referring Provider Celi Lane Attending Provider LuisCeli Segovia Referring Provider Leslie VSC, Mary Beth Attending Unavailable Leslie VSC, Mary Beth Primary Care Unavailable Leslie VSC, Mary Beth Attending Unavailable Leslei VSC, Mary Beth Referring Unavailable Leslie VSC, Mary Beth Primary Care Unavailable Leslie VSC, Mary Beth Attending Unavailable Leslie VSC, Mary Beth Referring Unavailable Leslie VSC, Mary Beth Primary Care Unavailable Celi Cardenas N Attending Unavailable LuisCeli N Referring Unavailable Leslie VSC, Mary Beth Primary Care Unavailable Leslie VSC, Mary Beth Attending Unavailable Leslie VSC, Mary Beth Referring Unavailable Leslie VSC, Mary Beth Primary Care Unavailable Leslie VSC, Mary Beth Primary Care Unavailable Louis Kelley Attending Unavailable Slick Munoz Attending Unavailable MunozSlick Referring Unavailable Leslie VSC, Mary Beth Primary Care Unavailable Leslie VSC, Mary Beth Attending Unavailable Leslie VSC, Mary Beth Referring Unavailable Leslie VSC, Mary Beth Primary Care Unavailable Leslie VSC, Mary Beth Attending Unavailable Leslie VSC, Mary Beth Referring Unavailable Leslie VSC, Mary Beth Primary Care Unavailable Leslie VSC, Mary Beth Attending Unavailable Leslie VSC, Mary Beth Primary Care Unavailable Leslie VSC, Mary Beth Attending Unavailable Leslie VSC, Mary Beth Primary Care Unavailable Leslie DO, Mary Beth Primary Care Provider Leslie DO Mary Beth Attending Provider Leslie DO, Mary Beth Referring Provider Dr. Jelly Barnes DO Emergency Provider [phone]. Hai Gonzales MD Attending Provider [phone] Allergies Allergy Classification Reported Allergen(s) Allergy Type Date of Onset Reaction(s) Facility (15 sources) Adhesive agent; Translations: [ADHESIVE] Allergy to substance 6 [facility] (3 sources) Cephalexin Drug Allergy 5 [facility] (3 sources) Sulfamethoxazole Drug Allergy 5 [facility] (4 sources) Sulfonamides (Antibiotic); Translations: [SULFA (SULFONAMIDE ANTIBIOTICS)] Allergy to substance 5 [facility] (3 sources) Trimethoprim Drug Allergy 5 [facility] (1 source) Sulfonamides (Antibiotic) Drug Allergy 5 [facility] (1 source) Cephalexin Drug Allergy 5 [facility] (1 source) Sulfamethoxazole Drug Allergy 5 [facility] (1 source) Sulfonamides (Antibiotic) Drug allergy (disorder) 5 [facility] (1 source) Trimethoprim Drug Allergy 5 [facility] Medications Current Medications Medication Drug Class(es) Dates Sig (Normalized) Sig (Original) carBAMazepine 200 mg oral tablet (6 sources) Mood Stabilizer Start: 04-17-2024 take 2 tablets by mouth twice daily carBAMazepine (TEGretol) 200 MG tablet Indications: Trigeminal neuralgia (CMS/HCC) 2 TABLETS BY MOUTH TWICE DAILY 120 tablet 04/17/2024 Active Start: 01-16-2024 carBAMazepine (TEGretol) 200 MG tablet Indications: Trigeminal neuralgia (CMS/HCC) Take one pill in am and two in pm for one week, then 2 pills twice daily thereafter 120 tablet 2 01/16/2024 Active Exipure (8 sources) Start: 04-19-2022 Exipure Active PO April 19, 2022 12:00am Start: 04-19-2022 Exipure Active PO April 18, 2022 11:00pm methyl folate (1 source) Start: 03-11-2025 take 1000 ug by mout h once daily methyl folate Active 1000 ug PO DAILY March 11, 2025 12:00am to help with medication absorbtion predniSONE 20 mg oral tablet (3 sources) Start: 09-05-2024 take 3 tablets by mouth once daily Prednisone 20 mg tablet Active 60 mg PO DAILY 15 0 September 05, 2024 1:00am tirzepatide 2.5 mg/0.5 mL (5 mg/mL) subcutaneous compounded injection (1 source) inject 2.5 mg by subcutaneous injection every week tirzepatide 2.5 mg/0.5 mL (5 mg/mL) subcutaneous compounded injection Inject 2.5 mg subcutaneously one time a week. Active Completed/Discontinued Medications Medication Drug Class(es) Dates Sig (Normalized) Sig (Original) acetaminophen 325 mg / oxyCODONE hydrochloride 5 mg oral tablet (11 sources) Opioid Agonist Start: 12-01-2019 End: 12-04-2019 Oxycodone-Acetamino phen 1 TABLET tablet Discontinued 1 {tbl} PO EVERY 6 HOURS NEEDED as needed for Pain 12 3 0 December 01, 2019 December 03, 2019 12:00am December 04, 2019 12:02am Back pain Dorsalgia, unspecified Start: 12-01-2019 End: 12-04-2019 take 1 tablet by mouth every six hours as needed Oxycodone-Acetaminophen Discontinued 1 TABLET PO EVERY 6 HOURS NEEDED 12 3 December 01, 2019 December 03, 2019 11:02pm Albuterol (19 sources) beta2-Adrenergic Agonist Start: 01-23-2016 End: 08-24-2021 Albuterol Sulfate 1 INHALER inhaler Discontinued 2 NMA INHALATION EVERY 6 HOURS NEEDED as needed for Asthma January 23, 2016 12:00am August 24, 2021 11:33am not used in years Start: 01-23-2016 End: 08-24-2021 take 1 puff(s) by inhalation every six hours as needed Albuterol Sulfate Discontinued 2 PUFF INHALATION EVERY 6 HOURS NEEDED January 22, 2016 11:00pm August 24, 2021 10:33am not used in years Start: 01-23-2016 End: 08-24-2021 take 1 puff(s) by inhalation every six hours as needed Albuterol Sulfate Discontinued 2 PUFF INHALATION EVERY 6 HOURS NEEDED January 23, 2016 12:00am August 24, 2021 11:33am not used in years ALBUTEROL SULFAT E INHALATION Inhale as instructed. Active take 2 puff(s) by in halation every four hours for wheezing albuterol HFA 90 mcg/act inhaler Inhale 2 puffs every 4 (four) hours if needed for wheezing Active aspirin 81 mg oral tablet (11 sources) Platelet Aggregation Inhibitor, Nonsteroidal Anti-inflammatory Drug Start: 05-25-2021 End: 06-29-2021 take 1 capsule by mouth once daily Aspirin 81 mg capsule Discontinued 81 mg PO DAILY May 25, 2021 1:00am June 29, 2021 1:27pm docusate sodium 100 mg oral capsule (11 sources) Start: 06-29-2021 End: 08-17-2021 take 1 capsule by mouth once daily Docusate Sodium (Colace) 100 mg capsule Discontinued 100 mg PO DAILY 14 14 0 June 29, 2021 1:00am August 17, 2021 12:29pm gabapentin 300 mg oral capsule (13 sources) Anti-epileptic Agent Start: 03-02-2020 End: 11-23-2020 Gabapentin 300 mg capsule Discontinued NMA PO March 02, 2020 12:00am November 23, 2020 11:50am Start: 12-09-2019 End: 11-23-2020 Gabapentin Discontinued CAP PO March 01, 2020 11:00pm November 23, 2020 10:50am Start: 12-09-2019 gabapentin (NE URONTIN) 300 mg capsule 12/09/2019 Active gadobutrol (GADAVIST) injection 8 mL (1 source) Start: 03-28-2020 End: 03-28-2020 gadobutrol (GADAVIST) injection 8 mL ibuprofen 800 mg oral tablet (13 sources) Nonsteroidal Anti-inflammatory Drug Start: 06-29-2021 End: 08-24-2021 take 1 tablet by mouth every eight hours as needed for pain Ibuprofen 800 mg tablet Discontinued 800 mg PO Q8H as needed for pain 30 7 0 June 29, 2021 1:00am August 24, 2021 11:33am take 1 tablet by trent th every six hours as needed ibuprofen (MOTRIN) 800 mg tablet Take 80 0 mg by mouth every 6 hours as needed. Active omeprazole 40 mg delayed release oral capsule (20 sources) Proton Pump Inhibitor Start: 06-19-2021 End: 08-17-2021 take 1 capsule by mouth once daily Omeprazole 40 mg capsule,delayed release(DR/EC) Discontinued 40 mg PO DAILY June 28, 2021 8:27pm August 17, 2021 12:28pm gallbladder Pnv #52-Uyau-Sngjm Acid-Omega3 (8 sources) Start: 11-24-2020 End: 08-17-2021 take 1 capsule by mouth once daily Pnv #37-Kmds-Wmmvw Acid-Omega3 Discontinued 1 CAP PO DAILY November 23, 2020 11:00pm August 17, 2021 11:28am Start: 11-24-2020 End: 08-17-2021 take 1 capsule by mouth once daily Pnv #44-Xovz-Occdl Acid-Omega3 Discontinued 1 CAP PO DAILY November 24, 2020 12:00am August 17, 2021 12:28pm Pnv #62-Jpzz-Rmdde Acid-Omeg a3 30 mg iron-10 mg iron-1 mg capsule (2 sources) Start: 11-24-2020 End: 08-17-2021 Pnv #63-Kzob-Lmhie Acid-Omeg a3 30 mg iron-10 mg iron-1 mg capsule Discontinued 1 NMA PO DAILY November 24, 2020 12:00am August 17, 2021 12:28pm Start: 11-24-2020 End: 08-17-2021 Pnv #00-Gdkj-Qlydl Acid-Omeg a3 30 mg iron-10 mg iron-1 mg capsule Discontinued 1 NMA PO DAILY November 24, 2020 12:00am August 17, 2021 12:28pm Pnv 44-Rqxq-Jbwea Zkmd-Fkikd-9 30 mg iron-10 mg iron-1 mg capsule (1 source) Start: 11-24-2020 End: 08-17-2021 Pnv 56-Jnak-Znxje Ugns-Rwkky-4 30 mg iron-10 mg iron-1 mg capsule Discontinued 1 NMA PO DAILY November 24, 2020 12:00am August 17, 2021 12:28pm sucralfate 1000 mg oral tablet (20 sources) Aluminum Complex Start: 06-19-2021 End: 08-17-2021 take 1 tablet by mouth at bedtime Sucralfate (Carafate) 1 gram tablet Discontinued 1 g PO before meals and at bedtime June 28, 2021 8:27pm August 17, 2021 12:28pm gallblader Problems Active Problems Problem Classification Problem Date Documented Date Episodic/Chronic Acquired foot deformities (20 sources) Foot-drop; Translations: [Foot drop, right foot] Episodic Adjustment disorders (4 sources) Stress; Translations: [Reaction to severe stress, unspecified] Onset: 05-28-2024 4 Chronic Allergic reactions (7 sources) Urticaria; Translations: [Urticaria, unspecified] Onset: 09-18-2024 09-13-2024 Episodic Asthma (13 sources) Asthma; Translations: [Unspecified asthma, uncomplicated] Onset: 10-01-2014 11-25-2020 Chronic Comment on above: albuterol PRN Deficiency and other anemia (11 sources) Anemia; Translations: [Anemia, unspecified] 04-14-2021 Episodic Diabetes or abnormal glucose tolerance complicating ; childbirth; or the puerperium (13 sources) Abnormal glucose level; Translations: [Abnormal glucose complicating ] Onset: 09-23-2018 Resolved: 06-15-2019 06-30-2021 Episodic Comment on above: nl 3 hr GTT Disorders of teeth and jaw (6 sources) Jaw pain; Translations: [Infection of tooth] Onset: 10-07-2024 12-14-2024 Episodic Genitourinary symptoms and ill-defined conditions (2 sources) Proteinuria, unspecified; Translations: [Hematuria, unspecified] Onset: 10-29-2024 Episodic Headache; including migraine (11 sources) Migraine; Translations: [Migraine, unspecified, not intractable, without status migrainosus] 04-10-2019 Chronic Hemorrhage during ; abruptio placenta; placenta previa (11 sources) Placenta previa partialis; Translations: [Partial placenta previa NOS or without hemorrhage, unspecified trimester] 04-20-2021 Episodic Comment on above: Discussed pelvic res t. 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 Growth US Norm 05/11 Other complications of (11 sources) High risk ; Translations: [Supervision of high risk , unspecified, unspecified trimester] 06-30-2021 Episodic Comment on above: PRR RENE 1 girl [facility] Jesus, Case Spouse: Earl Other complications of (11 sources) Abdominal pain in ; Translations: [Other specified related conditions, unspecified trimester] 06-30-2021 Episodic Comment on above: repeat labs ordered due to persistent and increasing symptoms, gen surg consult. nl gallbladder US, bile acids, CMP, CBC Other complications of (15 sources) RhD negative; Translations: [Other specified related conditions, unspecified trimester] Onset: 01-10-2017 Resolved: 06-15-2019 06-30-2021 Episodic Comment on above: rhogam at 28 weeks o r PRN Other endocrine disorders (2 sources) Polycystic ovary syndrome; Translations: [Polycystic ovarian syndrome] Onset: 01-11-2020 01-11-2020 Chronic Other inflammatory condition of skin (11 sources) Psoriatic arthritis; 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, unspecified] 11-25-2020 Chronic Comment on above: tylenol, PRN NSAID i n 1st TM only Other inflammatory condition of skin (1 source) Psoriasis, unspecified; Translations: [Psoriasis] Onset: 10-29-2024 Chronic Other inflammatory condition of skin (1 source) Arthropathic psoriasis, unspecified; 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, unspecified] Onset: 01-27-2025 Chronic Other lower respiratory disease (11 sources) Chronic cough; Translations: [Chronic cough] 05-25-2021 Episodic Other nervous system disorders (7 sources) Polyneuropathy; Translations: [Polyneuropathy, unspecified] Onset: 03-04-2024 03-04-2024 Chronic Other nervous system disorders (2 sources) Other chronic pain; Translations: [Chronic jaw pain] Onset: 10-29-2024 Chronic Other nervous system disorders (9 sources) Trigeminal neuralgia; Translations: [Trigeminal neuralgia] Onset: 03-04-2024 03-04-2024 Episodic Other non-traumatic joint disorders (1 source) Pain in right hip; Translations: [Pain in right hip] Onset: 10-29-2024 Episodic Other and delivery including normal (20 sources) Vaginal delivery; Translations: [Encounter for full-term uncomplicated delivery] Onset: 12-28-2016 Resolved: 06-15-2019 08-03-2020 Episodic Comment on above: Declines Carrier. Wa nts NIPT. low risk. Anatomy normal, follow up spine views. GBS NEG Residual codes; unclassified (11 sources) H/O: previous baby with growth restriction; Translations: [Personal history of other complications of , childbirth and the puerperium] 06-30-2021 Episodic Comment on above: growth US 3rd TM Spondylosis; intervertebral disc disorders; other back problems (20 sources) Annular tear of lumbar disc; Translations: [Other intervertebral disc degeneration, lumbar region] Chronic Spondylosis; intervertebral disc disorders; other back problems (13 sources) Backache; Translations: [Dorsalgia, unspecified] Onset: 10-29-2024 06-19-2021 Episodic Spontaneous (11 sources) with abortive outcome; Translations: [Complete or unspecified spontaneous without complication] 11-25-2020 Episodic Comment on above: early unco mplicated. quant 9. rhogam given. Unclassified (1 source) Degeneration of intervertebral disc of lumbar region with discogenic back pain; Translations: [Degeneration of intervertebral disc of lumbar region with discogenic back pain] Onset: 10-29-2024 Past or Other Problems Problem Classification Problem Date Documented Da te Episodic/Chronic Abdominal pain (2 sources) Right lower quadrant pain; Translations: [Right lower quadrant pain] Onset: 09-29-2014 Resolved: 01-14-2017 01-14-2017 Episodic Gastrointestinal hemorrhage (2 sources) Hematochezia; Translations: [Melena] Onset: 09-29-2014 Resolved: 01-14-2017 01-14-2017 Episodic Other complications of (2 sources) Obesity; Translations: [Obesity complicating , unspecified trimester] Onset: 09-22-2018 Resolved: 06-15-2019 06-15-2019 Chronic Other complications of (2 sources) Poor growth affecting management; Translations: [Maternal care for other known or suspected poor growth, third trimester, not applicable or unspecified] Onset: 07-10-2017 Resolved: 08-19-2017 08-19-2017 Episodic Other nervous system disorders (1 source) Trigeminal neuralgia; Translations: [Trigeminal neuralgia] Onset: 03-16-2024 Episodic Other screening for suspected conditions (not mental disorders or infectious disease) (1 source) Abnormal microbiological findings in specimens from other organs, systems and tissues; Translations: [Abnormal microbiological findings in specimens from other organs, systems and tissues] Onset: 08-18-2024 Episodic Other skin disorders (1 source) Disorder of the skin and subcutaneous tissue, unspecified; Translations: [Disorder of the skin and subcutaneous tissue, unspecified] Onset: 08-28-2024 Episodic Other skin disorders (1 source) Localized swelling, mass and lump, neck; Translations: [Localized swelling, mass and lump, neck] Onset: 05-12-2024 Episodic Residual codes; unclassified (2 sources) Foreign travel history finding; Translations: [Other specified health status] Onset: 12-28-2016 Resolved: 08-19-2017 08-19-2017 Episodic Residual codes; unclassified (2 sources) History of previous intrauterine growth restricted ; Translations: [Personal history of other complications of , childbirth and the puerperium] Onset: 09-22-2018 Resolved: 06-15-2019 06-15-2019 Episodic Skin and subcutaneous tissue infections (3 sources) Infection of skin; Translations: [Local infection of the skin and subcutaneous tissue, unspecified] Onset: 08-25-2024 12-14-2024 Episodic Results Test Name Value Interpretation Reference Range Facility Absolute lymphocyte countOrd ered By: ED PROVIDER on 03-11-2025 Lymphocytes Auto (Unsp spec) [#/Vol] 1.19 10*3/uL 0.83-4.51 [facility] Absolute neutrophil countOrd ered By: ED PROVIDER on 03-11-2025 Neutrophils (Bld) [#/Vol] 5.2 10*3/uL 2.0-7.7 [facility] Anion gap in Serum or Plasma Ordered By: ED PROVIDER on 03-11-2025 Anion gap [Moles/Vol] 9 mmol[facility]L 5-[facility] Automated lymphocyte count a s percentage of total leukocytesOrdered By: ED PROVIDER on 03-11-2025 Lymphocytes/100 WBC Auto (Unsp spec) 16.6 % Low 19-41 [facility] BUN/creatinine ratioOrdered By: ED PROVIDER on 03-11-2025 Urea nitrogen/Creatinine [Mass ratio] 17.7 mg/mg 10-20 [facility] Basophil percentageOrdered B y: ED PROVIDER on 03-11-2025 Basophils/100 WBC (Bld) 0.4 % 0-1 [facility] Bilirubin Test strip Ql (U)O rdered By: ED PROVIDER on 03-11-2025 Bilirubin Ql (U) Negative Negative [facility] Bilirubin, totalOrdered By: ED PROVIDER on 03-11-2025 Bilirubin [Mass/Vol] 0.42 mg/dL 0.00-1.30 [facility] Carbon dioxide, total [Moles /volume] in Central venous bloodOrdered By: ED PROVIDER on 03-11-2025 CO2 [Moles/Vol] 22.6 mmol/L 21.0-32.0 [facility] Chloride assayOrdered By: ED PROVIDER on 03-11-2025 Chloride [Moles/Vol] 106 mmol/L 98-108 [facility] Eosinophil percentageOrdered By: ED PROVIDER on 03-11-2025 Eosinophils/100 WBC (Bld) 5.0 % 0-5 [facility] Erythrocyte distribution wid th ratioOrdered By: ED PROVIDER on 03-11-2025 Erythrocyte distribution width (RBC) [Ratio] 13.4 % 11.6-14.6 [facility] Erythrocyte distribution wid th standard deviationOrdered By: ED PROVIDER on 03-11-2025 Erythrocyte distribution width (RBC) [Ratio] 44.9 fl High 35.1-43.9 [facility] Glomerular filtration rate ( GFR) estimation/1.73 sq m using serum, plasma, or whole bOrdered By: ED PROVIDER on 03-11-2025 GFR/1.73 sq M.predicted among non-blacks MDRD (S/P/Bld) [Vol rate/Area] 106 mL/min/{1.73_m2} >60 [facility] Comment on above: mL/min/1.73m2 CKD-EP I Creatinine Equation (2020) Hematocrit Auto (Bld) [Volum e fraction]Ordered By: ED PROVIDER on 03-11-2025 Hematocrit (Bld) [Volume fraction] 38.6 % 37-47 [facility] Hemoglobin measurementOrdere d By: ED PROVIDER on 03-11-2025 Hemoglobin (Bld) [Mass/Vol] 12.9 g/dL 12.0-15.0 [facility] Immature granulocytes/100 WB C Auto (Bld)Ordered By: ED PROVIDER on 03-11-2025 Immature granulocytes/100 WBC (Bld) 0.400 % 0.0-0.9 [facility] Comment on above: IG% - Immature Granu locytes (promyelocytes, myelocytes and metamyelocytes) > 1% indicates that a LEFT SHIFT is Present. Ketones Test strip Ql (U)Ord ered By: ED PROVIDER on 03-11-2025 Ketones Ql (U) Negative Negative [facility] Laboratory - Chemistry and C hemistry - challengeOrdered By: ED PROVIDER on 03-11-2025 AST [Catalytic activity/Vol] 18 U/L <32 [facility] Lactic acid measurementOrder ed By: Jelly Barnes on 03-11-2025 Lactate [Moles/Vol] 1.3 mmol/L 0.0-2.0 [facility] Lipase measurementOrdered By : ED PROVIDER on 03-11-2025 Lipase [Catalytic activity/Vol] 35 U/L 13-75 [facility] Comment on above: Please note:LIPASE r evised reference range effective 22. New Lipase methodology. Expected to produce lower values than the previous assay method. NEW Reference Range: 13 - 75 U/L MCV (mean corpuscular volume ) determinationOrdered By: ED PROVIDER on 03-11-2025 MCV (RBC) [Entitic vol] 89.6 fL 81-99 [facility] Mean corpuscular hemoglobin (MCH) determinationOrdered By: ED PROVIDER on 03-11-2025 MCH (RBC) [Entitic mass] 29.9 pg 27.0-32.0 [facility] Mean corpuscular hemoglobin concentration (MCHC) determinationOrdered By: ED PROVIDER on 03-11-2025 MCHC (RBC) [Mass/Vol] 33.4 g/dL 32-36 [facility] Mean platelet volume determi nationOrdered By: ED PROVIDER on 03-11-2025 Platelet mean volume (Bld) [Entitic vol] 11.2 fL 6.2-12.0 [facility] Microscopic analysis of urin e for red blood cells (RBC)Ordered By: ED PROVIDER on 03-11-2025 Microscopic analysis of urine for red blood cells (RBC) 0 SEEN /hpf 0-5 [facility] Monocyte percentageOrdered B y: ED PROVIDER on 03-11-2025 Monocytes/100 WBC (Bld) 5.3 % 0-10 [facility] Mucus LM Ql (Urine sed)Order ed By: ED PROVIDER on 03-11-2025 Mucus Ql (Urine sed) 0 SEEN /hpf [facility] Neutrophil percentageOrdered By: ED PROVIDER on 03-11-2025 Neutrophils/100 WBC (Bld) 72.3 % High 47-70 [facility] Nitrite Test strip Ql (U)Ord ered By: ED PROVIDER on 03-11-2025 Nitrite Ql (U) Negative Negative [facility] Nucleated red blood cell per centageOrdered By: ED PROVIDER on 03-11-2025 Nucleated RBC/100 WBC (Bld) [Ratio] 0 % 0-5 [facility] Platelet countOrdered By: ED PROVIDER on 03-11-2025 Platelets (Bld) [#/Vol] 194 10*3/uL 150-450 [facility] Potassium measurement (mass/ volume)Ordered By: ED PROVIDER on 03-11-2025 Potassium (Unsp spec) [Mass/Vol] 4.3 mmol/L 3.3-5.1 [facility] Protein Test strip Ql (U)Ord ered By: ED PROVIDER on 03-11-2025 Protein Ql (U) Negative Negative [facility] RBC Auto (Bld) [#/Vol]Ordere d By: ED PROVIDER on 03-11-2025 RBC (Bld) [#/Vol] 4.31 10*6/uL 4.2-5.4 [facility] Serum beta-hCG test, qualita tiveOrdered By: Jelly Barnes on 03-11-2025 Beta HCG ( test) Ql Negative [facility] Serum creatinine measurement (mass/volume)Ordered By: ED PROVIDER on 03-11-2025 Creatinine [Mass/Vol] 0.76 mg/dL 0.70-1.20 [facility] Serum globulin measurementOr dered By: ED PROVIDER on 03-11-2025 Globulin (S) [Mass/Vol] 2.7 g/dL 2.2-4.2 [facility] Serum glucose measurement (m ass/volume)Ordered By: ED PROVIDER on 03-11-2025 Glucose [Mass/Vol] 82 mg/dL 70-99 [facility] Serum or plasma alanine xiao otransferase (ALT) measurementOrdered By: ED PROVIDER on 03-11-2025 ALT [Catalytic activity/Vol] 10 U/L <35 [facility] Serum or plasma albumin melinda urement (mass/volume)Ordered By: ED PROVIDER on 03-11-2025 Albumin [Mass/Vol] 4.3 g/dL 3.5-5.0 [facility] Serum or plasma albumin/glob ulin mass ratioOrdered By: ED PROVIDER on 03-11-2025 Albumin/Globulin [Mass ratio] 1.6 {ratio} 0.9-2.4 [facility] Serum or plasma alkaline avinash sphatase measurementOrdered By: ED PROVIDER on 03-11-2025 ALP [Catalytic activity/Vol] 137 U/L High 35-104 [facility] Serum or plasma calcium melinda urement (mass/volume)Ordered By: ED PROVIDER on 03-11-2025 Calcium [Mass/Vol] 9.1 mg/dL 7.6-11.0 [facility] Serum or plasma urea nitroge n measurement (mass/volume)Ordered By: ED PROVIDER on 03-11-2025 Urea nitrogen [Mass/Vol] 13 mg/dL 4-19 [facility] Sodium levelOrdered By: KATE WONG on 03-11-2025 Sodium [Moles/Vol] 138 mmol/L 133-145 [facility] Squamous epithelial cells de tection in urine sediment by light microscopyOrdered By: ED PROVIDER on 03-11-2025 Epithelial cells.squamous LM Ql (Urine sed) 0 SEEN /hpf 5-10 [facility] Total proteinOrdered By: ED PROVIDER on 03-11-2025 Protein [Mass/Vol] 7.0 g/dL 5.9-8.4 [facility] Urine clarityOrdered By: ED PROVIDER on 03-11-2025 Clarity (U) Clear Clear [facility] Urine color determinationOrd ered By: ED PROVIDER on 03-11-2025 Color (U) Straw Yellow [facility] Urine glucose detectionOrder ed By: ED PROVIDER on 03-11-2025 Glucose Ql (U) Normal mg/dl Normal [facility] Urine leukocyte esterase det ection by dipstickOrdered By: ED PROVIDER on 03-11-2025 Leukocyte esterase Test strip Ql (U) Negative Negative [facility] Urine pHOrdered By: ED PROVI KENNY on 03-11-2025 pH (U) 6.5 [pH] 5.0 - 8.0 [facility] Urine sediment bacteria coun t by microscopy (number/high power field)Ordered By: ED PROVIDER on 03-11-2025 Bacteria LM.HPF (Urine sed) [#/Area] 0 /[HPF] None Seen [facility] Urine specific gravity measu rementOrdered By: ED PROVIDER on 03-11-2025 Specific gravity (U) [Rel density] 1.010 1.002-1.030 [facility] Urine urobilinogen measureme ntOrdered By: ED PROVIDER on 03-11-2025 Urobilinogen Ql (U) Normal mg/dl Normal [facility] White blood cell (WBC) count Ordered By: ED PROVIDER on 03-11-2025 WBC (Bld) [#/Vol] 7.2 10*3/uL 4.4-11.0 [facility] White blood cell countOrdere d By: ED PROVIDER on 03-11-2025 White blood cell count 0 SEEN /hpf 0-5 [facility] Magnetic resonance imaging r eportOrdered By: Casey Balbuena on 01-27-2025 Study report [facility] [address] [place] [address] Pelvis (Routine) MR#: [id number] Acct: [id number] Name: JAHAIRA VELASQUEZ Rep #: [id number] : 1990 F 34 From: Ofelia Balbuena MD PCP: Mary Beth Nelson DO Status: REG CLI Study:Pelvis (Routine) Date of Exam: Exam# [id number] Ordering Dr: Latosha Nelson [facility] DO EXAM: PELVIS (ROUTINE) 01/22/2025 CLINICAL HISTORY: ARTHTOPATHIC PSORIASIS. TECHNIQUE: T1, T2, stir, PELVIS (ROUTINE) Multiplanar and multisequence images were obtained without intravenous gadolinium contrast. CONTRAST: 15 cc Clariscan COMPARISON: None FINDINGS: There is normal marrow signal in the pelvic bones and included right and left femur. The uterus measures 6.0 by 4.7 by 7.7 cm. The endometrium measures 0.5 cm. The right ovary measures 3.4 by 1.9 2.9 cm. The left ovary measures 3.2 by 3.0 by 2.2 cm. There greater than 10 subcentimeter follicles in the right and left ovary. There is no pelvic mass or free fluid. There is no adenopathy. The right and left hip joint spaces are maintained. There is mild bilateral trochanteric bursitis visible. The hamstring origins are intact. The sacral foramina and sacral nerve roots are unremarkable. The sciatic nerve is normal in appearance in the right and left. Postcontrast images are not included. MRI/Pelvis (Routine) IMPRESSION: There is mild trochanteric bursitis visible in the right and left hip. The ovaries meet the criteria for polycystic ovary syndrome. Reading Location: [facility] CC: Mary Beth Nelson DO ~ Licensed Sales Producer: Signed [facility] Orbit Face Neck W/WO Contras ton 01-22-2025 Orbit Face Neck W/WO Contrast [facility] [address] [place], [place] [id number] Orbit Face Neck W/WO Contrast MR#: [id number] Acct: [id number] Name: JAHAIRA VELASQUEZ Rep #: [id number] : 1990 F 34 From: Oliverio Villasenor MD PCP: Mary Beth Nelson DO Status: PRE CLI Study: Orbit Face Neck W/WO Contrast Date of Exam: Exam# [id number] Ordering Dr: Mary Beth Nelson [facility] D O EXAM: MRI of the maxillofacial region without and with contrast CLINICAL HISTORY: Dental surgery with possible infection TECHNIQUE: MRI maxillofacial region including the mandible without and with 15 cc of Clariscan FINDINGS: This finding should be correlated with the maxillofacial CT with IV contrast if not already performed. I do not have such as study for comparison. Normal midline structures. On coronal images, no edema is noted in the mandible. The floor of mouth appears grossly unremarkable. Normal submental space. Normal submandibular glands. Normal parotid glands. Normal pterygoid compartment. In the axial plane, normal nasopharynx. Normal mandibular canal. No fluid collection. Normal extrinsic and intrinsic tongue muscles. No upper cervical lymphadenopathy. On fat saturated T2 weighted images, no evidence of edema. No subperiosteal fluid collections identified. Normal submandibular glands. Postcontrast images demonstrate mild inflammatory enhancement of the tonsils. There is no tonsillar or peritonsillar abscess. No abnormal enhancement of the mandible itself or the marrow. Negative for osteomyelitis. MRI/Orbit Face Neck W/WO Contrast IMPRESSION: Negative for abscess. Negative for osteomyelitis. Positive for tonsil inflammation. Reading Location: [facility] CC: Mary Beth Nelson DO Licensed Sales Producer: Signed Normal [facility] Pelvis (Routine)on Pelvis (Routine) [facility] [address] [place] [address] Pelvis (Routine) MR#: [id number] Acct: [id number] Name: JAHAIRA VELASQUEZ JOCE Rep #: [id number] : 1990 F 34 From: Casey Balbuena MD PCP: Mary Beth Nelson DO Status: REG CLI Study: Pelvis (Routine) Date of Exam: 01/22/25 Exam# [id number] Ordering Dr: Mary Beth Nelson [facility] D O EXAM: PELVIS (ROUTINE) 01/22/2025 CLINICAL HISTORY: ARTHTOPATHIC PSORIASIS. TECHNIQUE: T1, T2, stir, PELVIS (ROUTINE) Multiplanar and multisequence images were obtained without intravenous gadolinium contrast. CONTRAST: 15 cc Clariscan COMPARISON: None FINDINGS: There is normal marrow signal in the pelvic bones and included right and left femur. The uterus measures 6.0 by 4.7 by 7.7 cm. The endometrium measures 0.5 cm. The right ovary measures 3.4 by 1.9 2.9 cm. The left ovary measures 3.2 by 3.0 by 2.2 cm. There greater than 10 subcentimeter follicles in the right and left ovary. There is no pelvic mass or free fluid. There is no adenopathy. The right and left hip joint spaces are maintained. There is mild bilateral trochanteric bursitis visible. The hamstring origins are intact. The sacral foramina and sacral nerve roots are unremarkable. The sciatic nerve is normal in appearance in the right and left. Postcontrast images are not included. MRI/Pelvis (Routine) IMPRESSION: There is mild trochanteric bursitis visible in the right and left hip. The ovaries meet the criteria for polycystic ovary syndrome. 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 Offered referral to [facility] Dental specialist, she defers for now since [...] in further working up her mandible pain. Celi Cardenas PA-C Time on phone 10 min Celi Cardenas PA-C 11/11/2024 9:37 AM Signed Addended by: CELI CARDENAS on: 11/11/2024 09:37 AM Modules accepted: Orders Allergies As of Date: 10/30/2024 Noted Allergy Reaction ADHESIVE 08/08/2015 4 - Hives SULFA (SULFONAMIDE ANTIBIOTICS) 10/29/2024 4 - Hives Date Reviewed: 10/29/2024 Reviewed by: Celi Cardenas PA-C - Fully Assessed Prescriptions as [...] 08/19/2017 Rh negative state in antepartum period [O26.899* 7 08/19/2017 Intrauterine growth restriction (IUGR) affectin* 8 08/19/2017 Obesity in [O99.210] 09/22/2018 06/15/2019 Encounter for supervision of normal i*09/22/2018 06/15/2019 History of prior with IUGR [Z*09/22/2018 06/15/2019 Rh negative state in antepartum period [O26.899* 9 06/15/2019 Abnormal glucose complicating [O99.81*09/23/2018 06/15/2019 PCOS (polycystic ovarian syndrome) [E28.2] 01/11/2020 Encounter Status:Closed by PHILOMENA WHITMORE on 10/30/24 Normal [facility] ALKALINE PHOSPHATASE ISOENZY MES (P)on 10-29-2024 ALK PHOS BONE % 19.7 % Normal 10.7-68.3 [facility] Comment on above: Order Comment: Speci men Type: BLOOD SPECIMEN Ordering Facility: [facility] Address: [address] [place] [address] Performed By: #### A LKISOP #### [facility] CLIA [id number] [address] [place] [address] [place] ALK PHOS LIVER % 80.3 % Normal 26.0-86.2 [facility] Comment on above: Order Comment: Speci men Type: BLOOD SPECIMEN Ordering Facility: [facility] Address: [address] [place] [address] Performed By: #### A LKISOP #### [facility] CLIA [id number] [facility] [place] [address] [place] BONE FRACTION 27.4 U/L Normal 12.9-52.6 [facility] Comment on above: Order Comment: Speci men Type: BLOOD SPECIMEN Ordering Facility: [facility] Address: [address] [place] [address], [place] [address] Performed By: #### A LKISOP #### [facility] CLIA [id number] [address] [place] [address] [place] INTESTINE FRACTION 0.0 U/L Normal 0.0-16.3 [facility] Comment on above: Order Comment: Speci men Type: BLOOD SPECIMEN Ordering Facility: [facility] Address: [address] [place] [address], [place] [address] Performed By: #### A LKISOP #### [facility] CLIA [id number] [address] [place] [address] [place] LIVER FRACTION 111.6 U/L High 16.0-69.3 [facility] Comment on above: Order Comment: Speci men Type: BLOOD SPECIMEN Ordering Facility: [facility] Address: [address] [place] [address], [place] [address] Performed By: #### A LKISOP #### [facility] CLIA [id number] [address] [place] [address] [place] Neutrophils/100 WBC (Bld) 0.0 % Normal 0.0-24.2 [facility] Comment on above: Order Comment: Speci men Type: BLOOD SPECIMEN Ordering Facility: [facility] Address: [address] [place] [address], [place] [address] Performed By: #### A LKISOP #### [facility] CLIA [id number] [address] [place] [address] [place] ALP SerPl-cCncon 10-29-2024 ALP [Catalytic activity/Vol] 139 U/L High 34-123 [facility] Comment on above: Order Comment: Speci men Type: BLOOD SPECIMEN Ordering Facility: [facility] Address: [address] [place] [address] Performed By: #### 1 988-5, 6768-6 #### [facility] CLIA [id number] [address] [place] [address] OF [facility] CNOVon 10-29-2024 CNOV Office Visit (RHWSTR) -------- JAHAIRA VELASQUEZ ([id number]) 1990 [facility] Date Time Provider Department 10/29/24 9:00 AM CELI CARDENAS RHWSTR During your visit today, we recorded the following information about you: Pulse Respiration Blood pressure Weight 56/minute 17/minute 118/86 84.4 kg Celi Cardenas PA-C 10/29/2024 1:05 PM Signed Rheumatology CONSULTATION Date of Service: 10/29/2024 Patient: Jahaira Velasquez Medical Record: [id number] Primary Care Physician: Queenie Sanderson MD Last Rheumatology visit: None at [facility] Referring Provider: Nik Nelson [address] [facility] [address] Jahaira Velasquez is here today at request of Dr. Nelson specifically for consultation of my opinion in regards to the chief complaint listed below. Correspondence will be shared today via the [employer] electronic health record or through regular mail, where applicable. Recording using [employer] software for draft documentation of the visit was discussed with the patient/authorized retail field representative; all questions welcomed and answered. Patient/authorized retail field representative agreed to proceed History of Present [...] stomach Mid abdomen Description Stabbing;Sharp Aching Aching Aching;Radiating;S harp;Shooting;Stab leonidas;Tenderness Sharp;Throbbing;Sh ooting;Aching Duration (#) 9 1 10 2 2 Duration (Timeframe) Hours Days Days Years Years Frequency Continuous Continu (more content not included)... Normal [facility] CRP SerPl-mCncon 10-29-2024 CRP [Mass/Vol] 0.4 mg/dL Normal <0.9 [facility] Comment on above: Order Comment: Speci men Type: BLOOD SPECIMEN Ordering Facility: [facility] Address: [address] [place] [address] Performed By: #### 1 988-5, 6768-6 #### [facility] CLIA [id number] [address] [place] [address] [place] ESR Westergren method (Bld) [Velocity]on 10-29-2024 ESR (Bld) [Velocity] 9 mm/h Normal 0-20 [facility] Comment on above: Order Comment: Speci men Type: BLOOD SPECIMEN Ordering Facility: [facility] Address: [address] [place] [address] Performed By: #### 4 537-7 #### [facility] CLIA [id number] [address] [place] [address] [place] Prot/Creat Uron 10-29-2024 Protein/Creatinine (U) [Mass ratio] 0.04 mg/mg Normal <0.15 [facility] Comment on above: Order Comment: Speci men Type: URINE SPECIMEN Ordering Facility: [facility] Address: [address] [place] [address], [place] [address] Result Comment: Adul t Proteinuria Categories: <0.15 mg/mg is considered normal to mildly increased 0.15 - 0.50 mg/mg is considered moderately increased >0.50 mg/mg is considered severely increased KDIGO. (2013). KDIGO 2012 Clinical Practice Guideline for the Evaluation and Management of Chronic Kidney Disease. Official Journal of the International Society of Nephrology, 3(1), 1-150. Performed By: #### 2 890-2 #### [facility] [place] [id number] [address] [place] [address] [place] Protein/Creatinine (U) [Mass ratio]on 10-29-2024 Creatinine (U) [Mass/Vol] 230.5 mg/dL Normal 20.0-300. 0 [facility] Comment on above: Order Comment: Speci men Type: URINE SPECIMEN Ordering Facility: [facility] Address: [address] [place] [address], [place] [address] Performed By: #### 2 890-2 #### [facility] [place] [id number] [address] [place] [address] [place] Protein (U) [Mass/Vol] 10 mg/dL Normal 0-20 [facility] Comment on above: Order Comment: Speci men Type: URINE SPECIMEN Ordering Facility: [facility] Address: [address] [place] [address], [place] [address] Performed By: #### 2 890-2 #### [facility] [place] [id number] [address] [place], [place] [address] [place] S-I Jts 3 or More Viewson S-I Jts 3 or More Views [facility] Imaging Services [address] [place], [place] [id number] S-I Jts 3 or More Views MR#: [id number] Acct: [id number] Name: JAHAIRA VELASQUEZ Rep #: [id number] : 1990 F 34 From: Chris Hawley MD PCP: Mary Beth Nelson DO Status: REG CLI Study: S-I Jts 3 or More Views Date of Exam: 10/29/24 Exam# [id number] Ordering Dr: Celi Cardenas EXAM: Sacroiliac joints CLINICAL HISTORY: Low back pain, right leg pain and sciatica COMPARISON: None TECHNIQUE: AP and bilateral oblique views of the sacroiliac joint FINDINGS: There is joint space narrowing, surrounding sclerosis, and osteophyte formation of both sacroiliac joints consistent with sacroiliitis. RAD/S-I Jts 3 or More Views IMPRESSION: Bilateral sacroiliitis. Reading Location: [id number] CC: APRIL Lujan; Mary Beth Nelson DO Licensed Sales Producer: Signed Normal [facility] Urinalysis complete panel (U )on 10-29-2024 Bacteria LM.HPF (Urine sed) [#/Area] Negative Normal Negative [facility] Comment on above: Order Comment: Speci men Type: URINE SPECIMEN Ordering Facility: [facility] Address: [address] [place] [address] Performed By: #### 2 4356-8 #### [facility] CLIA [id number] [address] [place] [address] [place] Bilirubin Ql (U) Negative Normal Negative [facility] Comment on above: Order Comment: Speci men Type: URINE SPECIMEN Ordering Facility: [facility] Address: [address] [place] [address] Performed By: #### 2 4356-8 #### [facility] CLIA [id number] [address] [place] [address] [place] Clarity (Unsp spec) Turbid Abnormal Clear [facility] Comment on above: Order Comment: Speci men Type: URINE SPECIMEN Ordering Facility: [facility] Address: [address] [place] [address] Performed By: #### 2 4356-8 #### [facility] CLIA [id number] [address] [address] [place] Color (U) Yellow Normal Yellow [facility] Comment on above: Order Comment: Speci men Type: URINE SPECIMEN Ordering Facility: [facility] Address: [address] [place] [address] Performed By: #### 2 4356-8 #### [facility] CLIA [id number] [address] [place] [id number] [place] Epithelial cells LM.HPF (Urine sed) [#/Area] Moderate Normal [facility] Comment on above: Order Comment: Speci men Type: URINE SPECIMEN Ordering Facility: [facility] Address: [address] [place] [address] Performed By: #### 2 4356-8 #### [facility] CLIA [id number] [address] [place] [id number] [place] Glucose Test strip (U) [Mass/Vol] Negative Normal Negative [facility] Comment on above: Order Comment: Speci men Type: URINE SPECIMEN Ordering Facility: [facility] Address: [address] [place] [address] Performed By: #### 2 4356-8 #### [facility] CLIA [id number] [address] [address] [place] Hemoglobin Ql (U) Negative Normal Negative [facility] Comment on above: Order Comment: Speci men Type: URINE SPECIMEN Ordering Facility: [facility] Address: [address] [place] [address] Performed By: #### 2 4356-8 #### [facility] CLIA [id number] [address] [place] [id number] [place] Hyaline casts (Urine sed) [#/Area] 1-3 /LPF Abnormal 0 /LPF [facility] Comment on above: Order Comment: Speci men Type: URINE SPECIMEN Ordering Facility: [facility] Address: [address] [place] [address] Performed By: #### 2 4356-8 #### [facility] CLIA [id number] [address] [place] [id number] [place] Ketones Ql (U) Negative Normal Negative [facility] Comment on above: Order Comment: Speci men Type: URINE SPECIMEN Ordering Facility: [facility] Address: [address] [place] [address] Performed By: #### 2 4356-8 #### [facility] CLIA [id number] [address] [place] [address] [place] Leukocyte esterase Test strip Ql (U) Trace Abnormal Negative [facility] Comment on above: Order Comment: Speci men Type: URINE SPECIMEN Ordering Facility: [facility] Address: [address] [place] [address] Performed By: #### 2 4356-8 #### [facility] CLIA [id number] [facility] [place] [id number] [place] Nitrite Ql (U) Negative Normal Negative [facility] Comment on above: Order Comment: Speci men Type: URINE SPECIMEN Ordering Facility: [facility] Address: [address] [place] [address] Performed By: #### 2 4356-8 #### [facility] CLIA [id number] [address] [place], [place] [address] [place] pH (U) 5.5 [pH] Normal <8.5 [facility] Comment on above: Order Comment: Speci men Type: URINE SPECIMEN Ordering Facility: [facility] Address: [address] [place], [place] [address] Performed By: #### 2 4356-8 #### [facility] CLIA [id number] [address] [place], [place] [address] [place] Protein (U) [Mass/Vol] Negative Normal Negative [facility] Comment on above: Order Comment: Speci men Type: URINE SPECIMEN Ordering Facility: [facility] Address: [address] [place] [address] Performed By: #### 2 4356-8 #### [facility] CLIA [id number] [address] [place], [place] [address] [place] RBC LM.HPF (Urine sed) [#/Area] 0-2 /HPF Normal 0-2 /HPF [facility] Comment on above: Order Comment: Speci men Type: URINE SPECIMEN Ordering Facility: [facility] Address: [address] [place] [address] Performed By: #### 2 4356-8 #### [facility] CLIA [id number] [address] [place] [address] [place] Specific gravity (U) [Rel density] 1.021 Normal 1.005-1.030 [facility] Comment on above: Order Comment: Speci men Type: URINE SPECIMEN Ordering Facility: [facility] Address: [address] [place] [address] Performed By: #### 2 4356-8 #### [facility] CLIA [id number] [address] [place], [place] [address] [place] Urobilinogen Ql (U) 1.0 EU/dL Normal 0.2-1.0 EU/dL [facility] Comment on above: Order Comment: Speci men Type: URINE SPECIMEN Ordering Facility: [facility] Address: [address] [place] [address] Performed By: #### 2 4356-8 #### [facility] CLIA [id number] [address] [place] [address] [place] WBC LM.HPF (Urine sed) [#/Area] 0-5 /HPF Normal 0-5 /HPF [facility] Comment on above: Order Comment: Speci men Type: URINE SPECIMEN [facility] Address: [address] [place], [place] [address] Performed By: #### 2 4356-8 #### [facility] CLIA [id number] [address] [place] [address] [place] Sinus/Facial Bone WITH Contr ason 10-05-2024 Sinus/Facial Bone WITH Contras [facility] Services [address] [place], [place] [id number] Sinus/Facial Bone WITH Contras MR#: [id number] Acct: [id number] Name: JAHAIRA VELASQUEZ Rep #: [id number] : 1990 F 34 From: Forest Peterson DO PCP: Mary Beth Nelson DO Status: REG CLI Study: Sinus/Facial Bone WITH Contras Date of Exam: 0 10/05/24 Exam# [id number] Ordering Dr: Mary Beth Nelson [facility] D O ADDENDUM by Dr. Forest Peterson DO on 10/05/24 at 1545 In the right mandible, there is a defect in the mandible where there was probably an impacted molar at sometime in the past. There is no evidence of lytic or destructive process associated with this defect that might raise suspicion for osteomyelitis. Reading [facility] 10/05/24 1546 Date cc: Mary Beth Nelson DO * Signed PROCEDURE: SINUS/FACIAL BONE WITH CONTRAS REASON FOR EXAM: OTHER SPECIFIED DISORDERS OF TEETH AND SUPPORTING STRUCTURES TECHNIQUE: CT of the paranasal sinuses with contrast. Coronal and Sagittal reconstruction series were provided. CONTRAST: Isovue 370 VOLUME: 100mL IV One or more dose reduction techniques were used (e.g., Automated exposure control, adjustment of the mA and/or kV according to patient size, use of iterative reconstruction technique). RADIATION DOSE SUMMARY: CTDlvol: 29.38 mGy DLP: 760.49 mGycm COMPARISON: None. FINDINGS: Frontal: Unremarkable Ethmoid: Scattered mild mucosal thickening and opacification Sphenoid: Unremarkable Maxillary: Septated right maxillary sinus with some small mucous retention cyst in the base. No in the base symphysis occurs there is an impacted maxillary wisdom tooth. Turbinates: Unremarkable Nasal Septum: Midline Mastoids/Middle Ears: Clear CT/Sinus/Facial Bone WITH Contras IMPRESSION: Impacted right maxillary wisdom tooth with a root extending into a septum of the maxillary sinus Reading Location[facility] CC: Mary Beth Nelson DO Licensed Sales Producer: Signed Normal [facility] Bilirubin Test strip Ql (U)O rdered By: Louis Kelley on 09-05-2024 Bilirubin Ql (U) Negative Negative [facility] Emergency Department Summary on 09-05-2024 Emergency Department Summary [facility] Medical Records Department [address] [place] [id number] Emergency Department Summary 09/05/24 MR#: [id number] Acct: [id number] Name: JAHAIRA VELASQUEZ Rep #: [id number] : 1990 34 From: Louis Kelley DO PCP: Mary Beth Nelson DO Status:DEP ER Location: ED HPI History of Present Illness Chief Complaint: Allergic Reaction Informant: patient Onset/Context/Timi javier Onset: Days (4) Context: Gradual Onset Timing: Continuous Quality: hives Location: Generalized Worsened by: Nothing Relieved by: Nothing Narrative Narrative: Patient presents with possible allergic reaction that has been getting worse over the past 4 days. Patient states that she has been on Bactrim for urinary tract infection. Patient states that she started having hives 3 days ago. Patient states the hives are generalized. Patient states they are pruritic. Patient states nothing makes it better and nothing makes it worse. Patient denies any difficulty breathing or difficulty swallowing. Patient admits to a burning sensation in her chest with deep breathing. [facility] Medical History Back pain Anemia Abnormal glucose affecting Asthma Home Medications ???Medication ???Instructions ???Recorded ???Last Taken ???Type Exipure PO 04/19/22 Unknown History prednisone 20 mg tablet 60 mg (3 x 20 mg) PO DAILY #15 08/01 Unknown Rx TABLETS Allergy/AdvReac Type Severity Reaction Status Date / Time Sulfa (Sulfonamide Allergy Intermediate Rash Verified 09/05/24 20:24 Antibiotics) cephalexin (From Keflex) Allergy Mild Hives Verified 09/05/24 20:24 sulfamethoxazole (From Allergy Mild rash Verified 09/05/24 20:24 Bactrim) trimethoprim (From Bactrim) Allergy Mild rash Verified 09/05/24 20:24 adhesive Allergy Hives Verified 09/05/24 20:24 Family History Father CAD (coronary artery disease) Cancer melanoma Mother Hypertension Grandmother CAD (coronary artery disease) Breast cancer Grandfather CAD (coronary artery disease) Surgical History S/P shoulder surgery S/P foot surgery Social History household members: spouse and children current occupational status: employed current occupation: [employer] Smoking Status: Never smoker alcohol intake: never substance use type: does not use ROS ROS ED Constitutional Constitutional ED: Denies chills or fever(s) Eyes Eyes: Denies blurry vision or change in vision ENT ENT ED: Denies rhinorrhea or sore throat Cardiovascular Cardiovascular: Reports chest pain; Denies palpitations Respiratory/Chest Respiratory/Chest: Denies cough or dyspnea Gastrointestinal Gastrointestinal: Denies nausea or vomiting Genitourinary Genitourinary ED: Denies dysuria or hematuria Musculoskeletal Musculoskeletal: Denies back pain or neck pain Integumentary Denies abscess or rash Neurologic Neurologic: Denies headache(s) or weakness Allergic/Immunolog ic Allergic/Immunolog ic ED: Reports urticaria; Denies mouth swelling EXAM Physical Exam Const Vital Signs: 09/05/24 19:51 Temperature 97.4 F L Temperature Source Temporal Pulse Rate 113 H Respiratory Rate 15 Blood Pressure 126/82 H Blood Pressure Mean 96 Pulse Ox 100 Oxygen Delivery Method Room Air Positive well nourished and well developed General Appearance ED: well developed and NAD HEENT Reports moist mucous membranes HEENT Narrative: Oropharynx is clear. Airway is patent. There is no pharyngeal edema noted. There are no exudates noted. Neck supple and no JVD Resp normal respiratory effort and clear to auscultation bilaterally Cardio regular rate and regular rhythm Neuro oriented x3, CN's II-XII intact bilaterally and no sensory deficits noted Sensorium / Orientation: alert Motor Exam: strength 5/5 throughout Psych mental status grossly normal Skin Skin Narrative: There is diffuse patchy urticarial rash. There are no vesicles or pustules noted. There are no petechia noted. There is no involvement of the mucous membranes. There is no sloughing of the skin. There is no involvement of the palms or soles. MDM MDM MDM Narrative Medical decision making narrative: Patient was advised that this could be an allergic reaction to sulfa. Patient was given a dose of prednisone. Urinalysis will be obtained to assess for urinary tract infection. If the urinalysis is clear, patient will be instructed to stop taking the Bactrim. If the urinalysis is positive, patient will be switched to a different antibiotic. Lab Data Attestation: I reviewed the miguel (more content not included)... Normal [facility] Epithelial cells.squamous LM Ql (Urine sed)Ordered By: Louis Kelley on 09-05-2024 Epithelial cells.squamous LM.HPF (Urine sed) [#/Area] 0 /[HPF] 5-10 [facility] Glucose Ql (U)Ordered By: Justus Kelley on 09-05-2024 Urine Glucose (UA) Normal mg/dl Normal [facility] Ketones Test strip Ql (U)Ord ered By: Louis Kelley on 09-05-2024 Ketones Ql (U) Negative Negative [facility] Microscopic analysis of urin e for red blood cells (RBC)Ordered By: Louis Kelley on 09-05-2024 Urine RBC 0-5 SEEN /hpf 0-5 [facility] Mucus LM Ql (Urine sed)Order ed By: Louis Kelley on 09-05-2024 Mucus Ql (Urine sed) 0 SEEN /hpf [facility] Nitrite Test strip Ql (U)Ord ered By: Louis Kelley on 09-05-2024 Nitrite Ql (U) Negative Negative [facility] Protein Test strip Ql (U)Ord ered By: Louis Kelley on 09-05-2024 Protein Ql (U) 30 mg/dl High Negative [facility] Urinalysis, Completeon 09-05 EPI,SQUAMOUS 0-5 SEEN Normal 5-10 [facility] Comment on above: Order Comment: CLEAN CATCH Performed By: #### L 400.0001 #### [facility] [address] [place], [address] RBC 0-5 SEEN Normal 0-5 [facility] Comment on above: Order Comment: CLEAN CATCH Performed By: #### L 400.0001 #### [facility] [address] [place], [address] BACTERIA 0 SEEN Normal None Seen [facility] Comment on above: Order Comment: CLEAN CATCH Performed By: #### L 400.0001 #### [facility] [address] [place], [address] Mucus Ql (Urine sed) 0 SEEN Normal [facility] Comment on above: Order Comment: CLEAN CATCH Performed By: #### L 400.0001 #### [facility] [address] [place], [address] WBC 0 SEEN Normal 0-5 [facility] Comment on above: Order Comment: CLEAN CATCH Performed By: #### L 400.0001 #### [facility] [address] [place], [address] Urine blood detectionOrdered By: Louis Kelley on 09-05-2024 Urine Occult Blood 10 /ul High Negative [facility] Urine clarityOrdered By: Obdulia Kelley on 09-05-2024 Clarity (U) Sl. Cloudy Clear [facility] Urine color determinationOrd ered By: Louis Kelley on 09-05-2024 Color (U) Yellow Yellow [facility] Urine leukocyte esterase det ection by dipstickOrdered By: Louis Kelley on 09-05-2024 Leukocyte esterase Test strip Ql (U) Negative Negative [facility] Urine pHOrdered By: Louis valadez on 09-05-2024 pH (U) 6.0 [pH] 5.0 - 8.0 [facility] Urine sediment bacteria coun t by microscopy (number/high power field)Ordered By: Louis Kelley on 09-05-2024 Bacteria LM.HPF (Urine sed) [#/Area] 0 /[HPF] None Seen [facility] Urine specific gravity measu rementOrdered By: Louis Kelley on 09-05-2024 Specific gravity (U) [Rel density] 1.025 1.002-1.030 [facility] Urobilinogen Ql (U)Ordered B y: Louis Kelley on 09-05-2024 Urine Urobilinogen Normal mg/dl Normal [facility] White blood cell countOrdere d By: Louis Kelley on 09-05-2024 Urine WBC 0 SEEN /hpf 0-5 [facility] Ixxv-Pvonhdjkbxy-88 ABon ANTISCLERODERM <0.2 Normal 0.0-0.9 [facility] Comment on above: Order Comment: MARIO ALBERTO SANCHEZ REORDERING Result Comment: KORY ALVARADO Performed By: #### L 3100.5500, L3410.0700 #### [facility] [address] [place], [place], [id number] Anti-dsDNA Abon 08-14-2024 ANTI-DNA (DS)AB <1 Normal 0-9 [facility] Comment on above: Order Comment: MARIO ALBERTO SANCHEZ Result Comment: Nega tive <5 Equivocal 5 - 9 Positive >9 Performed at: - [facility] [address] [id number] Gasket Inspector: Anibal Scruggs PhD, Phone: [phone] Performed By: #### L 3100.5500, L3410.0700 #### [facility] [address] [place], [place], [id number] L3410.9998on 08-13-2024 [facility] Misc. COMMENT Normal . [facility] Comment on above: Order Comment: MARIO ALBERTO SANCHEZ Result Comment: Test Ordered: [id number] Anaerobic/Aerobic/Gram Stain Anaerobic Culture Note: CB Final report Reference Range: . Result 1 Comment CB Reference Range: . No anaerobic growth in 72 hours. Aerobic Culture Note: CB Final report Reference Range: . Result 1 Note: CB Mixed skin ralf Reference Range: . Gram Stain Result Note: CB Final report Reference Range: . Result 1 Comment CB Reference Range: . No white blood cells seen. Result 2 Note: CB No organisms seen Reference Range: . Performed at: [facility] [id number] [place], [place] [id number] Gasket Inspector: Anibal Scruggs PhD, Phone: [phone] Performed By: #### L 3100.5500, L3410.0700 #### [facility] [address] [place], [address] DNA double strand Ab Qn (S)O rdered By: Mary Beth Nelson on 08-12-2024 Anti-Double Strand DNA Antibody <1 IU/mL 0-9 [facility] Comment on above: Negative <5 Equivoca l 5 - 9 Positive >9Performed at: [address] [id number] Director: Anibal Scruggs PhD, Phone: [phone] SCL-70 extractable nuclear A b Qn (S)Ordered By: Mary Beth Nelson on 08-12-2024 Scl-70 (Scleroderma) Antibody <0.2 AI 0.0-0.9 [facility] CARDIOLIPIN IGG ABSon 2024 Cardiolipin IgG IA Qn (S) <9.0 Normal <15.0 [facility] Comment on above: Order Comment: Speci men Type: BLOOD SPECIMEN Ordering Facility: [facility] Address: [address] [place] [address], [place] [address] Result Comment: <15 GPL Negative 15-20 GPL Indeterminate >20 GPL Positive The following results were obtained with the [employer] Lite SELENA IgG III CATY. Cardiolipin IgG values obtained with the different manufacturers' assay methods may not be used interchangeably. The magnitude of the reported IgG levels cannot be correlated to an endpoint titer. Performed By: #### 1 988-5, 6768-6 #### [facility] CLIA [id number] [address] [place] [address] [place] CARDIOLIPIN IGM ABSon 2024 Cardiolipin IgM IA Qn (S) <9.0 Normal <12.5 [facility] Comment on above: Order Comment: Specmartin reddy Type: BLOOD SPECIMEN Ordering Facility: [facility] Address: [address] [place] [address] Result Comment: <12. 5 MPL Negative 12.5-20 MPL Indeterminate >20 MPL Positive The following results were obtained with the [employer] SELENA IgM III CAYT. Cardiolipin IgM values obtained with the different manufacturers' assay methods may not be used interchangeably. The magnitude of the reported IgM levels cannot be correlated to an endpoint titer. ??? Performed By: #### L [id number] #### [facility] CLIA [id number] [address] [place] [address] [place] CBC W Auto Differential pane l (Bld)on 08-06-2024 Basophils (Bld) [#/Vol] 0.04 10*3/uL Normal <0.11 [facility] Comment on above: Order Comment: Mary reddy Type: BLOOD SPECIMEN Ordering Facility: [facility] Address: [address] [place] [address] Performed By: #### 4 537-7, 94236-3 #### [facility] CLIA [id number] [address] [place] [address] [place] Basophils/100 WBC (Bld) 0.6 % Normal [facility] Comment on above: Order Comment: Mary reddy Type: BLOOD SPECIMEN Ordering Facility: [facility] Address: [address] [place] [address] Performed By: #### 4 537-7, 63932-1 #### [facility] CLIA [id number] [address] [place] [address] [place] Differential cell count method Nom (Bld) Auto Normal [facility] Comment on above: Order Comment: Speci men Type: BLOOD SPECIMEN Ordering Facility: [facility] Address: [address] [place] [address] Performed By: #### 4 537-7, 85864-9 #### [facility] CLIA [id number] [address] [place] [address] [place] Eosinophils (Bld) [#/Vol] 0.22 10*3/uL Normal <0.46 [facility] Comment on above: Order Comment: Speci men Type: BLOOD SPECIMEN Ordering Facility: [facility] Address: [address] [place] [address], [place] [address] Performed By: #### 4 537-7, 84915-0 #### [facility] CLIA [id number] [address] [place] [address] [place] Eosinophils/100 WBC (Bld) 3.1 % Normal [facility] Comment on above: Order Comment: Speci men Type: BLOOD SPECIMEN Ordering Facility: [facility] Address: [address] [place] [address], [place] [address] Performed By: #### 4 537-7, 21445-8 #### [facility] CLIA [id number] [address] [place] [address] [place] Erythrocyte distribution width (RBC) [Ratio] 12.3 % Normal 11.5-15.0 [facility] Comment on above: Order Comment: Speci men Type: BLOOD SPECIMEN Ordering Facility: [facility] Address: [address] [place] [address] Performed By: #### 4 537-7, 46359-3 #### [facility] CLIA [id number] [address] [place] [address] [place] Hematocrit (Bld) [Volume fraction] 42.8 % Normal 36.0-46.0 [facility] Comment on above: Order Comment: Speci men Type: BLOOD SPECIMEN Ordering Facility: [facility] Address: [address] [place] [address], [place] [address] Performed By: #### 4 537-7, 52143-4 #### [facility] CLIA [id number] [address] [place] [address] [place] Hemoglobin (Bld) [Mass/Vol] 13.7 g/dL Normal 11.5-15.5 [facility] Comment on above: Order Comment: Speci men Type: BLOOD SPECIMEN Ordering Facility: [facility] Address: [address] [place] [address], [place] [address] Performed By: #### 4 537-7, 28755-1 #### [facility] CLIA [id number] [address] [place] [address] [place] Immature granulocytes (Bld) [#/Vol] 10*3/uL Normal <0.10 [facility] Comment on above: Order Comment: Speci men Type: BLOOD SPECIMEN Ordering Facility: [facility] Address: [address] [place] [address], [place] [address] Performed By: #### 4 537-7, 69735-0 #### [facility] CLIA [id number] [address] [place] [address] [place] Immature granulocytes/100 WBC (Bld) 0.3 % Normal [facility] Comment on above: Order Comment: Speci men Type: BLOOD SPECIMEN Ordering Facility: [facility] Address: [address] [place] [address], [place] [address] Performed By: #### 4 537-7, 30334-3 #### [facility] CLIA [id number] [address] [place] [address] [place] Lymphocytes (Bld) [#/Vol] 2.04 10*3/uL Normal 1.00-4.0 0 [facility] Comment on above: Order Comment: Speci men Type: BLOOD SPECIMEN Ordering Facility: [facility] Address: [address] [place] [address] Performed By: #### 4 537-7, 20626-5 #### [facility] [place] [id number] [address] [place] [address] [place] Lymphocytes/100 WBC (Bld) 28.6 % Normal [facility] Comment on above: Order Comment: Speci men Type: BLOOD SPECIMEN Ordering Facility: [facility] Address: [address] [place] [address] Performed By: #### 4 537-7, 87850-4 #### [facility] [place] [id number] [address] [place] [address] [place] MCH (RBC) [Entitic mass] 29.7 pg Normal 26.0-34.0 [facility] Comment on above: Order Comment: Speci men Type: BLOOD SPECIMEN Ordering Facility: [facility] Address: [address] [place] [address] Performed By: #### 4 537-7, 24812-3 #### [facility] CLIA [id number] [address] [place] [address] [place] MCHC (RBC) [Mass/Vol] 32.0 g/dL Normal 30.5-36.0 Anam [facility] Comment on above: Order Comment: Speci men Type: BLOOD SPECIMEN Ordering Facility: [facility] Address: [address] [place] [address] Performed By: #### 4 537-7, 60924-8 #### [facility] [place] [id number] [address] [place] [address] [place] MCV (RBC) [Entitic vol] 92.6 fL Normal 80.0-100.0 C [facility] Comment on above: Order Comment: Speci men Type: BLOOD SPECIMEN Ordering Facility: [facility] Address: [address] [place] [address] Performed By: #### 4 537-7, 65966-6 #### [facility] CLIA [id number] [address] [place] [address] [place] Monocytes (Bld) [#/Vol] 0.47 10*3/uL Normal <0.87 [facility] Comment on above: Order Comment: Speci men Type: BLOOD SPECIMEN Ordering Facility: [facility] Address: [address] [place] [address] Performed By: #### 4 537-7, 60347-8 #### [facility] CLIA [id number] [address] [place] [address] [place] Monocytes/100 WBC (Bld) 6.6 % Normal [facility] Comment on above: Order Comment: Speci men Type: BLOOD SPECIMEN Ordering Facility: [facility] Address: [address] [place] [address] Performed By: #### 4 537-7, 19714-7 #### [facility] CLIA [id number] [address] [place] [address] [place] Neutrophils (Bld) [#/Vol] 4.35 10*3/uL Normal 1.45-7.5 0 [facility] Comment on above: Order Comment: Speci men Type: BLOOD SPECIMEN Ordering Facility: [facility] Address: [address] [place] [address] Performed By: #### 4 537-7, 38785-9 #### [facility] CLIA [id number] [address] [place] [address] [place] Neutrophils/100 WBC (Bld) 60.8 % Normal [facility] Comment on above: Order Comment: Speci men Type: BLOOD SPECIMEN Ordering Facility: [facility] Address: [address] [place] [address] Performed By: #### 4 537-7, 91743-9 #### [facility] CLIA [id number] [address] [place] [address] [place] Nucleated RBC (Bld) [#/Vol] 10*3/uL Normal <0.01 [facility] Comment on above: Order Comment: Speci men Type: BLOOD SPECIMEN Ordering Facility: [facility] Address: [address] [place] [address] Performed By: #### 4 537-7, 26717-9 #### [facility] CLIA [id number] [address] [place] [address] [place] Nucleated RBC/100 WBC (Bld) [Ratio] 0.0 /100 WBC Normal [facility] Comment on above: Order Comment: Speci men Type: BLOOD SPECIMEN Ordering Facility: [facility] Address: [address] [place] [address] Performed By: #### 4 537-7, 71084-2 #### [facility] CLIA [id number] [address] [place] [address] [place] Platelet mean volume (Bld) [Entitic vol] 11.8 fL Normal 9.0-12.7 [facility] Comment on above: Order Comment: Speci men Type: BLOOD SPECIMEN Ordering Facility: [facility] Address: [address] [place] [address] Performed By: #### 4 537-7, 47945-8 #### [facility] CLIA [id number] [address] [place] [address] [place] Platelets (Bld) [#/Vol] 296 10*3/uL Normal 150-400 [facility] Comment on above: Order Comment: Speci men Type: BLOOD SPECIMEN Ordering Facility: [facility] Address: [address] [place] [address] Performed By: #### 4 537-7, 15540-4 #### [facility] CLIA [id number] [address] [place] [address] [place] RBC (Bld) [#/Vol] 4.62 10*6/uL Normal 3.90-5.20 [facility] Comment on above: Order Comment: Speci men Type: BLOOD SPECIMEN Ordering Facility: [facility] Address: [address] [place] [address] Performed By: #### 4 537-7, 25076-2 #### [facility] CLIA [id number] [address] [place] [address] [place] WBC (Bld) [#/Vol] 7.14 10*3/uL Normal 3.70-11.00 [facility] Comment on above: Order Comment: Speci men Type: BLOOD SPECIMEN Ordering Facility: [facility] Address: [address] [place] [address] Performed By: #### 4 537-7, 91488-8 #### [facility] CLIA [id number] [address] [place] [address] [place] CRP SerPl-mCncon 08-06-2024 CRP [Mass/Vol] 1.2 mg/dL High <0.9 [facility] Comment on above: Order Comment: Speci maureen Type: BLOOD SPECIMEN Ordering Facility: [facility] Address: [address] [place] [address] Performed By: #### L [id number] #### [facility] CLIA [id number] [address] [place] [address] [place] Cardiolipin IgA Ser IA-aCnco n 08-06-2024 Cardiolipin IgA IA Qn (S) <9.0 Normal <12.0 [facility] Comment on above: Order Comment: Speci men Type: BLOOD SPECIMEN Ordering Facility: [facility] Address: [address] [place] [address] Result Comment: <12 APL Negative 12-20 APL Indeterminate >20 APL Positive The following results were obtained with the [employer] QUANTA Lite SELENA IgA III CATY. Cardiolipin IgA values obtained with the different manufacturers' assay methods may not be used interchangeably. The magnitude of the reported IgA levels cannot be correlated to an endpoint titer. Performed By: #### 1 988-5, 6768-6 #### [facility] CLIA [id number] [address] [place] [address] [place] Comprehensive metabolic 2000 panelon 08-06-2024 Albumin [Mass/Vol] 4.6 g/dL Normal 3.9-4.9 [facility] Comment on above: Order Comment: Speci men Type: BLOOD SPECIMEN Ordering Facility: [facility] Address: [address] [place] [address], [place] [address] Performed By: #### L [id number] #### [facility] CLIA [id number] [address] [place] [address] [place] ALP [Catalytic activity/Vol] 176 U/L High 34-123 [facility] Comment on above: Order Comment: Speci men Type: BLOOD SPECIMEN Ordering Facility: [facility] Address: [address] [place] [address], [place] [address] Performed By: #### L [id number] #### [facility] CLIA [id number] [address] [place] [address] [place] ALT [Catalytic activity/Vol] 31 U/L Normal 7-38 [facility] Comment on above: Order Comment: Speci men Type: BLOOD SPECIMEN Ordering Facility: [facility] Address: [address] [place] [address], [place] [address] Performed By: #### L [id number] #### [facility] CLIA [id number] [address] [place] [address] [place] Anion gap [Moles/Vol] 13 mmol/L Normal 8-15 [facility] Comment on above: Order Comment: Speci men Type: BLOOD SPECIMEN Ordering Facility: [facility] Address: [address] [place] [address], [place] [address] Performed By: #### L [id number] #### [facility] CLIA [id number] [address] [place] [id number] [place] AST [Catalytic activity/Vol] 32 U/L Normal 13-35 [facility] Comment on above: Order Comment: Speci men Type: BLOOD SPECIMEN Ordering Facility: [facility] Address: [address] [place] [address], [place] [address] Performed By: #### L [id number] #### [facility] CLIA [id number] [facility] [place] [address] [place] Bilirubin [Mass/Vol] 0.4 mg/dL Normal 0.2-1.3 [facility] Comment on above: Order Comment: Speci men Type: BLOOD SPECIMEN Ordering Facility: [facility] Address: [address] [place] [address], [place] [address] Performed By: #### L [id number] #### [facility] CLIA [id number] [address] [place] [address] [place] Calcium [Mass/Vol] 9.9 mg/dL Normal 8.5-10.2 [facility] Comment on above: Order Comment: Speci men Type: BLOOD SPECIMEN Ordering Facility: [facility] Address: [address] [place] [address], [place] [address] Performed By: #### L [id number] #### [facility] CLIA [id number] [address] [place] [address] [place] Chloride [Moles/Vol] 103 mmol/L Normal 98-107 [facility] Comment on above: Order Comment: Speci men Type: BLOOD SPECIMEN Ordering Facility: [facility] Address: [address] [place] [address], [place] [address] Performed By: #### L [id number] #### [facility] CLIA [id number] [facility] [place] [id number] [place] CO2 [Moles/Vol] 22 mmol/L Normal 22-30 [facility] Comment on above: Order Comment: Speci men Type: BLOOD SPECIMEN Ordering Facility: [facility] Address: [address] [place] [address], [place] [address] Performed By: #### L [id number] #### [facility] CLIA [id number] [facility] [place] [address] [place] Creatinine [Mass/Vol] 0.82 mg/dL Normal 0.58-0.96 [facility] Comment on above: Order Comment: Speci men Type: BLOOD SPECIMEN Ordering Facility: [facility] Address: [address] [place] [address], [place] [address] Performed By: #### L [id number] #### [facility] CLIA [id number] [address] [place] [address] [place] Creatinine and Glomerular filtration rate.predicted panel (S/P/Bld) 96 mL/min/1.73m??? Normal >=60 [facility] Comment on above: Order Comment: Speci men Type: BLOOD SPECIMEN Ordering Facility: [facility] Address: [address] [place] [address], [place] [address] Result Comment: Mikaela mated Glomerular Filtration Rate (eGFR) is calculated using the 2020 CKD-EPI creatinine equation. This equation utilizes serum creatinine, sex, and age as parameters. The creatinine assay has traceable calibration to isotope dilution-mass spectrometry. Refer to KDIGO guidelines for clinical interpretation. In patients with unstable renal function, e.g. those with acute kidney injury, the eGFR may not accurately reflect actual GFR. Performed By: #### L [id number] #### [facility] CLIA [id number] [address] [place] [id number] [place] Glucose [Mass/Vol] 72 mg/dL Low 74-99 [facility] Comment on above: Order Comment: Speci men Type: BLOOD SPECIMEN Ordering Facility: [facility] Address: [address] [place] [address], [place] [address] Result Comment: The [place] Diabetes Association (ADA) provides guidance for cutoff [...] Standards of Medical Care in Diabetes 2016, [place] Diabetes Association. Diabetes Care. 2016.39(Suppl 1). Performed By: #### L [id number] #### [facility] CLIA [id number] [address] [place] [address] [place] Potassium [Moles/Vol] 4.9 mmol/L Normal 3.7-5.1 [facility] Comment on above: Order Comment: Speci men Type: BLOOD SPECIMEN Ordering Facility: [facility] Address: [address] [place] [address] Performed By: #### L [id number] #### [facility] CLIA [id number] [address] [place] [address] [place] Protein [Mass/Vol] 7.9 g/dL Normal 6.3-8.0 [facility] Comment on above: Order Comment: Speci men Type: BLOOD SPECIMEN Ordering Facility: [facility] Address: [address] [place] [address] Performed By: #### L [id number] #### [facility] CLIA [id number] [address] [place] [address] [place] Sodium [Moles/Vol] 138 mmol/L Normal 136-144 [facility] Comment on above: Order Comment: Speci men Type: BLOOD SPECIMEN Ordering Facility: [facility] Address: [address] [place] [address] Performed By: #### L [id number] #### [facility] CLIA [id number] [address] [place] [address] [place] Urea nitrogen [Mass/Vol] 14 mg/dL Normal 7-21 [facility] Comment on above: Order Comment: Speci men Type: BLOOD SPECIMEN Ordering Facility: [facility] Address: [address] [place] [address] Performed By: #### L [id number] #### [facility] CLIA [id number] [address] [place] [address] [place] Cyclic citrullinated peptide IgG Qnon 08-06-2024 CCP ANTIBODY IGG QUALITATIVE Negative Normal Negative [facility] Comment on above: Order Comment: Speci men Type: BLOOD SPECIMEN Ordering Facility: [facility] Address: [address] [place] [address] Performed By: #### 1 988-5, 6768-6 #### [facility] CLIA [id number] [address] [place] [address] [place] DNA ANTIBODY DS BLDon 2024 DNA ANTIBODY 33 IU/mL Normal <=200 [facility] Comment on above: Order Comment: Speci men Type: BLOOD SPECIMEN Ordering Facility: [facility] Address: [address] [place] [address], [place] [address] Result Comment: Nega tive: <200 IU/mL Equivocal: 201-300 IU/mL Moderate Positive: 301-800 IU/mL Strong Positive: >801 IU/mL Performed By: #### D [id number] #### [facility] CLIA [id number] [address] [place] [address] [place] DNA ANTIBODY QUALITATIVE INTERPRETATION Negative Normal Negative [facility] Comment on above: Order Comment: Speci men Type: BLOOD SPECIMEN Ordering Facility: [facility] Address: [address] [place] [address], [place] [address] Performed By: #### D [id number] #### [facility] CLIA [id number] [address] [place] [address] [place] MARY SM IgG Ser-aCncon 2024 Castillo extractable nuclear IgG Qn (S) <0.2 Normal <1.0 [facility] Comment on above: Order Comment: Speci men Type: BLOOD SPECIMEN Ordering Facility: [facility] Address: [address] [place] [address], [place] [address] Performed By: #### 1 988-5, 6768-6 #### [facility] CLIA [id number] [address] [place] [address] [place] ESR Westergren method (Bld) [Velocity]on 08-06-2024 ESR (Bld) [Velocity] 26 mm/h High 0-20 [facility] Comment on above: Order Comment: Speci men Type: BLOOD SPECIMEN Ordering Facility: [facility] Address: [address] [place] [address], [place] [address] Performed By: #### 1 988-5, 6768-6 #### [facility] CLIA [id number] [address] [place] [address] [place] MRSA Wound DNA by PCRon 07-10 MRSA DNA ASSAY Negative Normal Negative [facility] Comment on above: Order Comment: REORD ERING Performed By: #### L 3100.5500, L3410.0700 #### [facility] [address] [place], [address] SA DNA ASSAY Negative Normal Negative [facility] Comment on above: Order Comment: REORD ERING Performed By: #### L 3100.5500, L3410.0700 #### [facility] [address] [place], [address] MRSA detection PCROrdered By : Mary Beth Nelson on 08-06-2024 Methicillin-Resist S.aureus DNA PCR Negative Negative [facility] Nuclear Ab IA Ql (S)on 08-06 DEMETRIUS SCR QUAL Negative Normal Negative [facility] Comment on above: Order Comment: Speci men Type: BLOOD SPECIMEN Ordering Facility: [facility] Address: [address] [place] [address] Result Comment: The qualitative antinuclear antibody screen test performed using the following antigens: dsDNA, Chromatin, Ribosomal P, SS-A 60, SS-A 52, SS-B, Sm, SmRNP, ENTRY LEVEL BUSINESS ANALYST A, ENTRY LEVEL BUSINESS ANALYST 68, Scl-70, Padmini-1, and Centromere B. Methodology: Multiplex flow immunoassay. Performed By: #### 1 988-5, 6768-6 #### [facility] CLIA [id number] [address] [place] [address] [place] PROTEIN ELECTROPHORESIS SERU M (P)on 08-06-2024 Albumin [Mass/Vol] 4.69 g/dL Normal 3.43-5.41 [facility] Comment on above: Order Comment: Speci men Type: BLOOD SPECIMEN Ordering Facility: [facility] Address: [address] [place] [address] Performed By: #### L [id number] #### [facility] CLIA [id number] [address] [place] [address] [place] Alpha 1 globulin Elph [Mass/Vol] 0.37 g/dL Normal 0.18-0.43 [facility] Comment on above: Order Comment: Speci men Type: BLOOD SPECIMEN Ordering Facility: [facility] Address: [address] [place] [address] Performed By: #### L [id number] #### [facility] CLIA [id number] [address] [place] [address] [place] Alpha 2 globulin Elph [Mass/Vol] 0.77 g/dL Normal 0.42-0.98 [facility] Comment on above: Order Comment: Speci men Type: BLOOD SPECIMEN Ordering Facility: [facility] Address: [address] [place] [address] Performed By: #### L [id number] #### [facility] CLIA [id number] [address] [place] [address] [place] Beta globulin Elph [Mass/Vol] 1.05 g/dL Normal 0.61-1.17 [facility] Comment on above: Order Comment: Speci men Type: BLOOD SPECIMEN Ordering Facility: [facility] Address: [address] [place] [address], [place] [address] Performed By: #### L [id number] #### [facility] CLIA [id number] [address] [place] [address] [place] Gamma globulin Elph [Mass/Vol] 0.93 g/dL Normal 0.53-1.51 [facility] Comment on above: Order Comment: Speci men Type: BLOOD SPECIMEN Ordering Facility: [facility] Address: [address] [place] [address], [place] [address] Performed By: #### L [id number] #### [facility] CLIA [id number] [address] [place] [address] [place] M-PROTEIN LOCATION Normal [facility] Comment on above: Order Comment: Speci men Type: BLOOD SPECIMEN Ordering Facility: [facility] Address: [address] [place] [address], [place] [address] Result Comment: Not Applicable. Performed By: #### L [id number] #### [facility] CLIA [id number] [address] [place] [address] [place] Protein Fractions [Interp] No definitive M protein is identified on protein electrophoresis. Normal No definitive M protein is identified on protein electrophoresi s. [facility] Comment on above: Order Comment: Speci men Type: BLOOD SPECIMEN Ordering Facility: [facility] Address: [address] [place] [address], [place] [address] Performed By: #### L [id number] #### [facility] CLIA [id number] [facility] [place] [address] [place] Protein.monoclonal Elph [Mass/Vol] 0.00 g/dL Normal <=0.00 [facility] Comment on above: Order Comment: Speci men Type: BLOOD SPECIMEN Ordering Facility: [facility] Address: [address] [place] [address], [place] [address] Performed By: #### L [id number] #### [facility] CLIA [id number] [address] [place] [address] [place] SPE STAFF REVIEW Reviewed by Gabriel Lechuga MD, Ph.D ([id number]) Normal [facility] Comment on above: Order Comment: Speci men Type: BLOOD SPECIMEN Ordering Facility: [facility] Address: [address] [place] [address], [place] [address] Performed By: #### L [id number] #### [facility] CLIA [id number] [address] [place] [address] [place] Prot SerPl-mCncon 08-06-2024 Protein [Mass/Vol] 7.8 g/dL Normal 6.3-8.0 [facility] Comment on above: Order Comment: Speci men Type: BLOOD SPECIMEN Ordering Facility: [facility] Address: [address] [place] [address], [place] [address] Performed By: #### 2 885-2 #### [facility] CLIA [id number] [address] [place] [address] [place] Rheumatoid fact SerPl-aCncon 08-06-2024 Rheumatoid factor Qn [IU]/mL Normal <16 [facility] Comment on above: Order Comment: Speci men Type: BLOOD SPECIMEN Ordering Facility: [facility] Address: [address] [place] [address], [place] [address] Performed By: #### L [id number] #### [facility] CLIA [id number] [address] [place] [address] [place] S. aureus DNA OLIVIER+probe Ql ( Unsp spec)Ordered By: Mary Beth Nelson on 08-06-2024 Staphylococcus aureus Protein A PCR Negative Negative [facility] SJOGREN ABS SSA/SSBon 2024 ANTI-SSB QUAL Negative Normal Negative [facility] Comment on above: Order Comment: Mary reddy Type: BLOOD SPECIMEN Ordering Facility: [facility] Address: [address] [place] [address] Result Comment: Anti -SSB (anti-La) antibody is used as an aid in diagnosis of a variety of systemic autoimmune diseases, especially for Sjogren's syndrome and systemic lupus erythematosus. Clinical correlation is required. Test Methodology: Multiplex flow immunoassay. Performed By: #### 1 988-5, 6768-6 #### [facility] CLIA [id number] [address] [place] [address] [place] Sjogrens syndrome-A extractable nuclear Ab Qn (S) <0.2 Normal <1.0 [facility] Comment on above: Order Comment: Mary reddy Type: BLOOD SPECIMEN Ordering Facility: [facility] Address: [address] [place] [address] Performed By: #### 1 988-5, 68-6 #### [facility] CLIA [id number] [address] [place] [address] [place] Sjogrens syndrome-B extractable nuclear Ab Qn (S) <0.2 Normal <1.0 [facility] Comment on above: Order Comment: Mary reddy Type: BLOOD SPECIMEN Ordering Facility: [facility] Address: [address] [place] [address] Performed By: #### 1 988-5, 6768-6 #### [facility] CLIA [id number] [address] [place] [address] [place] SSA ANTIBODY QUAL Negative Normal Negative [facility] Comment on above: Order Comment: Mary reddy Type: BLOOD SPECIMEN Ordering Facility: [facility] Address: [address] [place] [address] Result Comment: Anti -SSA (anti-Ro) antibody is used as an aid in diagnosis of a variety of systemic autoimmune diseases, Sjogren's syndrome among others. Clinical correlation is required. Test Methodology: Multiplex flow immunoassay. ??? \X09\ Performed By: #### 1 988-5, 6768-6 #### [facility] CLIA [id number] [facility] [address] [place] Castillo extractable nuclear Ig G Qn (S)on 08-06-2024 SM ANTIBODY QUAL Negative Normal Negative [facility] Comment on above: Order Comment: Speci men Type: BLOOD SPECIMEN Ordering Facility: [facility] Address: [address] [place] [address] Result Comment: Anti -Sm (Castillo) antibody is used as an aid in diagnosis of systemic lupus erythematosus and its presence is associated with renal disease. A negative result cannot rule out systemic lupus erythematosus. Clinical correlation is required. Test Methodology: Multiplex flow immunoassay. Performed By: #### 1 988-5, 6768-6 #### [facility] CLIA [id number] [address] [place] [address] [place] TSH SerPl-aCncon 08-06-2024 TSH Qn 1.900 m[IU]/L Normal 0.270-4.200 [facility] Comment on above: Order Comment: Speci maureen Type: BLOOD SPECIMEN Ordering Facility: [facility] Address: [address] [place] [address], [place] [address] Result Comment: If t he patient is , TSH reference range varies by gestational period: First Trimester (weeks 9-12): 0.180-2.990 mIU/L Second Trimester: 0.110-3.980 mIU/L Third Trimester: 0.480-4.710 mIU/L Mahin Church et al. A Practical Approach for the Verifications and Determination of Site- and Trimester-Specific Reference Intervals for Thyroid Function tests in . Thyroid, 2019:29:3:412-420. Ronak E, et al. 2017 Guidelines of the [place] Thyroid Association for the Diagnosis and Management of Thyroid Disease during and the . Thyroid, 2017:27:3:315-389. Performed By: #### L [id number] #### [facility] CLIA [id number] [facility] [place] [address] [place] cCP IgG SerPl-aCncon 025 Cyclic citrullinated peptide IgG Qn <15 Normal <20 [facility] Comment on above: Order Comment: Speci men Type: BLOOD SPECIMEN Ordering Facility: [facility] Address: [address] [place] [address], [place] [id number] Performed By: #### 1 988-5, 6768-6 #### [facility] CLIA [id number] [address] [place], [place] [address] [address] OF [facility] Wound Cultureon 08-05-2024 WC LOWER ABDOMINAL/NON-HEAL ING SCAR #1, 2, 4 Possible skin contamination, further Identification and sensitivity will be performed only by physician's request. #3 If further studies are desired, please contact the Microbiology Laboratory within 48 hours. Wound Culture Coag Negative Staph Amount Growth Very Rare Presumptive Micrococcus spp. Presumptive Micrococcus spp. PPAU Amount Growth Very Rare Sphingomonas paucimobilis Sphingomonas paucimobilis: REACTION levoFLOXacin Islt KAN <=0.12 S Gram positive mick Pip+Tazo Islt KAN <=4 TMP SMX Islt KAN <=20 S Normal [facility] Comment on above: Performed By: #### M 100.3000, M1.1999 #### [facility] [address] [place], [address] Gram Stainon 07-31-2024 GS LOWER ABDOMINAL/NON-HEAL ING SCAR Gram Stain No organisms seen No Epithelial cells Normal [facility] Comment on above: Performed By: #### M 100.3000, M100.1999 #### [facility] [address] [place], [address] Gram stainOrdered By: David Nelson on 07-30-2024 Microscopic observation Gram stain Nom (Unsp spec) [facility] Routine wound cultureOrdered By: Mary Beth Nelson on 07-30-2024 Wound Culture Negative Abnormal [facility] Wound Culture Presumptive Micrococcus spp. Abnormal [facility] Wound Culture Sphingomonas paucimobilis Abnormal [facility] Wound Culture Positive Abnormal [facility] Thyroidon 10-14-2024 Thyroid [facility] [address] [place], [place] [id number] Thyroid MR#: [id number] Acct: [id number] Name: JAHAIRA VELASQUEZ Rep #: [id number] : [id number] F 33 From: Queenie fung MD PCP: Mary Beth Nelson DO Status: DEP CLI Study: Thyroid Date of Exam: 04/20/24 Exam# [id number] Ordering Dr: Mary Beth Nelson [facility] D O ADDENDUM by Queenie Gan MD on 07/28/24 at 2208 ADDENDUM [id number] Prominent 1.6 cm cervical lymph node lateral to the right thyroid lobe. Electronically Signed: Queenie Gan MD at 22:08 EST , 07/28/242207 Date cc: Mary Beth Nelson DO * Signed ADDENDUM by Queenie Gan MD on 07/28/24 at 2208 US/Thyroid IMPRESSION: undefined 07/28/242214 Date cc: Mary Beth Nelson DO * Signed [id number] INDICATION: SWELLING EXAMINATION: Ultrasound US Thyroid (eg thyroid, parathyroid, parotid) TECHNIQUE: Gilman scale and color doppler imaging was performed of the thyroid gland. COMPARISON: None. FINDINGS: RIGHT THYROID LOBE: Measures 5.2 x 1.6 x 1.7 cm. Homogeneous echotexture with normal vascularity. [No thyroid nodules are present. LEFT THYROID LOBE: Measures 5 x 1.3 x 1.5 cm. Homogeneous echotexture with normal vascularity. [No thyroid nodules are present. ISTHMUS: Measures 2 mm.. No thyroid nodules are present. US/Thyroid IMPRESSION: Negative thyroid ultrasound examination. Electronically Signed: Queenie Gan MD at 17:57 EDT , CC: Mary Beth Nelson DO Licensed Sales Producer: Signed Normal [facility] Carbamazepine (Tegretol)on 03-05-2024 CARBAMAZEPINE 10.8 ug/mL Normal 4.0-12.0 [facility] Comment on above: Performed By: #### L 3100.5500, L3410.0700 #### [facility] Donavon Chan[address]. [place], [place], [id number] Ova and parasitesOrdered By: Dr. Sanderson on 09-06-2022 Ova and parasites identified LM Nom (Unsp spec) [facility] Giardia lamblia ag stool EIA Ordered By: Dr. Sanderson on 08-31-2022 G. lamblia Ag IA Ql (Stl) Negative Negative [facility] Comment on above: Performed at: [address] [id number] Director: Anibal Scruggs PhD, Phone: [phone] EP PanelOrdered By: Dr. Cyn arreguin on 08-28-2022 Gastrointestinal pathogens panel OLIVIER+probe (Stl) [facility] Stool lactoferrin detection by immunoassayOrdered By: Dr. Sanderson on 08-28-2022 Lactoferrin IA Ql (Stl) [facility] Absolute lymphocyte countOrd ered By: Dr. Sanderson on 08-27-2022 Lymphocytes Auto (Unsp spec) [#/Vol] 1.36 10*3/uL 0.83-4.51 [facility] Basophil percentageOrdered B y: Dr. Sanderson on 08-27-2022 Basophils/100 WBC (Bld) 0.5 % 0-1 [facility] Bilirubin [Mass/Vol] 0.90 mg/dL 0.20-1.00 [facility] Comment on above: For patients on eltr ombopag therapy, use of Dimension Jber TBIL is not recommended. Chloride [Moles/Vol] 106 mmol/L 98-107 [facility] Eosinophils/100 WBC (Bld) 3.7 % 0-5 [facility] Glucose [Mass/Vol] 98 mg/dL 74-106 [facility] Neutrophils (Bld) [#/Vol] 4.3 10*3/uL 2.0-7.7 [facility] Neutrophils/100 WBC (Bld) 69.1 % 47-70 [facility] Potassium [Moles/Vol] 4.2 mmol/L 3.5-5.1 [facility] Protein [Mass/Vol] 7.6 g/dL 6.4-8.2 [facility] Sodium [Moles/Vol] 140 mmol/L 136-145 [facility] WBC (Bld) [#/Vol] 6.3 10*3/uL 4.4-11.0 [facility] Blood erythrocytes count (nu mber/volume)Ordered By: Dr. Sanderson on 08-27-2022 RBC (Bld) [#/Vol] 4.52 10*6/uL 4.2-5.4 [facility] Blood hemoglobin measurement (mass/volume)Ordered By: Dr. Sanderson on 08-27-2022 Hemoglobin (Bld) [Mass/Vol] 13.0 g/dL 12.0-15.0 [facility] Blood lymphocytes/100 leukoc ytesOrdered By: Dr. Sanderson on 08-27-2022 Lymphocytes/100 WBC (Bld) 21.8 % 19-41 [facility] Blood monocytes/100 leukocyt esOrdered By: Dr. Sanderson on 08-27-2022 Monocytes/100 WBC (Bld) 4.6 % 0-10 [facility] Blood platelet mean volumeOr dered By: Dr. Sanderson on 08-27-2022 Platelet mean volume (Bld) [Entitic vol] 11.7 fL 6.2-12.0 [facility] Determination of erythrocyte mean corpuscular volume (MCV)Ordered By: Dr. Sanderson on 08-27-2022 MCV (RBC) [Entitic vol] 91.4 fL 81-99 [facility] Erythrocyte sedimentation ra teOrdered By: Dr. Sanderson on 08-27-2022 ESR (Bld) [Velocity] 10 mm/h 0-30 [facility] Hematocrit Auto (Bld) [Volum e fraction]Ordered By: Dr. Sanderson on 08-27-2022 Hematocrit (Bld) [Volume fraction] 41.3 % 37-47 [facility] - Chemistry and C hemistry - challengeOrdered By: Dr. Sanderson on 08-27-2022 ALP [Catalytic activity/Vol] 152 U/L 45-117 [facility] ALT [Catalytic activity/Vol] 21 U/L 13-56 [facility] CO2 [Moles/Vol] 25.0 mmol/L 21.0-32.0 [facility] Globulin (S) [Mass/Vol] 3.8 g/dL 2.2-4.2 [facility] Urea nitrogen/Creatinine [Mass ratio] 13.2 mg/mg 10-20 [facility] - Hematology and Cell countsOrdered By: Dr. Sanderson on 08-27-2022 Erythrocyte distribution width (RBC) [Entitic vol] 42.5 fL 35.1-43.9 [facility] Erythrocyte distribution width (RBC) [Ratio] 12.9 % 11.6-14.6 [facility] Immature granulocytes/100 WBC (Bld) 0.300 % 0.0-0.9 [facility] Comment on above: IG% - Immature Granu locytes (promyelocytes, myelocytes and metamyelocytes) > 1% indicates that a LEFT SHIFT is Present. MCH (RBC) [Entitic mass] 28.8 pg 27.0-32.0 [facility] Nucleated RBC/100 WBC (Bld) [Ratio] 0 % 0-5 [facility] ([facility] [Mass/Vol]Or dered By: Dr. Sanderson on 08-27-2022 MCHC (RBC) [Mass/Vol] 31.5 g/dL 32-36 [facility] No Panel InformationOrdered By: Dr. Sanderson on 08-27-2022 Stool Pancreatic Elastase > 500 >200 [facility] Comment on above: Result Units: ug Araceli st./g Severe Pancreatic Insufficiency: <100 Moderate Pancreatic Insufficiency: 100 - 200 Normal: >200Performed at: [facility] [id number] Director: Gil White MD, Phone: [phone] Estimated GFR (MDRD) Amer 102 mL/min >60 [facility] Comment on above: GFR Calc Estimated GFR (MDRD) Non-Af Amer 84 mL/min >60 [facility] Comment on above: Non- GFR Calc Thyroid Stimulating Hormone (TSH) 1.58 uIU/mL 0.358-3.74 [facility] Platelets bldOrdered By: Dr. Sanderson on 08-27-2022 Platelets (Bld) [#/Vol] 226 10*3/uL 150-450 [facility] Serum or plasma albumin melinda urement (mass/volume)Ordered By: Dr. Sanderson on 08-27-2022 Albumin [Mass/Vol] 3.8 g/dL 3.2-5.0 [facility] Serum or plasma albumin/glob ulin mass ratioOrdered By: Dr. Sanderson on 08-27-2022 Albumin/Globulin [Mass ratio] 1.0 {ratio} 0.9-2.4 [facility] Serum or plasma calcium melinda urement (mass/volume)Ordered By: Dr. Sanderson on 08-27-2022 Calcium [Mass/Vol] 9.3 mg/dL 8.5-10.1 [facility] Serum or plasma creatinine m easurement (mass/volume)Ordered By: Dr. Sanderson on 08-27-2022 Creatinine [Mass/Vol] 0.83 mg/dL 0.55-1.02 [facility] Comment on above: The validity of the calculated GFR & GFRAA in patients over 70 years has not been determined. Clinical correlation is essential. Serum or plasma urea nitroge n measurement (mass/volume)Ordered By: Dr. Sanderson on 08-27-2022 Urea nitrogen [Mass/Vol] 11 mg/dL 7-18 [facility] Thin prep Papanicolaou smear with manual screeningOrdered By: Dr. Sanderson on 08-27-2022 Thin prep Papanicolaou smear with manual screening 21 U/L 15-37 [facility] Thin prep Papanicolaou smear with manual screening 9 5-15 [facility] Gastrointestinal pathogens p milena OLIVIER+probe (Stl)Ordered By: Dr. Lee on 07-27-2022 Enteric Bacteriology Campylobacter species [facility] Clostridium difficile detect ion by polymerase chain reactionOrdered By: Dr. Lee on 07-26-2022 C. difficile DNA OLIVIER+probe Ql (Unsp spec) [facility] MRI LUMBAR SPINE W WO CONTRA STon 03-28-2020 Patient Name: JAHAIRA VELASQUEZ ---MRI--- Exam Date/Time 03/28/2020 15:25:44 EDT Exam MRI Spine Lumbar w/ + w/o Contrast Ordering Physician MD TALHA, SLICK Mahoney Accession Number [id number] CPT4 Codes 62335 () Reason For Exam radiculopathy Report MRI [...] WENDELL Transcribed Date and Time: 03/28/2020 9:47 [place], [place] Francisco J, [facility] Incoming Radiology Results From [facility] - 03/28/2020 9:48 PM EDT Patient Name: JAHAIRA VELASQUEZ ---MRI--- Exam Date/Time 03/28/2020 15:25:44 EDT Exam MRI Spine Lumbar w/ + w/o Contrast Ordering Physician MD TALHA, SLICK Mahoney Accession Number [id number] CPT4 Codes 22445 () Reason For Exam radiculopathy Report MRI [...] WENDELL Transcribed Date and Time: 03/28/2020 9:47 [place], [place] MRI Spine Lumbar w/ + w/o Co ntraston 03-28-2020 MRI Spine Lumbar w/ + w/o Contrast Patient Name: JAHAIRA VELASQUEZ MRI Exam Date/Time 03/28/2020 15:25:44 EDT Exam MRI Spine Lumbar w/ + w/o Contrast Ordering Physician MD MUNOZ NORMAN M. Accession Number [id number] CPT4 Codes 97075 () Reason For Exam radiculopathy Report MRI [...] central spinal canal compromise. Report Dictated on Workstation: [id number] Final Dictating Physician: MD GREENBERG WENDELL Signed Date and Time: 03/28/2020 9:46 pm Signed by: MD GREENBERG WENDELL Transcribed Date and Time: 03/28/2020 9:47 Normal [facility] Vital Signs Date Time Vital Sign Value Performing Clinician Facility 03-11-2025 19:06-0400 Body temperature 98.6 [degF] Mary Beth Leslie DO Work Phone: 2(735)611-868770 [address] 03-11-2025 19:06-0400 Diastolic blood pressure 83 mm[Hg] Mary Beth Leslie DO Work Phone: 1(829)746-687996 [place] [address] 03-11-2025 19:06-0400 Heart rate 93 /min Mary Beth Leslie DO Work Phone: 2(527)006-854521 [place] [address] 03-11-2025 19:06-0400 Respiratory rate 16 /min Mary Beth Leslie DO Work Phone: 0(320)346-783696 [place] [address] 03-11-2025 19:06-0400 SaO2% (BldA) [Mass fraction] 100 % Mary Beth Leslie DO Work Phone: 7(796)890-429496 [place] [address] 03-11-2025 19:06-0400 Systolic blood pressure 123 mm[Hg] Mary Beth Leslie DO Work Phone: 3(626)406-408796 [place] [address] 03-11-2025 18:16-0400 Body height 162.56 cm Mary Beth Leslie DO Work Phone: 0(745)931-544596 [place] [address] 03-11-2025 18:16-0400 Body mass index (BMI) [Ratio] 28.6 kg/m2 Mary Beth Leslie DO Work Phone: 8(481)403-605696 [place] [address] 03-11-2025 18:16-0400 Body weight 75.74 kg Mary Beth Leslie DO Work Phone: 5(526)974-276196 [place] [address] 09-05-2024 21:37-0500 Body temperature 98.6 [degF] Mary Beth Leslie DO Work Phone: 5(109)317-636096 [place] [address] 09-05-2024 21:37-0500 Diastolic blood pressure 88 mm[Hg] Mary Beth Leslie DO Work Phone: 5(825)837-913796 [place] [address] 09-05-2024 21:37-0500 Heart rate 104 /min Mary Beth Leslie DO Work Phone: 4(543)029-371496 [place] [address] 09-05-2024 21:37-0500 Respiratory rate 18 /min Mary Beth Leslie DO Work Phone: 7(008)736-977796 [place] [address] 09-05-2024 21:37-0500 SaO2% (BldA) [Mass fraction] 98 % Mary Beth Leslie DO Work Phone: 9(571)806-286396 [place] [address] 09-05-2024 21:37-0500 Systolic blood pressure 118 mm[Hg] Mary Beth Leslie DO Work Phone: 8(990)199-060596 [place] [address] 09-05-2024 19:51-0500 Body height 162.56 cm Mary Beth Leslie DO Work Phone: 9(322)417-806496 [place] [address] 09-05-2024 19:51-0500 Body mass index (BMI) [Ratio] 33.7 kg/m2 Mary Beth Leslie DO Work Phone: 4(821)533-656696 [place] [address] 09-05-2024 19:51-0500 Body weight 89.35 kg Mary Beth Leslie DO Work Phone: 1(914)082-624696 [place] [address] 05-28-2024 08:40-0500 Body height 162.6 cm Slick Munoz MD Work Phone: [facility] 05-28-2024 08:40-0500 Body mass index (BMI) [Ratio] 35.96 kg/m2 Slick Munoz MD Work Phone: [facility] 05-28-2024 08:40-0500 Body weight 95.03 kg Slick Munoz MD Work Phone: [facility] 05-28-2024 08:40-0500 Diastolic blood pressure 82 mm[Hg] Slick Munoz MD Work Phone: [facility] 05-28-2024 08:40-0500 Heart rate 89 /min Slick Munoz MD Work Phone: [facility] 05-28-2024 08:40-0500 SaO2% (BldA) [Mass fraction] 97 % Slick Munoz MD Work Phone: [facility] 05-28-2024 08:40-0500 Systolic blood pressure 128 mm[Hg] Slick Munoz MD Work Phone: [facility] 03-04-2024 12:58-0400 Body height 162.6 cm Slick Munoz MD Work Phone: [facility] 03-04-2024 12:58-0400 Body mass index (BMI) [Ratio] 35.53 kg/m2 Slick Munoz MD Work Phone: [facility] 03-04-2024 12:58-0400 Body weight 93.89 kg Slick Munoz MD Work Phone: [facility] 03-04-2024 12:58-0400 Diastolic blood pressure 80 mm[Hg] Slick Munoz MD Work Phone: [facility] 03-04-2024 12:58-0400 Heart rate 80 /min Slick Munoz MD Work Phone: [facility] 03-04-2024 12:58-0400 SaO2% (BldA) [Mass fraction] 99 % Slick Munoz MD Work Phone: [facility] 03-04-2024 12:58-0400 Systolic blood pressure 124 mm[Hg] Slick Munoz MD Work Phone: [facility] 04-30-2022 15:07-0400 Body height 162.[address] Ishaan Sanderson Work Phone: [facility] Encounters Encounter Date Encounter Type Care Provider Facility Start: 03-11-2025 Admission to [facility] Dr. Hai Gonzales MD -[employer] Work Phone: Start: 03-11-2025 ambulatory Mary Beth Nettlesnger DO Work Phone: -[employer] Start: 03-11-2025 Non-patient / Non-visit Dr. Hai Gonzales MD -[facility] Start: 01-22-2025 ambulatory Mary Beth Leslie [facility] Faci lity:[facility] Start: 01-22-2025 End: 01-22-2025 ambulatory Mary Beth Leslie Work Phone: -[facility] Start: 01-22-2025 End: 01-22-2025 Patient encounter procedure Mary Beth Nettlesnger -[facility] Work Phone: Start: 01-22-2025 End: 01-22-2025 ambulatory Mary Beth Leslie [facility] Facility:[facility] Start: 12-14-2024 End: 12-14-2024 Transcribe Orders Nik Nelson DO Work Phone: Referring Physician Comment on above: Autoimmune disorder (HCC) (Primary Dx); Skin infection; Dental infection Start: 10-29-2024 End: 10-29-2024 Patient encounter procedure Celi Cardenas RI -[facility] Work Phone: Start: 10-29-2024 End: 10-29-2024 ambulatory CELI CARDENAS Facility:[facility] Start: 10-29-2024 End: 10-29-2024 ambulatory Celi Cardenas Facility:[facility] Start: 10-22-2024 End: 10-22-2024 E-mail encounter from caregiver Celi Cottoser PA-C Work Phone: Rheumatology Start: 10-22-2024 End: 10-22-2024 Patient encounter procedure Celi Cardenas PA-C Work Phone: Rheumatology Comment on above: Upcoming Rheumatolog y Appointment Start: 10-05-2024 End: 10-05-2024 ambulatory Mary Beth Leslie DO Work Phone: [facility] Work Phone: Start: 10-05-2024 End: 10-05-2024 Patient encounter procedure Mary Beth Leslie DO -Cat Scan, [facility] Work Phone: Start: 10-05-2024 End: 10-05-2024 ambulatory Mary Beth Pardoer [facility] Facility:[facility] Start: 09-05-2024 End: 09-05-2024 Emergency department patient visit Dr. Louis Kelley DO -Emergency Department Work Phone: Start: 08-11-2024 End: 08-11-2024 Patient encounter procedure Mary Beth Pardoer DO -Laboratory, [place] Start: 08-11-2024 End: 08-11-2024 ambulatory Mary Beth Pardoer [facility] Facility:[facility] Start: 08-06-2024 End: 08-06-2024 Patient encounter procedure Mary Beth Leslie DO -Laboratory, Specimen Work Phone: Start: 08-06-2024 End: 08-06-2024 ambulatory Mary Beth Leslie [facility] Facility:[facility] Start: 07-30-2024 End: 07-30-2024 Patient encounter procedure Mary Beth Leslie DO -Laboratory, Specimen Work Phone: Start: 07-30-2024 End: 07-30-2024 ambulatory Mary Beth Leslie C Facility:[facility] Start: 07-28-2024 End: 07-28-2024 Patient encounter procedure Mary Beth Leslie DO -Laboratory Work Phone: Start: 07-28-2024 End: 07-28-2024 ambulatory Mary Beth Leslie [facility] Facility:[facility] Start: 05-28-2024 End: 05-28-2024 Bamboo flowsheet Slick Munoz MD Work Phone: [facility] Start: 05-28-2024 End: 05-28-2024 Bamboo flowsheet Slick Munoz MD Work Phone: [facility] Start: 05-28-2024 End: 05-28-2024 Office outpatient visit 25 minutes Slick Munoz MD Work Phone: [facility] Comment on above: Trigeminal neuralgia (CMS/HCC) (Primary Dx); Stress Start: 05-28-2024 End: 05-28-2024 ambulatory SLICK MUNOZ Not Available Start: 04-20-2024 End: 04-20-2024 ambulatory [facility] Facility:[facility] Start: 03-04-2024 End: 03-04-2024 Bamboo flowspeng Munoz MD Work Phone: [facility] Start: 03-04-2024 End: 03-04-2024 Bamboo flowsheet Slick Munoz MD Work Phone: [facility] Start: 03-04-2024 End: 03-04-2024 Office outpatient visit 25 minutes Slick Munoz MD Work Phone: [facility] Comment on above: Trigeminal neuralgia (CMS/HCC) (Primary Dx); Polyneuropathy Start: 03-04-2024 End: 03-05-2024 ambulatory SLICK MUNOZ Not Available Start: 01-16-2024 End: 01-16-2024 ambulatory SLICK MUNOZ Not Available Start: 12-05-2023 End: 12-05-2023 ambulatory SLICK MUNOZ Not Available Start: 11-04-2023 End: 11-04-2023 ambulatory SLICK MUNOZ Not Available Start: 08-31-2022 End: 08-31-[address] Ishaan Sanderson Work Phone: [facility] Work Phone: Start: 08-31-2022 End: 08-31-[address] Ishaan Sanderson Work Phone: [facility] Start: 08-28-2022 End: 08-28-[address] Ishaan Sanderson Work Phone: [facility] Work Phone: Start: 08-28-2022 End: 08-28-[address] Ishaan Sanderson Work Phone: [facility] Start: 08-27-2022 End: 08-27-[address] Ishaan Sanderson Work Phone: [facility] Work Phone: Start: 08-27-2022 End: 08-27-[address] Ishaan Sanderson Work Phone: [facility] Start: 07-26-2022 End: 07-26-[address] Ishaan Sanderson Work Phone: [facility] Work Phone: Start: 07-26-2022 End: 07-26-[address] Ishaan Sanderson Work Phone: [facility]-Laboratory, Specimen Start: 06-11-2022 End: 06-11-[address] Ishaan Sanderson Work Phone: [facility] Start: 06-07-2022 End: 06-07-[address] Ishaan Sanderson Work Phone: [facility] Work Phone: Start: 06-07-2022 End: 06-07-[address] Ishaan Sanderson Work Phone: [facility] Start: 05-17-2022 End: 05-17-[address] Ishaan Sanderson Work Phone: [facility] Start: 04-19-2022 End: 04-19-[address] Ishaan Sanderson Work Phone: [facility] Start: 04-05-2022 End: 04-05-2022 ambulatory [facility] Work Phone: Start: 04-05-2022 End: 04-05-2022 Patient encounter procedure [facility]-MRI - [facility] Start: 03-29-2022 End: 03-29-2022 ambulatory [facility] Work Phone: Start: 03-29-2022 End: 03-29-2022 Patient encounter procedure [facility]-Ultrasound, [facility] Start: 03-28-2020 End: 03-28-2020 Subsequent hospital visit by physician Slick Munoz Work Phone: [facility] Comment on above: Arrived Procedures Date Procedure Procedure Detail Performing Clinician Start: 03-11-2025 Computed tomography of abdomen and pelvis with intravenous contrast Mary Beth Nelson KPA Work Phone: Start: 03-11-2025 Urnls dip stick/tabl et reagent auto microscopy Mary Beth Nelson DO Work Phone: Start: 03-11-2025 Estimated creatinine clearance Mary Beth Nelson DO Work Phone: Start: 01-22-2025 MRI of pelvis Mary Beth Rodriguez luís DO Work Phone: Start: 10-29-2024 Plain X-ray of bilat eral sacroiliac joints Mary Beth Nelson DO Work Phone: Start: 10-05-2024 CT of facial bones w ith contrast Mary Beth Nelson DO Work Phone: Start: 07-30-2024 Anaerobic microbial culture Mary Beth Nelson DO Work Phone: Start: 07-30-2024 Gram stain microscopy K jennifer Leslie DO Work Phone: Start: 07-30-2024 Microbial culture, routine Mary Beth Nelson DO Work Phone: Start: 07-30-2024 Wound microscopy, cu lture and sensitivities Mary Beth Nelson DO Work Phone: Start: 08-28-2022 Diagnostic radiograp hy of abdomen, decubitus and erect Dr. Ishaan Sanderson Work Phone: Start: 06-07-2022 MRI of brain with contrast Dr. Ishaan Sanderson Work Phone: Start: 04-19-2022 X-ray of lumbar spin e, two or three views Dr. Ishaan Sanderson Work Phone: Start: 04-05-2022 MRI of lumbar spine Start: 03-29-2022 Ultrasonography of abdomen Start: 03-28-2020 Mri spinal canal lum bar w/o & w/contr matrl Slick Munoz Work Phone: Clostridium difficil e detection Dr. Ishaan Sanderson Work Phone: Enteric Bacteriology Dr. Jorge Sanderson Work Phone: Enteric Bacteriology Dr. Jorge Sanderson Work Phone: Lactoferrin measurement Dr. Ishaan Sanderson Work Phone: Ova OR parasites identification Dr. Ishaan Sanderson Work Phone: Plan of Treatment Date Care Activity Detail Author Start: 04-20-2031 Urine microalbumin profile DTaP,Tdap,Td Vaccine (4 - Td or Tdap) [facility] Start: 02-09-2029 Urine microalbumin profile DTaP,Tdap,Td Vaccine (3 - Td or Tdap) [facility] Start: 03-11-2025 Extended right hemicolectomy Laparoscopic, Gonzalo Colectomy (Right) [facility] Start: 03-11-2025 Hospital admission, emergency, from emergency room, medical nature [facility] Start: 03-08-2025 Influenza vaccination Influenz a Vaccine (Season Ended) [facility] Start: 10-29-2024 End: 10-29-2024 Patient encounter procedure 10/29/2024 9:00 AM EDT Office Visit Rheumatology [address] [place] [address] Celi Cardenas PA-C [address] [place] [address] ra / lupus Rheumatology Comment on above: ra / lupus Start: 09-05-2024 [facility] Start: 05-28-2024 End: 05-28-2024 Patient encounter procedure 05/28/2024 8:40 AM EST Office Visit [facility] [address] [phone] Slick Munoz MD [address] [facility] [place] [place] [address] Arrived [facility] Comment on above: [facility] Start: 03-08-2024 Covid-19 Vaccine ( season) Covid-19 Vaccine ( season) [facility] Start: 03-08-2024 Covid-19 Vaccine ( season) Covid-19 Vaccine ( season) [facility] Start: 03-08-2024 Influenza vaccination Influenza Vacc ine (#1) [facility] Start: 03-04-2024 End: 03-04-2025 Carbamazepine level, total Carbamazepine level, total Lab Routine Trigeminal neuralgia (CMS/HCC) Polyneuropathy Expected: 03/04/2024 (Approximate), Expires: 03/04/2025 [facility] Work Phone: Comment on above: Expected: 03/04/2024 (Approximate), Expires: 03/04/2025 Start: 03-04-2024 End: 03-04-2024 Patient encounter procedure 03/04/2024 1:00 PM EDT Office Visit [facility] [address] [facility] [place] [phone] [place] [address] [place], [place] [address], [place] [address] Arrived [facility] Comment on above: Arrived Start: 01-10-2023 Screening for malign ant neoplasm of cervix Cervical Cancer Screening [facility] Start: 2020 Screening for malign ant neoplasm of cervix [facility] Start: 03-08-2020 Influenza vaccination Flu vaccine (# 1) [place], [place] Start: 2011 Screening for malign ant neoplasm of cervix [facility] Start: 2009 DTaP/Tdap/Td vaccine (1 - Tdap) DTaP/Tdap/Td vaccine (1 - Tdap) [place], [place] Start: 2009 Hepatitis B Vaccine (1 of 3 - 19+ 3-dose series) Hepatitis B Vaccine (1 of 3 - 19+ 3-dose series) [facility] Start: 2008 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 Developer vera Disease Visit Annual PCP Team Chronic Disease Visit [facility] Start: 2008 Anxiety Screening Anxiety Screening [facility] Start: 2008 Depression Screening Depression Scre ening [facility] Start: 2008 Hepatitis C screening Hepatitis C Sc reening [facility] Start: 2005 HIV screening HIV screen [place], [place] Start: 1991 Varicella vaccine (1 of 2 - 2-dose childhood series) [place], [place] Ova and Parasites Ova and Parasites [facility] Ova and parasites identified in Unspecified specimen by Light microscopy [facility] Patient Education ED General All ergic Reactions ED Hives (Adult) [facility] Work Phone: Patient referral [facility] Work Phone: [facility] Immunizations Immunization Date Immunization Notes Care Provider Fa cility 06-14-2021 Influenza virus vaccine [facility] 06-14-2021 influenza virus vaccine, unspecified formulation Slick Munoz MD Work Phone: [facility] 04-20-2021 tetanus toxoid, redu luis diphtheria toxoid, and acellular pertussis vaccine, adsorbed [facility] 07-13-2020 Covid (Moderna) [facility] 03-23-2019 Influenza virus vaccine [facility] 03-23-2019 influenza, injectabl e, quadrivalent, contains preservative Celi Luis PA-C Work Phone: [facility] 03-23-2019 influenza virus vaccine, unspecified formulation Celi Luis PA-C Work Phone: [facility] 02-09-2019 RHO(D) immune globul in- IV or IM Celi Luis PA-C Work Phone: [facility] 02-09-2019 tetanus toxoid, redu luis diphtheria toxoid, and acellular pertussis vaccine, adsorbed [facility] 04-24-2017 RHO(D) immune globul in- IV or IM Celi Luis PA-C Work Phone: [facility] 04-24-2017 tetanus toxoid, redu luis diphtheria toxoid, and acellular pertussis vaccine, adsorbed Celi Luis PA-C Work Phone: [facility] 01-04-2017 RHO(D) immune globul in- IV or IM Celi Luis PA-C Work Phone: [facility] Payers Date Payer Category Payer Unknown [id number] Self-pay [id number] Unknown [id number] Unknown [id number] Unknown [id number] 2.16.8 [id number] Unknown [id number] 2.16.8 [id number] Unknown [id number] 2.16.8 [id number] Unknown [id number] 2.16.8 [id number] Unknown [id number] 2.16.8 [id number] Unknown [id number] 2.16.8 [id number] Unknown [id number] 2.16.8 [id number] Unknown [id number] 2.16.8 [id number] Unknown [id number] 2.16.8 [id number] Unknown [id number] 2.16.8 [id number] Unknown [id number] 2.16.8 [id number] Social History Date Type Detail Facility Tobacco smoking stat [facility] Unknown if ever smoked [place], [place] Start: 1990 Sex Assigned At Not on file M [place], [place] Start: 1990 Sex Assigned At Female [facility] Start: 08-24-2021 End: 06-11-2022 Tobacco smoking status [facility] Unknown if ever smoked [facility] Start: 04-27-2019 None [facility] Start: 11-04-2023 End: 03-11-2025 Tobacco smoking status [facility] Never smoked tobacco [facility] Start: 06-19-2017 End: 11-04-2023 Tobacco use and exposure Smokeless tobacco non-user [facility] Start: 01-16-2024 End: 03-04-2024 Alcoholic beverage intake Lifetime non-drinker (finding) [facility] Start: 03-04-2024 End: 10-29-2024 History of Social function [facility] Start: 03-04-2024 End: 10-29-2024 Tobacco use panel [facility] Start: 10-07-2024 Sex Female (finding) [facility] Start: 01-11-2020 End: 10-29-2024 Alcoholic beverage intake Current non-drinker of alcohol (finding) [facility] Adult Depression Screening Assessment 0 [facility] Functional Status Date Assessment Result Facility 12-08-2014 Are you deaf, or do you have serious difficulty hearing No 12/08/2014 1:32 PM EDT Osiris Hayes MA No [facility] 12-08-2014 Are you blind, or do you have serious difficulty seeing, even when wearing glasses No 12/08/2014 1:32 PM EDT Osiris Hayes MA No [facility] 12-08-2014 Do you have serious difficulty walking or climbing stairs No 12/08/2014 1:32 PM EDT Osiris Hayes MA No [facility] 12-08-2014 Do you have difficul ty dressing or bathing No 12/08/2014 1:32 PM EDT Osiris Hayes MA No [facility] 12-08-2014 Because of a physica l, mental, or emotional condition, do you have difficulty doing errands alone such as visiting a physician's office or shopping No 12/08/2014 1:32 PM EDT Osiris Hayes MA No [facility] Mental Status Date Assessment Result Facility 12-08-2014 Because of a physica l, mental, or emotional condition, do you have serious difficulty concentrating, remembering, or making decisions No 12/08/2014 1:32 PM EDT Osiris Hayes MA No [facility] Clinical Notes 03-04-2024 to 03-11-2025 Slick Munoz MD - 05/28/2024 8:40 AM Fan Munoz MD - 03/04/2024 1:00 PM EDT Note Date & Type Note Facility 03-11-2025 Consult note [facility] 03-11-2025 History and physi jean marie note [facility] 03-11-2025 Radiology Diagnostic study note [facility] Imaging Services [address] [place], [place] [id number] Abdomen/Pelvis W IV Cont ONLY MR#: [id number] Acct: [id number] Name: JAHAIRA VELASQUEZ Rep #: [id number] : 1990 F 34 From: Chrissy Rhodes MD PCP: Mary Beth Nelson DO Status: REG ER Study:Abdomen/Pelvis W IV Cont ONLY Date of E xam: 03/11/25 Exam# [id number] Ordering Dr: Chela Barnes DO PROCEDURE: ABDOMEN/PELVIS W IV CONT ONLY 03/11/2025 REASON FOR EXAM: RLQ ABD PAIN TECHNIQUE: Procedure Code: [id number] Modality: CT Procedure: ABDOMEN/PELVIS W IV CONT ONLY Coronal and Sagittal reconstruction series were provided. CONTRAST: Please see CT VOLUME: Please see CT mL One or more dose reduction techniques were used (e.g., Automated exposure control, adjustment of the mA and/or kV according to patient size, use of iterative reconstruction technique. RADIATION DOSE SUMMARY: CTDlvol: 17.23 mGy DLP: 926.46 mGycm COMPARISON: None FINDINGS: Lung bases: No acute infiltrate or effusion at the visualized lung bases. Liver: Hepatic length is 16 cm. 2.5 cm hypoenhancing region noted anteriorly within the liver along the falciform ligament, most likely focal fatty infiltration. Subcentimeter sized hypodense hepatic lesions noted within the posterior segmentof the right lobe and adjacent to the gallbladder fossa, too small to further characterize but possibly cysts. Clinical correlation with risk factors. If there is high risk or a known history of malignancy, consider nonemergent MRI with contrast. Gallbladder/biliary: The gallbladder appears slightly thick-walled, however this may be artifact due to insufficient distention. No calcified gallstones or pericholecystic fluid. No biliary dilation. Pancreas: No pancreatic inflammation. No pancreatic ductal dilation. Spleen: The spleen is not enlarged. A splenule is noted. Adrenals: The adrenal glands are within normal limits. Kidneys/ureters: The kidneys enhance symmetrically without hydronephrosis. No collecting system calculi. No imaging evidence of pyelonephritis. Gastrointestinal: No hiatal hernia. The stomach is moderately distended with ingested material. No perigastric inflammation. Nonspecific fluid-filled loops of small bowel. No significant asymmetric small bowel dilation to suggest a complete obstruction. No focal mesenteric inflammation. There is rotation of ileocolic mesentery into the left upper quadrant due to partial cecal volvulus. The cecum is located within the left upper quadrant and is focally distended with fecal material and gas up to 8.5 cm in diameter consistent with partial volvulus. No cecal wall thickening or pericecal inflammation to suggest a complete volvulus. Minimal edema is seen at the ileocolic mesentery. Scattered fecal material and gas within portions of the colon. No evidence of acute diverticulitis. Appendix: The appendix is not visualized in the left upper quadrant, however no secondary inflammation is seen. Peritoneal/retroperitoneal: No free intraperitoneal air. There is no free fluid. Vascular: No abdominal aortic aneurysm, dissection or retroperitoneal hemorrhage. Lymph nodes: No pathologic enlarged lymphadenopathy by size criteria. Urinary bladder: No calculi or gas within the urinary bladder. No bladder wall thickening or perivesical stranding. Reproductive: Retroverted uterus measuring 9.4 cm in length. The endometrial complex is not well assessed by this technique. Slight prominence of the ovaries may be due to physiologic changes. Thick-walled irregular 17 mm cystic lesion posteriorly within the right ovary is consistent with a corpus luteum. If there are pelvic symptoms consider ultrasound for more detailed evaluation. Soft tissues: No body wall hematoma. Small fat containing umbilical hernia. Subcutaneous bubbles of gas within the anterior right abdominal wall likely fromsubcutaneous injection. Osseous: Mild degenerative change at the lower lumbar spine. Degenerative changes of the sacroiliac joints and pubic symphysis noted. No acute osseous injury. 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 Gastrointestinal findings as discussed above. There is no free air or free fluid. - Other incidental and nonemergent findings discussed above. [place] Alert: The critical information above was relayed directly by me by telephone to Jelly Barnes on 03/11/2025 at 4:33 pm with readback verification. Reading Location: [id number] CC: Dr. Jelly Barnes DO; Mary Beth Nelson DO ~ Licensed Sales Producer: Signed [facility] 10-29-2024 Note HNO ID: [id number] Author: CELI CARDENAS PA-C Service: ? Author Type: Physician Machine [place] Type: Progress Notes Filed: 10/29/2024 13:05 Note Text: Rheumatology CONSULTATION Date of Service: 10/29/2024 Patient: Jahaira Velasquez Medical Record: [id number] Primary Care Physician: Queenie Sanderson MD Last Rheumatology visit: None at [facility] Referring Provider: Nik Nelson [address] [facility] [address] Jahaira Velasquez is here today at request of Dr. Nelson specifically for consultation of my opinion in regards to the chief complaint listed below. Correspondence will be shared today via the [facility] electronic health record or through regular mail, where applicable. Recording using [employer] software for draft documentation of the visit was discussed with the patient/authorized retail field representative; all questions welcomed and answered. Patient/authorized retail field representative agreed to proceed History of Present [...] stomach Mid abdomen Description Stabbing;Sharp Aching Aching Aching;Radiating;Sharp;Shooting;Stabbing; Tenderness Sharp;Throbbing;Shooting;Aching Duration (#) 9 1 10 2 2 Duration (Timeframe) Hours Days Days Years Years Frequency Continuous Continuous Intermittent Continuous Continuous Intervention -- Other: See comment Medication Medication;Cold;Distractions;Education;He at;Imagery;Massage Patient-Entered Data PROMIS Assessments 10/22/2024 PROMIS Global Health - (T-Scores - the mean of general populat (more content not included)... [facility] 10-05-2024 Radiology Diagnostic study note [facility] Imaging Services [address] [place] [address] Sinus/Facial Bone WITH Contras MR#: [id number] Acct: [id number] Name: JAHAIRA VELASQUEZ Rep #: [id number] : 1990 F 34 From: Pet justus Peterson DO PCP: Mary Beth Nelson DO Status: REG CLI Study:Sinus/Facial Bone WITH Contras Date of Exam: 10/05/24 Exam# [id number] Ordering Dr: Latosha Nelson [facility] DO ADDENDUM by Dr. Forest Peterson DO on 10/05/24 at 1545 In the right mandible, there is a defect in the mandible where there was probably an impacted molar at sometime in the past. There is no evidence of lytic or destructive process associated with this defectthat might raise suspicion for osteomyelitis. Reading Location: [facility] 10/05/24 1546 Date cc: Mary Beth Nelson DO ~* Signed PROCEDURE: SINUS/FACIAL BONE WITH CONTRAS REASON FOR EXAM: OTHER SPECIFIED DISORDERS OF TEETH AND SUPPORTING STRUCTURES TECHNIQUE: CT of the paranasal sinuses with contrast. Coronal and Sagittal reconstruction series were provided. CONTRAST: Isovue 370 VOLUME: 100mL IV One or more dose reduction techniques were used (e.g., Automated exposure control, adjustment of the mA and/or kV according to patient size, use of iterative reconstruction technique). RADIATION DOSE SUMMARY: CTDlvol: 29.38 mGy DLP: 760.49 mGycm COMPARISON: None. FINDINGS: Frontal: Unremarkable Ethmoid: Scattered mild mucosal thickening and opacification Sphenoid: Unremarkable Maxillary: Septated right maxillary sinus with some small mucous retention cyst in the base. No in the base symphysis occurs there is an impacted maxillary wisdom tooth. Turbinates: Unremarkable Nasal Septum: Midline Mastoids/Middle Ears: Clear CT/Sinus/Facial Bone WITH Contras IMPRESSION: Impacted right maxillary wisdom tooth with a root extending into a septum of themaxillary sinus Reading Location[facility] CC: Mary Beth Nelson DO ~ Licensed Sales Producer: Signed [facility] 05-28-2024 History of Present illness Narrative Formatting of this note is different fro m the original. Images from the original note were not included. CHIEF COMPLAINT: Jahaira Velasquez is a 33 y.o. female here today for Chief Complaint Patient presents with Trigeminal Neuralgia HISTORY OF PRESENT ILLNESS: History of Present Illness The patient presents for followup evaluation of trigeminal neuralgia. She continues to experience severe pain, with no noticeable improvement. She saw an orofacial pain specialist, who diagnosed her with posttraumatic trigeminal neuralgia, her condition remains unchanged. She is currently on a regimen of Tegretol 800 mg, taken in divided doses, but reports no relief from the medication. Her pain, which had previously reduced to 3 to 5 hours per day, has now increased to 6 to 8 hours daily. She experienced a particularly severe episode yesterday, with continuous pain lasting for 3 hours. She has not increased her medicine since the last visit about 3 months ago. She also reports worsening tremors, which have become so severe that they interfere with her ability to drive and perform simple tasks such as opening doors. She initially denies stress however then admits to stress related to parenting. Current Outpatient Medications on File Prior to Visit Medication Sig Dispense Refill albuterol HFA 90 mcg/act inhaler Inhale 2 puffs every 4 (four) hours if needed for wheezing carBAMazepine (TEGretol) 200 MG tablet 2 TABLETS BY MOUTH TWICE DAILY 120 tablet 0 No current facility-administered medications on file prior to visit. Past Medical History: Diagnosis Date Numbness 01/10/2023 Past Surgical History: Procedure Laterality Date FOOT SURGERY Bilateral 2013 FOOT SURGERY Right 2022 FOOT SURGERY 2015 SHOULDER SURGERY Right 2016 No family history on file. Social History Tobacco Use Smoking status: Never Smokeless tobacco: Never Substance Use Topics Alcohol use: Never ALLERGIES: Patient has no known allergies. REVIEW OF SYSTEMS: General: Appetite change: denies. Chills: denies. Fever: denies. Allergy/Immunology: Unusual rection to medications, food, animals or insects reaction: denies. Ophthalmologic: Visual acuity change: denies. ENT: Decreased hearing: denies. Endocrine: Weight loss: denies. Respiratory: Cough: denies. Wheezing: denies. Cardiovascular: Chest pain: denies. Palpitations: denies. Gastrointestinal: Abdominal pain: denies. Difficulty swallowing: denies Hematology: Bleeding problems: denies. Genitourinary: Painful urination: denies. Musculoskeletal: Joint pain: denies. Joint edema: denies. Skin: Rash: denies. Neurologic: Ataxia: denies, Tremor: denies. Psychiatric Anxiety: denies. Depression: denies. Insomnia: denies. Suicidal thoughts: denies. Also see HPI for elements of ROS documented therein and for details of positive findings, which shall supersede the foregoing. OBJECTIVE: Objective Vitals: 05/28/24 0840 BP: 128/82 Pulse: 89 SpO2: 97% Weight: 209 lb 8 oz Height: 5' 4 Body mass index is 35.96 kg/m . No orders to display No visits with results within 2 Month(s) from this visit. Latest known visit with results is: No results found for any previous visit. Results Imaging MRI was normal. Examination: General Exam: pleasant, well nourished, well developed, in no acute distress Head: normocephalic, atraumatic Eyes: extraocular movement intact (EOMI), pupils equal, round, reactive to light, upper eyelids normal , lower eyelids normal Ears: no obvious hearing deficit Neurologic: AAOx3, memory intact, fund of knowledge appropriate fluent language, Normal stance, no truncal ataxia Normal gait; patient able to tip-toe, heel-walk Psych: pleasant, cooperative, good eye contact, speech clear, judgement and insight good ASSESSMENT/PLAN: Assessment & Plan 1. Trigeminal Neuralgia. Her MRI results were normal. The current dosage of Tegretol (800 mg) appears to be insufficient for her condition. She is seeing an oral surgeon who has other suggestions. This is clearly confounded by stressors, and we have not been able to aggressively adjust her tegretol. I suggested she choose a single provider to manage her meds, as well as add an ssri for her stress which is a confounder. If she chooses to increase cbz, suggest 400/600 for one week, then continue increae. Otherwise she can followup with us on an as needed basis. 2. Stress: as above documented in this encounter [facility] 03-04-2024 History of Present illness Narrative Formatting of this note is different fro m the original. CHIEF COMPLAINT: Chief Complaint Patient presents with Med Management HISTORY OF PRESENT ILLNESS: Notes hands shaking and feet shaking. Notes pain has improved. 7-8/10 once per day lasting 3-5hrs now, all day prior. Now taking 400mg bid. Noted shaking right away after increasing the dose. Notes shaking intermittent. Describes more of an intermittent random movement. 01/16/24: Pain still getting to 10/10 daily, no change, takes 200mg bid for past month, no side effects. 11/04/23: Pain since september, then had dental extraction January associated with a jaw cyst, but no evidence of infection, pain unchanged.here with 2,4, 6yo. Describes intense sharp pain right angle of mandible to right ear, and since surgery has right jaw numbness Has tried atbx, percocet, oxycodone, mouthwash, advil and tylenol. Current Outpatient Medications on File Prior to Visit Medication Sig Dispense Refill albuterol HFA 90 mcg/act inhaler Inhale 2 puffs every 4 (four) hours if needed for wheezing carBAMazepine (TEGretol) 200 MG tablet Take one pill in am and two in pm for one week, then 2 pills twice daily thereafter 120 tablet 2 No current facility-administered medications on file prior to visit. Past Medical History: Diagnosis Date Numbness 01/10/2023 Past Surgical History: Procedure Laterality Date FOOT SURGERY Bilateral 2013 FOOT SURGERY Right 2022 FOOT SURGERY 2015 SHOULDER SURGERY Right 2016 No family history on file. Social History Tobacco Use Smoking status: Never Smokeless tobacco: Never Substance Use Topics Alcohol use: Never ALLERGIES: Patient has no known allergies. REVIEW OF SYSTEMS: General: Appetite change: denies. Chills: denies. Fever: denies. Allergy/Immunology: Unusual rection to medications, food, animals or insects reaction: denies. Ophthalmologic: Visual acuity change: denies. ENT: Decreased hearing: denies. Endocrine: Weight loss: denies. Respiratory: Cough: denies. Wheezing: denies. Cardiovascular: Chest pain: denies. Palpitations: denies. Gastrointestinal: Abdominal pain: denies. Difficulty swallowing: denies Hematology: Bleeding problems: denies. Genitourinary: Painful urination: denies. Musculoskeletal: Joint pain: denies. Joint edema: denies. Skin: Rash: denies. Neurologic: Ataxia: denies, Tremor: denies. Psychiatric Anxiety: denies. Depression: denies. Insomnia: denies. Suicidal thoughts: denies. Also see HPI for elements of ROS documented therein and for details of positive findings, which shall supersede the foregoing. OBJECTIVE: Objective Vitals: 03/04/24 1258 BP: 124/80 Pulse: 80 SpO2: 99% Weight: 207 lb Height: 5' 4 Body mass index is 35.53 kg/m . No orders to display No visits with results within 2 Month(s) from this visit. Latest known visit with results is: No results found for any previous visit. Examination: General Exam: pleasant, well nourished, well developed, in no acute distress Head: normocephalic, atraumatic Eyes: extraocular movement intact (EOMI), pupils equal, round, reactive to light, upper eyelids normal , lower eyelids normal Ears: no obvious hearing deficit Nose: Nares patent Neck/Throat: neck supple, full range of motion Oral Cavity: mucosa moist Skin: warm and dry Heart: no murmurs, regular rate and rhythm, S1, S2 normal Lungs: clear to auscultation bilaterally, good air movement, no wheezes, rales, rhonci, speaks in full sentences Chest: normal shape and expansion Abdomen: bowel sounds present, soft, nontender, nondistended, no guarding or rigidity Extremities: no edema, no cyanosis Musculoskeletal: no swelling or deformity Neurologic: AAOx3, memory intact, fund of knowledge appropriate Naming and repetition intact, fluent language, follows 3-step commands Pupils equal and reactive EOM intact, no gaze preference or deviation, no nystagmus. Normal sensation in V1, V2, and V3 segments bilaterally No facial asymmetry, no nasolabial fold flattening Normal hearing to speech Normal palatal elevation, no uvular deviation Normal midline tongue protrusion 5/5 head turn and 5/5 shoulder shrug bilaterally 5/5 muscle power in bilateral shoulder abductors/adductors, elbow flexors/extensors, wrist flexors/extensors, finger abductors/adductors. 5/5 in bilateral hip flexors/extensors, knee flexors/extensors, ankle dorsiflexors and plantar flexors. Reflexes 2/4 throughout, bilateral flexor plantar response, no Carrizales's, no clonus Sensation decreased pin in V2 dist No hemineglect, no extinction to double sided stimulation (visual & tactile) Romberg absent Coordination intact to finger to nose and heel to irizarry, no tremor, no dysmetria Normal stance, no truncal ataxia Normal gait; patient able to tip-toe, heel-walk Psych: pleasant, cooperative, good eye contact, speech clear, judgement and insight good ASSESSMENT/PLAN: 1. 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 [employer] tegretol Exam normal and pain improved but notes tremor. Will check levels and bmp, encourage continue cbz documented in this encounter [facility] Consult note Note Date/Time March 11, 2025 7:06pm [facility] Medical Records Department [address] [place] [address] Pre-Anesthesia Evaluation 03/11/25 1857 MR#: [id number] Acct: [id number] Name: JAHAIRA VELASQUEZ Rep #:[id number] : 1990 34 From: Thomas Salguero MD PCP: Mary Beth Nelson DO Status:REG SDC Y Race: C Location: [place] [address] Thomas Salguero MD on 03/11/25 at 1906 Addendum Possible right hemicolectomy 03/11/25 190 <Electronically signed by Thomas luque MD> Date _ Thomas Salguero MD cc: ~* Signed ASA Classification* ASA Classification ASA Classification: 3 and E Assessment & Plan Anesthesia* Anesthesia Assessment Anesthesia Assessment: Discussed sedation and/or anesthesia options, risks, benefits, and alternatives with patient/parents/legal guardian/POA. Questions invited. The patient/parents/legal guardian/POA seems to understand and agrees to proceedwith anesthesia plan. Reviewed the physical assessment, medical history, allergy history and patient home medications list prior to surgery/procedure/anesthetic and documented any changes. Performed airway and anesthesia risk assessments. Anesthesia Type Anesthesia Type: General History Source History Obtained from:: Patient and Chart Anesthesia Focused Assessment* Temperature: 98.6 F Pulse Rate: 93 Blood Pressure: 123/83 Respiratory Rate: 16 Pulse Ox: 100 Oxygen Delivery Method: Room Air Airway Assessment Mouth opens: >3 cm Mallampati Score: I Teeth Condition: Caps/Crowns (Patient has a crown on #14. It is tight.) Neck Range of motion (ROM): Full ROM Labs Anesthesia Preop lab: CBC WBC 7.2 K/mm3 (4.4-11.0) 03/11/25 14:15 03/11/25 RBC 4.31 M/mm3 (4.2-5.4) 03/11/25 14:15 03/11/25 Hgb 12.9 g/dL (12.0-15.0) 03/11/25 14:15 03/11/25 Hct 38.6 % (37-47) 03/11/25 14:15 03/11/25 Plt Count 194 K/mm3 (150-450) 03/11/25 14:15 03/11/25 CHEMISTRY Potassium 4.3 mmol/L (3.3-5.1) 03/11/25 14:15 03/11/25 Sodium 138 mmol/L (133-145) 03/11/25 14:15 03/11/25 BUN 13 mg/dL (4-19) 03/11/25 14:15 03/11/25 Creatinine 0.76 mg/dL (0.70-1.20) 03/11/25 14:15 03/11/25 Glucose 82 mg/dL (70-99) 03/11/25 14:15 03/11/25 TSH 1.33 uIU/mL (0.358-3.74) 12/05/23 11:13 COAG PT 12.6 SECONDS (11.7-14.9) 06/15/21 09:31 HCG, Quant 415 mIU/mL (1-3) H 11/05/20 08:55 11/05/20 Urine Test Negative Negative 01/24/16 06:10 01/24/16 Pre-Assessment Diagnosis/Proposed Procedure Planned Operative Procedure(s): Diagnostic laparoscopy. Possible cecectomy. 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 When Was Last Pacemaker Check QUESTION #4 FULL TEXT: You/Your Family Experience fever (hyperthermia) with Anesthesia Last Oral Intake Last Oral intake: Last Oral Intake NPO since Meds taken in AM with sips of water? Meds patient instructed to take am of surgery Any additional information?: Yes NPO since: 12:00 Meds patient instructed to take am of surgery: Patient took her Mounjaro injection today. PONV PONV - python web developer: PONV - python web developer Female HX of Motion Sickness HX of N/V After Surgery Non-Smoker Duration of Surgery greater than 60 minutes Number of Risk Factors PONV Score Height & Weight Height & Weight: Anesthesia: Height & Weight Height 5 ft 4 in 03/11/25 18:16 Weight: 75.75 kg 03/11/25 18:16 Body Mass Index (BMI) 28.6 03/11/25 18:16 Respiratory Assessment Respiratory Assessment - python web developer: Respiratory Tract Infection Hx - python web developer Hx Respiratory Tract Infection Yes: Sore Throat- Augmentin 03/11/25 18:16 STOP Sleep Apnea STOP Sleep Apnea - python web developer: STOP Sleep Apnea - python web developer Hx Hypertension No 03/11/25 18:16 Hx Sleep Apnea No 03/11/25 18:16 CPAP No 04/30/22 15:07 BIPAP Do you snore loudly (louder No 03/11/25 18:16 than talking or can be heard Do you often feel tired/ No 03/11/25 18:16 fatigued/ sleepy during daytime? Has anyone observed you stop No 03/11/25 18:16 breathing during sleep? STOP Results Negative 03/11/25 18:16 QUESTION #5 FULL TEXT : Do you snore loudly (louder than talking or can be heard through closed doors)? 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 Specify any problems Hx of Preganancy in last 3 Months Nurse Filling Out Transfusion & Questions: Date: Time: Patient unable to answer at this time (ie. confused, unrespo /Reproduction History /Reproductive History - python web developer: /Reproductive Hx- python web developer Hx Now No 03/11/25 18:16 Gestational Age (in weeks): EDC: Hx Hx Para Hx Section SAB No 03/11/25 18:16 Active Medications Active Medications: Current Medications Generic Name Dose Route Start Last Admin Trade Name Freq PRN Reason Stop Dose Admin Ciprofloxacin 400 mg in 200 mls @ 200 mls/hr 03/11/25 18:43 Cipro IV 03/11/25 19:42 PREOP ONE Metronidazole 500 mg in 100 mls @ 100 mls/hr 03/11/25 18:43 Flagyl IV 03/11/25 19:42 X1 ONE PFSH Medical History Back pain Anemia Abnormal glucose affecting Asthma Home Medications ?Medication ?Instructions ?Recorded ?Last Taken ?Type Exipure PO 04/19/22 Unknown History prednisone 20 mg tablet 60 mg (3 x 20 mg) PO DAILY # 15 09/05/24 Unknown Rx TABLETS methyl folate 1,000 mcg PO DAILY to help w ith 03/11/25 Unknown History medication absorbtion Allergy/AdvReac Type Severity Reaction Status Date / Time Sulfa (Sulfonamide Allergy Intermediate Rash Verified 03/11/25 13:50 Antibiotics) cephalexin (From Keflex) Allergy Mild Hives Verified 03/11/25 13:50 sulfamethoxazole (From Allergy Mild rash Verified 03/11/25 13:50 Bactrim) trimethoprim (From Bactrim) Allergy Mild rash Verified 03/11/25 13:50 adhesive Allergy Hives Verified 03/11/25 13:50 Family History Father CAD (coronary artery disease) Cancer melanoma Mother Hypertension Grandmother CAD (coronary artery disease) Breast cancer Grandfather CAD (coronary artery disease) Surgical History S/P shoulder surgery S/P foot surgery Social History household members: spouse and children current occupational status: employed current occupation: [employer] Smoking Status: Never smoker alcohol intake: never substance use type: does not use Review of Systems (Anesthesia) ROS Narrative System reviewed and no additional complaints, except as documented. Physical Exam Resp clear to auscultation bilaterally 03/11/25 1906 <Electronically signed by Thomas luque MD> Date _ Thomas Salguero MD Cosigner Signature: Date CC: ~ Signed [facility] Work Phone: Evaluation noteNo assessment information available [facility] Work Phone: Evaluation note* Diagnosis Onset Date Resolution Status Acquired right foot drop acu te Annular tear of lumbar disc acute Acquired right foot drop acu te Annular tear of lumbar disc acute Acquired right foot drop acu te Annular tear of lumbar disc acute [facility] Work Phone: Evaluation note* Diagnosis Onset Date Resolution Status Acquired right foot drop acu te Annular tear of lumbar disc acute Acquired right foot drop acu te Annular tear of lumbar disc acute [facility] Work Phone: Evaluation note* Diagnosis Trigeminal neuralgia (CMS/HCC)- Primary Trigeminal neuralgia Stress Other psychological or physical stress, not elsewhere classified documented in this encounter [facility]* Diagnosis Trigeminal neuralgia (CMS/HCC)- Primary Trigeminal neuralgia Polyneuropathy Unspecified hereditary and idiopathic peripheral neuropathy documented in this encounter [facility] HealthcareEvaluation note* Diagnosis Autoimmune disorder (HCC)- Primary Autoimmune disease, not elsewhere classified Skin infection Unspecified local infection of skin and subcutaneous tissue Dental infection Acute apical periodontitis of pulpal origin [facility] Diagnosis Onset Date Resolution Status Admit Date Cecal volvulus acute March 11, 2025 6:00pm [facility] Work Phone: History and physical note Author Hai Gonzales [facility] Note Date/Time March 11, 2025 6:06pm [facility] Medical Records Department [address] [place] [address] History & Physical Exam 03/11/25 1754 MR#: [id number] Acct: [id number] Name: JAHAIRA VELASQUEZ Rep #:[id number] : 1990 34 From: Hai Fan PCP: Mary Beth Nelson DO Status:REG ER Location: ED HPI - General General Date of Service: 03/11/25 Chief Complaint: Acute onset abdominal pain HPI Narrative JAHAIRA VELASQUEZ, is a 34 F who presents to [facility] with complaints of acute onset right lower quadrant pain which she described as sharp and stabbing beginning approximately 930 this morning. She shares sheinitially believed it to be gas pain but it was more intense than her usual gas pains. She denies any similar prior experience. She notes she has fairly regular bowels and does not suffer from constipation. She reports that she had 2 bowel movements today that were unremarkable. She denies any recent fevers orchills. Patient's ED workup included about chemistries which showed her white blood cellcount to be within normal limits but with a slight left shift. CT of the abdomen pelvis was performed and read by radiology as concerning for a partial cecal volvulus with twisting of the ileocolic pedicle and some associated mesenteric edema. Lactic acid is pending. Patient has a listed history of multiple sclerosis, however, she denies this being a defined diagnosis in her history. She states she has only formally beendiagnosed with psoriatic arthritis, asthma, and PCOS. She notes she takes Mounjaro injections for management of her PCOS. [facility] Medical History Back pain Anemia Abnormal glucose affecting Asthma Home Medications ?Medication ?Instructions ?Recorded ?Last Taken ?Type Exipure PO 04/19/22 Unknown History prednisone 20 mg tablet 60 mg (3 x 20 mg) PO DAILY # 15 09/05/24 Unknown Rx TABLETS methyl folate 1,000 mcg PO DAILY to help w ith 03/11/25 Unknown History medication absorbtion Allergy/AdvReac Type Severity Reaction Status Date / Time Sulfa (Sulfonamide Allergy Intermediate Rash Verified 03/11/25 13:50 Antibiotics) cephalexin (From Keflex) Allergy Mild Hives Verified 03/11/25 13:50 sulfamethoxazole (From Allergy Mild rash Verified 03/11/25 13:50 Bactrim) trimethoprim (From Bactrim) Allergy Mild rash Verified 03/11/25 13:50 adhesive Allergy Hives Verified 03/11/25 13:50 Family History Father CAD (coronary artery disease) Cancer melanoma Mother Hypertension Grandmother CAD (coronary artery disease) Breast cancer Grandfather CAD (coronary artery disease) Surgical History S/P shoulder surgery S/P foot surgery Social History household members: spouse and children current occupational status: employed current occupation: [employer] Smoking Status: Never smoker alcohol intake: never substance use type: does not use Vital Signs Vital Signs Vital Signs: 03/11/25 13:49 03/11/25 16:02 Temperature 98.1 F Temperature Source Oral Pulse Rate 95 86 Respiratory Rate 16 17 Blood Pressure 113/102 H 125/83 H Blood Pressure Mean 105 97 Pulse Ox 100 100 Oxygen Delivery Method Room Air Room Air Weight Weight: 167 lb Body Mass Index (BMI) 28.6 Physical Exam Const alert and oriented x3 Constitutional Narrative: Mild distress from anxiety and persistent mild discomfort Resp normal respiratory effort GI GI Narrative: Nondistended, abdominal striae present, soft, tender to palpation primarily right lower quadrant and with a lesser intensity in the left upper quadrant Results Lab / Micro Data 03/11/25 14:15 03/11/25 14:15 Labs: Laboratory Results - last 24 hr 03/11/25 14:15: WBC 7.2, RBC 4.31, Hgb 12.9, Hct 38.6, MCV 89.6, MCH 29.9, MCHC 33.4, RDW Std Deviation 44.9 H, RDW Coeff of Chemo 13.4, Plt Count 194, MPV 11.2, Immature Gran % (Auto) 0.400, Neut % (Auto) 72.3 H, Lymph % (Auto) 16.6 L, [place] % (Auto) 5.3, Eos % (Auto) 5.0, Baso % (Auto) 0.4, Absolute Neuts (auto) 5.2, Absolute Lymphs (auto) 1.19, Nucleated RBC % 0, Sodium 138, Potassium 4.3, Chloride 106, Carbon Dioxide 22.6, Anion Gap 9, BUN 13, Creatinine 0.76, Estim Creat Clear Calc 103.93, Est GFR (MDRD) Non-Af 106, BUN/Creatinine Ratio 17.7, Glucose 82, Calcium 9.1, Total Bilirubin 0.42, AST 18, ALT 10, Alkaline Phosphatase 137 H, Total Protein 7.0, Albumin 4.3, Globulin 2.7, Albumin/Globulin Ratio 1.6, Lipase 35, Serum , Qual NEGATIVE 03/11/25 14:18: Urine Color Straw, Urine Clarity Clear, Urine pH 6.5, Ur Specific [place] 1.010, Urine Protein Negative, Urine Glucose (UA) Normal, UrineKetones Negative, Urine Occult Blood Negative, Urine Nitrite Negative, Urine Bilirubin Negative, Urine Urobilinogen Normal, Ur Leukocyte Esterase Negative, Urine RBC 0 SEEN, Urine WBC 0 SEEN, Ur Squamous Epith Cells 0 SEEN, Urine Bacteria 0 SEEN, Urine Mucus 0 SEEN Imaging Radiology Impression Abdomen/Pelvis CT 09/04/25 15:24 IMPRESSION: 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 Gastrointestinal findings as discussed above. There is no free air or free fluid. - Other incidental and nonemergent findings discussed above. [place] Alert: The critical information above was relayed directly by me by telephone to Cameron Jelly on 03/11/2025 at 4:33 pm with readback verification. Reading Location: [id number] Assessment & Plan Assessment/Plan (1) Cecal volvulus: PLAN: Patient 34-year-old female who presents with acute onset abdominal discomfort and CT imaging reveals evidence of cecal volvulus. Fortunately thereare no signs of impending bowel compromise or perforation, but patient remains significantly tender on exam. Between this tenderness, mechanism of her presentation, and the finding of mesenteric edema I am recommending emergent operative evaluation of her bowel and plan for laparoscopic assisted (possible open) right hemicolectomy with primary anastomosis. The pathologic diagnosis and its treatment were reviewed using hand drawings to illustrate the relevant anatomy. Patient has a number of questions related to her postoperative recovery. 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 I attempted to reassure her that we will try to remain sensitive to these concerns but do need to proceed emergently to minimize her risk for worse outcome. Both the operating team and anesthesia were notified of my intent after patient provided her verbalconsent to proceed. She will be admitted to the hospital postoperatively. Hai Gonzales MD General Surgery Endocrine Surgery Pager: [facility] [address] [place] [address], [address] [place] [id number] Office: [phone] Charges/Coding Visit Charges Inpatient E&M: 77792 Init Hosp L2 03/11/25 1806 <Electronically signed by Hai Gonzales MD> Cosigner Signature (if applicable): CC: Dr. Hai Gonzales MD; Mary Beth Nelson DO~ Signed [facility] Work Phone: Reason for referral (narrative)No reason for referral information [facility] Work Phone: Summary Purpose Family History Relationship Condition Age at Onset Recorded Date/T sridevi father Coronary artery disease Unknown Malignant neoplasm Unknown mother Hypertension Unknown grandmother Coronary artery disease Unknown Malignant neoplasm of breast Unknown grandfather Coronary artery disease Unknown Advance Directives Advance Directive Response Recorded Date/ Time Advance Directives No January 12 10:04am Living Will No June 28 8:53pm Power of Food Checkers And Cashiers Supervisor No June 28, 2021 8:53pm Advance Directive Response Recorded Date/ Time Advance Directives No April 30, 2022 2:07pm Living Will No April 30 2:07pm Power of Food Checkers And Cashiers Supervisor No April 30, 2022 2:07pm Advance Directive Response Recorded Date/ Time Living Will No September 05, 2024 9:17pm Do you have a Healthcare Power of Food Checkers And Cashiers Supervisor? No September 05, 2024 9:17pm Advance Directives No April 30, 2022 3:07pm Advance Directive Response Recorded Date/ Time Advance Directives No April 30, 2022 3:07pm Advance Directive Response Recorded Date/ Time Do you have a Healthcare Power of Food Checkers And Cashiers Supervisor? No March 11, 2025 3:39pm Advance Directives No April 30, 2022 3:07pm Chief Complaint and Reason for Visit Chief Complaint LIVER DISEASE Chief Complaint LIVER DISEASE LBP Chief Complaint LIVER DISEASE LBP Lumbar spine Room 2 xray LUMBER SPINE POSSIBLE MS CERVICAL SPINE Reason for Visit Acquired right foot drop Annular tear of lumbar disc Acquired right foot drop Annular tear of lumbar disc Acquired right foot drop Annular tear of lumbar disc Chief Complaint Lumbar spine Room 2 xray LUMBER SPINE POSSIBLE MS CERVICAL SPINE Reason for Visit Acquired right foot drop Annular tear of lumbar disc Acquired right foot drop Annular tear of lumbar disc Acquired right foot drop Annular tear of lumbar disc Chief Complaint LUMBER SPINE POSSIBLE MS CERVICAL SPINE IBS Reason for Visit Acquired right foot drop Annular tear of lumbar disc Acquired right foot drop Annular tear of lumbar disc Chief Complaint Admit Date Abnormal microbiological findings in spe cimens fro July 28, 2024 12:42pm ALLERGIC REACTION September 05, 2024 7:49 pm Other specified disorders of teeth and s upporting October 05, 2024 7:23am Chief Complaint Admit Date Other specified disorders of teeth and s upporting October 05, 2024 7:23am XRAY October 29, 2024 10: 58am Arthropathic psoriasis, unspecified January 22, 2025 1:21pm Chief Complaint Admit Date Arthropathic psoriasis, unspecified January 22, 2025 1:21pm ABDOMINAL PAIN March 11, 2025 5:54pm ABDOMINAL PAIN March 11, 2025 6:00pm Reason for Visit Admit 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, 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 Additional Source Comments INFORMATION SOURCE (unrecogn ized section and content) DATE CREATED AUTHOR 03/30/2020 [facility] DATE CREATED AUTHOR AUTHOR'S ORGANIZ ATION 05/31/2024 [facility] EPIC DATE CREATED AUTHOR AUTHOR'S ORGANIZ ATION 11/11/2024 [facility] DATE CREATED AUTHOR AUTHOR'S ORGANIZ ATION 03/01/2025 [facility] Goals (unrecognized section and content) Goals may be documented in a n alternate sectionGoals may be documented in an alternate sectionGoals may be documented in an alternate sectionGoals may be documented in an alternate sectionGoals may be documented in an alternate sectionGoals may be documented in an alternate sectionGoals may be documented in an alternate sectionGoals may be documented in an alternate sectionGoals may be documented in an alternate sectionGoals may be documented in an alternate sectionGoals may be documented in an alternate section Care Teams (unrecognized sec tion and content) Team Status: Active Member Role Status Dates Dr. Ishaan Sanderson MD Family Provider Active Dr. Ishaan Sanderson MD Primary Care Provider Activ e Team Status: Inactive Member Role Status Dates Dr. Ishaan Sanderson MD Primary Care Provider, Refe ing Provider Active Dr. Cornell Park DO Attending Provider Active Team Status: Inactive Member Role Status Dates Dr. Ishaan Sanderson MD Primary Care Provider Activ e Dr. Mychal Grady MD Attending Provider Active Team Status: Inactive Member Role Status Dates Dr. Ishaan Sanderson MD Primary Care Provider Activ e Dr. Cornell Park DO Attending Provider, María wong Active Team Status: Inactive Member Role Status Dates Dr. Ishaan Sanderson MD Primary Care Provider Activ e Dr. Tej Lee MD Attending Provider Active Team Status: Inactive Member Role Status Dates Dr. Ishaan Sanderson MD Primary [facility] Provider, [facility] Active Team Status: Active Member Role Status Dates Dr. Ishaan Sanderson MD Primary Care Provider, Attending Provider, Referring Provider Active Team Status: Inactive Member Role Status Dates Dr. Ishaan Sanderson MD Primary Care Provider, Attending Provider, Referring Provider Active Resident Care Coordinator Relationship Specialty Start Date End Date Nik Nelson MD [address] [place] [id number] PCP - General Pediatrics 10/30/23 Resident Care Coordinator Relationship Specialty Start Date End Date Nik Nelson MD [address] [place] [address] PCP - General Pediatrics 10/30/23 Resident Care Coordinator Relationship Specialty Start Date End Date Nik Nelson MD [address] [place] [id number] PCP - General Pediatrics 10/30/23 Team Status: Active Member Role Status Dates Mary Beth Nelson VSC, DO Primary Care Provider Active Team Status: Inactive Member Role Status Dates Mary Beth Nelson VSC, DO Primary Care Provider Active Start: July 28, 2024 End: July 28, 2024 Mary Beth Nelson VSC, DO Attending Provider Active Start: July 28, 2024 End: July 28, 2024 Mary Beth Nelson VSC, DO Referring Provider Active Start: July 28, 2024 End: July 28, 2024 Team Status: Inactive Member Role Status Dates Mary Beth Nelson VSC, DO Primary Care Provider Active Start: July 30, 2024 End: July 30, 2024 Mary Beth Nelson VSC, DO Attending Provider Active Start: July 30, 2024 End: July 30, 2024 Team Status: Inactive Member Role Status Dates Mary Beth Nelson VSC, DO Primary Care Provider Active Start: August 06, 2024 End: August 06, 2024 Mary Beth Nelson VSC, DO Attending Provider Active Start: August 06, 2024 End: August 06, 2024 Team Status: Inactive Member Role Status Dates Mary Beth Nelson VSC, DO Primary Care Provider Active Start: August 11, 2024 End: August 11, 2024 Mary Beth Nelson VSC, DO Attending Provider Active Start: August 11, 2024 End: August 11, 2024 Team Status: Inactive Member Role Status Dates Mary Beth CAMPBELLC, DO Primary Care Provider Active Start: September 05, 2024 End: September 05, 2024 Dr. Louis Kelley , Attending Provider Active Start: September 05, 2024 End: September 05, 2024 Dr. Louis Kelley , Emergency Provider Active Start: September 05, 2024 End: September 05, 2024 Team Status: Inactive Member Role Status Dates Mary Beth CAMPBELLC, DO Primary Care Provider Active Start: October 05, 2024 End: October 05, 2024 Mary Beth Nelson VSC, DO Attending Provider Active Start: October 05, 2024 End: October 05, 2024 Mary Beth CAMPBELLC, DO Referring Provider Active Start: October 05, 2024 End: October 05, 2024 Resident Care Coordinator Relationship Specialty Start Date End Date Queenie Sanderson MD [address] [place], [place] [id number] PCP - General Family Medicine 09/29/14 Nik Nelson DO [address] [place] [address] Referring Family Medicine 08/31/24 Resident Care Coordinator Relationship Specialty Start Date End Date Queenie Sanderson MD [address] [place], [place] [address] PCP - General Family Medicine 09/29/14 Nik Nelson DO [address] [place] [address] Referring Family Medicine 08/31/24 Team Status: Active Member Role/Relationship Status Dates Mary Beth Nelson VSC, DO Primary Care Provider Active Team Status: Inactive Member Role/Relationship Status Dates Mary Beth Nelsno VSC, DO Primary Care Provider Active Start: October 05, 2024 End: October 05, 2024 Mary Beth Nelson VSC, DO Attending Provider Active Start: October 05, 2024 End: October 05, 2024 Mary Beth Nelson VSC, DO Referring Provider Active Start: October 05, 2024 End: October 05, 2024 Team Status: Inactive Member Role/Relationship Status Dates Mary Beth Nelson VSC, DO Primary Care Provider Active Start: October 29, 2024 End: October 29, 2024 APRIL Lujan Attending Provider Active Start: October 29, 2024 End: October 29, 2024 APRIL Lujan Referring Provider Active Start: October 29, 2024 End: October 29, 2024 Team Status: Inactive Member Role/Relationship Status Dates Mary Beth Leslie VSC, DO Primary Care Provider Active Start: January 22, 2025 End: January 22, 2025 Mary Beth Nelson VSC, DO Attending Provider Active Start: January 22, 2025 End: January 22, 2025 Mary Beth Nelson VSC, DO Referring Provider Active Start: January 22, 2025 End: January 22, 2025 Team Status: Inactive Member Role/Relationship Status Dates Mary Beth Leslie VSC, DO Primary Care Provider Active Start: January 22, 2025 End: January 22, 2025 Mary Beth Nelson VSC, DO Attending Provider Active Start: January 22, 2025 End: January 22, 2025 Mary Beth Nelson VSC, DO Referring Provider Active Start: January 22, 2025 End: January 22, 2025 Team Status: Active Member Role/Relationship Status Dates Mary Beth eNlson VSC, DO Primary Care Provider Active Start: March 11, 2025 Dr. Jelly Barnes , Emergency Provider Active Start: March 11, 2025 Dr. Hai Gonzales MD Attending Provider Active Start: March 11, 2025 Team Status: Active Member Role/Relationship Status Dates Mary Beth Nelson VSC, DO Primary Care Provider Active Start: March 11, 2025 Dr. Jelly Barnes , Emergency Provider Active Start: March 11, 2025 Dr. Hai Gonzales MD Attending Provider Active Start: March 11, 2025 Reason for Visit (unrecogniz ed section and content) Reason Comments Trigeminal Neuralgia Reason Comments Med Management Source Comments (unrecognize d section and content) In the event this informatio n is protected by the Federal Confidentiality of Alcohol and Drug Abuse Patient Records regulations: The Federal rules restrict any use of the information to criminally investigate or prosecute any alcohol or drug abuse patient.[facility] the event this information is protected by the Federal Confidentiality of Alcohol and Drug Abuse Patient Records regulations: The Federal rules restrict any use of the information to criminally investigate or prosecute any alcohol or drug abuse patient.[facility] FOR RECORDS PERTAINING TO PATIENTS WHO ARE OR HAVE BEEN ENROLLED IN A CHEMICAL DEPENDENCY/SUBSTANCEABUSE PROGRAM, SOME INFORMATION MAY BE OMITTED. This clinical summary was aggregated from multiple sources. Caution should be exercised in using it in the provision of clinical care. This summary normalizes information from multiple sources, and as a consequence, information in this document may materially change the coding, format and clinical context of patient data. In addition, data may be omitted in some cases. CLINICAL DECISIONS SHOULD BE BASED ON THE PRIMARY CLINICAL RECORDS. [employer] provides no warranty or guarantee of the accuracy or completeness of information in this document.
--- NOTE | 2025-03-11 21:40 | PCM.POSTANE2 ---
Anesthesia Postop Eval I Sum Postop Eval Completion status Anesthesia document: Postop Eval 1 completed: Yes Anesthesia Postop Eval I Summary Anesthesia Postop Eval I Summary: Anesthesia Postop Eval I: Assessment Summary Airway patent Yes 03/11/25 21:25 Spontaneous unlabored Yes 03/11/25 21:25 respirations Mental status Asleep 03/11/25 21:25 nausea No 03/11/25 21:25 Vomiting No 03/11/25 21:25 Anesthesia Postop Eval I: Fluid Summary Crystalloid volume administer 800 03/11/25 21:25 (ml) Colloids volume administered ( ml) Blood Product volume administered (ml) Total IV fluid infused 800 03/11/25 21:25 Anesthesia Postop Eval I: Summary Notes Anesthesia Complication No 03/11/25 21:25 Anesthesia Complication Comment: Post-operative progress note Anesthesia: Postop Eval II Evaluation Mental status: Asleep (Arousable) Pain Level: 2 nausea: No Vomiting: No Complications Anesthesia Complication: No
[2025-03-11] MEDS: 0.9% Normal Saline (1000mL) 1,000 ML 125 ML IV (22:42)
[2025-03-12 00:15] VITALS: BP 106/65; PULSE 84; RESP 16; TEMP 36.6; O2SAT 100
[2025-03-12 02:15] VITALS: BP 106/49; PULSE 86; RESP 16; TEMP 36.9; O2SAT 98
[2025-03-12] MEDS: 0.9% Normal Saline (1000mL) 1,000 ML 125 ML IV (06:09)
[2025-03-12 06:15] VITALS: BP 108/67; PULSE 83; RESP 16; TEMP 36.8; O2SAT 99
[2025-03-12 08:05] LABS: Hematocrit 32.6 % (37-47); Hemoglobin 10.6 g/dL (12.0-15.0); Immature Granulocytes Count 0.010 X10^3/uL (0.0-0.0); Mean Corp Hgb Conc 32.5 g/dL (32-36); Mean Corpuscular Volume 90.1 fL (81-99); Mean Platelet Vol. 11.8 fl (6.2-12.0); NRBC Flagged by Analyzer 0 % (0-5); Platelet Count 175 K/mm3 (150-450); RBC Distribution Width CV 13.8 % (11.6-14.6); RBC Distribution Width SD 45.4 fl (35.1-43.9); Red Blood Count 3.62 M/mm3 (4.2-5.4); White Blood Count 7.0 K/mm3 (4.4-11.0)
[2025-03-12 08:45] LABS: Anion Gap 9 (5-15); BUN 12 mg/dL (4-19); BUN/Creat Ratio 14.3 RATIO (10-20); Calcium,Total 8.2 mg/dL (7.6-11.0); Carbon Dioxide 20.5 mmol/L (21.0-32.0); Chloride 109 mmol/L (98-108); Estimated Creatinine Clearance 99.14 ml/min (50-250); Glucose 86 mg/dL (70-99); Potassium 4.2 mmol/L (3.3-5.1)
[2025-03-12 09:40] VITALS: BP 103/66; PULSE 87; RESP 18; TEMP 36.6; O2SAT 99
--- NOTE | 2025-03-12 11:24 | PCM.PN.SRG ---
Subjective Subjective Patient seen and examined during AM rounds. Reports some abdominal soreness but states that she feels better than her presentation to the ER. She denies an appetite. Objective Data Objective Data Vital Signs: Vital Signs Temp Pulse Resp BP Pulse Ox O2 Del Method 98 F 87 18 103/66 99 Room Air 03/12/25 09:40 03/12/25 09:40 03/12/25 09:40 03/12/25 09:40 03/12/25 09:40 03/12/25 09:40 Oxygen Delivery Method Room Air Weight: 168 lb 6.931 oz Body Mass Index (BMI) 28.9 Intake & Output: Intake and Output for Last 24 Hours 03/10/25 03/11/25 03/12/25 23:59 23:59 23:59 Intake Total 1000 / 1000 931.25 / 931.25 Output Total 190 / 190 Balance 810 / 810 931.25 / 931.25 Lab / Micro Data 03/12/25 06:39 03/12/25 06:39 Labs: Laboratory Results - last 24 hr 03/11/25 14:15: WBC 7.2, RBC 4.31, Hgb 12.9, Hct 38.6, MCV 89.6, MCH 29.9, MCHC 33.4, RDW Std Deviation 44.9 H, RDW Coeff of Chemo 13.4, Plt Count 194, MPV 11.2, Immature Gran % (Auto) 0.400, Neut % (Auto) 72.3 H, Lymph % (Auto) 16.6 L, [place] % (Auto) 5.3, Eos % (Auto) 5.0, Baso % (Auto) 0.4, Absolute Neuts (auto) 5.2, Absolute Lymphs (auto) 1.19, Nucleated RBC % 0, Sodium 138, Potassium 4.3, Chloride 106, Carbon Dioxide 22.6, Anion Gap 9, BUN 13, Creatinine 0.76, Estim Creat Clear Calc 103.93, Est GFR (MDRD) Non-Af 106, BUN/Creatinine Ratio 17.7, Glucose 82, Calcium 9.1, Total Bilirubin 0.42, AST 18, ALT 10, Alkaline Phosphatase 137 H, Total Protein 7.0, Albumin 4.3, Globulin 2.7, Albumin/Globulin Ratio 1.6, Lipase 35, Serum , Qual NEGATIVE 03/11/25 14:18: Urine Color Straw, Urine Clarity Clear, Urine pH 6.5, Ur Specific [place] 1.010, Urine Protein Negative, Urine Glucose (UA) Normal, Urine Ketones Negative, Urine Occult Blood Negative, Urine Nitrite Negative, Urine Bilirubin Negative, Urine Urobilinogen Normal, Ur Leukocyte Esterase Negative, Urine RBC 0 SEEN, Urine WBC 0 SEEN, Ur Squamous Epith Cells 0 SEEN, Urine Bacteria 0 SEEN, Urine Mucus 0 SEEN 03/11/25 18:03: Lactic Acid 1.3 03/12/25 06:39: WBC 7.0, RBC 3.62 L, Hgb 10.6 L, Hct 32.6 L, MCV 90.1, MCH 29.3, MCHC 32.5, RDW Std Deviation 45.4 H, RDW Coeff of Chemo 13.8, Plt Count 175, MPV 11.8, Immature Gran % (Auto) 0.100, Neut % (Auto) 72.7 H, Lymph % (Auto) 18.9 L, [place] % (Auto) 6.6, Eos % (Auto) 1.4, Baso % (Auto) 0.3, Absolute Neuts (auto) 5.1, Absolute Lymphs (auto) 1.32, Nucleated RBC % 0, Sodium 138, Potassium 4.2, Chloride 109 H, Carbon Dioxide 20.5 L, Anion Gap 9, BUN 12, Creatinine 0.80, Estim Creat Clear Calc 99.14, Est GFR (MDRD) Non-Af 99, BUN/Creatinine Ratio 14.3, Glucose 86, Calcium 8.2 Radiography Diagnostic Testing: Radiology Impression Abdomen/Pelvis CT 03/11/25 15:24 IMPRESSION: 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 Gastrointestinal findings as discussed above. There is no free air or free fluid. - Other incidental and nonemergent findings discussed above. [place] Alert: The critical information above was relayed directly by me by telephone to Jelly Barnes on 03/11/2025 at 4:33 pm with readback verification. Reading Location: [id number] Physical Exam Const oriented x3 and no apparent distress Resp normal respiratory effort GI GI Narrative: Port sites remain well-approximated and sealed with Dermabond, nondistended, soft, appropriately tender to palpation about incisions Assessment & Plan Assessment/Plan (1) Abdominal pain, right lower quadrant: PLAN: Patient 34-year-old female taken to the operating room emergently yesterday for concern for cecal volvulus that was not substantiated with intraoperative findings. In fact, a thorough exam of both the small and large bowel revealed normal positioning and normal perfusion. Therefore, no major bowel resection was undertaken, but given patient's presentation for right lower quadrant pain I did perform an incidental appendectomy. She appears appropriate this morning. Will advance her diet and anticipate probable discharge later today after she is given a chance to try the diet advancement. Hai Gonzales MD General Surgery Endocrine Surgery Pager: [facility] [address] [place] [address] [place] [address] Office: [phone] Charges/Coding Visit Charges Inpatient E&M: 40575 Subs Hosp L2
--- NOTE | 2025-03-12 13:16 | PCM.DC ---
Discharge Instructions DC O2, CPAP, BIPAP needs Home O2 Discharge instructions: No Dressing / Incision Discharge Activity: May Drive and May Shower Ice area for (Minutes): 20 Lifting Restrictions: No lifting greater than 15 pounds for 2 weeks after surgery Dressing / Incision Call your doctor if your incision/area has: Continuous Slow Oozing, Sudden Increased Bleeding, Increased Pain/ Swelling, Increased Redness and Foul Smelling Discharge Call your doctor if you observe: Fever of 101 or Higher, Inability to have a bowel movement and Uncontrolled pain Suture Line Care: Avoid Pulling/Pushing Cleanse incision/area with: Soap & Water Follow Up Care Please Follow Up With: Hai Gonzales MD Test Results: Test results from this visit will be discussed in further detail at your follow-up appointment, if applicable. Discharge Plan Admission Primary Reason for Your Visit: Concern for cecal volvulus Attending Provider: Hai Gonzales Primary Care Provider: Mary Beth Nelson Instructions Additional Instructions / Restrictions: Please refrain from beginning oral steroid prescribed for upper respiratory tract infection Print Language: [place] Discharge Orders/Prescriptions Prescriptions: Continued methyl folate 1,000 mcg PO DAILY Mounjaro 2.5 mg/0.5 mL pen injector 2.5 mg subcut QWEEK Patient Comments: Takes on Rx Instructions: for 4 weeks Discontinued prednisone 20 mg tablet 60 mg PO DAILY Qty: 15 0RF Patient Comments: Has not started taking yet. Referrals / Follow Up: Mary Beth Nelson, DO [Primary Care Provider] - Disposition Disposition (needs filled in before D/C Order can be placed): Home, Self Care
--- NOTE | 2025-03-12 13:20 | PCM.DC.SUM ---
Providers Primary Care Physician: Mary Beth Nelson [facility], DO Reason For Visit: ABDOMINAL PAIN Diagnosis Discharge Diagnosis (1) Abdominal pain, right lower quadrant: Status: Acute Code(s): R10.31 - Right lower quadrant pain Plan: Patient 34-year-old female taken to the operating room emergently yesterday for concern for cecal volvulus that was not substantiated with intraoperative findings. In fact, a thorough exam of both the small and large bowel revealed normal positioning and normal perfusion. Therefore, no major bowel resection was undertaken, but given patient's presentation for right lower quadrant pain I did perform an incidental appendectomy. She appears appropriate this morning. Will advance her diet and anticipate probable discharge later today after she is given a chance to try the diet advancement. Hai Gonzales MD General Surgery Endocrine Surgery Pager: [facility] [address] [place] [address], [address] [place] [address] Office: [phone] Medications at Discharge Home Medications methyl folate 1,000 mcg PO DAILY to help with medication absorbtion 03/11/25 tirzepatide 2.5 mg/0.5 mL subcutaneous pen injector (Mounjaro) 2.5 mg subcut QWEEK 03/11/25 Hospital Course Operations appendectomy Procedures None Summary of Care Provided Hospital Course: Patient is a 34-year-old female who underwent emergency diagnostic laparoscopy after initial concern for cecal volvulus. However, intraoperatively, patient was found to have no pathologic change of either her small or large bowel so a right hemicolectomy was not undertaken as planned. Given her complaints of right lower quadrant pain upon presentation I did elect to proceed with incidental appendectomy. Patient was admitted to the hospital postoperatively given the late hour and the desire to monitor for recurrent symptoms. Postoperative day 1 patient was seen with significantly improved discomfort and a benign abdominal exam. Her diet was advanced to a regular diet without intolerance. She was thus granted discharge to home after discussion of postoperative activity restrictions and wound care. Physical Exam Const alert, oriented x3 and no apparent distress General Appearance: cooperative and comfortable Resp normal respiratory effort GI GI Narrative: Appropriate port sites beneath Dermabond cover (well-approximated nonerythematous), nondistended, soft, appropriately tender to palpation Weight / BMI Weight Weight: 168 lb 6.931 oz Body Mass Index (BMI) 28.9 ABG / Lab / Microbiology Data 03/12/25 06:39 03/12/25 06:39 Laboratory: Laboratory Results - last 24 hr 03/11/25 14:15: WBC 7.2, RBC 4.31, Hgb 12.9, Hct 38.6, MCV 89.6, MCH 29.9, MCHC 33.4, RDW Std Deviation 44.9 H, RDW Coeff of Chemo 13.4, Plt Count 194, MPV 11.2, Immature Gran % (Auto) 0.400, Neut % (Auto) 72.3 H, Lymph % (Auto) 16.6 L, [place] % (Auto) 5.3, Eos % (Auto) 5.0, Baso % (Auto) 0.4, Absolute Neuts (auto) 5.2, Absolute Lymphs (auto) 1.19, Nucleated RBC % 0, Sodium 138, Potassium 4.3, Chloride 106, Carbon Dioxide 22.6, Anion Gap 9, BUN 13, Creatinine 0.76, Estim Creat Clear Calc 103.93, Est GFR (MDRD) Non-Af 106, BUN/Creatinine Ratio 17.7, Glucose 82, Calcium 9.1, Total Bilirubin 0.42, AST 18, ALT 10, Alkaline Phosphatase 137 H, Total Protein 7.0, Albumin 4.3, Globulin 2.7, Albumin/Globulin Ratio 1.6, Lipase 35, Serum , Qual NEGATIVE 03/11/25 14:18: Urine Color Straw, Urine Clarity Clear, Urine pH 6.5, Ur Specific [place] 1.010, Urine Protein Negative, Urine Glucose (UA) Normal, Urine Ketones Negative, Urine Occult Blood Negative, Urine Nitrite Negative, Urine Bilirubin Negative, Urine Urobilinogen Normal, Ur Leukocyte Esterase Negative, Urine RBC 0 SEEN, Urine WBC 0 SEEN, Ur Squamous Epith Cells 0 SEEN, Urine Bacteria 0 SEEN, Urine Mucus 0 SEEN 03/11/25 18:03: Lactic Acid 1.3 03/12/25 06:39: WBC 7.0, RBC 3.62 L, Hgb 10.6 L, Hct 32.6 L, MCV 90.1, MCH 29.3, MCHC 32.5, RDW Std Deviation 45.4 H, RDW Coeff of Chemo 13.8, Plt Count 175, MPV 11.8, Immature Gran % (Auto) 0.100, Neut % (Auto) 72.7 H, Lymph % (Auto) 18.9 L, [place] % (Auto) 6.6, Eos % (Auto) 1.4, Baso % (Auto) 0.3, Absolute Neuts (auto) 5.1, Absolute Lymphs (auto) 1.32, Nucleated RBC % 0, Sodium 138, Potassium 4.2, Chloride 109 H, Carbon Dioxide 20.5 L, Anion Gap 9, BUN 12, Creatinine 0.80, Estim Creat Clear Calc 99.14, Est GFR (MDRD) Non-Af 99, BUN/Creatinine Ratio 14.3, Glucose 86, Calcium 8.2 Radiography Diagnostic Testing: Radiology Impression Abdomen/Pelvis CT 03/11/25 15:24 IMPRESSION: 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 Gastrointestinal findings as discussed above. There is no free air or free fluid. - Other incidental and nonemergent findings discussed above. [place] Alert: The critical information above was relayed directly by me by telephone to Jelly Barnes on 03/11/2025 at 4:33 pm with readback verification. Reading Location: [facility] D/C Instructions Ice area for (Minutes): 20 Call your doctor if your incision/area has: Continuous Slow Oozing, Sudden Increased Bleeding, Increased Pain/ Swelling, Increased Redness and Foul Smelling Discharge Call your doctor if you observe: Fever of 101 or Higher, Inability to have a bowel movement and Uncontrolled pain Suture Line Care: Avoid Pulling/Pushing Cleanse incision/area with: Soap & Water DC O2, CPAP, BIPAP Needs Home O2 Discharge instructions: No Please Follow Up With: Hai Gonzales MD Meaningful Use Info Meaningful Use Meaningful Use Diagnoses (Choose all that apply): None applicable Discharge Plan Admission Primary Reason for Your Visit: Concern for cecal volvulus Attending Provider: Hai Gonzales Primary Care Provider: Mary Beth Nelson [facility] Instructions Additional Instructions / Restrictions: Please refrain from beginning oral steroid prescribed for upper respiratory tract infection Print Language: Portuguese Discharge Orders/Prescriptions Prescriptions: Continued methyl folate 1,000 mcg PO DAILY Mounjaro 2.5 mg/0.5 mL pen injector 2.5 mg subcut QWEEK Patient Comments: Takes on Rx Instructions: for 4 weeks Discontinued prednisone 20 mg tablet 60 mg PO DAILY Qty: 15 0RF Patient Comments: Has not started taking yet. Referrals / Follow Up: Mary Beth Nelson, [Primary Care Provider] - Disposition Disposition (needs filled in before D/C Order can be placed): Home, Self Care Charges/Coding Visit Charges Inpatient E&M: 27196 Disch Hosp
--- NOTE | 2025-03-12 13:36 | PHA.DC.MR.R ---
Pharmacy [place] Med Reconciliation Pharmacy Service has performed discharge medication reconciliation for this patient. The patient's discharge medication list was reviewed for discrepancies and discrepancies were resolved. Medications at Discharge Home Medications methyl folate 1,000 mcg PO DAILY to help with medication absorbtion 03/11/25 tirzepatide 2.5 mg/0.5 mL subcutaneous pen injector (Mounjaro) 2.5 mg subcut QWEEK 03/11/25
[2025-03-12 13:43] VITALS: BP 104/78; PULSE 89; RESP 18; TEMP 36.9; O2SAT 100
== END 2025-03-12 13:48 | disposition home or self-care (01) ==
LOC: ED 15:32 → SDC 18:09 → AC 18:11 → MS3 03-12 04:59
PROVIDERS: Emergency Provider Emergency Medicine; PCP Family Medicine; Visit Provider Surgery
PROC: (CPT 44205; principal; 2025-03-11 19:00)
DX: K35.80 Unspecified acute appendicitis (principal); G35 Multiple sclerosis; E28.2 Polycystic ovarian syndrome; Z79.85 Long-term (current) use of injectable non-insulin antidiabetic drugs; J45.909 Unspecified asthma, uncomplicated; R35.0 Frequency of micturition; K66.0 Peritoneal adhesions (postprocedural) (postinfection); K63.89 Other specified diseases of intestine
CPT/HCPCS: 44970; 00840; 36415; 74177; 80048; 80053; 81001; 83605; 83690; 84703; 85025; 88304; 99284; Q9967; A4216; J0666; J0744; J2405

== ENCOUNTER → 2025-04-05 | Outpatient (CLI) | payer SELFPAY ==
--- OUTSIDE RECORDS SUMMARY | 2024-10-29 08:49 | XMS RPT_ITS ---
Author Name Auto Generated Organization [facility] Care Team Providers Care Meat Cutter Name Role Phone BRANDIE PALENCIA Attending Unavailable MARÍA ELENA CARDENAS Attending Unavailable NIK NELSON Referring Unavailabl e QUEENIE SANDERSON Primary Care Unavailabl e PROBLEMS DATE TYPE CONDITION / CODE ATTENDING STATUS [facility] 10/29/2024 Active Chronic jaw pain / R68.84(ICD-10) ELIAS CARDENASITLYN Active [facility] 10/29/2024 Active Chronic jaw pain / G89.29(ICD-10) ELIAS CARDENASITLYN Active [facility] 10/29/2024 Active Chronic bilatera l low back pain with right-sided sciatica / G89.29(ICD-10) RONALD MARÍA ELENA Active [facility] 10/29/2024 Active Chronic bilatera l low back pain with right-sided sciatica / M54.41(ICD-10) RONALDELIASMARÍA ELENA Active [facility] 10/29/2024 Active Psoriasis / L40.9(ICD-10) SAAD CARDENAS YN Active [facility] 10/29/2024 Active Degeneration of intervertebral disc of lumbar region with discogenic back pain / M51.360(ICD-10) ELIAS CARDENASITLYN Active [facility] 10/29/2024 Active Pain in right hi p / M25.551(ICD-10) MARÍA ELENA CARDENAS Active [facility] 10/29/2024 Active Proteinuria, uns pecified type / R80.9(ICD-10) MARÍA ELENA CARDENAS Active [facility] 10/29/2024 Active Hematuria, unspe cified type / R31.9(ICD-10) MARÍA ELENA CARDENAS Active [facility] PROCEDURES No Procedure Records Found RESULTS CNPN Observed: 10/30/2024 12:00 AM Status: COMPLETED Source: [facility] Telephone ([facility]) JAHAIRA VELASQUEZ ([id number]) 1990 F CARL Date Time Provider Department 10/30/24 MARÍA ELENA CARDENAS During your visit today, we recorded the following information about you: Philomena Whitmore LPN 10/30/2024 8:20 AM Signed Received via fax: Imaging Report Date: 10/29/24 Noted: XR SACROILIAC JOINTS 2V AP PELVIS/FERGUESON front desk agent scanned into chart and forwarded message to provider to review MADIE Magallanes Kaitlyn, PA-C 11/11/2024 9:36 AM Addendum Called patient with results. Labs reviewed: dsDNA negative. UA micro neg protein, trace leuk esterase, 1-3 hyaline casts Urine PCR normal Alk phos with elevated liver fraction, not bone. Sed rate normalized CRP normalized SI joint XR results show joint space narrowing surrounding sclerosis and osteophyte formation. No mention of ankylosis or erosions. Discussed mandible pain is less likely rheumatologic in nature given it started after extraction and is localized at that site. Discussed she may want to ask PCP/Dentists if there is any indication for MRI. However this may just require additional biopsy. Offered referral to [facility] Dental specialist, she defers for now since she has seen multiple specialists. Discussed SI joint could indicate inflammatory back, but I suspect more likely osteoarthritis. Suggested first line fr chronic low back pain would be Daily NSAID. For now her focus is the jaw, but I'm happy to re-assess at any time for back and other joint concerns. Discussed HLA-B27 testing but again, I doubt this is indicated at this time because her back and other joint concerns are of lower severity and I don't feel HLA-B27 testing would help in further working up her mandible pain. María Elena Cardenas PA-C Time on phone 10 min María Elena Cardenas PA-C 11/11/2024 9:37 AM Signed Addended by: MARÍA ELENA CARDENAS on: 11/11/2024 09:37 AM Modules accepted: Orders Allergies As of Date: 10/30/2024 Noted Allergy Reaction ADHESIVE 08/08/2015 4 - Hives SULFA (SULFONAMIDE ANTIBIOTICS) 10/29/2024 4 - Hives Date Reviewed: 10/29/2024 Reviewed by: María Elena Cardenas PA-C - Fully Assessed Prescriptions as of 11/11/2024 - tirzepatide 2.5 mg/0.5 mL (5 mg/mL) subcutaneous compounded injection Inject 2.5 mg subcutaneously one time a week. - gabapentin (NEURONTIN) 300 mg capsule Take 900 mg by mouth three times a day. - ibuprofen (MOTRIN) 800 mg tablet Take 800 mg by mouth every 6 hours as needed. - ALBUTEROL SULFATE INHALATION Inhale as instructed. Problem List As Of Date 10/30/2024 Noted Resolved Blood in stool [K92.1] 09/29/2014 01/14/2017 Abdominal pain, right lower quadrant [R10.31] 09/29/2014 01/14/2017 Asthma [J45.909] 10/01/2014 Encounter for supervision of normal first pregn*12/28/2016 08/19/2017 History of foreign travel [Z78.9] 12/28/2016 08/19/2017 Rh negative state in antepartum period [O26.899*01/10/2017 08/19/2017 Intrauterine growth restriction (IUGR) affectin*07/10/2017 08/19/2017 Obesity in [O99.210] 09/22/2018 06/15/2019 Encounter for supervision of normal i*09/22/2018 06/15/2019 History of prior with IUGR [Z*09/22/2018 06/15/2019 Rh negative state in antepartum period [O26.899*09/23/2018 06/15/2019 Abnormal glucose complicating [O99.81*09/23/2018 06/15/2019 PCOS (polycystic ovarian syndrome) [E28.2] 01/11/2020 Encounter Status:Closed by PHILOMENA WHITMORE on 10/30/24 ALP SERPL-CCNC Collected: 10:30 AM Status: F Source: [facility] Comment: Specimen Type : BLOOD SPECIMEN Ordering Facility: [facility] Address: [address] [place] [address] TYPE CODE TESTS RESULT OUT OF RANGE REFERENCE UNITS LAB 6768-6(LOINC) ALP SerPl-cCnc 139 High 34-123 U/L Performed By: #### 1987-, 768-6 #### [facility] CLIA [id number] [address] [place] [address] [place] CRP SERPL-MCNC Collected: 10:30 AM Status: F Source: [facility] Comment: Specimen Type : BLOOD SPECIMEN Ordering Facility: [facility] Address: [address] [place], [place] [id number] TYPE CODE TESTS RESULT OUT OF RANGE REFERENCE UNITS LAB 1987-11(LOINC) CRP SerPl-mCnc 0.4 <0.9 mg/dL Performed By: #### 1987-11, 7686 #### [facility] CLIA [id number] [address] [place] [address] [place] URINALYSIS COMPLETE PNL UR Collected: 10/29/2024 10:3 0 AM Status: F Source: [facility] Comment: Specimen Type : URINE SPECIMEN Ordering Facility: [facility] Address: [address] [place], [place] [id number] TYPE CODE TESTS RESULT OUT OF RANGE REFERENCE UNITS LAB 5778-6(LOINC) Color Ur Yellow Yellow LAB 36043-0(LOINC) Clarity Spec Turbid Abnormal Clear LAB 5792-7(LOINC) Glucose Ur Strip-mCnc Negative Negative LAB 5770-3(LOINC) Bilirub Ur Ql Strip Negative Negative LAB 2514-8(LOINC) Ketones Ur Strip Negative Negative LAB 5811-5(LOINC) Sp Gr Ur Strip 1.021 1.005-1.030 LAB 5794-3(LOINC) Hgb Ur Ql Strip Negative Negative LAB 5803-2(LOINC) pH Ur Strip 5.5 <8.5 LAB 5804-0(LOINC) Prot Ur Strip-mCnc Negative Negative LAB 5818-0(LOINC) Urobilinogen Ur Strip 1.0 EU/dL 0.2-1.0 EU/dL LAB 5802-4(LOINC) Nitrite Ur Ql Strip Negative Negative [facility] 5799[facility] Leukocyte esterase Ur Ql Strip Trace Abnormal Negative [facility] 5821[facility] WBC #/area UrnS HPF 0-5 /HPF 0-5 /HPF LAB 66751-6(INC) RBC #/area UrnS HPF 0-2 /HPF 0-2 /HPF LAB 5769-5(LOINC) Bacteria #/area UrnS HPF Negative Negative /HPF LAB 5787-7(LOINC) Epi Cells #/area UrnS HPF Moderate /HPF LAB 5796-8(LOINC) Hyaline Casts #/area UrnS LPF 1-3 /LPF Abnormal 0 /LPF Performed By: #### 29693-4 # ### [facility] CLIA [id number] [address] [place] [address] [place] ALKALINE PHOSPHATASE ISOENZY MES (P) Collected: 10/29/2024 10:30 AM Status: F Source: [facility] Order Comment: Specimen Type : BLOOD SPECIMEN Ordering Facility: [facility] Address: [address] [place] [address] TYPE CODE TESTS RESULT OUT OF RANGE REFERENCE UNITS LAB [id number] ALK PHOS BONE % 19.7 10.7-68.3 % LAB [id number] BONE FRACTION 27.4 12.9-52.6 U/L LAB [id number] ALK PHOS LIVER % 80.3 26.0-86.2 % LAB [id number] LIVER FRACTION 111.6 High 16.0-69.3 U/L LAB [id number] ALK PHOS INTESTINE % 0.0 0.0-24.2 % LAB [id number] INTESTINE FRACTION 0.0 0.0-16.3 U/L Performed By: #### ALKISOP # ### [facility] CLIA [id number] [address] [place] [id number] [place] ESR BLD QN WESTRGRN Collected: 10/29/2024 10:30 AM S tatus: F Source: [facility] Order Comment: Specimen Type : BLOOD SPECIMEN Ordering Facility: [facility] Address: [address] [place] [address] TYPE CODE TESTS RESULT OUT OF RANGE REFERENCE UNITS LAB 4537-7(LOINC) ESR Bld Qn Westrgrn 9 0-20 mm/hr Performed By: #### 4537-7 ## ## [facility] CLIA [id number] [address] [place] [address] OF [place] PROT/CREAT UR Collected: 10:30 AM Status: F Source: [facility] Comment: Specimen Type : URINE SPECIMEN Ordering Facility: [facility] Address: [address] [place] [address] TYPE CODE TESTS RESULT OUT OF RANGE REFERENCE UNITS LAB 2888-6(LOINC) Prot Ur-mCnc 10 0-20 mg/dL LAB 2161-8(LOINC) Creat Ur-mCnc 230.5 20.0-300.0 mg/dL LAB 2890-2(LOINC) Prot/Creat Ur 0.04 <0.15 mg/mg Result Comment: Adult Protei lindsay Categories: <0.15 mg/mg is considered normal to mildly increased 0.15 - 0.50 mg/mg is considered moderately increased >0.50 mg/mg is considered severely increased KDIGO. (2013). KDIGO 2012 Clinical Practice Guideline for the Evaluation and Management of Chronic Kidney Disease. Official Journal of the International Society of Nephrology, 3(1), 1-150. Performed By: #### 2890-2 ## ## [facility] CLIA [id number] [facility] [address] [address] [place] PROGRESS Observed: 10/29/2024 9:00 AM Status: COMPLETED Source: [facility] HNO ID: [id number] Author: MARÍA ELENA CARDENAS PA-C Service: ? Author Type: Physician [employer] Type: Progress Notes Filed: 10/29/2024 13:05 Note Text: Rheumatology CONSULTATION Date of Service: 10/29/2024 Patient: Jahaira Velasquez Medical Record: [id number] Primary Care Physician: Queenie Sanderson MD Last Rheumatology visit: None at [facility] Referring Provider: Nik Nelson [address] [facility] [address] Jahaira Velasquez is here today at request of Dr. Nelson specifically for consultation of my opinion in regards to the chief complaint listed below. Correspondence will be shared today via the [facility] electronic health record or through regular mail, where applicable. Recording using [employer] software for draft documentation of the visit was discussed with the patient/authorized desk representative; all questions welcomed and answered. Patient/authorized desk representative agreed to proceed History of Present Illness Jahaira is a 34-year-old female with a history of PCOS, asthma, and psoriasis, presenting for evaluation of chronic right mandibular pain and suspected autoimmune etiology. Jahaira reports a current pain level of 5 (Jaw). She describes the pain as Sharp, Throbbing, Shooting, Aching. The pain is Continuous, and has lasted for 2 Years. Interventions tried include Medication, Cold, Distractions, Education, Heat, Imagery, Massage. Jahaira is both RF - 9 (08/06/2024) and CCP - 13.5 (08/06/2024) negative. Her most recent DEMETRIUS was negative (08/06/2024). Jahaira reports persistent right mandibular pain since September 2022, described as constant with intermittent exacerbations ranging from 5/10 to 10/10 in severity. The pain radiates from the mid-mandible to the ear and is associated with chronic swelling of right sided cervical lymph nodes since February 2024. Despite multiple evaluations by oral surgeons, endodontists, periodontists, oral facial pain specialists, neurologists, and her primary care physician, no definitive diagnosis has been made. A CT scan revealed no evidence of osteomyelitis. She has been diagnosed with post-traumatic trigeminal neuralgia, suspected to be secondary to nerve damage from a dental cyst and subsequent tooth extraction. Jahaira has trialed multiple medications, including carbamazepine, which was discontinued due to tremors, and gabapentin, currently at 900 mg TID, without significant relief. NSAIDs, acetaminophen, and opioids have been ineffective. A topical medication resulted in infectious lesions. Prednisone and Z-Mitch provided no benefit. She undergoes bimonthly CT scans at her 's dental office to monitor healing, which has been inadequate over two years. A biopsy in August 2023 revealed necrotic tissue; a repeat biopsy is considered but requires general anesthesia due to previous intolerable pain. She also reports chronic right hip pain and back pain since a soccer injury in college, with morning stiffness lasting 10-15 minutes. She has a history of right foot drop, now resolved, and plantar fasciitis, for which she underwent surgery. She denies swelling of fingers or toes, Raynaud's phenomenon, oral or nasal ulcers, photosensitivity, blood clots, or neuropathy. She has psoriasis on her arms and legs, managed with topical treatments. She denies unexplained weight loss, fevers, ocular inflammation, dryness, dyspnea, cough, diarrhea, or constipation. She has a history of one miscarriage at five weeks and three full-term pregnancies. She experiences fatigue, attributing it to caring for three children. She reports elevated alkaline phosphatase levels since 2019, with no known liver ultrasound performed. Recent labs showed elevated CRP (1.2 mg/dL), negative DEMETRIUS, normal CBC, and elevated urine protein and occult blood. She was not menstruating during the urine test. 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 A brain MRI on November 14, 2023, was normal, showing mild chronic sinusitis. A thyroid ultrasound on April 20, 2024, revealed a prominent 1.6 cm cervical lymph node lateral to the right thyroid. Current Meds - Ibuprofen - Albuterol - Gabapentin 900 mg three times a day - Tirzepatide Pain Evaluation 04/09/2019 04/24/2019 06/08/2019 10/22/2024 10/29/2024 Pain Evaluation Pain Score 8 4 2 5 5 Location -- Head Abdomen Mouth Jaw Location Comment headache, backache, stomach Mid abdomen Description Stabbing;Sharp Aching Aching Aching;Radiating;Sharp;Shooting;Stabbing;Tenderness Sharp;Throbbing;Shooting;Aching Duration (#) 9 1 10 2 2 Duration (Timeframe) Hours Days Days Years Years Frequency Continuous Continuous Intermittent Continuous Continuous Intervention -- Other: See comment Medication Medication;Cold;Distractions;Education;Heat;Imagery;Massage Patient-Entered Data PROMIS Assessments 10/22/2024 PROMIS Global Health - (T-Scores - the mean of general population = 50. Five points is a clinically meaningful difference.) Physical T-Score 47.7 Mental T-Score 62.5 10/22/2024 PROMIS CAT Pain Interference PROMIS Pain Interference T-Score (range: 10 - 90) 53 (within normal limits) PROMIS Pain Interference Percentile 38 PROMIS Adult Short Form-Global Health Score (Mental) 62.5 (Excellent) 10/22/2024 PROMIS CAT Fatigue PROMIS Fatigue T-Score 45 (within normal limits) PROMIS Fatigue Percentile 69 10/22/2024 PROMIS PHYSICAL FUNCTION T-SCORE PROMIS Physical Function T-Score 53 (within normal limits) Physical Function Percentile 62 RAPID 3 Anaya Activities of Daily Living 10/22/2024 1:06 PM Dress self? Without ANY difficulty Get in and out of bed? Without ANY difficulty Walk outdoors? Without ANY difficulty Wash and dry body? Without ANY difficulty Get in and out of car? Without ANY difficulty RAPID 3 Disease Activity Weighed Score Levels: 0 - 1: Near Remission 1.3 - 2.0: Low Severity 2.3 - 4.0: Moderate Severity 4.3 - 10.0: High Severity 10/22/2024 RAPID-3 Weighed Score RAPID 3 Weighed Score 2.33 (Moderate severity ) Review of Systems Review of Systems CONSTITUTION: Negative for: Fever and Recent weight change HEENT: Negative for: Nosebleeds, Mouth sores, Trouble swallowing and Dry mouth RESPIRATORY: Negative for: Cough, Shortness of breath and Pain with breathing GASTROINTESTINAL: Negative for: Melena, Diarrhea, Heartburn and Abdominal pain MUSCULOSKELETAL: Positive for: Arthralgias and Myalgias Negative for: Muscle weakness, Joint swelling and Morning Joint Stiffness NEUROLOGICAL: Negative for: Headaches, Numbness and Memory loss SKIN: Negative for: Rash, Skin changes, Hair loss and Nail changes EYES: Negative for: Eye pain, Eye redness, Eye dryness and visual disturbance CARDIOVASCULAR: Negative for: Chest pain and Leg swelling GENITOURINARY: Negative for: Dysuria and Hematuria HEMATOLOGIC/LYMPHATIC: Positive for: Swollen glands RHEUMATOLOGIC REVIEW OF SYSTEMS: No ulcers in mouth or nose No photosensenitivity No history of blood clots + miscarriages - one miscarriage early (5 wks), 3 normal pregnancies + fatigue No history of Raynaud's No fevers No bright red painful eyes No sicca NO sob No cough No diarrhea, no constipation + chronic back pain + history of psoriasis (on legs and arms - treat with topicals) - ? Possible Psoriatic arthritis Short lived morning stiffness (10 min) No weight loss No neuropathy - History of drop foot, but has since resolved All other reviewed and negative other than HPI. Past Medical History PAST MEDICAL HISTORY Diagnosis Date Asthma (HCC) fracture right shoulder, soccer accident PCOS (polycystic ovarian syndrome) 2018 - Polycystic ovary syndrome - Asthma - Post-traumatic trigeminal neuralgia - Degenerative disc disease - Psoriasis Past Surgical History PAST SURGICAL HISTORY Procedure Laterality Date BUNION CORRECTION W/METATARSAL OSTEOTOMY 2013 bilatereal foot surgery. COLONOSCOPY W/BIOPSY SINGLE/MULTIPLE 10/05/2014 normal TI, normal colonoscopy EGD TRANSORAL BIOPSY SINGLE/MULTIPLE 10/05/2014 minimal reflux esophagitis, o/w normal FASCIECTOMY PLANTAR FASCIA PARTIAL SPX Right PAST SURGICAL HISTORY OF Left 06/2015 removal of screws from prior foot surgery PAST SURGICAL HISTORY OF Right 01/2016 scope and shave of bone shoulder Family History FAMILY HISTORY Problem Relation Age of Onset Thyroid Mother Hypertension Father Heart Father Cancer Father No Known Problems Brother Breast Cancer Maternal Grandmother Diabetes Maternal Grandmother Heart Paternal Grandmother Heart Paternal Grandfather Heart Maternal Grandfather No Known Problems Son No Known Problems Son Social History Social History Tobacco Use Smoking status: Never Smokeless tobacco: Never Vaping Use Vaping status: Never Used Substance Use Topics Alcohol use: No Drug use: No Current Medications Current Outpatient Medications Medication Sig tirzepatide 2.5 mg/0.5 mL (5 mg/mL) subcutaneous compounded injection Inject 2.5 mg subcutaneously one time a week. gabapentin (NEURONTIN) 300 mg capsule Take 900 mg by mouth three times a day. ALBUTEROL SULFATE INHALATION Inhale as instructed. ibuprofen (MOTRIN) 800 mg tablet Take 800 mg by mouth every 6 hours as needed. Labs Latest Ref Rng AND Units 01/28/2019 04/02/2019 04/24/2019 08/06/2024 CBC WBC 3.70 - 11.00 k/uL 8.26 9.04 8.27 7.14 Hemoglobin 11.5 - 15.5 g/dL 11.4 10.5 10.6 13.7 Hematocrit 36.0 - 46.0 % 36.5 33.5 33.6 42.8 Platelet Count 150 - 400 k/uL 227 214 206 296 Abs Neut (ANC) 1.45 - 7.50 k/uL 6.09 4.35 Abs Lymph 1.00 - 4.00 k/uL 1.51 2.04 Latest Ref Rng AND Units 04/02/2019 04/24/2019 08/06/2024 CMP Sodium 136 - 144 mmol/L 138 138 Potassium 3.7 - 5.1 mmol/L 4.1 4.9 Chloride 98 - 107 mmol/L 103 103 CO2 22 - 30 mmol/L 22 22 Glucose 74 - 99 mg/dL 81 72 BUN 7 - 21 mg/dL 10 10 14 Creatinine 0.58 - 0.96 mg/dL 0.61 0.67 0.82 Calcium 8.5 - 10.2 mg/dL 9.1 9.9 AST 13 - 35 U/L 16 20 32 ALT 7 - 38 U/L 12 11 31 Alkaline Phosphatase 34 - 123 U/L 166 214 176 Latest Ref Rng AND Units 04/24/2019 Uric Acid Uric Acid 2.5 - 6.6 mg/dL 5.5 Latest Ref Rng AND Units 08/06/2024 ESR, WSR WSR 0 - 20 mm/hr 26 Latest Ref Rng AND Units 08/06/2024 CRP CRP <0.9 mg/dL 1.2 Latest Ref Rng AND Units 08/06/2024 RF and CCP Rheumatoid Factor <16 IU/mL <10 CCP Antibody IgG Qualitative Negative Negative CCP Antibody, IgG <20 Units <15 Latest Ref Rng AND Units 01/09/2017 09/22/2018 Hepatitis Screen Hep B Surface Ag Negative Negative Negative Latest Ref Rng AND Units 08/06/2024 Antibodies DNA Antibody <=200 IU/mL 33 Anti-Sm <1.0 AI <0.2 Sm Antibody Negative Negative SSA Antibody Qual Negative Negative Anti-SSA <1.0 AI <0.2 Anti-SSB <1.0 AI <0.2 SSB Antibody Qual Negative Negative Cardiolipin Ab, IgG <15.0 GPL <9.0 Cardiolipin Ab, IgM <12.5 MPL <9.0 Cardiolipin Ab, IgA <12.0 APL <9.0 Latest Ref Rng AND Units 04/06/2019 04/09/2019 04/14/2019 04/20/2019 Urinalysis Protein, Urine Neg mg/dL Neg trace neg trace Tests: (09/13/2023) Oral Biopsy: - Necrotic bone and granulation tissue - Focal non-necrotizing granulomas consistent with foreign body-related granulomatous inflammation - Intramuscular fibrosis - Dental specialist favored a central neural etiology rather than a bony cause Imaging (10/05/24) CT [facility] at [facility]: No evidence of osteomyelitis (11/14/2023) MRI Brain: Normal aside from mild chronic sinusitis MRI Spine Report MRI LUMBAR SPINE WO/W IVCON Collected: 03/28/2020 2:44 PM (Final result) Narrative: Patient Name: JAHAIRA VELASQUEZ ---MRI--- Exam Date/Time 03/28/2020 15:25:44 EDT Exam MRI Spine Lumbar w/ + w/o Contrast Ordering Physician MD TALHA, BRANDIE Mahoney Accession Number [id number] CPT4 Codes 85668 () Reason For Exam radiculopathy Report MRI OF THE LUMBAR SPINE WITHOUT AND WITH GADOLINIUM CLINICAL INDICATION: radiculopathy. TECHNIQUE: Routine MRI of the lumbar spine without and with IV gadolinium. COMPARISON: MRI lumbar spine from outside facility dated November,. FINDINGS: Mild disc desiccation and disc space narrowing again noted in the L4 S1 levels. Remainder of lumbar disc space height and hydration maintained. Normal alignment, height and signal intensity of lumbar vertebral bodies. Conus medullaris is in normal location and has normal contour and signal intensity. No abnormal enhancement. L1-L2: No apparent disc bulge or protrusion. No significant central spinal or foraminal stenosis. L2-L3: No apparent disc bulge or protrusion. No significant central spinal or foraminal stenosis. L3-L4: No apparent disc bulge or protrusion. No significant central spinal or foraminal stenosis. L4-L5: Probable small annular fissure or tear again noted along posterior disc margin, with slight annular bulge, about the same. No significant central spinal or foraminal stenosis. L5-S1: Probable small annular fissure or tear again noted along posterior disc margin, with small annular bulge, similar to comparison. No significant central spinal or foraminal stenosis. IMPRESSION: 1. Degenerative disc disease and spondylosis in lower lumbar spine. Please see above for details at individual levels. 2. Probable small annular fissures or tears and bulges in L4-L5 and L5-S1 levels, without significant interval change. 3. No other apparent disc bulge, protrusion or central spinal canal compromise. Report Dictated on --- Final --- Dictating Physician: MD GREENBERG WENDELL Signed Date and Time: 03/28/2020 9:46 pm Signed by: MD GREENBERG WENDELL Transcribed Date and Time: 03/28/2020 9:47 Last XR Chest - Impression Only XR CHEST PA W RIBS RT Collected: 08/08/2015 7:27 PM (Final result) Impression: IMPRESSION: NO ACUTE FINDINGS. Demo Coordinator: EVA Transcribe Date/Time: Aug 09 2015 8:25A Dictated by : XIANG GAYLE MD... Health Maintenance Current Immunizations Reviewed on 03/23/2019 Name Date COVID-19 vaccine, monovalent (MODERNA) 07/13/2020 RhoD immune globulin 02/09/2019, 04/24/2017, 01/04/2017 influenza (IIV4) vaccine 03/23/2019 tetanus diphtheria pertussis (Tdap) vaccine 02/09/2019, 04/24/2017 Physical Exam VITAL SIGNS: BP 118/86 Pulse 56 Resp 17 Wt 186 lb (84.4kg) SpO2 98% LMP 12/17/2019 Physical Exam GENERAL APPEARANCE: Well groomed. Alert and oriented x 3. In no distress. SKIN: No rash, skin thickening, nodules, or discoloration. EYES: normal conjunctiva HENT: Normal external examination of the ears and nose, lips, oropharynx and tongue. No oropharyngeal lesions, exudate, or sores. Visualized oral tissue in extracted sites appears grossly normal. Moist Mucous membranes NECK: No mass or asymmetry. RESPIRATORY: Normal respiratory effort. Clear to auscultation CARDIOVASCULAR: Heart RRR without gallop, murmur, or rub ABDOMEN: BS normal. No bruits, No tenderness NEUROLOGIC: Sensory exam normal. MUSCULOSKELETAL EXAMINATION: Soft tissue tender points: None Motor exam: Normal bulk and tone. Spine: Cervical spine: No visible abnormalities. No tenderness to palpation. Thoracic spine: No visible abnormalities. No tenderness to palpation. Lumbar spine: No visible abnormalities. + generalized lumbar spine and paraspinal tenderness to palpation. SI Joints: + bilateral tenderness to palpation. Upper extremities: Shoulders: no tenderness to palpation. No swelling or effusion. Elbows: Full ROM in flexion and extension. No swelling or effusion. No tenderness to palpation to the joint line, olecranon, medial or lateral epicondyles. Wrists: Full ROM in all anglin. No swelling or synovitis. No tenderness to palpation Hands: Full ROM in flexion and extension. 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 No swelling or synovitis along the MCPs, PIPs, and DIPs. Mild tenderness along the PIPs and MCPs. Lower extremities: Hips: Full ROM with pain in R hip due to external rotation. + tenderness to palpation along greater trochanter, and lateral joint line. Negative ABDIEL. Knees: Full ROM in flexion and extension. No swelling or effusion. No tenderness to palpation. Ankles: Full ROM in all anglin. No swelling or effusion. No tenderness to palpation along the joint line or Achilles Tendon. No foot drop noted. Feet: Full ROM in toe flexion/extension. No effusion. Mild MTP tenderness. Impression # Chronic jaw pain (R68.84) Persistent since September 2022, following dental infection and extraction of two teeth. Pain is constant, with episodes of severe shooting pain radiating to the ear. Extensive evaluations by oral surgeons, endodontists, periodontists, oral facial pain specialists, and neurologists have not identified a definitive cause. Previous treatments, including carbamazepine, steroids, NSAIDs and gabapentin, have been ineffective. Biopsy in September 2023 revealed necrotic tissue and non-necrotizing inflammation. CT scan show no osteomyelitis. Pain is suspected to be neuropathic, possibly post-traumatic trigeminal neuralgia due to nerve sheath damage. Overall have low suspicion for autoimmune etiology. DEMETRIUS/RF/CCP negative. Cannot completely rule out PsA, but she doesn't have any other classic symptoms of this condition. It would be unusual to only have TMJ involvement in PsA with no other symptoms in other joints. The hip and back pain sounds more mechanical rather than inflmmatory as well. - Will review case with my colleague - Consider repeat biopsy under general anesthesia if no improvement. - Repeat ESR and CRP to assess current inflammatory status. - Monitor for any new symptoms or changes in pain pattern. - Consider MRI of the TMJ joint. # Chronic bilateral low back pain with right-sided sciatica (G89.29) # Degeneration of intervertebral disc of lumbar region with discogenic back pain (M51.360) Chronic low back pain with right-sided sciatica, likely secondary to degenerative disc disease. MRI shows degenerative changes at L4-L5 and L5-S1 levels. Pain is mild and longstanding, attributed to previous sports injury. - Ordered sacroiliac joint X-rays to evaluate for inflammatory changes. - Discussed with patient the degenerative nature of the condition and the limited role of rheumatologic interventions. - Consider to follow as needed with orthopedics as she has seen them previously. # Psoriasis (L40.9) Psoriasis present on legs and arms, managed with topical treatments. Previous rheumatology evaluation suggested possible psoriatic arthritis, but no systemic treatment initiated due to considerations at the time. - Continue topical treatments for psoriasis. - Monitor for any new joint symptoms or changes in skin lesions. - Discuss case with colleagues to consider the possibility of psoriatic arthritis contributing to jaw pain. # Pain in right hip (M25.551) Chronic right hip pain, longstanding since college, attributed to previous sports injury. Pain is mild and associated with stiffness in the morning. - Ordered sacroiliac joint X-rays to evaluate for inflammatory changes. - Monitor for any changes in pain or function. - Consider referral to physical therapy for management of hip pain and stiffness. Plan As Explained to Patient via After visit Summary Orders this visit: Office Visit on 10/29/24 XR SACROILIAC JOINTS 2V AP PELVIS/FERGUESON URINALYSIS, REFLEX MICROSCOPIC SEDIMENTATION RATE, WESTERGREN C-REACTIVE PROTEIN ALK PHOS ISOENZYM BL PROTEIN / CREATININE RATIO tirzepatide 2.5 mg/0.5 mL (5 mg/mL) subcutaneous compounded injection Please take your printed lab orders with you to have the following tests done: - An isoenzyme assay for alkaline phosphatase (to determine if your high level is coming from your liver or bone) - Repeat ESR and CRP tests to check for any lingering inflammation - A complete urinalysis to review the protein and blood levels Obtain the sacroiliac joint x-rays as ordered to assess for any inflammatory changes in your lower back/hip area. Await further communication from our office after your test results have been reviewed and I have discussed your case with my colleagues. Follow up TBD based on results I spent a total of 60 minutes on the date of the service which included preparing to see the patient, [id number] patient care, completing clinical documentation, obtaining and/or reviewing separately obtained history, performing a medically appropriate examination, counseling and educating the patient/family/caregiver, and ordering medications, tests, or procedures. María Elena Cardenas PA-C Rheumatology Date: October 29, 2024 Time: 1:01 PM CNOV Observed: 10/29/2024 9:00 AM Status: COMPLETED Source: [facility] Office Visit ([facility]) JAHAIRA VELASQUEZ ([id number]) 1990 [facility] Date Time Provider Department 10/29/24 9:00 AM MARÍA ELENA CARDENAS WSTR During your visit today, we recorded the following information about you: Pulse Respiration Blood pressure Weight 56/minute 17/minute 118/86 84.4 kg María Elena Cardenas PA-C 10/29/2024 1:05 PM Signed Rheumatology CONSULTATION Date of Service: 10/29/2024 Patient: Jahaira Velasquez Medical Record: [id number] Primary Care Physician: Queenie Sanderson MD Last Rheumatology visit: None at [facility] Referring Provider: Nik Nelson [id number] [facility] [id number] Jahaira Velasquez is here today at request of Dr. Nelson specifically for consultation of my opinion in regards to the chief complaint listed below. Correspondence will be shared today via the [facility] electronic health record or through regular mail, where applicable. Recording using [employer] software for draft documentation of the visit was discussed with the patient/authorized desk representative; all questions welcomed and answered. Patient/authorized desk representative agreed to proceed History of Present Illness Jahaira is a 34-year-old female with a history of PCOS, asthma, and psoriasis, presenting for evaluation of chronic right mandibular pain and suspected autoimmune etiology. Jahaira reports a current pain level of 5 (Jaw). She describes the pain as Sharp, Throbbing, Shooting, Aching. The pain is Continuous, and has lasted for 2 Years. Interventions tried include Medication, Cold, Distractions, Education, Heat, Imagery, Massage. Jahaira is both RF - 9 (08/06/2024) and CCP - 13.5 (08/06/2024) negative. Her most recent DEMETRIUS was negative (08/06/2024). Jahaira reports persistent right mandibular pain since September 2022, described as constant with intermittent exacerbations ranging from 5/10 to 10/10 in severity. The pain radiates from the mid-mandible to the ear and is associated with chronic swelling of right sided cervical lymph nodes since February 2024. Despite multiple evaluations by oral surgeons, endodontists, periodontists, oral facial pain specialists, neurologists, and her primary care physician, no definitive diagnosis has been made. A CT scan revealed no evidence of osteomyelitis. She has been diagnosed with post-traumatic trigeminal neuralgia, suspected to be secondary to nerve damage from a dental cyst and subsequent tooth extraction. Jahaira has trialed multiple medications, including carbamazepine, which was discontinued due to tremors, and gabapentin, currently at 900 mg TID, without significant relief. NSAIDs, acetaminophen, and opioids have been ineffective. A topical medication resulted in infectious lesions. Prednisone and Z-Mitch provided no benefit. She undergoes bimonthly CT scans at her 's dental office to monitor healing, which has been inadequate over two years. A biopsy in August 2023 revealed necrotic tissue; a repeat biopsy is considered but requires general anesthesia due to previous intolerable pain. She also reports chronic right hip pain and back pain since a soccer injury in college, with morning stiffness lasting 10-15 minutes. She has a history of right foot drop, now resolved, and plantar fasciitis, for which she underwent surgery. She denies swelling of fingers or toes, Raynaud's phenomenon, oral or nasal ulcers, photosensitivity, blood clots, or neuropathy. She has psoriasis on her arms and legs, managed with topical treatments. She denies unexplained weight loss, fevers, ocular inflammation, dryness, dyspnea, cough, diarrhea, or constipation. She has a history of one miscarriage at five weeks and three full-term pregnancies. She experiences fatigue, attributing it to caring for three children. She reports elevated alkaline phosphatase levels since 2019, with no known liver ultrasound performed. Recent labs showed elevated CRP (1.2 mg/dL), negative DEMETRIUS, normal CBC, and elevated urine protein and occult blood. She was not menstruating during the urine test. 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 A brain MRI on November 14, 2023, was normal, showing mild chronic sinusitis. A thyroid ultrasound on April 20, 2024, revealed a prominent 1.6 cm cervical lymph node lateral to the right thyroid. Current Meds - Ibuprofen - Albuterol - Gabapentin 900 mg three times a day - Tirzepatide Pain Evaluation 04/09/2019 04/24/2019 06/08/2019 10/22/2024 10/29/2024 Pain Evaluation Pain Score 8 4 2 5 5 Location -- Head Abdomen Mouth Jaw Location Comment headache, backache, stomach Mid abdomen Description Stabbing;Sharp Aching Aching Aching;Radiating;Sharp;Shooting;Stabbing;Tenderness Sharp;Throbbing;Shooting;Aching Duration (#) 9 1 10 2 2 Duration (Timeframe) Hours Days Days Years Years Frequency Continuous Continuous Intermittent Continuous Continuous Intervention -- Other: See comment Medication Medication;Cold;Distractions;Education;Heat;Imagery;Massage Patient-Entered Data PROMIS Assessments 10/22/2024 PROMIS Global Health - (T-Scores - the mean of general population = 50. Five points is a clinically meaningful difference.) Physical T-Score 47.7 Mental T-Score 62.5 10/22/2024 PROMIS CAT Pain Interference PROMIS Pain Interference T-Score (range: 10 - 90) 53 (within normal limits) PROMIS Pain Interference Percentile 38 PROMIS Adult Short Form-Global Health Score (Mental) 62.5 (Excellent) 10/22/2024 PROMIS CAT Fatigue PROMIS Fatigue T-Score 45 (within normal limits) PROMIS Fatigue Percentile 69 10/22/2024 PROMIS PHYSICAL FUNCTION T-SCORE PROMIS Physical Function T-Score 53 (within normal limits) Physical Function Percentile 62 RAPID 3 Anaya Activities of Daily Living 10/22/2024 1:06 PM Dress self? Without ANY difficulty Get in and out of bed? Without ANY difficulty Walk outdoors? Without ANY difficulty Wash and dry body? Without ANY difficulty Get in and out of car? Without ANY difficulty RAPID 3 Disease Activity Weighed Score Levels: 0 - 1: Near Remission 1.3 - 2.0: Low Severity 2.3 - 4.0: Moderate Severity 4.3 - 10.0: High Severity 10/22/2024 RAPID-3 Weighed Score RAPID 3 Weighed Score 2.33 (Moderate severity ) Review of Systems Review of Systems CONSTITUTION: Negative for: Fever and Recent weight change HEENT: Negative for: Nosebleeds, Mouth sores, Trouble swallowing and Dry mouth RESPIRATORY: Negative for: Cough, Shortness of breath and Pain with breathing GASTROINTESTINAL: Negative for: Melena, Diarrhea, Heartburn and Abdominal pain MUSCULOSKELETAL: Positive for: Arthralgias and Myalgias Negative for: Muscle weakness, Joint swelling and Morning Joint Stiffness NEUROLOGICAL: Negative for: Headaches, Numbness and Memory loss SKIN: Negative for: Rash, Skin changes, Hair loss and Nail changes EYES: Negative for: Eye pain, Eye redness, Eye dryness and visual disturbance CARDIOVASCULAR: Negative for: Chest pain and Leg swelling GENITOURINARY: Negative for: Dysuria and Hematuria HEMATOLOGIC/LYMPHATIC: Positive for: Swollen glands RHEUMATOLOGIC REVIEW OF SYSTEMS: No ulcers in mouth or nose No photosensenitivity No history of blood clots + miscarriages - one miscarriage early (5 wks), 3 normal pregnancies + fatigue No history of Raynaud's No fevers No bright red painful eyes No sicca NO sob No cough No diarrhea, no constipation + chronic back pain + history of psoriasis (on legs and arms - treat with topicals) - ? Possible Psoriatic arthritis Short lived morning stiffness (10 min) No weight loss No neuropathy - History of drop foot, but has since resolved All other reviewed and negative other than HPI. Past Medical History PAST MEDICAL HISTORY Diagnosis Date Asthma (HCC) fracture right shoulder, soccer accident PCOS (polycystic ovarian syndrome) 2018 - Polycystic ovary syndrome - Asthma - Post-traumatic trigeminal neuralgia - Degenerative disc disease - Psoriasis Past Surgical History PAST SURGICAL HISTORY Procedure Laterality Date BUNION CORRECTION W/METATARSAL OSTEOTOMY 2012 bilatereal foot surgery. COLONOSCOPY W/BIOPSY SINGLE/MULTIPLE 10/05/2014 normal TI, normal colonoscopy EGD TRANSORAL BIOPSY SINGLE/MULTIPLE 10/05/2014 minimal reflux esophagitis, o/w normal FASCIECTOMY PLANTAR FASCIA PARTIAL SPX Right PAST SURGICAL HISTORY OF Left 06/2015 removal of screws from prior foot surgery PAST SURGICAL HISTORY OF Right 01/2016 scope and shave of bone shoulder Family History FAMILY HISTORY Problem Relation Age of Onset Thyroid Mother Hypertension Father Heart Father Cancer Father No Known Problems Brother Breast Cancer Maternal Grandmother Diabetes Maternal Grandmother Heart Paternal Grandmother Heart Paternal Grandfather Heart Maternal Grandfather No Known Problems Son No Known Problems Son Social History Social History Tobacco Use Smoking status: Never Smokeless tobacco: Never Vaping Use Vaping status: Never Used Substance Use Topics Alcohol use: No Drug use: No Current Medications Current Outpatient Medications Medication Sig tirzepatide 2.5 mg/0.5 mL (5 mg/mL) subcutaneous compounded injection Inject 2.5 mg subcutaneously one time a week. gabapentin (NEURONTIN) 300 mg capsule Take 900 mg by mouth three times a day. ALBUTEROL SULFATE INHALATION Inhale as instructed. ibuprofen (MOTRIN) 800 mg tablet Take 800 mg by mouth every 6 hours as needed. Labs Latest Ref Rng AND Units 01/28/2019 04/02/2019 04/24/2019 08/06/2024 CBC WBC 3.70 - 11.00 k/uL 8.26 9.04 8.27 7.14 Hemoglobin 11.5 - 15.5 g/dL 11.4 10.5 10.6 13.7 Hematocrit 36.0 - 46.0 % 36.5 33.5 33.6 42.8 Platelet Count 150 - 400 k/uL 227 214 206 296 Abs Neut (ANC) 1.45 - 7.50 k/uL 6.09 4.35 Abs Lymph 1.00 - 4.00 k/uL 1.51 2.04 Latest Ref Rng AND Units 04/02/2019 04/24/2019 08/06/2024 CMP Sodium 136 - 144 mmol/L 138 138 Potassium 3.7 - 5.1 mmol/L 4.1 4.9 Chloride 98 - 107 mmol/L 103 103 CO2 22 - 30 mmol/L 22 22 Glucose 74 - 99 mg/dL 81 72 BUN 7 - 21 mg/dL 10 10 14 Creatinine 0.58 - 0.96 mg/dL 0.61 0.67 0.82 Calcium 8.5 - 10.2 mg/dL 9.1 9.9 AST 13 - 35 U/L 16 20 32 ALT 7 - 38 U/L 12 11 31 Alkaline Phosphatase 34 - 123 U/L 166 214 176 Latest Ref Rng AND Units 04/24/2019 Uric Acid Uric Acid 2.5 - 6.6 mg/dL 5.5 Latest Ref Rng AND Units 08/06/2024 ESR, WSR WSR 0 - 20 mm/hr 26 Latest Ref Rng AND Units 08/06/2024 CRP CRP <0.9 mg/dL 1.2 Latest Ref Rng AND Units 08/06/2024 RF and CCP Rheumatoid Factor <16 IU/mL <10 CCP Antibody IgG Qualitative Negative Negative CCP Antibody, IgG <20 Units <15 Latest Ref Rng AND Units 01/09/2017 09/22/2018 Hepatitis Screen Hep B Surface Ag Negative Negative Negative Latest Ref Rng AND Units 08/06/2024 Antibodies DNA Antibody <=200 IU/mL 33 Anti-Sm <1.0 AI <0.2 Sm Antibody Negative Negative SSA Antibody Qual Negative Negative Anti-SSA <1.0 AI <0.2 Anti-SSB <1.0 AI <0.2 SSB Antibody Qual Negative Negative Cardiolipin Ab, IgG <15.0 GPL <9.0 Cardiolipin Ab, IgM <12.5 MPL <9.0 Cardiolipin Ab, IgA <12.0 APL <9.0 Latest Ref Rng AND Units 04/06/2019 04/09/2019 04/14/2019 04/20/2019 Urinalysis Protein, Urine Neg mg/dL Neg trace neg trace Tests: (09/13/2023) Oral Biopsy: - Necrotic bone and granulation tissue - Focal non-necrotizing granulomas consistent with foreign body-related granulomatous inflammation - Intramuscular fibrosis - Dental specialist favored a central neural etiology rather than a bony cause Imaging (10/05/24) CT [facility] at [facility]: No evidence of osteomyelitis (11/14/2023) MRI Brain: Normal aside from mild chronic sinusitis MRI Spine Report MRI LUMBAR SPINE WO/W IVCON Collected: 03/28/2020 2:44 PM (Final result) Narrative: Patient Name: JAHAIRA VELASQUEZ ---MRI--- Exam Date/Time 03/28/2020 15:25:44 EDT Exam MRI Spine Lumbar w/ + w/o Contrast Ordering Physician MD TALHA, BRANDIE Mahoney Accession Number [id number] CPT4 Codes 08336 () Reason For Exam radiculopathy Report MRI OF THE LUMBAR SPINE WITHOUT AND WITH GADOLINIUM CLINICAL INDICATION: radiculopathy. TECHNIQUE: Routine MRI of the lumbar spine without and with IV gadolinium. COMPARISON: MRI lumbar spine from outside facility dated November,. FINDINGS: Mild disc desiccation and disc space narrowing again noted in the L4 S1 levels. Remainder of lumbar disc space height and hydration maintained. Normal alignment, height and signal intensity of lumbar vertebral bodies. Conus medullaris is in normal location and has normal contour and signal intensity. No abnormal enhancement. L1-L2: No apparent disc bulge or protrusion. No significant central spinal or foraminal stenosis. L2-L3: No apparent disc bulge or protrusion. No significant central spinal or foraminal stenosis. L3-L4: No apparent disc bulge or protrusion. No significant central spinal or foraminal stenosis. L4-L5: Probable small annular fissure or tear again noted along posterior disc margin, with slight annular bulge, about the same. No significant central spinal or foraminal stenosis. L5-S1: Probable small annular fissure or tear again noted along posterior disc margin, with small annular bulge, similar to comparison. No significant central spinal or foraminal stenosis. IMPRESSION: 1. Degenerative disc disease and spondylosis in lower lumbar spine. Please see above for details at individual levels. 2. Probable small annular fissures or tears and bulges in L4-L5 and L5-S1 levels, without significant interval change. 3. No other apparent disc bulge, protrusion or central spinal canal compromise. Report Dictated on --- Final --- Dictating Physician: MD GREENBERG WENDELL Signed Date and Time: 03/28/2020 9:46 pm Signed by: MD GREENBERG WENDELL Transcribed Date and Time: 03/28/2020 9:47 Last XR Chest - Impression Only XR CHEST PA W RIBS RT Collected: 08/08/2015 7:27 PM (Final result) Impression: IMPRESSION: NO ACUTE FINDINGS. Demo Coordinator: PSC Transcribe Date/Time: Aug 09 2015 8:25A Dictated by : XIANG GAYLE MD... Health Maintenance Current Immunizations Reviewed on 03/23/2019 Name Date COVID-19 vaccine, monovalent (MODERNA) 07/13/2020 RhoD immune globulin 02/09/2019, 04/24/2017, 01/04/2017 influenza (IIV4) vaccine 03/23/2019 tetanus diphtheria pertussis (Tdap) vaccine 02/09/2019, 04/24/2017 Physical Exam VITAL SIGNS: BP 118/86 Pulse 56 Resp 17 Wt 186 lb (84.4kg) SpO2 98% LMP 12/17/2019 Physical Exam GENERAL APPEARANCE: Well groomed. Alert and oriented x 3. In no distress. SKIN: No rash, skin thickening, nodules, or discoloration. EYES: normal conjunctiva HENT: Normal external examination of the ears and nose, lips, oropharynx and tongue. No oropharyngeal lesions, exudate, or sores. Visualized oral tissue in extracted sites appears grossly normal. Moist Mucous membranes NECK: No mass or asymmetry. RESPIRATORY: Normal respiratory effort. Clear to auscultation CARDIOVASCULAR: Heart RRR without gallop, murmur, or rub ABDOMEN: BS normal. No bruits, No tenderness NEUROLOGIC: Sensory exam normal. MUSCULOSKELETAL EXAMINATION: Soft tissue tender points: None Motor exam: Normal bulk and tone. Spine: Cervical spine: No visible abnormalities. No tenderness to palpation. Thoracic spine: No visible abnormalities. No tenderness to palpation. Lumbar spine: No visible abnormalities. + generalized lumbar spine and paraspinal tenderness to palpation. SI Joints: + bilateral tenderness to palpation. Upper extremities: Shoulders: no tenderness to palpation. No swelling or effusion. Elbows: Full ROM in flexion and extension. No swelling or effusion. No tenderness to palpation to the joint line, olecranon, medial or lateral epicondyles. Wrists: Full ROM in all anglin. No swelling or synovitis. No tenderness to palpation Hands: Full ROM in flexion and extension. 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 No swelling or synovitis along the MCPs, PIPs, and DIPs. Mild tenderness along the PIPs and MCPs. Lower extremities: Hips: Full ROM with pain in R hip due to external rotation. + tenderness to palpation along greater trochanter, and lateral joint line. Negative ABDIEL. Knees: Full ROM in flexion and extension. No swelling or effusion. No tenderness to palpation. Ankles: Full ROM in all anglin. No swelling or effusion. No tenderness to palpation along the joint line or Achilles Tendon. No foot drop noted. Feet: Full ROM in toe flexion/extension. No effusion. Mild MTP tenderness. Impression # Chronic jaw pain (R68.84) Persistent since September 2022, following dental infection and extraction of two teeth. Pain is constant, with episodes of severe shooting pain radiating to the ear. Extensive evaluations by oral surgeons, endodontists, periodontists, oral facial pain specialists, and neurologists have not identified a definitive cause. Previous treatments, including carbamazepine, steroids, NSAIDs and gabapentin, have been ineffective. Biopsy in September 2023 revealed necrotic tissue and non-necrotizing inflammation. CT scan show no osteomyelitis. Pain is suspected to be neuropathic, possibly post-traumatic trigeminal neuralgia due to nerve sheath damage. Overall have low suspicion for autoimmune etiology. DEMETRIUS/RF/CCP negative. Cannot completely rule out PsA, but she doesn't have any other classic symptoms of this condition. It would be unusual to only have TMJ involvement in PsA with no other symptoms in other joints. The hip and back pain sounds more mechanical rather than inflmmatory as well. - Will review case with my colleague - Consider repeat biopsy under general anesthesia if no improvement. - Repeat ESR and CRP to assess current inflammatory status. - Monitor for any new symptoms or changes in pain pattern. - Consider MRI of the TMJ joint. # Chronic bilateral low back pain with right-sided sciatica (G89.29) # Degeneration of intervertebral disc of lumbar region with discogenic back pain (M51.360) Chronic low back pain with right-sided sciatica, likely secondary to degenerative disc disease. MRI shows degenerative changes at L4-L5 and L5-S1 levels. Pain is mild and longstanding, attributed to previous sports injury. - Ordered sacroiliac joint X-rays to evaluate for inflammatory changes. - Discussed with patient the degenerative nature of the condition and the limited role of rheumatologic interventions. - Consider to follow as needed with orthopedics as she has seen them previously. # Psoriasis (L40.9) Psoriasis present on legs and arms, managed with topical treatments. Previous rheumatology evaluation suggested possible psoriatic arthritis, but no systemic treatment initiated due to considerations at the time. - Continue topical treatments for psoriasis. - Monitor for any new joint symptoms or changes in skin lesions. - Discuss case with colleagues to consider the possibility of psoriatic arthritis contributing to jaw pain. # Pain in right hip (M25.551) Chronic right hip pain, longstanding since college, attributed to previous sports injury. Pain is mild and associated with stiffness in the morning. - Ordered sacroiliac joint X-rays to evaluate for inflammatory changes. - Monitor for any changes in pain or function. - Consider referral to physical therapy for management of hip pain and stiffness. Plan As Explained to Patient via After visit Summary Orders this visit: Office Visit on 10/29/24 XR SACROILIAC JOINTS 2V AP PELVIS/FERGUESON URINALYSIS, REFLEX MICROSCOPIC SEDIMENTATION RATE, WESTERGREN C-REACTIVE PROTEIN ALK PHOS ISOENZYM BL PROTEIN / CREATININE RATIO tirzepatide 2.5 mg/0.5 mL (5 mg/mL) subcutaneous compounded injection Please take your printed lab orders with you to have the following tests done: - An isoenzyme assay for alkaline phosphatase (to determine if your high level is coming from your liver or bone) - Repeat ESR and CRP tests to check for any lingering inflammation - A complete urinalysis to review the protein and blood levels Obtain the sacroiliac joint x-rays as ordered to assess for any inflammatory changes in your lower back/hip area. Await further communication from our office after your test results have been reviewed and I have discussed your case with my colleagues. Follow up TBD based on results I spent a total of 60 minutes on the date of the service which included preparing to see the patient, [id number] patient care, completing clinical documentation, obtaining and/or reviewing separately obtained history, performing a medically appropriate examination, counseling and educating the patient/family/caregiver, and ordering medications, tests, or procedures. 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] Pain in right hip [M25.551] Proteinuria, unspecified type [R80.9] Hematuria, unspecified type [R31.9] Order(s):URINALYSIS, REFLEX MICROSCOPIC [PSD2290] Order #: [id number] FUTURE SEDIMENTATION RATE, WESTERGREN [SQWSR] Order #: [id number] FUTURE C-REACTIVE PROTEIN [SQCRP] Order #: [id number] FUTURE ALK PHOS ISOENZYM BL [SQALKISO] Order #: [id number] FUTURE XR SACROILIAC JOINTS 2V AP PELVIS/FERGUESON [[id number]] Order #: [id number] FUTURE PROTEIN / CREATININE RATIO [SQPRATIO] Order #: [id number] FUTURE Prescriptions as of 10/29/2024 - tirzepatide 2.5 mg/0.5 mL (5 mg/mL) subcutaneous compounded injection Inject 2.5 mg subcutaneously one time a week. - gabapentin (NEURONTIN) 300 mg capsule Take 900 mg by mouth three times a day. - ibuprofen (MOTRIN) 800 mg tablet Take 800 mg by mouth every 6 hours as needed. - ALBUTEROL SULFATE INHALATION Inhale as instructed. Problem List As Of Date 10/29/2024 Noted Resolved Blood in stool [K92.1] 09/29/2014 01/14/2017 Abdominal pain, right lower quadrant [R10.31] 09/29/2014 01/14/2017 Asthma [J45.909] 10/01/2014 Encounter for supervision of normal first pregn*12/28/2016 08/19/2017 History of foreign travel [Z78.9] 12/28/2016 08/19/2017 Rh negative state in antepartum period [O26.899*01/10/2017 08/19/2017 Intrauterine growth restriction (IUGR) affectin*07/10/2017 08/19/2017 Obesity in [O99.210] 09/22/2018 06/15/2019 Encounter for supervision of normal i*09/22/2018 06/15/2019 History of prior with IUGR [Z*09/22/2018 06/15/2019 Rh negative state in antepartum period [O26.899*09/23/2018 06/15/2019 Abnormal glucose complicating [O99.81*09/23/2018 06/15/2019 PCOS (polycystic ovarian syndrome) [E28.2] 01/11/2020 Letter Text Encounter Status:Closed by MARÍA ELENA CARDENAS on 10/29/24 PROTEIN ELECTROPHORESIS SERUM (P) Colle cted: 08/06/2024 12:10 PM Status: F Source: [facility] Order Comment: Specimen Type : BLOOD SPECIMEN Ordering Facility: [facility] Address: [address] [place] [address] TYPE CODE TESTS RESULT OUT OF RANGE REFERENCE UNITS LAB 2862-1(LOINC) Albumin SerPl Elph-mCnc 4.69 3.43-5.41 g/dL LAB 2865-4(LOINC) Alpha1 Glob SerPl Elph-mCnc 0.37 0.18-0.43 g/dL LAB 2868-8(LOINC) Alpha2 Glob SerPl Elph-mCnc 0.77 0.42-0.98 g/dL LAB 2871-2(LOINC) B-Globulin SerPl Elph-mCnc 1.05 0.61-1.17 g/dL LAB 2874-6(LOINC) Gamma glob SerPl Elph-mCnc 0.93 0.53-1.51 g/dL LAB 76021-6(LOINC) Prot Pattern SerPl Elph-Imp No definitive M protein is identified on protein electrophores is. No definitive M protein is identified on protein electrophores is. LAB LOC M-PROTEIN LOCATION Result Comment: Not Applicab le. LAB 13835-2(LOINC) M Protein SerPl Elph-mCnc 0.00 <=0.00 g/dL LAB SPESTF SPE STAFF REVIEW Reviewed by Gabriel Lechuga MD, Ph.D ([id number]) Performed By: #### [id number] # ### [facility] CLIA [id number] [address] [place] [address] [place] PROT SERPL-MCNC Collected: 12:10 PM Status: F Source: [facility] Comment: Specimen Type : BLOOD SPECIMEN Ordering Facility: [facility] Address: [address] [place] [address] TYPE CODE TESTS RESULT OUT OF RANGE REFERENCE UNITS LAB 2885-2(LOINC) Prot SerPl-mCnc 7.8 6.3-8.0 g/dL Performed By: #### 2885-2 ## ## [facility] IA [id number] [address] [place] [address] DNA ANTIBODY DS BLD Collected: 08/06/2024 12:10 PM S tatus: F Source: [facility] Comment: Specimen Type : BLOOD SPECIMEN Ordering Facility: [facility] Address: [address] [place] [address] TYPE CODE TESTS RESULT OUT OF RANGE REFERENCE UNITS LAB DNAAB DNA ANTIBODY 33 <=200 IU/mL Result Comment: Negative: <2 00 IU/mL Equivocal: 201-300 IU/mL Moderate Positive: 301-800 IU/mL Strong Positive: >801 IU/mL LAB DNAABQ DNA ANTIBODY QUALITATIVE INTERPRETATION Negative Negative Performed By: #### DNAAB ### # [facility] IA [id number] [address] [place] [address] [place] CBC W AUTO DIFF BLD Collected: 08/06/2024 12:10 PM S tatus: F Source: [facility] Comment: Specimen Type : BLOOD SPECIMEN Ordering Facility: [facility] Address: [address] [place] [address] TYPE CODE TESTS RESULT OUT OF RANGE REFERENCE UNITS LAB 6690-2(LOINC) WBC # Bld Auto 7.14 3.70-11.00 k/uL LAB 789-8(LOINC) RBC # Bld Auto 4.62 3.90-5.20 m/ uL LAB 718-7([facility]) Hgb Bld-mCnc 13.7 11.5-15.5 g/dL LAB 4544-3([facility]) Hct VFr Bld Auto 42.8 36.0-46.0 % LAB 787-2([facility]) MCV RBC Auto 92.6 80.0-100.0 fL LAB 785-6([facility]) MCH RBC Qn Auto 29.7 26.0-34.0 p g LAB 786-4([facility]) MCHC RBC Auto-mCnc 32.0 30.5-36.0 g/dL LAB 43759-5([facility]) RDW RBC-Rto 12.3 11.5-15.0 % LAB 777-3([facility]) Platelet # Bld Auto 296 150-400 k/uL LAB 04436-5([facility]) PMV Bld Auto 11.8 9.0-12.7 fL LAB 770-8([facility]) Neutrophils/leuk NFr Bld Auto 60.8 % LAB 751-8([facility]) Neutrophils # Bld Auto 4.35 1.45-7.50 k/uL LAB 736-9([facility]) Lymphocytes/leuk NFr Bld Auto 28.6 % LAB 731-0([facility]) Lymphocytes # Bld Auto 2.04 1.00-4.00 k/uL LAB 5905-5([facility]) Monocytes/leuk NFr Bld Auto 6.6 % LAB 742-7([facility]) Monocytes # Bld Auto 0.47 <0.87 k/uL LAB 713-8([facility]) Eosinophil/leuk NFr Bld Auto 3.1 % LAB 711-2([facility]) Eosinophil # Bld Auto 0.22 <0.46 k/uL LAB 706-2([facility]) Basophils/leuk NFr Bld Auto 0.6 % LAB 704-7([facility]) Basophils # Bld Auto 0.04 <0.11 k/uL LAB 64506-8([facility]) Imm Granulocytes/rafaela k NFr Bld Auto 0.3 % LAB 80930-1([facility]) Imm Granulocytes # Bld Auto <0.03 <0.10 k/uL LAB 39112-9([facility]) nRBC/100 WBC Bld-Rto 0.0 /100 WBC LAB 771-6([facility]) nRBC # Bld Auto <0.01 <0.01 k/u L LAB 76887-7([facility]) Differential method Bld Auto Performed By: #### 4537-7, 5 7021-8 #### [facility] CLIA [id number] [address] [place] [address] [place] ESR BLD QN WESTRGRN Collected: 08/06/2024 12:10 PM S tatus: F Source: [facility] Order Comment: Specimen Type : BLOOD SPECIMEN Ordering Facility: [facility] Address: [address] [place] [address] TYPE CODE TESTS RESULT OUT OF RANGE REFERENCE UNITS LAB 4537-7([facility]) ESR Bld Qn Westrgrn 26 High 0-20 mm/hr Performed By: #### 4537-7, 5 7021-8 #### [facility] CLIA [id number] [address] [place] [address] MARY SM IGG SER-ACNC Collected: 08/06/19 12:10 PM Status: F Source: [facility] Order Comment: Specimen Type : BLOOD SPECIMEN Ordering Facility: [facility] Address: [address] [place] [address] TYPE CODE TESTS RESULT OUT OF RANGE REFERENCE UNITS LAB SMIB SM ANTIBODY QUAL Negative Negative Result Comment: Anti-Sm (Smi th) antibody is used as an aid in diagnosis of systemic lupus erythematosus and its presence is associated with renal disease. A negative result cannot rule out systemic lupus erythematosus. Clinical correlation is required. Test Methodology: Multiplex flow immunoassay. LAB 95733-6([facility]) MARY SM IgG Ser-aCnc <0.2 <1.0 AI Performed By: #### XSSAB, 47 383-5, 77702-8 #### [facility] CLIA [id number] [address] [place] SJOGREN ABS SSA/SSB Collected: 08/06/19 12:10 PM Status: F Source: [facility] Order Comment: Specimen Type : BLOOD SPECIMEN Ordering Facility: [facility] Address: [address] [place] [address] TYPE CODE TESTS RESULT OUT OF RANGE REFERENCE UNITS LAB 67302-6(LOINC) MARY SS-A Ab Ser-aCnc <0.2 <1.0 AI LAB 64743-6(LOINC) MARY SS-B Ab Ser-aCnc <0.2 <1.0 AI LAB SSAABQL SSA ANTIBODY QUAL Negative Negative Result Comment: Anti-SSA (an ti-Ro) antibody is used as an aid in diagnosis of a variety of systemic autoimmune diseases, Sjogren's syndrome among others. Clinical correlation is required. Test Methodology: Multiplex flow immunoassay. ??? \X09\ LAB SSBABQU ANTI-SSB QUAL Negative Negative Result Comment: Anti-SSB (an ti-La) antibody is used as an aid in diagnosis of a variety of systemic autoimmune diseases, especially for Sjogren's syndrome and systemic lupus erythematosus. Clinical correlation is required. Test Methodology: Multiplex flow immunoassay. Performed By: #### XSJASON, 47 383-5, 27903-1 #### [facility] CLIA [id number] [address] [place] [address] [place] DEMETRIUS SER QL IA Collected: 12:10 PM Status: F Source: [facility] Order Comment: Specimen Type : BLOOD SPECIMEN Ordering Facility: [facility] Address: [address] [place] [address] TYPE CODE TESTS RESULT OUT OF RANGE REFERENCE UNITS LAB ANAQL DEMETRIUS SCR QUAL Negative Negative Result Comment: The qualitat shaun antinuclear antibody screen test performed using the following antigens: dsDNA, Chromatin, Ribosomal P, SS-A 60, SS-A 52, SS-B, Sm, SmRNP, BOATBUILDER APPRENTICE WOOD A, BOATBUILDER APPRENTICE WOOD 68, Scl-70, Padmini-1, and Centromere B. Methodology: Multiplex flow immunoassay. Performed By: #### XSSAB, 47 383-5, 86651-8 #### [facility] CLIA [id number] [address] [place] [address] [place] CCP IGG SERPL-ACNC Collected: 08/06/2024 12:[address] atus: F Source: [facility] Comment: Specimen Type : BLOOD SPECIMEN Ordering Facility: [facility] Address: [address] [place] [address] TYPE CODE TESTS RESULT OUT OF RANGE REFERENCE UNITS LAB CCPIGGQ CCP ANTIBODY IGG QUALITATIVE Negative Negative LAB 29562-8(LOINC) cCP IgG SerPl-aCnc <15 <20 Units Performed By: #### Chela LEE, 5076-5, 51127-2 #### [facility] CLIA [id number] [address] [place] [address] CARDIOLIPIN IGA SER IA-ACNC Collected: 08/06/2024 12:10 PM Status: F Source: [facility] Comment: Specimen Type : BLOOD SPECIMEN Ordering Facility: [facility] Address: [address] [place] [address] TYPE CODE TESTS RESULT OUT OF RANGE REFERENCE UNITS LAB 5076-5(LOINC) Cardiolipin IgA Ser IA-aCnc <9.0 <12.0 APL Result Comment: <12 APL Nega tive 12-20 APL Indeterminate >20 APL Positive The following results were obtained with the [email or web address] QUANTA Lite SELENA IgA III CATY. Cardiolipin IgA values obtained with the different manufacturers' assay methods may not be used interchangeably. The magnitude of the reported IgA levels cannot be correlated to an endpoint titer. Performed By: #### Chela LEE, 5076-5, 41544-2 #### [facility] CLIA [id number] [address] [place], [place] [address] [facility] CARDIOLIPIN IGG ABS Collected: 08/06/19 12:10 PM Status: F Source: [facility] Comment: Specimen Type : BLOOD SPECIMEN Ordering Facility: [facility] Address: [address] [place] [address] TYPE CODE TESTS RESULT OUT OF RANGE REFERENCE UNITS LAB 3181-5(LOINC) Cardiolipin IgG Ser IA-aCnc <9.0 <15.0 GPL Result Comment: <15 GPL Nega tive 15-20 GPL Indeterminate >20 GPL Positive The following results were obtained with the [employer] QUANTA Lite SELENA IgG III CATY. Cardiolipin IgG values obtained with the different manufacturers' assay methods may not be used interchangeably. The magnitude of the reported IgG levels cannot be correlated to an endpoint titer. Performed By: #### Chela LEE NONANakul, 5076-5, 20294-9 #### [facility] CLIA [id number] [address] [place] [address] CARDIOLIPIN IGM ABS Collected: 08/06/19 12:10 PM Status: F Source: [facility] Order Comment: Specimen Type : BLOOD SPECIMEN Ordering Facility: [facility] Address: [address] [place] [address] TYPE CODE TESTS RESULT OUT OF RANGE REFERENCE UNITS LAB 3182-3(LOINC) Cardiolipin IgM Ser IA-aCnc <9.0 <12.5 MPL Result Comment: <12.5 MPL Ne gative 12.5-20 MPL Indeterminate >20 MPL Positive The following results were obtained with the [employer] QUANTA Lite SELENA IgM III CATY. Cardiolipin IgM values obtained with the different manufacturers' assay methods may not be used interchangeably. The magnitude of the reported IgM levels cannot be correlated to an endpoint titer. ??? Performed By: #### JESUSChela, 5076-5, 10726-6 #### [facility] CLIA [id number] [address] [place] [address] [place] COMP METAB 2000 PNL SERPL Collected: 12:10 PM Status: F Source: [facility] Order Comment: Specimen Type : BLOOD SPECIMEN Ordering Facility: [facility] Address: [address] [place] [address] TYPE CODE TESTS RESULT OUT OF RANGE REFERENCE UNITS LAB 2885-2(LOINC) Prot SerPl-mCnc 7.9 6.3-8.0 g/dL LAB 1751-7(LOINC) Albumin SerPl-mCnc 4.6 3.9-4.9 g/dL LAB 27418-9(LOINC) Calcium SerPl-mCnc 9.9 8.5-10.2 mg/dL LAB 1975-2(LOINC) Bilirub SerPl-mCnc 0.4 0.2-1.3 mg/dL LAB 6768-6(LOINC) ALP SerPl-cCnc 176 High 34-123 U/L LAB 1920-8(LOINC) AST SerPl-cCnc 32 13-35 U/L LAB 1742-6(LOINC) ALT SerPl-cCnc 31 7-38 U/L LAB 2345-7(LOINC) Glucose SerPl-mCnc 72 Low 74-99 mg/dL Result Comment: The English Diabetes Association (ADA) provides guidance for cutoff values for fasting glucose and random glucose. The ADA defines fasting as no caloric intake for at least 8 hours. Fasting plasma glucose results between 100 to 125 mg/dL indicate increased risk for diabetes (prediabetes). Fasting plasma glucose results greater than or equal to 126 mg/dL meet the criteria for diagnosis of diabetes. In the absence of unequivocal hyperglycemia, results should be confirmed by repeat testing. In a patient with classic symptoms of hyperglycemia or hyperglycemic crisis, random plasma glucose results greater than or equal to 200 mg/dL meet the criteria for diagnosis of diabetes. Reference: Standards of Medical Care in Diabetes 2016, English Diabetes Association. Diabetes Care. 2016.39(Suppl 1). LAB 3094-0(LOINC) BUN SerPl-mCnc 14 7-21 mg/ dL LAB 2160-0(LOINC) Creat SerPl-mCnc 0.82 0.58-0.96 mg/dL LAB 2951-2(LOINC) Sodium SerPl-sCnc 138 136-144 mmol/L LAB 2823-3(LOINC) Potassium SerPl-sCnc 4.9 3.7-5.1 mmol/L LAB 2075-0(LOINC) Chloride SerPl-sCnc 103 98-107 mmol/L LAB 8-9(LOINC) CO2 SerPl-sCnc 22 22-30 mmo l/L LAB 16774-0(LOINC) Anion Gap SerPl-sCnc 13 8-15 mmol/L LAB 09215-4(LOINC) Creatinine + eGFR Pnl SerPlBld 96 >=60 mL/min/1 .73m??? Result Comment: Estimated Gl omerular Filtration Rate (eGFR) is calculated using the 2020 CKD-EPI creatinine equation. This equation utilizes serum creatinine, sex, and age as parameters. The creatinine assay has traceable calibration to isotope dilution-mass spectrometry. Refer to KDIGO guidelines for clinical interpretation. In patients with unstable renal function, e.g. those with acute kidney injury, the eGFR may not accurately reflect actual GFR. Performed By: #### 3016-3, 1 1571-11, 1987-11, #### [facility] CLIA [id number] [address] [place] [address] [place] CRP SERPL-MCNC Collected: 12:10 PM Status: F Source: [facility] Comment: Specimen Type : BLOOD SPECIMEN Ordering Facility: [facility] Address: [address] [place] [address] TYPE CODE TESTS RESULT OUT OF RANGE REFERENCE UNITS LAB 1987-11(LOINC) CRP SerPl-mCnc 1.2 High <0.9 mg/dL Performed By: #### 3016-3, 1 1571-11, 1987-11, #### [facility] CLIA [id number] [address] [place] [address] [place] RHEUMATOID FACT SERPL-ACNC Collected: 08/06/2024 12:1 0 PM Status: F Source: [facility] Comment: Specimen Type : BLOOD SPECIMEN Ordering Facility: [facility] Address: [address] [place] [address] TYPE CODE TESTS RESULT OUT OF RANGE REFERENCE UNITS LAB 23921-2(LOINC) Rheumatoid fact SerPl-aCnc <10 <16 IU/mL Performed By: #### 3016-3, 1 1571-11, 1987-11, #### [facility] CLIA [id number] [address] [place] [address] [place] TSH SERPL-ACNC Collected: 12:10 PM Status: F Source: [facility] Order Comment: Specimen Type : BLOOD SPECIMEN Ordering Facility: [facility] Address: [facility] [place] [address] TYPE CODE TESTS RESULT OUT OF RANGE REFERENCE UNITS LAB 3016-3(LOINC) TSH SerPl-aCnc 1.900 0.270-4.200 mIU/L Result Comment: If the patie nt is , TSH reference range varies by gestational period: First Trimester (weeks 9-12): 0.180-2.990 mIU/L Second Trimester: 0.110-3.980 mIU/L Third Trimester: 0.480-4.710 mIU/L Mahin Church et al. A Practical Approach for the Verifications and Determination of Site- and Trimester-Specific Reference Intervals for Thyroid Function tests in . Thyroid, 2019:29:3:412-420. Ronak Travis, et al. 2017 Guidelines of the English Thyroid Association for the Diagnosis and Management of Thyroid Disease during and the . Thyroid, 2017:27:3:315-389. Performed By: #### 3016-3, 1 1572-5, 1988-5, 28013-6 #### [facility] CLIA [id number] [address] [place] [address] [place] ALLERGIES DATE TYPE / CODE NAME / CODE REACTION SEVERITY SOURCE 10/29/2024 Drug Class/889417461( SNOMED CT) SULFA ([facility] Drug Class/[id number]( SNOMED CT) ADHESIVE [facility] ENCOUNTERS ADMIT/DISCHARGE ACCOUNT NUMBER ADMITTING ENCOUNTER CLASS LOCATION SOURCE 10/29/2024/ 5 [id number] Ambulatory [facility] ing:[facility] 05/28/2024/ 4 [id number] Ambulatory Building:[facility] EPIC PAYERS No Payer Records Found
--- NOTE | 2025-04-05 08:59 | MRI_ITS ---
PROCEDURE: MRI ABD WITH AND W/O CONTRAST 04/05/2025 REASON FOR EXAM: ABNORMAL FINDINGS ON DX IMAGING OF LIVER/BILIARY TRACT TECHNIQUE: Procedure Code: MRIABDWW Modality: MR Procedure: MRI ABD WITH AND W/O CONTRAST Multiplanar and multisequence images were obtained. CONTRAST: Clariscan VOLUME: 15 mL COMPARISON: CT abdomen and pelvis with IV contrast, 03/11/2025 FINDINGS: Liver: The 9 x 8 mm nodule in the posterior segment of the right hepatic lobe demonstrates no contrast enhancement, but does not demonstrate water signal on the T2 weighted images and may be proteinaceous fluid. Biliary: The gallbladder intrahepatic ducts and common bile duct appear normal. Pancreas: Normal. Spleen: Normal. Adrenals: Normal. Kidneys: Normal. Peritoneum / Retroperitoneum: No abnormal intra or retroperitoneal masses or fluid collections. Lymph Nodes: There is no significant mesenteric or retroperitoneal lymphadenopathy. Major Vessels: Unremarkable. Bones: No significant abnormality. GI tract: The visualized portion of the gastrointestinal tract appears unremarkable. MRI/MRI Abd WITH and W/O Contrast IMPRESSION: 1. 9 x 8 mm nodule in the posterior segment of the right hepatic lobe does not demonstrate contrast enhancement and has an appearance consistent with proteinaceous fluid. 2. The visualized gastrointestinal tract appears unremarkable. Reading Location: [place] [address]
== END | disposition home or self-care (01) ==
LOC: MRI 08:56
PROVIDERS: PCP Family Medicine; Referring Provider Family Medicine; Visit Provider Family Medicine
DX: R93.2 Abnormal findings on diagnostic imaging of liver and biliary tract (principal)
CPT/HCPCS: 74183; A9575; A4216